=== PATIENT | female | born 1945 | race Caucasian/White ===

== ENCOUNTER 2017-04-06 09:46 | Inpatient (IN) | payer MEDICARE, OTHER, SELFPAY ==
[2017-04-06] VITALS (12 sets, daily range): BP systolic 124–143; BP diastolic 56–73; PULSE 67–93; RESP 16–24; TEMP 36.3–36.9; O2SAT 97–100; BMI 29.2; BMI 28.8
--- NOTE | 2017-04-06 09:54 | RAD_ITS ---
STUDY: X-RAY CHEST REASON FOR EXAM: Female, 71 years old. Cough and shortness of breath. TECHNIQUE: Single AP portable view of the chest. COMPARISON: Comparison is made with prior study dated July 17, 2016. FINDINGS: EKG electrodes are seen. Stable increased linear markings with areas of confluence in the right hemithorax and pleural thickening. This is suggestive of chronic interstitial scarring. Increased markings at the left lung base with blunting of the left costophrenic angle. Normal size heart. Normal mediastinum and dustin. Normal visualized pulmonary arteries. There is atherosclerotic calcification of the aortic arch with tortuosity. Normal visualized thoracic spine. Normal visualized ribs, clavicles, and shoulders. There is no demonstrated abnormality of the visualized soft tissue structures of the upper abdomen. RAD/Chest 1 View (Portable) IMPRESSION: Stable examination suggestive of chronic scarring. Electronically Signed: Charly Barkley MD at 11:42 EST Tel [phone], Service support ,
--- NOTE | 2017-04-06 09:54 | EKG12_ITS ---
Test Reason : Blood Pressure : / mmHG Vent. Rate : 075 BPM Atrial Rate : 078 BPM P-R Int : 000 ms QRS Dur : 136 ms QT Int : 438 ms P-R-T Axes : 000 -21 239 degrees QTc Int : 489 ms Atrial fibrillation Right bundle branch block T wave abnormality, consider inferolateral ischemia Abnormal ECG Confirmed by HIMA GOMES ([id number]), editorial cartoonist GEETA WILDER ([id number]) on 04/07/2017 11:31:27 AM Referred By: SHELBI Confirmed By:HIMA GOMES
--- NOTE | 2017-04-06 10:12 | ED.VISSUMM ---
- ER Visit Summary Date of Service: 04/06/17 Chief Complaint: Shortness of breath with a history of COPD History of Present Illness: The patient is a 71 F COPD history on 3 L nasal cannula O2. Also history of coronary disease one cardiac stent and insulin-dependent diabetic. Patient is on dialysis and was dialyzed earlier today. She is also legally blind. She states she has been short of breath with a cough for the last 11 days. Saw her primary care physician in [place] Dr. Carlson and she was recently on 10 days of antibiotic which she is unsure but thinks it may have been Levaquin. She is currently on no blood thinners and denies chest pain or hemoptysis. But states that she is not getting better. She denies any leg pain or swelling. She has had intermittent fever and chills. She denies vomiting or diarrhea. States she does have a productive cough of yellow phlegm. Physical Examination: Elderly female vital signs are stable afebrile on 2 L she is 98%. She does not seem septic or toxic. HEENT exam unremarkable. Neck nontender no lymphadenopathy. Lungs are very coarse breath sounds with prolonged expiratory phase and rhonchi and a few scattered wheezes. There is no rales. There are equal and symmetrical. Slightly diminished in both bases. Heart is regular rhythm with a 3/6 systolic ejection murmur. Chest wall nontender. Abdomen soft nontender. Normal bowel sounds. She is moving all 4 extremities. She is neurovascularly intact. She has a fistula in her right arm and it is oozing blood. She just had dialysis from that site this morning. Test Results: Chest x-ray shows chronic changes consistent with COPD but no acute process read both by myself the radiologist. EKG is A. fib a rate of 75 with a right bundle branch block which is all seen on a prior EKG. White count of 6. H&H 1136 which is her baseline anemia. BMP shows potassium of 3.2. A creatinine 2.19 she has chronic renal failure and a normal anion gap. Her troponin is normal. Emergency Department Course and Treatment: Patient will undergo cardiac and COPD workup. Possibly could have pneumonia also. She will receive IV steroids and aerosol treatments. Treatment Plan: Repeat exam patient is doing better after aerosols and Solu-Medrol but she does not feel good enough to go home I do think she would warrant further aerosol treatments and steroids in the hospital. I will speak to the hospitalist about admission. The patient I have already discussed this. Disposition: Admission Impression: Acute exacerbation COPD with bronchitis History of coronary artery disease with a cardiac stent. History of insulin-dependent diabetes. End-stage renal disease with history of dialysis. Legally blind This note was generated with [employer] dictation software. It may contain incorrect words, spelling, and punctuation that were not noted in review of the chart prior to signing ED Disposition - Plan for ED Patient: Chief Complaint: Shortness of Breath Referrals: Zeferino Carlson Jr., MD [Primary Care Provider] -
--- NOTE | 2017-04-06 10:16 | ED.DCSUM_ITS ---
- ER Visit Summary Date of Service: 04/06/17 Chief Complaint: Shortness of breath with a history of COPD History of Present Illness: The patient is a 71 F COPD history on 3 L nasal cannula O2. Also history of coronary disease one cardiac stent and insulin- dependent diabetic. Patient is on dialysis and was dialyzed earlier today. She is also legally blind. She states she has been short of breath with a cough for the last 11 days. Saw her primary care physician in [place] Dr. Carlson and she was recently on 10 days of antibiotic which she is unsure but thinks it may have been Levaquin. She is currently on no blood thinners and denies chest pain or hemoptysis. But states that she is not getting better. She denies any leg pain or swelling. She has had intermittent fever and chills. She denies vomiting or diarrhea. States she does have a productive cough of yellow phlegm. Physical Examination: Elderly female vital signs are stable afebrile on 2 L she is 98%. She does not seem septic or toxic. HEENT exam unremarkable. Neck nontender no lymphadenopathy. Lungs are very coarse breath sounds with prolonged expiratory phase and rhonchi and a few scattered wheezes. There is no rales. There are equal and symmetrical. Slightly diminished in both bases. Heart is regular rhythm with a 3/6 systolic ejection murmur. Chest wall nontender. Abdomen soft nontender. Normal bowel sounds. She is moving all 4 extremities. She is neurovascularly intact. She has a fistula in her right arm and it is oozing blood. She just had dialysis from that site this morning. Test Results: Chest x-ray shows chronic changes consistent with COPD but no acute process read both by myself the radiologist. EKG is A. fib a rate of 75 with a right bundle branch block which is all seen on a prior EKG. White count of 6. H&H 1136 which is her baseline anemia. BMP shows potassium of 3.2. A creatinine 2.19 she has chronic renal failure and a normal anion gap. Her troponin is normal. Emergency Department Course and Treatment: Patient will undergo cardiac and COPD workup. Possibly could have pneumonia also. She will receive IV steroids and aerosol treatments. Treatment Plan: Repeat exam patient is doing better after aerosols and Solu- Medrol but she does not feel good enough to go home I do think she would warrant further aerosol treatments and steroids in the hospital. I will speak to the hospitalist about admission. The patient I have already discussed this. Disposition: Admission Impression: Acute exacerbation COPD with bronchitis History of coronary artery disease with a cardiac stent. History of insulin-dependent diabetes. End-stage renal disease with history of dialysis. Legally blind This note was generated with [employer] dictation software. It may contain incorrect words, spelling, and punctuation that were not noted in review of the chart prior to signing ED Disposition - Plan for ED Patient: Chief Complaint: Shortness of Breath Referrals: Zeferino Carlson Jr., MD [Primary Care Provider] -
[2017-04-06] MEDS: Ipratropium/Albuterol Sulfate 3 ML AMPUL.NEB INHALATION ×4 (10:24→23:56)
[2017-04-06] MEDS: Albuterol 2.5 MG/3 ML VIAL.NEB. INHALATION (10:24)
[2017-04-06] MEDS: MethylPREDNISolone 125 MG/2 ML Vial IV (10:36)
[2017-04-06 10:41] LABS: Absolute Lymphocyte Count 1.21 X10^3/ul (0.83-4.51); Basophil# 0.02 X10^3/uL; Basophil% 0.3 % (0-1); Eosinophil# 0.07 X10^3/uL; Hematocrit 36.8 % (37-47); Hemoglobin 11.4 g/dl (12.0-15.0); Lymphocyte # 1.21 X10^3/ul (4.0); Lymphocyte % 17.7 % (19-41); Mean Corpuscular Hgb 32.9 pg (27.0-32.0); Mean Corpuscular Volume 106.1 fL (81-99); Mean Platelet Vol. 10.6 fl (6.2-12.0); Monocyte% 7.3 % (0-10); Neutrophil % 73.4 % (47-70); POSITIVE COUNT NO; POSITIVE DIFFERENTIAL NO; POSITIVE MORPHOLOGY NO; Platelet Count 146 K/mm3 (150-450); RBC Distribution Width CV 14.3 % (11.6-14.6); RBC Distribution Width SD 55.3 fl (35.1-43.9); Red Blood Count 3.47 M/mm3 (4.2-5.4); White Blood Count 6.8 K/mm3 (4.4-11.0)
[2017-04-06 12:13] LABS: Anion Gap 9 (5-15); BUN 14 mg/dL (7-18); BUN/Creat Ratio 6.4 RATIO (10-20); Chloride 96 mmol/L (98-107); Creatinine, Serum 2.19 mg/dL (0.55-1.02); EST Glomerular Filtration Rate 24 mL/min (>60); Est Glom Filt Rate - Afr Amer 29 mL/min (>60); Estimated Creatinine Clearance 24.82 ml/min; Glucose 168 mg/dL (70-110); Potassium 3.2 mmol/L (3.5-5.1); Sodium Level 139 mmol/L (136-145)
--- NOTE | 2017-04-06 12:44 | PCM.HP.STD ---
Problem List (1) COPD with acute exacerbation Status: Acute (2) Legal blindness Status: Chronic (3) Peripheral vascular disease Status: Chronic (4) Diastolic congestive heart failure Status: Chronic Qualifiers: Congestive heart failure chronicity: chronic Qualified Code(s): I50.32 - Chronic diastolic (congestive) heart failure (5) Chronic hypoxemic respiratory failure Status: Chronic (6) Type II diabetes mellitus Status: Chronic Qualifiers: Diabetic retinopathy severity: with unspecified retinopathy severity Diabetes mellitus macular edema: macular edema presence unspecified Diabetes mellitus terminal superintendent insulin use: with shelter use Laterality: bilateral (7) Diabetic retinopathy Status: Chronic Qualifiers: Diabetes mellitus type: type 2 Diabetic retinopathy severity: with unspecified retinopathy severity Diabetes mellitus macular edema: macular edema presence unspecified Laterality: bilateral Qualified Code(s): E11.319 - Type 2 diabetes mellitus with unspecified diabetic retinopathy without macular edema (8) ESRD (end stage renal disease) Status: Chronic Comment: on HD-TUESDAY,TUESDAY,TUESDAY (9) CAD (coronary artery disease) Status: Chronic Qualifiers: Coronary Disease-Associated Artery/Lesion type: unspecified vessel or lesion type Associated angina: with unspecified angina (10) Hypothyroidism Status: Chronic Qualifiers: Hypothyroidism type: unspecified Qualified Code(s): E03.9 - Hypothyroidism, unspecified (11) GERD (gastroesophageal reflux disease) Status: Chronic Qualifiers: Esophagitis presence: without esophagitis Qualified Code(s): K21.9 - Gastro-esophageal reflux disease without esophagitis (12) Sleep apnea Status: Chronic Qualifiers: Sleep apnea type: unspecified type Qualified Code(s): G47.30 - Sleep apnea, unspecified Comment: pt is NOT compliant with CPAP (13) Pulmonary HTN Status: Chronic (14) HLD (hyperlipidemia) Status: Chronic Qualifiers: Hyperlipidemia type: unspecified Qualified Code(s): E78.5 - Hyperlipidemia, unspecified (15) HTN (hypertension) Status: Chronic Qualifiers: Hypertension type: essential hypertension Qualified Code(s): I10 - Essential (primary) hypertension History of Present Illness Date of Admission: 04/06/17 Chief Complaint: SOB ongoing for more than 10 days The patient is a 71 year old F past medical history of chronic respiratory failure secondary to COPD on 3 L home oxygen, who comes in with complaints of shortness of breath ongoing for the past 10 days. Patient has seen her primary care doctor and had been on antibiotics. She still feels very short of breath and says her oxygen saturation dropped at the least amount of weight. She is typically wheelchair bound at home and says oxygen level drops when she is actively folding laundry or sweeping with a broom. Denies any fever or chills but admits to greenish yellowish sputum production. She denies any chest pain or dizziness. Patient had had dialysis today, and came to the ED after dialysis because she felt very unwell. Patient's admitting vitals show temperature of 98F, heart rate was 76, blood pressure was 136/72, respiratory rate was 16, SPO2 is 98% on 2 L of oxygen [] Past Medical History Past Medical History (Chronic Problems): Chronic Problems Chronic ulcer of left foot with fat layer exposed (Chronic) Chronic ulcer of left leg with fat layer exposed (Chronic) Type 2 diabetes mellitus with diabetic neuropathy (Chronic) Ischemic foot ulcer due to atherosclerosis of [place] artery of limb (Chronic) Lumbar compression fracture (Chronic) Atrial fibrillation and flutter (Chronic) NO ON ANTICOAGULATION DUE TO FALL RISK AND NON-COMPLIANCE Legal blindness (Chronic) Poor dental hygiene (Chronic) Peripheral vascular disease (Chronic) Diastolic congestive heart failure (Chronic) Chronic hypoxemic respiratory failure (Chronic) Type II diabetes mellitus (Chronic) Diabetic retinopathy (Chronic) ESRD (end stage renal disease) (Chronic) on HD-TUESDAY,TUESDAY,TUESDAY Restrictive lung disease (Chronic) CAD (coronary artery disease) (Chronic) AV fistula (Chronic) Hypothyroidism (Chronic) GERD (gastroesophageal reflux disease) (Chronic) Sleep apnea (Chronic) pt is NOT compliant with CPAP Pulmonary HTN (Chronic) COPD (chronic obstructive pulmonary disease) (Chronic) Diastolic dysfunction (Chronic) Aortic stenosis, mild (Chronic) Non-compliance (Chronic) S/P PTCA (percutaneous transluminal coronary angioplasty) (Chronic) HLD (hyperlipidemia) (Chronic) HTN (hypertension) (Chronic) Allergies azithromycin [From Zithromax] Allergy (Verified 04/06/17 09:50) Hives Home Medications: Ambulatory Orders Medication Instructions Recorded Levothyroxine [Synthroid] 50 mcg PO DAILY 07/31/13 Omeprazole [Prilosec] 20 mg PO DAILY 07/31/13 Simvastatin [Zocor] 40 mg PO QHS 07/31/13 Folic Acid/Vitamin B Comp W-C 1 capsule PO DAILY 02/20/14 [Nephrocaps, Renaphro] Bumetanide [Bumex] 2 mg PO DAILY 01/28/16 Calcium Acetate [Phoslo Gel Cap] 667 mg PO TIDCM 01/28/16 Loratadine [Claritin] 10 mg PO DAILY PRN 01/28/16 Oxycodone [Oxyir] 5 mg PO Q4H PRN PRN #30 tablet 06/09/16 Insulin Aspart [Novolog Flexpen] 0 units SC TIDCM 09/30/16 Guaifenesin [Mucinex] 600 mg PO BID 04/06/17 Ranitidine HCl 75 mg PO DAILY 04/06/17 Surgical History: adenoidectomy, cholecystectomy, tonsillectomy, - - Right upper fistula repair, right toe amputation, right hip fracture w/ fixation. Psychiatric History: No pertinent psych hx [employer] POLICE OFFICER History: No pertinent SPECIAL POLICE OFFICER history Smoking Status: Never smoker - *Family History Maternal History Items: COPD Paternal History Items: Diabetes, Heart Disease, Hypertension Review of Systems Constitutional: Reports: Weakness. Denies: Anorexia, Chills, Fever, Malaise, Weight Change Eyes: Denies: Blurred vision, Cataracts, Conjunctivae Inflammation HEENT: Denies: Difficulty Hearing, Difficulty Swallowing, Head Aches, Hearing Changes, Sinus Congestion, Sinus Drainage Cardiovascular: Denies: Chest Pain, Chest Pressure, Chest Tightness, Orthopnea, Palpitations, Paroxysmal Noc. Dyspnea, Syncope Respiratory: Reports: Cough, Hemoptysis - occasional, Shortness of Breath, Shortness of breath at rest, Shortness of breath upon exertion. Denies: Sputum production Gastrointestinal: Denies: Abdominal Pain, Constipation, Hematemesis, Nausea, Vomiting Genitourinary: Denies: Dysuria, Frequency Gynecological: Denies: Breast symptoms Musculoskeletal: Denies: Joint Pain, Joint stiffness, Joint swelling, Joint Tenderness Skin: Denies: Dryness, Jaundice, Rash, Wounds Neurological: Denies: Numbness, Tingling, Focal weakness Psychiatric: Denies: Anxiety, Depression, Homicidal Ideations, Suicidal Ideations Endocrine: Denies: Change in Body Habitus, Heat/ Cold Intolerance, Polyuria Hematologic/ Lymphatic: Denies: Easy Bruising, Easy Bleeding VTE Information - Inpt Only VTE Present on Admission: No VTE Pharm Prophylaxis ordered?: Yes Patient Problems: Active and Suspected Problems COPD with acute exacerbation (Acute) - Physical Exam General: Alert, Oriented x3, Cooperative, - - on 2-3 L oxygen HEENT: Atraumatic, PERRLA, EOMI, Normocephalic Oral: Moist Mucosa Neck: Supple Lungs: Normal air movement, Diminished - no wheezes heard Cardiovascular: Regular rate, Regular Rhythm, Normal S1, Normal S2, No murmurs Abdomen: Bowel Sounds Present, Soft, Non Tender, Non-Distended, No Hepato-splenomegaly Extremities: No edema, - - Dressing over the right upper extremity fistula Skin: No rashes Musculoskeletal: No Tenderness to Palpation of Joints or Extremities Lymphatic: No Cervical, Supraclavicular, or Inguinal Adenopathy Neurological: Cranial nerves II-XII grossly intact, Neuro grossly intact Psych/Mental Status: Normal Affect, Appropriate Vital Signs Temp Pulse Resp BP Pulse Ox 98.0 F 82 24 H 124/56 H 97 04/06/17 09:48 04/06/17 11:37 04/06/17 10:24 04/06/17 11:37 04/06/17 11:37 Oxygen Flow Rate 2 Oxygen Delivery Method Nasal Cannula Weight: 65.771 kg Body Mass Index (BMI) 29.2 Finger Stick Blood Glucose 136 Laboratory Tests Past 24 Hrs 04/06/17 04/06/17 04/06/17 10:32 10:32 11:36 WBC 6.8 RBC 3.47 L Hgb 11.4 L Hct 36.8 L MCV 106.1 H MCH 32.9 H MCHC 31.0 L RDW 14.3 RDW Differential 55.3 H Plt Count 146 L MPV 10.6 Immature Gran % (Auto) 0.300 Neut % (Auto) 73.4 H Lymph % (Auto) 17.7 L Mineral % (Auto) 7.3 Eos % (Auto) 1.0 Baso % (Auto) 0.3 Absolute Neuts (auto) 5.0 Absolute Lymphs (auto) 1.21 Total Counted Not Reportable Sodium Cancelled 139 Potassium Cancelled 3.2 L Chloride Cancelled 96 L Carbon Dioxide Cancelled 34.0 H Anion Gap Cancelled 9 BUN Cancelled 14 Creatinine Cancelled 2.19 H Estim Creat Clear Calc Cancelled 24.82 Est GFR (MDRD) Af Amer Cancelled 29 L Est GFR (MDRD) Non-Af Cancelled 24 L BUN/Creatinine Ratio Cancelled 6.4 L Glucose Cancelled 168 H Calcium Cancelled 8.0 L Troponin I Cancelled 0.03 Assessment/Plan Active and Suspected Problems COPD with acute exacerbation (Acute) 71 y/o female with chronic resp insufficiency secondary to COPD, ESRD on HD comes in with worsening shortness of breath. 1. Acute COPD exacerbation in a patient with chronic respiratory insufficiency secondary to COPD, on 3 L of oxygen, Admit toPlan: Admit to MS, telemetry, breathing treatment, IV solumedrol, to continue with po prednisone, continue oxygen per protocol, Patient has recently been on antibiotics so would not recommend continuing on antibiotics 2. ESRD on HD, will consult nephrology for maintenance dialysis 3. Hypokalemia, replaced, recheck in am 4. Hypothyroidism, replacement 5. CAD s/p stent, on aspirin, statin, 6. Hyperlipidemia, on statin 7. DVT PPx - Heparin SC Code Visit OBSV E&M: [id number] Initial observation care L3
--- NOTE | 2017-04-06 12:49 | HP.PCM_ITS ---
Problem List (1) COPD with acute exacerbation Status: Acute (2) Legal blindness Status: Chronic (3) Peripheral vascular disease Status: Chronic (4) Diastolic congestive heart failure Status: Chronic Qualifiers: Congestive heart failure chronicity: chronic Qualified Code(s): I50.32 - Chronic diastolic (congestive) heart failure (5) Chronic hypoxemic respiratory failure Status: Chronic (6) Type II diabetes mellitus Status: Chronic Qualifiers: Diabetic retinopathy severity: with unspecified retinopathy severity Diabetes mellitus macular edema: macular edema presence unspecified Diabetes mellitus long term care phlebotomist insulin use: with longterm use Laterality: bilateral (7) Diabetic retinopathy Status: Chronic Qualifiers: Diabetes mellitus type: type 2 Diabetic retinopathy severity: with unspecified retinopathy severity Diabetes mellitus macular edema: macular edema presence unspecified Laterality: bilateral Qualified Code(s): E11.319 - Type 2 diabetes mellitus with unspecified diabetic retinopathy without macular edema (8) ESRD (end stage renal disease) Status: Chronic Comment: on HD-TUESDAY,TUESDAY,TUESDAY (9) CAD (coronary artery disease) Status: Chronic Qualifiers: Coronary Disease-Associated Artery/Lesion type: unspecified vessel or lesion type Associated angina: with unspecified angina (10) Hypothyroidism Status: Chronic Qualifiers: Hypothyroidism type: unspecified Qualified Code(s): E03.9 - Hypothyroidism , unspecified (11) GERD (gastroesophageal reflux disease) Status: Chronic Qualifiers: Esophagitis presence: without esophagitis Qualified Code(s): K21.9 - Gastro -esophageal reflux disease without esophagitis (12) Sleep apnea Status: Chronic Qualifiers: Sleep apnea type: unspecified type Qualified Code(s): G47.30 - Sleep apnea , unspecified Comment: pt is NOT compliant with CPAP (13) Pulmonary HTN Status: Chronic (14) HLD (hyperlipidemia) Status: Chronic Qualifiers: Hyperlipidemia type: unspecified Qualified Code(s): E78.5 - Hyperlipidemia , unspecified (15) HTN (hypertension) Status: Chronic Qualifiers: Hypertension type: essential hypertension Qualified Code(s): I10 - Essential (primary) hypertension History of Present Illness Date of Admission: 04/06/17 Chief Complaint: SOB ongoing for more than 10 days The patient is a 71 year old F past medical history of chronic respiratory failure secondary to COPD on 3 L home oxygen, who comes in with complaints of shortness of breath ongoing for the past 10 days. Patient has seen her primary care doctor and had been on antibiotics. She still feels very short of breath and says her oxygen saturation dropped at the least amount of weight. She is typically wheelchair bound at home and says oxygen level drops when she is actively folding laundry or sweeping with a broom. Denies any fever or chills but admits to greenish yellowish sputum production. She denies any chest pain or dizziness. Patient had had dialysis today, and came to the ED after dialysis because she felt very unwell. Patient's admitting vitals show temperature of 98F, heart rate was 76, blood pressure was 136/72, respiratory rate was 16, SPO2 is 98% on 2 L of oxygen [] Past Medical History Past Medical History (Chronic Problems): Chronic Problems Chronic ulcer of left foot with fat layer exposed (Chronic) Chronic ulcer of left leg with fat layer exposed (Chronic) Type 2 diabetes mellitus with diabetic neuropathy (Chronic) Ischemic foot ulcer due to atherosclerosis of [place] artery of limb (Chronic) Lumbar compression fracture (Chronic) Atrial fibrillation and flutter (Chronic) NO ON ANTICOAGULATION DUE TO FALL RISK AND NON-COMPLIANCE Legal blindness (Chronic) Poor dental hygiene (Chronic) Peripheral vascular disease (Chronic) Diastolic congestive heart failure (Chronic) Chronic hypoxemic respiratory failure (Chronic) Type II diabetes mellitus (Chronic) Diabetic retinopathy (Chronic) ESRD (end stage renal disease) (Chronic) on HD-TUESDAY,TUESDAY,TUESDAY Restrictive lung disease (Chronic) CAD (coronary artery disease) (Chronic) AV fistula (Chronic) Hypothyroidism (Chronic) GERD (gastroesophageal reflux disease) (Chronic) Sleep apnea (Chronic) pt is NOT compliant with CPAP Pulmonary HTN (Chronic) COPD (chronic obstructive pulmonary disease) (Chronic) Diastolic dysfunction (Chronic) Aortic stenosis, mild (Chronic) Non-compliance (Chronic) S/P PTCA (percutaneous transluminal coronary angioplasty) (Chronic) HLD (hyperlipidemia) (Chronic) HTN (hypertension) (Chronic) Allergies azithromycin [From Zithromax] Allergy (Verified 04/06/17 09:50) Hives Home Medications: Ambulatory Orders Medication Instructions Recorded Levothyroxine [Synthroid] 50 mcg PO DAILY 07/31/13 Omeprazole [Prilosec] 20 mg PO DAILY 07/31/13 Simvastatin [Zocor] 40 mg PO QHS 07/31/13 Folic Acid/Vitamin B Comp W-C 1 capsule PO DAILY 02/20/14 [Nephrocaps, Renaphro] Bumetanide [Bumex] 2 mg PO DAILY 01/28/16 Calcium Acetate [Phoslo Gel Cap] 667 mg PO TIDCM 01/28/16 Loratadine [Claritin] 10 mg PO DAILY PRN 01/28/16 Oxycodone [Oxyir] 5 mg PO Q4H PRN PRN #30 tablet 06/09/16 Insulin Aspart [Novolog Flexpen] 0 units SC TIDCM 09/30/16 Guaifenesin [Mucinex] 600 mg PO BID 04/06/17 Ranitidine HCl 75 mg PO DAILY 04/06/17 Surgical History: adenoidectomy, cholecystectomy, tonsillectomy, - - Right upper fistula repair, right toe amputation, right hip fracture w/ fixation. Psychiatric History: No pertinent psych hx RESIDENTIAL DOOR INSTALLER History: No pertinent RESIDENTIAL DOOR INSTALLER history Smoking Status: Never smoker - *Family History Maternal History Items: COPD Paternal History Items: Diabetes, Heart Disease, Hypertension Review of Systems Constitutional: Reports: Weakness. Denies: Anorexia, Chills, Fever, Malaise, Weight Change Eyes: Denies: Blurred vision, Cataracts, Conjunctivae Inflammation HEENT: Denies: Difficulty Hearing, Difficulty Swallowing, Head Aches, Hearing Changes, Sinus Congestion, Sinus Drainage Cardiovascular: Denies: Chest Pain, Chest Pressure, Chest Tightness, Orthopnea, Palpitations, Paroxysmal Noc. Dyspnea, Syncope Respiratory: Reports: Cough, Hemoptysis - occasional, Shortness of Breath, Shortness of breath at rest, Shortness of breath upon exertion. Denies: Sputum production Gastrointestinal: Denies: Abdominal Pain, Constipation, Hematemesis, Nausea, Vomiting Genitourinary: Denies: Dysuria, Frequency Gynecological: Denies: Breast symptoms Musculoskeletal: Denies: Joint Pain, Joint stiffness, Joint swelling, Joint Tenderness Skin: Denies: Dryness, Jaundice, Rash, Wounds Neurological: Denies: Numbness, Tingling, Focal weakness Psychiatric: Denies: Anxiety, Depression, Homicidal Ideations, Suicidal Ideations Endocrine: Denies: Change in Body Habitus, Heat/ Cold Intolerance, Polyuria Hematologic/ Lymphatic: Denies: Easy Bruising, Easy Bleeding VTE Information - Inpt Only VTE Present on Admission: No VTE Pharm Prophylaxis ordered?: Yes Patient Problems: Active and Suspected Problems COPD with acute exacerbation (Acute) - Physical Exam General: Alert, Oriented x3, Cooperative, - - on 2-3 L oxygen HEENT: Atraumatic, PERRLA, EOMI, Normocephalic Oral: Moist Mucosa Neck: Supple Lungs: Normal air movement, Diminished - no wheezes heard Cardiovascular: Regular rate, Regular Rhythm, Normal S1, Normal S2, No murmurs Abdomen: Bowel Sounds Present, Soft, Non Tender, Non-Distended, No Hepato- splenomegaly Extremities: No edema, - - Dressing over the right upper extremity fistula Skin: No rashes Musculoskeletal: No Tenderness to Palpation of Joints or Extremities Lymphatic: No Cervical, Supraclavicular, or Inguinal Adenopathy Neurological: Cranial nerves II-XII grossly intact, Neuro grossly intact Psych/Mental Status: Normal Affect, Appropriate Vital Signs Temp Pulse Resp BP Pulse Ox 98.0 F 82 24 H 124/56 H 97 04/06/17 09:48 04/06/17 11:37 04/06/17 10:24 04/06/17 11:37 04/06/17 11:37 Oxygen Flow Rate 2 Oxygen Delivery Method Nasal Cannula Weight: 65.771 kg Body Mass Index (BMI) 29.2 Finger Stick Blood Glucose 136 Laboratory Tests Past 24 Hrs 04/06/17 04/06/17 04/06/17 10:32 10:32 11:36 WBC 6.8 RBC 3.47 L Hgb 11.4 L Hct 36.8 L MCV 106.1 H MCH 32.9 H MCHC 31.0 L RDW 14.3 RDW Differential 55.3 H Plt Count 146 L MPV 10.6 Immature Gran % (Auto) 0.300 Neut % (Auto) 73.4 H Lymph % (Auto) 17.7 L [place] % (Auto) 7.3 Eos % (Auto) 1.0 Baso % (Auto) 0.3 Absolute Neuts (auto) 5.0 Absolute Lymphs (auto) 1.21 Total Counted Not Reportable Sodium Cancelled 139 Potassium Cancelled 3.2 L Chloride Cancelled 96 L Carbon Dioxide Cancelled 34.0 H Anion Gap Cancelled 9 BUN Cancelled 14 Creatinine Cancelled 2.19 H Estim Creat Clear Calc Cancelled 24.82 Est GFR (MDRD) Af Amer Cancelled 29 L Est GFR (MDRD) Non-Af Cancelled 24 L BUN/Creatinine Ratio Cancelled 6.4 L Glucose Cancelled 168 H Calcium Cancelled 8.0 L Troponin I Cancelled 0.03 Assessment/Plan Active and Suspected Problems COPD with acute exacerbation (Acute) 71 y/o female with chronic resp insufficiency secondary to COPD, ESRD on HD comes in with worsening shortness of breath. 1. Acute COPD exacerbation in a patient with chronic respiratory insufficiency secondary to COPD, on 3 L of oxygen, Admit toPlan: Admit to MS, telemetry, breathing treatment, IV solumedrol, to continue with po prednisone, continue oxygen per protocol, Patient has recently been on antibiotics so would not recommend continuing on antibiotics 2. ESRD on HD, will consult nephrology for maintenance dialysis 3. Hypokalemia, replaced, recheck in am 4. Hypothyroidism, replacement 5. CAD s/p stent, on aspirin, statin, 6. Hyperlipidemia, on statin 7. DVT PPx - Heparin SC Code Visit OBSV E&M: [id number] Initial observation care L3
[2017-04-06] MEDS: Nepro Liquid 120 ML LIQUID PO (18:47)
[2017-04-06 19:01] LABS: Bedside Glucose 422 mg/dL (70-110)
[2017-04-06] MEDS: 0.9% NaCl Peripheral Flush Adult/Peds IV (20:23)
[2017-04-06] MEDS: Heparin Injection 5,000 UNITS/ML Syringe 5000 UNITS SC (22:30)
[2017-04-06] MEDS: guaiFENesin 1,200 MG Tablet 1200 MG PO (22:31)
[2017-04-06] MEDS: Atorvastatin Calcium 20 MG Tablet PO (22:31)
[2017-04-06] MEDS: Senna/Docusate Sodium 1 Tablet 2 TABLET PO (22:34)
[2017-04-06 22:46] LABS: Bedside Glucose 464 mg/dL (70-110)
[2017-04-06] MEDS: Ondansetron ODT 4 MG Tablet 8 MG PO (22:57)
[2017-04-07] VITALS (17 sets, daily range): BP systolic 123–154; BP diastolic 63–88; PULSE 72–89; RESP 18–22; TEMP 36.3–36.6; O2SAT 94–100
[2017-04-07 02:25] LABS: Bedside Glucose 298 mg/dL (70-110)
[2017-04-07] MEDS: Ipratropium/Albuterol Sulfate 3 ML AMPUL.NEB INHALATION ×6 (04:00→23:23)
[2017-04-07] MEDS: Levothyroxine 50 MCG Tablet PO (06:44)
[2017-04-07] MEDS: 0.9% NaCl Peripheral Flush Adult/Peds IV ×4 (06:44→22:01)
[2017-04-07] MEDS: Pantoprazole Sodium 20 MG Tablet PO (06:47)
[2017-04-07 06:52] LABS: Absolute Lymphocyte Count 0.52 X10^3/ul (0.83-4.51); Absolute Neutrophil Count 4.5 X10^3/uL (2.0-7.7); Hematocrit 37.2 % (37-47); Hemoglobin 11.5 g/dl (12.0-15.0); Lymphocyte # 0.52 X10^3/ul (4.0); Lymphocyte % 10.2 % (19-41); Mean Corp Hgb Conc 30.9 g/gl (32-36); Mean Corpuscular Volume 106.6 fL (81-99); Mean Platelet Vol. 10.8 fl (6.2-12.0); Monocyte# 0.12 X10^3/uL; Monocyte% 2.4 % (0-10); Neutrophil # 4.45 X10^3/uL (2.7-7.7); Neutrophil % 87.4 % (47-70); Platelet Count 148 K/mm3 (150-450); RBC Distribution Width CV 14.4 % (11.6-14.6); RBC Distribution Width SD 55.3 fl (35.1-43.9); Red Blood Count 3.49 M/mm3 (4.2-5.4); White Blood Count 5.1 K/mm3 (4.4-11.0)
[2017-04-07 07:01] LABS: Bedside Glucose 166 mg/dL (70-110)
[2017-04-07 07:02] LABS: Differential Indicated SCAN CRITERIA MET; POSITIVE COUNT NO; POSITIVE DIFFERENTIAL YES; POSITIVE MORPHOLOGY NO
[2017-04-07 07:20] LABS: Differential Comment SCANNED
[2017-04-07 08:20] LABS: Hemoglobin A1c 7.2 % (4.2-6.3)
[2017-04-07] MEDS: Folic Acid/Vitamin B Comp W-C 1 Capsule 1 CAP PO (10:42)
[2017-04-07] MEDS: Aspirin 81 MG TAB.CHEW PO (10:42)
[2017-04-07] MEDS: Heparin Injection 5,000 UNITS/ML Syringe 5000 UNITS SC ×2 (10:43→22:02)
[2017-04-07] MEDS: Calcium Acetate 667 MG Capsule PO ×3 (10:43→16:45)
[2017-04-07] MEDS: Bumetanide 2 MG Tablet PO (10:45)
[2017-04-07] MEDS: guaiFENesin 1,200 MG Tablet 1200 MG PO ×2 (10:46→22:01)
[2017-04-07] MEDS: Senna/Docusate Sodium 1 Tablet 2 TABLET PO ×2 (10:46→22:01)
[2017-04-07] MEDS: Nepro Liquid 120 ML LIQUID PO ×4 (10:50→22:00)
[2017-04-07 11:16] LABS: Bedside Glucose 210 mg/dL (70-110)
--- NOTE | 2017-04-07 12:09 | PCM.CONS.R ---
Problem List (1) ESRD (end stage renal disease) Status: Acute Consultation - Renal 04/07/17 PCP/ Referring MD: Requesting physician: Dr Dejesus Primary care physician: Zeferino Carlson Reason for Consultation:: ESRD - History of Present Illness History of Present Illness: The patient is a 71 year old F well known to us ESRD on HD MWF schedule, last HD was yesterday had URI for last 10 days, got abx with no significant improvement currently being treated for COPD exacerbation feels better today - Allergies Allergies: Allergies azithromycin [From Zithromax] Allergy (Verified 04/06/17 09:50) Hives - Current Medications Current Medications: Current Medications Albuterol Sulfate (Ventolin Aerosols) 2.5 mg INHALATION Q2H PRN PRN PRN Reason: SHORTNESS OF BREATH Albuterol/Ipratropium (Duoneb) 3 ml INHALATION Q4H.RT [facility] Last Admin: 04/07/17 10:53 Dose: 3 ml Aspirin (Aspirin, Baby) 81 mg PO DAILY@0800 [facility] [place] Last Admin: 04/07/17 10:42 Dose: 81 mg Atorvastatin Calcium (Lipitor) 20 mg PO QHS [facility] [place] Last Admin: 04/06/17 22:31 Dose: 20 mg Bumetanide (Bumex) 2 mg PO DAILY [facility] Last Admin: 04/07/17 10:45 Dose: 2 mg Calcium Acetate (Phoslo Gel Cap) 667 mg PO TIDCM [facility] Last Admin: 04/07/17 11:07 Dose: 667 mg Dextrose (D50w Syringe) 0 gm IV X1 PRN; Protocol PRN Reason: Hypoglycemia Glucagon () 1 mg IM .X1 PRN PRN Reason: Hypoglycemia Guaifenesin (Mucinex) 1,200 mg PO BID [facility] Last Admin: 04/07/17 10:46 Dose: 1,200 mg Heparin Sodium (Porcine) () 5,000 units SC BID [facility] Last Admin: 04/07/17 10:43 Dose: 5,000 units Insulin Aspart (Novolog Flexpen (Bkc)) 0 units SC ACHS [facility] PRN Reason: Protocol Last Admin: 04/07/17 10:46 Dose: 6 units Insulin Detemir (Levemir (Bkc)) 15 units SC BID [facility] Last Admin: 04/07/17 10:46 Dose: 15 units Levothyroxine Sodium (Synthroid) 50 mcg PO DAILY@0600 [facility] [place] Last Admin: 04/07/17 06:44 Dose: 50 mcg Loratadine (Claritin) 10 mg PO DAILY PRN PRN Reason: ALLERGIES Magnesium Hydroxide (Milk Of Magnesia) 30 ml PO DAILY PRN PRN PRN Reason: Constipation Methylprednisolone (Solu-Medrol) 40 mg IV Q8 [facility] Stop: 04/07/17 22:01 Last Admin: 04/07/17 06:44 Dose: 40 mg Multivit/Ca Carb/B Cmplx/FA/Prenat (Nephrocaps, Renaphro) 1 capsule PO DAILYCM [facility] [place] Last Admin: 04/07/17 10:42 Dose: 1 capsule Nutritional Formula (Nepro Carb Steady) 120 ml PO 4X/DAY [facility] [place] Last Admin: 04/07/17 10:50 Dose: 120 ml Ondansetron HCl (Zofran) 4 mg IV Q8H PRN PRN PRN Reason: Nausea Ondansetron HCl (Zofran Odt) 8 mg PO Q8H PRN PRN PRN Reason: nausea, emesis Last Admin: 04/06/17 22:57 Dose: 8 mg Oxycodone HCl (Oxyir) 5 mg PO Q4H PRN PRN PRN Reason: Moderate Pain (pain scale 4-5) Pantoprazole Sodium (Protonix) 20 mg PO DAILY [facility] [place] Last Admin: 04/07/17 06:47 Dose: 20 mg Prednisone (Prednisone) 40 mg PO DAILY@0800 [facility] Psyllium Hydrophilic Mucilloid (Metamucil) 1 packet PO DAILY PRN PRN PRN Reason: CONSTIPATION Senna/Docusate Sodium (Senokot-S, Nati-Colace) 2 tablet PO BID [facility] [place] Last Admin: 04/07/17 10:46 Dose: 2 tablet Sodium Chloride () 5 - 30 ml IV UD PRN PRN Reason: SALINE FLUSH Last Admin: 04/07/17 06:44 Dose: 10 ml - Past Medical History Past Medical History (Chronic Problems): Chronic Problems Chronic ulcer of left foot with fat layer exposed (Chronic) Chronic ulcer of left leg with fat layer exposed (Chronic) Type 2 diabetes mellitus with diabetic neuropathy (Chronic) Ischemic foot ulcer due to atherosclerosis of [place] artery of limb (Chronic) Lumbar compression fracture (Chronic) Atrial fibrillation and flutter (Chronic) NO ON ANTICOAGULATION DUE TO FALL RISK AND NON-COMPLIANCE Legal blindness (Chronic) Poor dental hygiene (Chronic) Peripheral vascular disease (Chronic) Diastolic congestive heart failure (Chronic) Chronic hypoxemic respiratory failure (Chronic) Type II diabetes mellitus (Chronic) Diabetic retinopathy (Chronic) ESRD (end stage renal disease) (Chronic) on HD-TUESDAY,TUESDAY,TUESDAY Restrictive lung disease (Chronic) CAD (coronary artery disease) (Chronic) AV fistula (Chronic) Hypothyroidism (Chronic) GERD (gastroesophageal reflux disease) (Chronic) Sleep apnea (Chronic) pt is NOT compliant with CPAP Pulmonary HTN (Chronic) COPD (chronic obstructive pulmonary disease) (Chronic) Diastolic dysfunction (Chronic) Aortic stenosis, mild (Chronic) Non-compliance (Chronic) S/P PTCA (percutaneous transluminal coronary angioplasty) (Chronic) HLD (hyperlipidemia) (Chronic) HTN (hypertension) (Chronic) - Past Surgical History Surgical History: adenoidectomy, cholecystectomy, tonsillectomy, - - Right upper fistula repair, right toe amputation, right hip fracture w/ fixation. - Social History Smoking Status: Never smoker - Family History Maternal History Items: COPD Paternal History Items: Diabetes, Heart Disease, Hypertension Review of Systems Constitutional: Denies: Chills, Fever, Weight Change HEENT: Denies: Head Aches, Sinus Congestion, Sinus Drainage Cardiovascular: Denies: Chest Pain, Palpitations Respiratory: Denies: Cough, Shortness of breath at rest, Sputum production Gastrointestinal: Denies: Abdominal Pain, Nausea, Vomiting Genitourinary: Denies: Dysuria Musculoskeletal: Denies: Joint Pain, Joint Tenderness Skin: Denies: Rash, Wounds Neurological: Denies: Numbness, Tingling, Focal weakness Psychiatric: Denies: Anxiety, Depression, Homicidal Ideations, Suicidal Ideations Hematologic/ Lymphatic: Denies: Easy Bruising, Easy Bleeding Patient Problems: Active and Suspected Problems COPD with acute exacerbation (Acute) ESRD (end stage renal disease) (Acute) - Physical Exam Vital Signs Temp Pulse Resp BP Pulse Ox 97.4 F L 76 20 H 154/83 H 99 04/07/17 10:30 04/07/17 10:53 04/07/17 10:53 04/07/17 10:30 04/07/17 10:30 Oxygen Flow Rate 3 Oxygen Delivery Method Nasal Cannula Weight: 65.1 kg Body Mass Index (BMI) 28.8 Intake and Output for Last 24 Hours 04/05/17 04/06/17 04/07/17 23:59 23:59 23:59 Intake Total 190 / 190 Balance 190 / 190 Laboratory Tests Past 24 Hrs 04/07/17 04/07/17 06:10 06:10 WBC 5.1 RBC 3.49 L Hgb 11.5 L Hct 37.2 MCV 106.6 H MCH 33.0 H MCHC 30.9 L RDW 14.4 RDW Differential 55.3 H Plt Count 148 L MPV 10.8 Immature Gran % (Auto) 0.000 Neut % (Auto) 87.4 H Lymph % (Auto) 10.2 L [place] % (Auto) 2.4 Eos % (Auto) 0.0 Baso % (Auto) 0.0 Absolute Neuts (auto) 4.5 Absolute Lymphs (auto) 0.52 L Total Counted Not Reportable Differential Comment SCANNED Hemoglobin A1c 7.2 H POC Glucose 04/07/17 04/07/17 04/07/17 10:41 06:41 02:10 POC Glucose 210 H 166 H 298 H 04/06/17 04/06/17 22:27 18:54 POC Glucose 464 H* 422 H Assessment/Plan Active and Suspected Problems COPD with acute exacerbation (Acute) ESRD (end stage renal disease) (Acute) ESRD. on HD MWF schedule. Next HD tomorrow Dyspnea. likely related to URI. CXR looks ok, no fluid, treatment as per primary
--- NOTE | 2017-04-07 12:12 | CON.PCM_ITS ---
Problem List (1) ESRD (end stage renal disease) Status: Acute Consultation - Renal 04/07/17 PCP/ Referring MD: Requesting physician: Dr Dejesus Primary care physician: Zeferino Carlson Reason for Consultation:: ESRD - History of Present Illness History of Present Illness: The patient is a 71 year old F well known to us ESRD on HD MWF schedule, last HD was yesterday had URI for last 10 days, got abx with no significant improvement currently being treated for COPD exacerbation feels better today - Allergies Allergies: Allergies azithromycin [From Zithromax] Allergy (Verified 04/06/17 09:50) Hives - Current Medications Current Medications: Current Medications Albuterol Sulfate (Ventolin Aerosols) 2.5 mg INHALATION Q2H PRN PRN PRN Reason: SHORTNESS OF BREATH Albuterol/Ipratropium (Duoneb) 3 ml INHALATION Q4H.RT [facility] Last Admin: 04/07/17 10:53 Dose: 3 ml Aspirin (Aspirin, Baby) 81 mg PO DAILY@0800 [facility] Last Admin: 04/07/17 10:42 Dose: 81 mg Atorvastatin Calcium (Lipitor) 20 mg PO QHS [facility] Last Admin: 04/06/17 22:31 Dose: 20 mg Bumetanide (Bumex) 2 mg PO DAILY [facility] Last Admin: 04/07/17 10:45 Dose: 2 mg Calcium Acetate (Phoslo Gel Cap) 667 mg PO TIDCM [facility] Last Admin: 04/07/17 11:07 Dose: 667 mg Dextrose (D50w Syringe) 0 gm IV X1 PRN; Protocol PRN Reason: Hypoglycemia Glucagon () 1 mg IM .X1 PRN PRN Reason: Hypoglycemia Guaifenesin (Mucinex) 1,200 mg PO BID [facility] Last Admin: 04/07/17 10:46 Dose: 1,200 mg Heparin Sodium (Porcine) () 5,000 units SC BID [facility] Last Admin: 04/07/17 10:43 Dose: 5,000 units Insulin Aspart (Novolog Flexpen (Bkc)) 0 units SC ACHS [facility] PRN Reason: Protocol Last Admin: 04/07/17 10:46 Dose: 6 units Insulin Detemir (Levemir (Bkc)) 15 units SC BID [facility] Last Admin: 04/07/17 10:46 Dose: 15 units Levothyroxine Sodium (Synthroid) 50 mcg PO DAILY@0600 [facility] Last Admin: 04/07/17 06:44 Dose: 50 mcg Loratadine (Claritin) 10 mg PO DAILY PRN PRN Reason: ALLERGIES Magnesium Hydroxide (Milk Of Magnesia) 30 ml PO DAILY PRN PRN PRN Reason: Constipation Methylprednisolone (Solu-Medrol) 40 mg IV Q8 [facility] Stop: 04/07/17 22:01 Last Admin: 04/07/17 06:44 Dose: 40 mg Multivit/Ca Carb/B Cmplx/FA/Prenat (Nephrocaps, Renaphro) 1 capsule PO DAILYCM [facility] Last Admin: 04/07/17 10:42 Dose: 1 capsule Nutritional Formula (Nepro Carb Steady) 120 ml PO 4X/DAY [facility] Last Admin: 04/07/17 10:50 Dose: 120 ml Ondansetron HCl (Zofran) 4 mg IV Q8H PRN PRN PRN Reason: Nausea Ondansetron HCl (Zofran Odt) 8 mg PO Q8H PRN PRN PRN Reason: nausea, emesis Last Admin: 04/06/17 22:57 Dose: 8 mg Oxycodone HCl (Oxyir) 5 mg PO Q4H PRN PRN PRN Reason: Moderate Pain (pain scale 4-5) Pantoprazole Sodium (Protonix) 20 mg PO DAILY [facility] Last Admin: 04/07/17 06:47 Dose: 20 mg Prednisone (Prednisone) 40 mg PO DAILY@0800 [facility] Psyllium Hydrophilic Mucilloid (Metamucil) 1 packet PO DAILY PRN PRN PRN Reason: CONSTIPATION Senna/Docusate Sodium (Senokot-S, Nati-Colace) 2 tablet PO BID [facility] Last Admin: 04/07/17 10:46 Dose: 2 tablet Sodium Chloride () 5 - 30 ml IV UD PRN PRN Reason: SALINE FLUSH Last Admin: 04/07/17 06:44 Dose: 10 ml - Past Medical History Past Medical History (Chronic Problems): Chronic Problems Chronic ulcer of left foot with fat layer exposed (Chronic) Chronic ulcer of left leg with fat layer exposed (Chronic) Type 2 diabetes mellitus with diabetic neuropathy (Chronic) Ischemic foot ulcer due to atherosclerosis of [place] artery of limb (Chronic) Lumbar compression fracture (Chronic) Atrial fibrillation and flutter (Chronic) NO ON ANTICOAGULATION DUE TO FALL RISK AND NON-COMPLIANCE Legal blindness (Chronic) Poor dental hygiene (Chronic) Peripheral vascular disease (Chronic) Diastolic congestive heart failure (Chronic) Chronic hypoxemic respiratory failure (Chronic) Type II diabetes mellitus (Chronic) Diabetic retinopathy (Chronic) ESRD (end stage renal disease) (Chronic) on HD-TUESDAY,TUESDAY,TUESDAY Restrictive lung disease (Chronic) CAD (coronary artery disease) (Chronic) AV fistula (Chronic) Hypothyroidism (Chronic) GERD (gastroesophageal reflux disease) (Chronic) Sleep apnea (Chronic) pt is NOT compliant with CPAP Pulmonary HTN (Chronic) COPD (chronic obstructive pulmonary disease) (Chronic) Diastolic dysfunction (Chronic) Aortic stenosis, mild (Chronic) Non-compliance (Chronic) S/P PTCA (percutaneous transluminal coronary angioplasty) (Chronic) HLD (hyperlipidemia) (Chronic) HTN (hypertension) (Chronic) - Past Surgical History Surgical History: adenoidectomy, cholecystectomy, tonsillectomy, - - Right upper fistula repair, right toe amputation, right hip fracture w/ fixation. - Social History Smoking Status: Never smoker - Family History Maternal History Items: COPD Paternal History Items: Diabetes, Heart Disease, Hypertension Review of Systems Constitutional: Denies: Chills, Fever, Weight Change HEENT: Denies: Head Aches, Sinus Congestion, Sinus Drainage Cardiovascular: Denies: Chest Pain, Palpitations Respiratory: Denies: Cough, Shortness of breath at rest, Sputum production Gastrointestinal: Denies: Abdominal Pain, Nausea, Vomiting Genitourinary: Denies: Dysuria Musculoskeletal: Denies: Joint Pain, Joint Tenderness Skin: Denies: Rash, Wounds Neurological: Denies: Numbness, Tingling, Focal weakness Psychiatric: Denies: Anxiety, Depression, Homicidal Ideations, Suicidal Ideations Hematologic/ Lymphatic: Denies: Easy Bruising, Easy Bleeding Patient Problems: Active and Suspected Problems COPD with acute exacerbation (Acute) ESRD (end stage renal disease) (Acute) - Physical Exam Vital Signs Temp Pulse Resp BP Pulse Ox 97.4 F L 76 20 H 154/83 H 99 04/07/17 10:30 04/07/17 10:53 04/07/17 10:53 04/07/17 10:30 04/07/17 10:30 Oxygen Flow Rate 3 Oxygen Delivery Method Nasal Cannula Weight: 65.1 kg Body Mass Index (BMI) 28.8 Intake and Output for Last 24 Hours 04/05/17 04/06/17 04/07/17 23:59 23:59 23:59 Intake Total 190 / 190 Balance 190 / 190 Laboratory Tests Past 24 Hrs 04/07/17 04/07/17 06:10 06:10 WBC 5.1 RBC 3.49 L Hgb 11.5 L Hct 37.2 MCV 106.6 H MCH 33.0 H MCHC 30.9 L RDW 14.4 RDW Differential 55.3 H Plt Count 148 L MPV 10.8 Immature Gran % (Auto) 0.000 Neut % (Auto) 87.4 H Lymph % (Auto) 10.2 L [place] % (Auto) 2.4 Eos % (Auto) 0.0 Baso % (Auto) 0.0 Absolute Neuts (auto) 4.5 Absolute Lymphs (auto) 0.52 L Total Counted Not Reportable Differential Comment SCANNED Hemoglobin A1c 7.2 H POC Glucose 04/07/17 04/07/17 04/07/17 10:41 06:41 02:10 POC Glucose 210 H 166 H 298 H 04/06/17 04/06/17 22:27 18:54 POC Glucose 464 H* 422 H Assessment/Plan Active and Suspected Problems COPD with acute exacerbation (Acute) ESRD (end stage renal disease) (Acute) ESRD. on HD MWF schedule. Next HD tomorrow Dyspnea. likely related to URI. CXR looks ok, no fluid, treatment as per primary
--- NOTE | 2017-04-07 14:53 | PCM.PN.HOSP ---
Patient Problems: Active and Suspected Problems COPD with acute exacerbation (Acute) ESRD (end stage renal disease) (Acute) Subjective: Patient was seen and examined. Complains of severe heartburn. Denies any worsening shortness of breath. On 2 L of oxygen. Patient is reluctant to be discharged home today. Francisco be dialyzed tomorrow and will be discharged. Vitals/I&O's: Vital Signs Temp Pulse Resp BP Pulse Ox 97.4 F L 76 20 H 154/83 H 99 04/07/17 10:30 04/07/17 10:53 04/07/17 10:53 04/07/17 10:30 04/07/17 10:30 Current Medications Albuterol Sulfate (Ventolin Aerosols) 2.5 mg INHALATION Q2H PRN PRN PRN Reason: SHORTNESS OF BREATH Albuterol/Ipratropium (Duoneb) 3 ml INHALATION Q4H.RT [facility] Stop: 04/12/17 12:31 Albuterol/Ipratropium (Duoneb) 3 ml INHALATION Q4H PRN PRN PRN Reason: SOB &/OR WHEEZING Aspirin (Aspirin, Baby) 81 mg PO DAILY@0800 [facility] Last Admin: 04/07/17 10:42 Dose: 81 mg Atorvastatin Calcium (Lipitor) 20 mg PO QHS [facility] Last Admin: 04/06/17 22:31 Dose: 20 mg Bumetanide (Bumex) 2 mg PO DAILY [facility] Last Admin: 04/07/17 10:45 Dose: 2 mg Calcium Acetate (Phoslo Gel Cap) 667 mg PO TIDCM [facility] Last Admin: 04/07/17 11:07 Dose: 667 mg Dextrose (D50w Syringe) 0 gm IV X1 PRN; Protocol PRN Reason: Hypoglycemia Glucagon () 1 mg IM .X1 PRN PRN Reason: Hypoglycemia Guaifenesin (Mucinex) 1,200 mg PO BID [facility] Last Admin: 04/07/17 10:46 Dose: 1,200 mg Heparin Sodium (Porcine) () 5,000 units SC BID [facility] Last Admin: 04/07/17 10:43 Dose: 5,000 units Insulin Aspart (Novolog Flexpen (Bkc)) 0 units SC ACHS [facility] PRN Reason: Protocol Last Admin: 04/07/17 10:46 Dose: 6 units Insulin Detemir (Levemir (Bk)) 15 units SC BID [facility] Last Admin: 04/07/17 10:46 Dose: 15 units Levothyroxine Sodium (Synthroid) 50 mcg PO DAILY@0600 [facility] Last Admin: 04/07/17 06:44 Dose: 50 mcg Loratadine (Claritin) 10 mg PO DAILY PRN PRN Reason: ALLERGIES Magnesium Hydroxide (Milk Of Magnesia) 30 ml PO DAILY PRN PRN PRN Reason: Constipation Methylprednisolone (Solu-Medrol) 40 mg IV Q8 [facility] Stop: 04/07/17 22:01 Last Admin: 04/07/17 14:25 Dose: 40 mg Multivit/Ca Carb/B Cmplx/FA/Prenat (Nephrocaps, Renaphro) 1 capsule PO DAILYCM [facility] Last Admin: 04/07/17 10:42 Dose: 1 capsule Nutritional Formula (Nepro Carb Steady) 120 ml PO 4X/DAY [facility] Last Admin: 04/07/17 14:25 Dose: 120 ml Ondansetron HCl (Zofran) 4 mg IV Q8H PRN PRN PRN Reason: Nausea Ondansetron HCl (Zofran Odt) 8 mg PO Q8H PRN PRN PRN Reason: nausea, emesis Last Admin: 04/06/17 22:57 Dose: 8 mg Oxycodone HCl (Oxyir) 5 mg PO Q4H PRN PRN PRN Reason: Moderate Pain (pain scale 4-5) Pantoprazole Sodium (Protonix) 20 mg PO DAILY [facility] Last Admin: 04/07/17 06:47 Dose: 20 mg Prednisone (Prednisone) 40 mg PO DAILY@0800 [facility] Psyllium Hydrophilic Mucilloid (Metamucil) 1 packet PO DAILY PRN PRN PRN Reason: CONSTIPATION Senna/Docusate Sodium (Senokot-S, Nati-Colace) 2 tablet PO BID [facility] Last Admin: 04/07/17 10:46 Dose: 2 tablet Sodium Chloride () 5 - 30 ml IV UD PRN PRN Reason: SALINE FLUSH Last Admin: 04/07/17 14:25 Dose: 10 ml Assessment/Plan Active and Suspected Problems COPD with acute exacerbation (Acute) ESRD (end stage renal disease) (Acute) 71 y/o female with chronic resp insufficiency secondary to COPD, ESRD on HD comes in with worsening shortness of breath. 1. Acute COPD exacerbation in a patient with chronic respiratory insufficiency secondary to COPD, on 3 L of oxygen, improving, continue on po steroids and breathing treatments 2. GERD, will start gentle Mylanta and famotidine IV BID 2. ESRD on HD, nephrology consulted 3. Hypokalemia, replaced, labs in am 4. Hypothyroidism, on replacement 5. CAD s/p stent, on aspirin, statin, 6. Hyperlipidemia, on statin 7. Type 2DM, Hb A1c is 7.2, on Levemir 15 IU BID with ISS, will continue with accucheks. 8. DVT PPx - Heparin SC Code Visit OBSV E&M: 74015 Subsequent observation care L3
--- NOTE | 2017-04-07 15:02 | PN_ITS ---
Patient Problems: Active and Suspected Problems COPD with acute exacerbation (Acute) ESRD (end stage renal disease) (Acute) Subjective: Patient was seen and examined. Complains of severe heartburn. Denies any worsening shortness of breath. On 2 L of oxygen. Patient is reluctant to be discharged home today. Francisco be dialyzed tomorrow and will be discharged. Vitals/I&O's: Vital Signs Temp Pulse Resp BP Pulse Ox 97.4 F L 76 20 H 154/83 H 99 04/07/17 10:30 04/07/17 10:53 04/07/17 10:53 04/07/17 10:30 04/07/17 10:30 Current Medications Albuterol Sulfate (Ventolin Aerosols) 2.5 mg INHALATION Q2H PRN PRN PRN Reason: SHORTNESS OF BREATH Albuterol/Ipratropium (Duoneb) 3 ml INHALATION Q4H.RT [facility] Stop: 04/12/17 12:31 Albuterol/Ipratropium (Duoneb) 3 ml INHALATION Q4H PRN PRN PRN Reason: SOB &/OR WHEEZING Aspirin (Aspirin, Baby) 81 mg PO DAILY@0800 [facility] Last Admin: 04/07/17 10:42 Dose: 81 mg Atorvastatin Calcium (Lipitor) 20 mg PO QHS [facility] Last Admin: 04/06/17 22:31 Dose: 20 mg Bumetanide (Bumex) 2 mg PO DAILY [facility] Last Admin: 04/07/17 10:45 Dose: 2 mg Calcium Acetate (Phoslo Gel Cap) 667 mg PO TIDCM [facility] Last Admin: 04/07/17 11:07 Dose: 667 mg Dextrose (D50w Syringe) 0 gm IV X1 PRN; Protocol PRN Reason: Hypoglycemia Glucagon () 1 mg IM .X1 PRN PRN Reason: Hypoglycemia Guaifenesin (Mucinex) 1,200 mg PO BID [facility] Last Admin: 04/07/17 10:46 Dose: 1,200 mg Heparin Sodium (Porcine) () 5,000 units SC BID [facility] Last Admin: 04/07/17 10:43 Dose: 5,000 units Insulin Aspart (Novolog Flexpen (Bkc)) 0 units SC ACHS [facility] PRN Reason: Protocol Last Admin: 04/07/17 10:46 Dose: 6 units Insulin Detemir (Levemir (Bk)) 15 units SC BID [facility] Last Admin: 04/07/17 10:46 Dose: 15 units Levothyroxine Sodium (Synthroid) 50 mcg PO DAILY@0600 [facility] Last Admin: 04/07/17 06:44 Dose: 50 mcg Loratadine (Claritin) 10 mg PO DAILY PRN PRN Reason: ALLERGIES Magnesium Hydroxide (Milk Of Magnesia) 30 ml PO DAILY PRN PRN PRN Reason: Constipation Methylprednisolone (Solu-Medrol) 40 mg IV Q8 [facility] Stop: 04/07/17 22:01 Last Admin: 04/07/17 14:25 Dose: 40 mg Multivit/Ca Carb/B Cmplx/FA/Prenat (Nephrocaps, Renaphro) 1 capsule PO DAILYCM [facility] Last Admin: 04/07/17 10:42 Dose: 1 capsule Nutritional Formula (Nepro Carb Steady) 120 ml PO 4X/DAY [facility] Last Admin: 04/07/17 14:25 Dose: 120 ml Ondansetron HCl (Zofran) 4 mg IV Q8H PRN PRN PRN Reason: Nausea Ondansetron HCl (Zofran Odt) 8 mg PO Q8H PRN PRN PRN Reason: nausea, emesis Last Admin: 04/06/17 22:57 Dose: 8 mg Oxycodone HCl (Oxyir) 5 mg PO Q4H PRN PRN PRN Reason: Moderate Pain (pain scale 4-5) Pantoprazole Sodium (Protonix) 20 mg PO DAILY [facility] Last Admin: 04/07/17 06:47 Dose: 20 mg Prednisone (Prednisone) 40 mg PO DAILY@0800 [facility] Psyllium Hydrophilic Mucilloid (Metamucil) 1 packet PO DAILY PRN PRN PRN Reason: CONSTIPATION Senna/Docusate Sodium (Senokot-S, Nati-Colace) 2 tablet PO BID [facility] Last Admin: 04/07/17 10:46 Dose: 2 tablet Sodium Chloride () 5 - 30 ml IV UD PRN PRN Reason: SALINE FLUSH Last Admin: 04/07/17 14:25 Dose: 10 ml Assessment/Plan Active and Suspected Problems COPD with acute exacerbation (Acute) ESRD (end stage renal disease) (Acute) 71 y/o female with chronic resp insufficiency secondary to COPD, ESRD on HD comes in with worsening shortness of breath. 1. Acute COPD exacerbation in a patient with chronic respiratory insufficiency secondary to COPD, on 3 L of oxygen, improving, continue on po steroids and breathing treatments 2. GERD, will start gentle Mylanta and famotidine IV BID 2. ESRD on HD, nephrology consulted 3. Hypokalemia, replaced, labs in am 4. Hypothyroidism, on replacement 5. CAD s/p stent, on aspirin, statin, 6. Hyperlipidemia, on statin 7. Type 2DM, Hb A1c is 7.2, on Levemir 15 IU BID with ISS, will continue with accucheks. 8. DVT PPx - Heparin SC Code Visit OBSV E&M: 17849 Subsequent observation care L3
--- NOTE | 2017-04-07 16:27 | CHAPLAIN ---
Type of Pastoral Visit _x__ Initial Visit ___ Follow-up Visit ___ On-call Visit ___ General Patient Visit ___ Spiritual Assessment ___ Family Conference ___ Bereavement ___ Rapid Response ___ Code Blue ___ Other (describe below) Pastoral Care Referral From _x__ Patient ___ Family ___ Nurse ___ Physician ___ Taxonomist ___ [employer] ___ Other (describe below) Sacrament/Intervention _x__ Active listening ___ Anointing ___ Catholic ___ Bereavement ___ Communion ___ Mary exploration ___ ___ Life review _x__ Prayer ___ Reconciliation ___ Sacrament of Sick ___ Supportive presence ___ Wedding ___ Other (describe below) Pastoral Comments
[2017-04-07 17:16] LABS: Bedside Glucose 223 mg/dL (70-110)
[2017-04-07 22:01] LABS: Bedside Glucose 206 mg/dL (70-110)
[2017-04-07] MEDS: Atorvastatin Calcium 20 MG Tablet PO (22:01)
[2017-04-08] VITALS (15 sets, daily range): BP systolic 120–153; BP diastolic 67–85; PULSE 75–90; RESP 17–21; TEMP 35.8–37.2; O2SAT 95–98
[2017-04-08] MEDS: oxyCODONE 5 MG Tablet PO (00:25)
[2017-04-08] MEDS: Ipratropium/Albuterol Sulfate 3 ML AMPUL.NEB INHALATION ×3 (02:53→10:54)
[2017-04-08 06:12] LABS: Absolute Lymphocyte Count 0.35 X10^3/ul (0.83-4.51); Absolute Neutrophil Count 7.4 X10^3/uL (2.0-7.7); Hematocrit 36.2 % (37-47); Hemoglobin 11.7 g/dl (12.0-15.0); Lymphocyte # 0.35 X10^3/ul (4.0); Lymphocyte % 4.4 % (19-41); Mean Corp Hgb Conc 32.3 g/gl (32-36); Mean Corpuscular Hgb 34.1 pg (27.0-32.0); Mean Corpuscular Volume 105.5 fL (81-99); Mean Platelet Vol. 10.8 fl (6.2-12.0); Monocyte# 0.16 X10^3/uL; Neutrophil # 7.44 X10^3/uL (2.7-7.7); Neutrophil % 93.3 % (47-70); Platelet Count 150 K/mm3 (150-450); RBC Distribution Width CV 14.1 % (11.6-14.6); RBC Distribution Width SD 52.9 fl (35.1-43.9); Red Blood Count 3.43 M/mm3 (4.2-5.4)
[2017-04-08 06:13] LABS: Differential Indicated SCAN CRITERIA MET; POSITIVE COUNT NO; POSITIVE DIFFERENTIAL YES; POSITIVE MORPHOLOGY NO
[2017-04-08 06:17] LABS: Anion Gap 12 (5-15); BUN 59 mg/dL (7-18); BUN/Creat Ratio 14.8 RATIO (10-20); Calcium,Total 8.8 mg/dL (8.5-10.1); Chloride 92 mmol/L (98-107); Creatinine, Serum 3.99 mg/dL (0.55-1.02); EST Glomerular Filtration Rate 12 mL/min (>60); Est Glom Filt Rate - Afr Amer 14 mL/min (>60); Estimated Creatinine Clearance 13.48 ml/min; Glucose 263 mg/dL (70-110); Potassium 4.5 mmol/L (3.5-5.1); Sodium Level 132 mmol/L (136-145)
[2017-04-08 06:34] LABS: Differential Comment SCANNED; Macrocytosis 2+
[2017-04-08] MEDS: Levothyroxine 50 MCG Tablet PO (06:36)
[2017-04-08 06:55] LABS: Bedside Glucose 277 mg/dL (70-110)
[2017-04-08] MEDS: Calcium Acetate 667 MG Capsule PO ×3 (08:43→17:35)
--- NOTE | 2017-04-08 10:21 | PCM.DC ---
- Discharge Diagnoses Current Active Problems: Current Active and Chronic Problems COPD with acute exacerbation (Acute) ESRD (end stage renal disease) (Acute) Reason(s) for Visit for Discharge Instructions: Shortness of breath, cough You will use the following diet at home:: Calorie/Carbohydrate Controlled (specify 1200, 1400, etc), Renal (restricted protein/sodium) Your food should be the consistency of: Regular Your liquids should be the consistency of: Regular/Thin Discharge Activity: Return to Normal Activity Allergies/Adverse Reactions: Allergies azithromycin [From Zithromax] Allergy (Verified 04/06/17 09:50) Hives Medications to take at Discharge Levothyroxine [Synthroid] 50 mcg PO DAILY 07/31/13 Omeprazole [Prilosec] 20 mg PO DAILY 07/31/13 Simvastatin [Zocor] 40 mg PO QHS 07/31/13 Folic Acid/Vitamin B Comp W-C [Nephrocaps, Renaphro] 1 capsule PO DAILY 02/20/14 Bumetanide [Bumex] 2 mg PO DAILY 01/28/16 Calcium Acetate [Phoslo Gel Cap] 667 mg PO TIDCM 01/28/16 Loratadine [Claritin] 10 mg PO DAILY PRN 01/28/16 Oxycodone [Oxyir] 5 mg PO Q4H PRN PRN #30 tablet 06/09/16 Insulin Aspart [Novolog Flexpen] 0 units SC TIDCM 09/30/16 Guaifenesin [Mucinex] 600 mg PO BID 04/06/17 Ranitidine HCl 75 mg PO DAILY 04/06/17 Aspirin [Aspirin, Baby] 81 mg PO DAILY@0800 #30 tab.chew 04/08/17 Guaifenesin [Mucinex] 1,200 mg PO BID #14 tab 04/08/17 Insulin Detemir [Levemir FlexPen] 15 units SC BID insuln.pen 04/08/17 Prednisone [Deltasone] 40 mg PO DAILY #5 tab 04/08/17 The following prescriptions were given: Aspirin [Aspirin, Baby] 81 mg PO DAILY@0800 #30 tab.chew Prednisone [Deltasone] 40 mg PO DAILY #5 tab Guaifenesin [Mucinex] 1,200 mg PO BID #14 tab Primary Care Physician: Zeferino Carlson Jr., MD [Primary Care Provider] - Please follow up with your Primary Care Physician in: within 2 weeks Please Follow Up With: Moises Yo MD When: as scheduled Proposed Discharge Date: 04/08/17
--- NOTE | 2017-04-08 10:23 | PCM.DC.SUM ---
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) Lumbar compression fracture (Chronic) Atrial fibrillation and flutter (Chronic) NO ON ANTICOAGULATION DUE TO FALL RISK AND NON-COMPLIANCE Legal blindness (Chronic) Poor dental hygiene (Chronic) Peripheral vascular disease (Chronic) Diastolic congestive heart failure (Chronic) Chronic hypoxemic respiratory failure (Chronic) Type II diabetes mellitus (Chronic) Diabetic retinopathy (Chronic) ESRD (end stage renal disease) (Chronic) on HD-TUESDAY,TUESDAY,TUESDAY Restrictive lung disease (Chronic) CAD (coronary artery disease) (Chronic) AV fistula (Chronic) Hypothyroidism (Chronic) GERD (gastroesophageal reflux disease) (Chronic) Sleep apnea (Chronic) pt is NOT compliant with CPAP Pulmonary HTN (Chronic) COPD (chronic obstructive pulmonary disease) (Chronic) Diastolic dysfunction (Chronic) Aortic stenosis, mild (Chronic) Non-compliance (Chronic) S/P PTCA (percutaneous transluminal coronary angioplasty) (Chronic) HLD (hyperlipidemia) (Chronic) HTN (hypertension) (Chronic) Hospital Course and Treatment Imaging Results: Clinical Impression(s) from Imaging Studies Chest X-Ray 04/06/17 09:54 IMPRESSION: Stable examination suggestive of chronic scarring. Electronically Signed: Charly Barkley MD at 11:42 EST Tel [phone], Service support , Nephrology Operations: None Procedures: None Summary of Care Provided: 71 y/o female with chronic respiratory insufficiency secondary to COPD, ESRD on HD comes in with worsening shortness of breath. 1. Acute COPD exacerbation in a patient with chronic respiratory insufficiency secondary to COPD, on 3 L of oxygen,improved on po steroids and breathing treatments 2. GERD, on Mylanta and famotidine. 2. ESRD on HD, M-W-, had dialysis prior to discharge 3. Hypokalemia, replaced, labs in am 4. Hypothyroidism, on replacement 5. CAD s/p stent, on aspirin, statin, 6. Hyperlipidemia, on statin 7. Type 2DM, Hb A1c is 7.2, on Levemir 15 IU BID with ISS Discharge Diet: Low fat/ Low Cholesterol, 2000 mg Sodium Diet Discharge Activity: Return to Normal Activity Home Medications: Medications to take at Discharge Levothyroxine [Synthroid] 50 mcg PO DAILY 07/31/13 Omeprazole [Prilosec] 20 mg PO DAILY 07/31/13 Simvastatin [Zocor] 40 mg PO QHS 07/31/13 Folic Acid/Vitamin B Comp W-C [Nephrocaps, Renaphro] 1 capsule PO DAILY 02/20/14 Bumetanide [Bumex] 2 mg PO DAILY 01/28/16 Calcium Acetate [Phoslo Gel Cap] 667 mg PO TIDCM 01/28/16 Loratadine [Claritin] 10 mg PO DAILY PRN 01/28/16 Oxycodone [Oxyir] 5 mg PO Q4H PRN PRN #30 tablet 06/09/16 Insulin Aspart [Novolog Flexpen] 0 units SC TIDCM 09/30/16 Guaifenesin [Mucinex] 600 mg PO BID 04/06/17 Ranitidine HCl 75 mg PO DAILY 04/06/17 Albuterol Sulfate 2.5 mg IH Q8H PRN PRN MDD 9 ML 04/08/17 Aspirin [Aspirin, Baby] 81 mg PO DAILY@0800 #30 tab.chew 04/08/17 Guaifenesin [Mucinex] 1,200 mg PO BID #14 tab 04/08/17 Insulin Detemir [Levemir FlexPen] 15 units SC BID insuln.pen 04/08/17 Ipratropium/Albuterol Sulfate [Duoneb] 3 ml INHALATION Q4H PRN #1 box 04/08/17 Prednisone [Deltasone] 40 mg PO DAILY #5 tab 04/08/17 Following Prescrptions Were Given to Patient: Aspirin [Aspirin, Baby] 81 mg PO DAILY@0800 #30 tab.chew Ipratropium/Albuterol Sulfate [Duoneb] 3 ml INHALATION Q4H PRN #1 box PRN Reason: Sob &/Or Wheezing Prednisone [Deltasone] 40 mg PO DAILY #5 tab Guaifenesin [Mucinex] 1,200 mg PO BID #14 tab Primary Care Physician: Zeferino Carlson Jr., MD [Primary Care Provider] - Please follow up with your Primary Care Physician in: within 2 weeks Please Follow Up With: Moises Yo MD When: as scheduled Disposition: Home Minutes spent on discharge:: 25 Patient Condition:: Stable Meaningful Use Info Meaningful Use Diagnoses (Choose all that apply): None applicable Code Visit Inpatient E&M: 90789 Subs Hosp L2
[2017-04-08] MEDS: Nepro Liquid 120 ML LIQUID PO ×2 (11:26→12:49)
[2017-04-08 11:46] LABS: Bedside Glucose 213 mg/dL (70-110)
--- NOTE | 2017-04-08 14:19 | CASEMGMT ---
RN SUSIE Face to Face with patient for initial transition planning/care coordination assessment. RN CM introduced self and role at [facility]. Patient lying in bed, alert and oriented. Patient willing to participate in assessment and is able to answer all questions appropriately. Care providers, pharmacy, and demographics verified. See link attached. Patient wishes to discharge home, denies need for home health at this time. Patient states she has no further needs or concerns at this time. CM to follow for discharge planning needs that may arise. Disposition Plan: Patient to discharge home with family support and follow-up needs in place.
--- NOTE | 2017-04-08 14:47 | PCM.PN.BLA ---
Progress Note dialysis today no complaints breathing is better possible dc today see orders/flowsheets
[2017-04-08 17:01] LABS: Bedside Glucose 190 mg/dL (70-110)
--- NOTE | 2017-04-08 18:44 | DIALYSIS ---
HD x 2 hours and 45 min complete. Tolerated tx well. UF of 2000ml. Used right arm fistula. See tx sheet for more details. Report was given to JOVAN Charles.
[2017-04-08 19:36] LABS: Bedside Glucose 182 mg/dL (70-110)
== END 2017-04-08 19:20 | disposition home or self-care (01) | DRG 190 ==
LOC: ED 10:33 → MS3 13:01
PROVIDERS: Internal Medicine; Admitting Provider Internal Medicine; Emergency Provider Emergency Medicine; Family Provider Internal Medicine; PCP Internal Medicine; Visit Provider Internal Medicine
DX: J44.1 Chronic obstructive pulmonary disease with (acute) exacerbation (principal); N18.6 End stage renal disease; I13.2 Hypertensive heart and chronic kidney disease with heart failure and with stage 5 chronic kidney disease, or end stage renal disease; I27.20 Pulmonary hypertension, unspecified; J96.11 Chronic respiratory failure with hypoxia; E11.22 Type 2 diabetes mellitus with diabetic chronic kidney disease; E11.319 Type 2 diabetes mellitus with unspecified diabetic retinopathy without macular edema; I50.32 Chronic diastolic (congestive) heart failure; E11.40 Type 2 diabetes mellitus with diabetic neuropathy, unspecified; Z99.2 Dependence on renal dialysis; H54.8 Legal blindness, as defined in USA; I25.10 Atherosclerotic heart disease of native coronary artery without angina pectoris; Z79.4 Long term (current) use of insulin; Z95.5 Presence of coronary angioplasty implant and graft; E87.6 Hypokalemia; E03.9 Hypothyroidism, unspecified; E78.5 Hyperlipidemia, unspecified; Z99.81 Dependence on supplemental oxygen; K21.9 Gastro-esophageal reflux disease without esophagitis; I35.0 Nonrheumatic aortic (valve) stenosis; G47.30 Sleep apnea, unspecified
CPT/HCPCS: 36415; 71045; 80048; 82962; 83036; 84484; 85025; 87070; 87077; 87186; 87205; 87633; 90937; 93005; 94640; 97162; 97166; 97802; 99251; 99285; J7030; A4216; G0257; G0463; J3490

== ENCOUNTER 2017-04-11 09:56 | Emergency (ER) | payer MEDICARE, OTHER, SELFPAY ==
[2017-04-11 09:57] VITALS: BP 153/69; PULSE 79; RESP 17; TEMP 36.6; O2SAT 100; BMI 38.7
--- NOTE | 2017-04-11 10:18 | EKG12_ITS ---
Test Reason : Blood Pressure : / mmHG Vent. Rate : 074 BPM Atrial Rate : 068 BPM P-R Int : 000 ms QRS Dur : 134 ms QT Int : 438 ms P-R-T Axes : 000 034 252 degrees QTc Int : 486 ms Atrial fibrillation Right bundle branch block T wave abnormality, consider inferolateral ischemia Abnormal ECG Confirmed by TAE PIZANO, ZURI ([id number]), editor managing director GEETA WILDER ([id number] on 04/14/2017 11:18:17 AM Referred By: VANESSA Confirmed By:ZURI STRONG MD
--- NOTE | 2017-04-11 10:20 | RAD_ITS ---
STUDY: X-RAY CHEST REASON FOR EXAM: Female, 71 years old. Productive cough. Hemoptysis. Shortness of breath. TECHNIQUE: AP and lateral views of the chest. COMPARISON: Comparison is made with prior examination dated April 06, 2017. FINDINGS: Stable increased linear markings in the right hemithorax with the thickening of the pleural along the lateral wall. Mild degree of vascular congestion. There is moderate cardiac enlargement. Normal mediastinum and dustin. Normal visualized pulmonary arteries. There is atherosclerotic calcification of the aortic arch with tortuosity. There is demineralization of the osseous structures. Increased kyphosis. There is degenerative osteoarthritis of the bilateral shoulders. There is no demonstrated abnormality of the visualized soft tissue structures of the upper abdomen. RAD/Chest PA and Lateral IMPRESSION: Cardiomegaly. Vascular congestion. Stable increased markings in the right hemithorax with the thickening of the lateral aspect of the right pleural cavity. Electronically Signed: Charly Barkley MD at 12:28 EST Tel [phone], Service support ,
[2017-04-11] MEDS: Ondansetron 4 MG/2 ML Vial IV ×2 (10:51→16:29)
[2017-04-11 10:54] LABS: Absolute Lymphocyte Count 0.78 X10^3/ul (0.83-4.51); Absolute Neutrophil Count 8.4 X10^3/uL (2.0-7.7); Basophil# 0.02 X10^3/uL; Basophil% 0.2 % (0-1); Eosinophil# 0.01 X10^3/uL; Eosinophils% 0.1 % (0-5); Hematocrit 37.1 % (37-47); Hemoglobin 12.1 g/dl (12.0-15.0); Lymphocyte # 0.78 X10^3/ul (4.0); Lymphocyte % 7.6 % (19-41); Mean Corp Hgb Conc 32.6 g/gl (32-36); Mean Corpuscular Hgb 33.8 pg (27.0-32.0); Mean Corpuscular Volume 103.6 fL (81-99); Mean Platelet Vol. 10.4 fl (6.2-12.0); Monocyte# 0.99 X10^3/uL; Monocyte% 9.7 % (0-10); Neutrophil # 8.36 X10^3/uL (2.7-7.7); Neutrophil % 81.5 % (47-70); POSITIVE COUNT NO; POSITIVE DIFFERENTIAL NO; POSITIVE MORPHOLOGY NO; Platelet Count 187 K/mm3 (150-450); RBC Distribution Width CV 13.8 % (11.6-14.6); RBC Distribution Width SD 50.6 fl (35.1-43.9); Red Blood Count 3.58 M/mm3 (4.2-5.4); White Blood Count 10.3 K/mm3 (4.4-11.0)
[2017-04-11 11:00] LABS: International Normalized Ratio 1.2; Partial Thromboplast Time 77.2 Seconds (24.1-36.2); Prothrombin Time (Protime)PT. 14.5 SECONDS (11.7-14.9)
[2017-04-11 11:05] LABS: Anion Gap 11 (5-15); BUN 23 mg/dL (7-18); BUN/Creat Ratio 10.3 RATIO (10-20); Calcium,Total 7.9 mg/dL (8.5-10.1); Chloride 93 mmol/L (98-107); Creatinine, Serum 2.24 mg/dL (0.55-1.02); EST Glomerular Filtration Rate 23 mL/min (>60); Est Glom Filt Rate - Afr Amer 28 mL/min (>60); Glucose 184 mg/dL (70-110); Potassium 3.7 mmol/L (3.5-5.1); Sodium Level 135 mmol/L (136-145)
--- NOTE | 2017-04-11 11:28 | ED.RN ---
NG PLACEMENT ATTEMPTED WITH PT, PLACEMENT UNSUCCESSFUL D/T DISCOMFORT AND SOB DURING PROCEDURE. DR. MENDEZ INFORMED OF ATTEMPT.
[2017-04-11 12:04] VITALS: PULSE 71; RESP 20; O2SAT 100
--- NOTE | 2017-04-11 13:21 | ED.VISSUMM ---
- ER Visit Summary Date of Service: 04/11/17 Chief Complaint: Numerous complaints History of Present Illness: The patient is a 71 F presents from dialysis because of vomiting blood. She informed Colin the nurse caring for that she coughed up blood. Patient denies fever, chills or night sweats. She denies any ocular, visual auditory symptoms. She denies earache, rhinorrhea or sore throat. She does complain of chest pain. She also complains of palpitations. Chest pain is sharp and located on the left side. There is no radiation associated symptoms. She does complain of cough which apparently is blood-tinged. She also complains of dyspnea on exertion and orthopnea. She does report nausea and vomiting. She admitted to me blood in her emesis. She denied to the nurse blood in her emesis. She denies myalgias arthralgias. She does complain of generalized weakness otherwise neuro is negative. She does report bruising easily. She did receive heparin during dialysis. Physical Examination: Elderly woman who appears older than documented age. Blood pressure is 153/69. HEENT exam is unremarkable pink conjunctival. Lungs revealed diminished breath sounds with no rales, rhonchi or wheezing noted. Heart is regular. Abdomen is soft nontender. She does have significant bruising lower extremities. She has a brace for footdrop on the left. Her right leg is wrapped because of lymphedema. She is alert oriented with a nonfocal neurologic exam. Test Results: EEG reveals atrial fibrillation with a right bundle branch block. Her EKG is unchanged from prior. Chest x-ray reveals mild cardiomegaly and venous congestion consistent with fluid overload. White count is normal with 82 segs. H&H 12.1 37.1. Electrode panel is remarkable for a glucose 184, BUN of 23 and creatinine 2.24. INR is normal, 1.2. PTT is elevated at 77.2, which is not unexpected since she was heparinized for dialysis. Emergency Department Course and Treatment: EKG, chest and blood work was obtained to evaluate patient's symptoms. He did rule out CHF/fluid overload versus pneumonia versus bronchitis. PTT was obtained since she was heparinized and reports GI bleed. She refused NG. 4% lidocaine was aerosolized to help facilitate placement of OG. Critical care time 32 minutes Treatment Plan: Transfer to facility with GI coverage Disposition: Admit ICU [facility] Impression: 1. Upper GI bleed, bright red blood 2. COPD exacerbation with possible hemoptysis 3. History coronary disease 4. End-stage renal disease on hemodialysis 5. History obstructive sleep apnea 6. History of pulmonary hypertension 7. History of type 2 diabetes 8. History of GERD 9. History of peripheral arterial disease This note was generated with [employer] dictation software. It may contain incorrect words, spelling, and punctuation that were not noted in review of the chart prior to signing ED Disposition - Plan for ED Patient: Chief Complaint: Nausea/Vomiting Referrals: Zeferino Carlson Jr., MD [Primary Care Provider] -
--- NOTE | 2017-04-11 13:25 | ED.DCSUM_ITS ---
- ER Visit Summary Date of Service: 04/11/17 Chief Complaint: Numerous complaints History of Present Illness: The patient is a 71 F presents from dialysis because of vomiting blood. She informed Colin the nurse caring for that she coughed up blood. Patient denies fever, chills or night sweats. She denies any ocular, visual auditory symptoms. She denies earache, rhinorrhea or sore throat. She does complain of chest pain. She also complains of palpitations. Chest pain is sharp and located on the left side. There is no radiation associated symptoms. She does complain of cough which apparently is blood- tinged. She also complains of dyspnea on exertion and orthopnea. She does report nausea and vomiting. She admitted to me blood in her emesis. She denied to the nurse blood in her emesis. She denies myalgias arthralgias. She does complain of generalized weakness otherwise neuro is negative. She does report bruising easily. She did receive heparin during dialysis. Physical Examination: Elderly woman who appears older than documented age. Blood pressure is 153/69. HEENT exam is unremarkable pink conjunctival. Lungs revealed diminished breath sounds with no rales, rhonchi or wheezing noted. Heart is regular. Abdomen is soft nontender. She does have significant bruising lower extremities. She has a brace for footdrop on the left. Her right leg is wrapped because of lymphedema. She is alert oriented with a nonfocal neurologic exam. Test Results: EEG reveals atrial fibrillation with a right bundle branch block. Her EKG is unchanged from prior. Chest x-ray reveals mild cardiomegaly and venous congestion consistent with fluid overload. White count is normal with 82 segs. H&H 12.1 37.1. Electrode panel is remarkable for a glucose 184, BUN of 23 and creatinine 2.24. INR is normal, 1.2. PTT is elevated at 77.2, which is not unexpected since she was heparinized for dialysis. Emergency Department Course and Treatment: EKG, chest and blood work was obtained to evaluate patient's symptoms. He did rule out CHF/fluid overload versus pneumonia versus bronchitis. PTT was obtained since she was heparinized and reports GI bleed. She refused NG. 4% lidocaine was aerosolized to help facilitate placement of OG. Critical care time 32 minutes Treatment Plan: Transfer to facility with GI coverage Disposition: Admit ICU [facility] Impression: 1. Upper GI bleed, bright red blood 2. COPD exacerbation with possible hemoptysis 3. History coronary disease 4. End-stage renal disease on hemodialysis 5. History obstructive sleep apnea 6. History of pulmonary hypertension 7. History of type 2 diabetes 8. History of GERD 9. History of peripheral arterial disease This note was generated with BeVocal dictation software. It may contain incorrect words, spelling, and punctuation that were not noted in review of the chart prior to signing ED Disposition - Plan for ED Patient: Chief Complaint: Nausea/Vomiting Referrals: Zeferino Carlson Jr., MD [Primary Care Provider] -
--- NOTE | 2017-04-11 14:02 | RAD_ITS ---
STUDY: X-RAY - ABDOMEN/PELVIS REASON FOR EXAM: Female, 71 years old. NG tube placement. Vomiting. TECHNIQUE: AP supine view. COMPARISON: None. FINDINGS: Right pleural thickening with bibasilar fibrosis. NG tube tip and sidehole are inside the gastric cardia. No bowel obstruction. There is no demonstrated free abdominal air. The visualized liver, spleen and kidneys are grossly normal in size and morphology. Diffuse thin atherosclerotic calcifications in the sol of the thoracic aorta, abdominal aorta and all its branches. Diffuse osteopenia. Partially threaded metallic screw in the right femoral head and neck. RAD/Abdomen Single View (Portable) IMPRESSION: 1. NG tube tip and sidehole are are inside the left gastric cardia. 2. No suspicious bowel obstruction or acute abnormality in the abdomen and pelvis. Electronically Signed: Sunday Cary MD at 14:36 EST , Service support ,
[2017-04-11] MEDS: Lidocaine 4% 5 ML Ampul 2 ML INHALATION (14:06)
[2017-04-11 14:31] VITALS: BP 159/54; PULSE 104; RESP 23; O2SAT 95
[2017-04-11] MEDS: Protamine Sulfate 50 MG/5 ML Vial 25 MG IV (14:33)
[2017-04-11 16:02] VITALS: BP 143/64; PULSE 75; RESP 21; O2SAT 100
== END 2017-04-11 16:33 | disposition short-term general hospital (02) ==
PROVIDERS: Emergency Provider Emergency Medicine; Family Provider Internal Medicine; PCP Internal Medicine
DX: K92.0 Hematemesis (principal); J44.9 Chronic obstructive pulmonary disease, unspecified; I25.10 Atherosclerotic heart disease of native coronary artery without angina pectoris; I73.9 Peripheral vascular disease, unspecified; I27.20 Pulmonary hypertension, unspecified; G47.33 Obstructive sleep apnea (adult) (pediatric); K21.9 Gastro-esophageal reflux disease without esophagitis; E66.9 Obesity, unspecified; E03.9 Hypothyroidism, unspecified; I13.2 Hypertensive heart and chronic kidney disease with heart failure and with stage 5 chronic kidney disease, or end stage renal disease; E11.22 Type 2 diabetes mellitus with diabetic chronic kidney disease; I50.9 Heart failure, unspecified; N18.6 End stage renal disease; Z79.4 Long term (current) use of insulin; Z99.2 Dependence on renal dialysis; Z79.82 Long term (current) use of aspirin; Z79.899 Other long term (current) drug therapy
CPT/HCPCS: 71046; 74018; 80048; 85025; 85610; 85730; 93005; 94640; 96365; 96375; 96376; 99284; J7050; A4216; J2405; J3490

== ENCOUNTER 2017-05-27 15:33 | Emergency (ER) | payer MEDICARE, OTHER, SELFPAY ==
[2017-05-27 15:34] VITALS: BP 173/59; PULSE 70; RESP 16; TEMP 36.4; O2SAT 100; BMI 30.2
--- NOTE | 2017-05-27 15:55 | ED.VISSUMM ---
- ER Visit Summary Date of Service: 05/27/17 Chief Complaint: Fistula bleeding History of Present Illness: The patient is a 72 F presenting with right arm fistula bleeding. Patient states she completed her normal course of dialysis this morning. Following dialysis they were unable to get the bleeding of her fistula to stop. They held pressure at dialysis for approximately 1 hour. She was then sent back to the [facility]. She states it began bleeding when she returned to the [facility] and pressure was held for another hour. She denies other complaints. Physical Examination: Vitals are stable. Patient is afebrile. Alert no acute distress. HEENT exam is unremarkable. Neck is supple. Lungs are clear and equal bilaterally. Heart is regular rate and rhythm. Abdomen is soft nontender nondistended. Extremities are right upper arm fistula, no active bleeding Skin is warm and dry. No focal neurologic deficit. Remainder of exam is unremarkable. Emergency Department Course and Treatment: Patient was observed in the emergency department. She had no further bleeding. She will be discharged to follow-up with her primary care physician. Advised return to ED for worsening complaints. Disposition: Discharged home Impression: Right arm fistula bleeding, resolved This note was generated with SubtleData dictation software. It may contain incorrect words, spelling, and punctuation that were not noted in review of the chart prior to signing ED Disposition - Plan for ED Patient: Chief Complaint: General Illness Referrals: Zeferino Carlson Jr., MD [Primary Care Provider] -
--- NOTE | 2017-05-27 16:45 | ED.DEP ---
ED Disposition - Plan for ED Patient: Chief Complaint: General Illness Instructions: ED Shunt Dialysis Fistula Bleeding Referrals: Zeferino Carlson Jr., MD [Primary Care Provider] -
[2017-05-27 17:01] VITALS: BP 145/59; PULSE 71; RESP 16; O2SAT 97
--- NOTE | 2017-05-27 17:06 | ED.RN ---
THIS NURSE CALLED REPORT TO TAMMI HORTA WILL RETURN VIA [facility].
== END 2017-05-27 17:32 | disposition short-term general hospital (02) ==
PROVIDERS: Emergency Provider Emergency Medicine; Family Provider Internal Medicine; PCP Internal Medicine
DX: T82.838A Hemorrhage due to vascular prosthetic devices, implants and grafts, initial encounter (principal); N18.6 End stage renal disease; Z99.2 Dependence on renal dialysis; Z79.82 Long term (current) use of aspirin; Z79.899 Other long term (current) drug therapy
CPT/HCPCS: 99284

== ENCOUNTER 2017-06-06 07:30 | Inpatient (IN) | payer MEDICARE, OTHER, SELFPAY ==
[2017-06-06] VITALS (44 sets, daily range): BP systolic 50–157; BP diastolic 26–92; PULSE 42–117; RESP 9–25; TEMP 36.2–37.9; O2SAT 10–100; BMI 31.9; BMI 30.4
--- NOTE | 2017-06-06 07:50 | CT_ITS ---
STUDY: CT BRAIN WITHOUT CONTRAST REASON FOR EXAM: Female, 72 years old. Unresponsive during dialysis RADIATION DOSAGE (If Supplied By Facility): CTDIvol = ( 44.99 ) mGy, DLP = ( 779.24 ) mGycm TECHNIQUE: Transaxial CT imaging of the brain was performed without administration of intravenous contrast material. Sagittal and coronal reconstructed images are provided and reviewed. Individualized dose optimization techniques were used for this CT. COMPARISON: 03/15/2016 FINDINGS: Vascular calcifications are seen. Normal calvarium. There is mild cerebral atrophy with widening of the extra-axial spaces and ventricular dilatation. There are areas of decreased attenuation within the white matter tracts of the supratentorial brain, consistent with microvascular disease changes. There is low attenuation within the left occipital lobe, unchanged from the prior study. Normal basal ganglia and thalami. Normal brainstem. Normal cerebellum. There is no intracranial hemorrhage. There are no findings of an acute ischemic infarction. There is opacification of the left maxillary sinus. CT/Brain/Head without Contrast IMPRESSION: Chronic involutional changes. No acute intracranial abnormality. Opacified left maxillary sinus. Electronically Signed: Yehuda Ferguson DO at 9:26 EDT Tel , Service support ,
--- NOTE | 2017-06-06 07:50 | RAD_ITS ---
STUDY: X-RAY CHEST REASON FOR EXAM: Female, 72 years old. Altered mental status, syncope TECHNIQUE: Single AP portable view of the chest. COMPARISON: 04/11/2017 FINDINGS: Cardiac monitoring leads overlie the chest. The interstitial markings are prominent. There is patchy airspace disease in the right midlung. There is no demonstrated pleural abnormality. There is moderate cardiac enlargement. Normal mediastinum and dustin. Normal visualized pulmonary arteries. There is atherosclerotic calcification of the aortic arch with tortuosity. There are diffuse degenerative changes of the visualized thoracic spine. Normal visualized ribs, clavicles, and shoulders. There is no demonstrated abnormality of the visualized soft tissue structures of the upper abdomen. RAD/Chest 1 View (Portable) IMPRESSION: Prominent interstitial markings. Patchy airspace disease in the right midlung. This may represent atelectasis or developing pneumonia. Moderate cardiomegaly. Electronically Signed: Yehuda Ferguson DO at 9:33 EDT Tel , Service support ,
--- NOTE | 2017-06-06 07:50 | EKG12_ITS ---
Test Reason : ALTERED STATUS Blood Pressure : / mmHG Vent. Rate : 063 BPM Atrial Rate : 234 BPM P-R Int : 000 ms QRS Dur : 128 ms QT Int : 468 ms P-R-T Axes : 000 -28 235 degrees QTc Int : 478 ms Atrial fibrillation Right bundle branch block Inferior infarct , age undetermined T wave abnormality, consider lateral ischemia Abnormal ECG Confirmed by DE PIZANO, LUL ([id number]), story editor GEETA WILDER ([id number]) on 06/07/2017 1:11:15 PM Referred By: EILEEN Confirmed By:LUL KC MD
[2017-06-06 08:19] LABS: Absolute Lymphocyte Count 1.23 X10^3/ul (0.83-4.51); Absolute Neutrophil Count 7.2 X10^3/uL (2.0-7.7); Basophil# 0.04 X10^3/uL; Basophil% 0.4 % (0-1); Eosinophil# 0.18 X10^3/uL; Hematocrit 26.7 % (37-47); Hemoglobin 8.4 g/dl (12.0-15.0); Lymphocyte # 1.23 X10^3/ul (4.0); Lymphocyte % 13.3 % (19-41); Mean Corp Hgb Conc 31.5 g/gl (32-36); Mean Corpuscular Hgb 35.4 pg (27.0-32.0); Mean Corpuscular Volume 112.7 fL (81-99); Mean Platelet Vol. 10.6 fl (6.2-12.0); Monocyte% 6.5 % (0-10); Neutrophil # 7.15 X10^3/uL (2.7-7.7); Neutrophil % 77.5 % (47-70); POSITIVE COUNT NO; POSITIVE DIFFERENTIAL NO; POSITIVE MORPHOLOGY NO; Platelet Count 203 K/mm3 (150-450); RBC Distribution Width CV 15.8 % (11.6-14.6); RBC Distribution Width SD 61.5 fl (35.1-43.9); Red Blood Count 2.37 M/mm3 (4.2-5.4); White Blood Count 9.2 K/mm3 (4.4-11.0)
--- NOTE | 2017-06-06 08:19 | ED.VISSUMM ---
- ER Visit Summary Date of Service: 06/06/17 Chief Complaint: Unresponsive episode History of Present Illness: The patient is a 72 F with an unresponsive episode. The patient was at dialysis today. She had about 1 hour of dialysis and then was unresponsive. She was not responding to sternal rub. EMS was contacted. They also noted that she was unresponsive, but she regained consciousness spontaneously. Her blood sugar was fine. There was no seizure activity. The patient says she had this before and no one found a cause. She denies any chest pain or shortness of breath. Denies abdominal pain or GI symptoms. Denies any headache. Denies any weakness or numbness. Denies any seizure history. Denies any bleeding. Patient has a history of coronary disease, CHF, COPD, acid reflux, sleep apnea, diabetes, hypertension, hyperlipidemia, end-stage renal disease, A. fib, gastroparesis, pulmonary hypertension, hypoxia. She takes 2.5 L of oxygen at home. Physical Examination: Vital signs unremarkable. Afebrile. 100% on 2.5 L. Alert and oriented. No acute distress. Heart of hearing at baseline. No focal neurologic abnormalities grossly. Heart regular with a systolic murmur. Lungs clear. Abdomen soft and nontender. Test Results: EKG showed atrial fibrillation at a rate of 63. There are nonspecific ST and T-wave changes. This is grossly similar to previous. There is no sign of acute ischemia or infarction. We will check basic labs, CT head, and chest x-ray. Emergency Department Course and Treatment: She was placed on a monitor and oxygen while awaiting results. CT head showed chronic changes. Chest x-ray showed a patchy airspace disease on the right and also chronic changes. White count normal. Hemoglobin 8.4, this is decreased from previous. Fecal occult testing is pending. Her stool was brown and there was no evidence of blood on history or exam. BMP reflected her chronic renal disease. Troponin normal. Patient remained stable. No further syncopal episodes. No symptoms. She was started on Zosyn and vancomycin for HCAP coverage. There is no sign of sepsis. Patient was discussed with the hospitalist and will be admitted to the PCU. While awaiting admission, the patient had a brief shaking episode and then went unresponsive. Her heart bradycardia down and she lost the pulse. She had agonal respirations. She was bagged and CPR was started. She received 1 round of epinephrine. She was intubated with direct visualization. She had a return of her pulse and blood pressure. She was placed on fentanyl for sedation. I notified the door tender, certification and selection specialist, and the hospitalist. The patient had a second episode where her heart rate dropped and she lost her pulse. CPR was started. She received another round of epinephrine. She had a return of her pulse and blood pressure. Hospitalist was at the bedside. I notified the certification and selection specialist a second time. No further orders. EKGs showed atrial fibrillation. Nonspecific ST changes. No STEMI criteria. Chest x-ray showed endotracheal tube in place. Patient was maintained on the ventilator. She had fluid resuscitation. Hospitalist at bedside. Patient being admitted to the ICU. Treatment Plan: As above Disposition: Admission Impression: 1. Full arrest 2. Syncope 3. Anemia 4. End-stage renal disease 5. Healthcare associated pneumonia This note was generated with Hassle.comation software. It may contain incorrect words, spelling, and punctuation that were not noted in review of the chart prior to signing ED Disposition - Plan for ED Patient: Disposition: Acute Care Hospital [facility] Chief Complaint: Mental Status Change
--- NOTE | 2017-06-06 08:23 | ED.DCSUM_ITS ---
- ER Visit Summary Date of Service: 06/06/17 Chief Complaint: Unresponsive episode History of Present Illness: The patient is a 72 F with an unresponsive episode. The patient was at dialysis today. She had about 1 hour of dialysis and then was unresponsive. She was not responding to sternal rub. EMS was contacted. They also noted that she was unresponsive, but she regained consciousness spontaneously. Her blood sugar was fine. There was no seizure activity. The patient says she had this before and no one found a cause. She denies any chest pain or shortness of breath. Denies abdominal pain or GI symptoms. Denies any headache. Denies any weakness or numbness. Denies any seizure history. Denies any bleeding. Patient has a history of coronary disease, CHF, COPD, acid reflux, sleep apnea, diabetes, hypertension, hyperlipidemia, end-stage renal disease, A. fib, gastroparesis, pulmonary hypertension, hypoxia. She takes 2.5 L of oxygen at home. Physical Examination: Vital signs unremarkable. Afebrile. 100% on 2.5 L. Alert and oriented. No acute distress. Heart of hearing at baseline. No focal neurologic abnormalities grossly. Heart regular with a systolic murmur. Lungs clear. Abdomen soft and nontender. Test Results: EKG showed atrial fibrillation at a rate of 63. There are nonspecific ST and T-wave changes. This is grossly similar to previous. There is no sign of acute ischemia or infarction. We will check basic labs, CT head, and chest x-ray. Emergency Department Course and Treatment: She was placed on a monitor and oxygen while awaiting results. CT head showed chronic changes. Chest x-ray showed a patchy airspace disease on the right and also chronic changes. White count normal. Hemoglobin 8.4, this is decreased from previous. Fecal occult testing is pending. Her stool was brown and there was no evidence of blood on history or exam. BMP reflected her chronic renal disease. Troponin normal. Patient remained stable. No further syncopal episodes. No symptoms. She was started on Zosyn and vancomycin for HCAP coverage. There is no sign of sepsis. Patient was discussed with the hospitalist and will be admitted to the PCU. While awaiting admission, the patient had a brief shaking episode and then went unresponsive. Her heart bradycardia down and she lost the pulse. She had agonal respirations. She was bagged and CPR was started. She received 1 round of epinephrine. She was intubated with direct visualization. She had a return of her pulse and blood pressure. She was placed on fentanyl for sedation. I notified the deer farmer, ball machine operator, and the hospitalist. The patient had a second episode where her heart rate dropped and she lost her pulse. CPR was started. She received another round of epinephrine. She had a return of her pulse and blood pressure. Hospitalist was at the bedside. I notified the ball machine operator a second time. No further orders. EKGs showed atrial fibrillation. Nonspecific ST changes. No STEMI criteria. Chest x-ray showed endotracheal tube in place. Patient was maintained on the ventilator. She had fluid resuscitation. Hospitalist at bedside. Patient being admitted to the ICU. Treatment Plan: As above Disposition: Admission Impression: 1. Full arrest 2. Syncope 3. Anemia 4. End-stage renal disease 5. Healthcare associated pneumonia This note was generated with Twitchation software. It may contain incorrect words, spelling, and punctuation that were not noted in review of the chart prior to signing ED Disposition - Plan for ED Patient: Disposition: Acute Care Hospital [facility] Chief Complaint: Mental Status Change
[2017-06-06 08:43] LABS: Anion Gap 8 (5-15); BUN 60 mg/dL (7-18); BUN/Creat Ratio 20.8 RATIO (10-20); Calcium,Total 6.9 mg/dL (8.5-10.1); Chloride 100 mmol/L (98-107); Creatinine, Serum 2.88 mg/dL (0.55-1.02); EST Glomerular Filtration Rate 17 mL/min (>60); Est Glom Filt Rate - Afr Amer 21 mL/min (>60); Estimated Creatinine Clearance 20.28 ml/min; Glucose 180 mg/dL (74-106); Potassium 3.7 mmol/L (3.5-5.1); Sodium Level 137 mmol/L (136-145)
[2017-06-06] MEDS: Piperacil/Tazobactam 3.375 GM/50 ML ML IV ×2 (09:59→19:38)
--- NOTE | 2017-06-06 10:01 | NURSING ---
PCU SYNCOPE, ANEMIA, SUSPECTED HCAP ASHELFAH
--- NOTE | 2017-06-06 10:05 | CM.ED ---
Met with patient and daughter, who is an employee in ED at [employer]. Patient's daughter expresses concern that her mom is fearful at [facility] due to the fact that she has been dropped twice. The patient and family are interested in seeing if [facility] has any availability for the patient. This patient was once a resident at [facility]. At this time, if there is no availability at [facility], the patient states she would be agreeable with discharge to [facility]. Of note, patient's spouse lives at home (Pat). Handoff given to Migdalia CASTILLO. Social work will continue to follow for discharge planning.
[2017-06-06] MEDS: fentaNYL 100 MCG/2 ML Ampul 50 MCG IV ×2 (10:24→10:40)
--- NOTE | 2017-06-06 10:30 | RAD_ITS ---
STUDY: X-RAY CHEST REASON FOR EXAM: Female, 72 years old. Unresponsive, tube placement TECHNIQUE: Single AP portable view of the chest. COMPARISON: 06/06/2017 at 8:42 AM FINDINGS: The endotracheal tube has been placed with the tip approximately 2.7 cm above the petra. An enteric tube is coiled within the stomach. Cardiac monitoring leads overlie the chest. The interstitial markings are prominent. There is continued airspace disease within the right midlung. Small bilateral pleural effusions are seen. There is moderate cardiac enlargement. Normal mediastinum and dustin. Normal visualized pulmonary arteries. There is atherosclerotic calcification of the aortic arch with tortuosity. There are diffuse degenerative changes of the visualized thoracic spine. The bones are demineralized. There is no demonstrated abnormality of the visualized soft tissue structures of the upper abdomen. RAD/Chest 1 View (Portable) IMPRESSION: Life support tubes and catheters, as detailed above. No significant change to the appearance of the lungs, with prominent interstitial markings and focal opacity in the right midlung. Small bilateral pleural effusions are seen. Electronically Signed: Yehuda Ferguson DO at 11:20 EDT Tel , Service support ,
--- NOTE | 2017-06-06 10:44 | NURSING ---
CODE BLUE 1015 CODE BLUE 1041
--- NOTE | 2017-06-06 10:48 | EKG12_ITS ---
Test Reason : REPEAT Blood Pressure : / mmHG Vent. Rate : 143 BPM Atrial Rate : 170 BPM P-R Int : 000 ms QRS Dur : 078 ms QT Int : 256 ms P-R-T Axes : 000 180 200 degrees QTc Int : 395 ms Suspect arm lead reversal, interpretation assumes no reversal Atrial fibrillation with premature ventricular or aberrantly conducted complexes Low voltage QRS Inferior infarct , age undetermined Anterolateral infarct , age undetermined Abnormal ECG Confirmed by DE PIZANO, LUL ([id number]), editor in chief newspaper GEETA WILDER ([id number]) on 06/07/2017 1:25:28 PM Referred By: EILEEN Confirmed By:LUL KC MD
--- NOTE | 2017-06-06 10:56 | CASEMGMT ---
Social Work Note SW responded to code umu. Pt's daughter, Lucila, present outside of room and accompanied by Migue Hunt, veterans service representative. Lucila called the pt's to come, and medical unit secretary had contacted Lucila's , Wil. Offer to make additional calls and Lucila declines. Lucila states that the pt does not have HCPOA or Living Will, but expresses interest in doing long-term care planning for her mother with her step father. Inform that SW can assist with this throughout the stay once pt is stable. Lucila reports that the pt is residing at [facility] and was at dialysis today when she had the episode. Inform Lucila that SW will contact [facility] with update. Staff informs that the pt will be transferred to ICU. Lucila begins to report chest pain. Staff take into RM 3 to evaluate. Pt's spouse arrives. SW provides brief update. RN meets SW and pt's spouse to update that Lucila has given permission for her to come to her room. RN escorts pt's spouse to Lucila's room. Lucila's arrives and is updated as well. Provided support to each member and made aware that SW is available if needs arise. Second code umu called on pt. Staff responded and family provided with update. Placed call to María at [facility] and updated on pt's status. SW on unit to continue to follow and assist with discharge planning and assist family with long-term care planning as time allows. Plan: TBD, anticipate ECF at discharge. Jamee Jackman, WARD SERVICE SUPERVISOR, SINGING WAITER OR WAITRESS
--- NOTE | 2017-06-06 11:01 | PCM.HP.STD ---
Problem List (1) Atrial fibrillation and flutter Status: Chronic Comment: NO ON ANTICOAGULATION DUE TO FALL RISK AND NON-COMPLIANCE (2) Peripheral vascular disease Status: Chronic (3) Diastolic congestive heart failure Status: Chronic Qualifiers: (4) Chronic hypoxemic respiratory failure Status: Chronic (5) Type II diabetes mellitus Status: Chronic (6) Diabetic retinopathy Status: Chronic Qualifiers: (7) ESRD (end stage renal disease) Status: Chronic Comment: on HD-TUESDAY,TUESDAY,TUESDAY (8) CAD (coronary artery disease) Status: Chronic (9) Hypothyroidism Status: Chronic Qualifiers: (10) Pulmonary HTN Status: Chronic (11) COPD (chronic obstructive pulmonary disease) Status: Chronic Qualifiers: (12) Aortic stenosis, mild Status: Chronic (13) HLD (hyperlipidemia) Status: Chronic Qualifiers: History of Present Illness Date of Admission: 06/06/17 Chief Complaint: Syncope, cardiac arrest. The patient is a 72 year old F with complicated past medical history presented to the emergency room from the dialysis center because of syncopal episode. At this time, patient is status post cardiac arrest, intubated and sedated. She is on IV fentanyl drip. She is not able to provide any history. Reportedly and according to the ER physician, patient went for hemodialysis today and after 1 hour of hemodialysis, she passed out. Reportedly, no prodromal symptoms such as chest pain, shortness of breath, dizziness or lightheadedness. According to the ER physician, her daughter mentioned that she has been having respiratory symptoms over the last few days with cough and congestion. In route to the hospital, she had another syncopal episode with the squad and reportedly, her blood sugar and blood pressure was stable. She regained her consciousness in the ambulance and she was alert and oriented ?3. Upon arrival to the emergency room, she was afebrile, heart rate was stable, blood pressure was stable and pulse ox was 88% on 3 L. Podiatry physician, we decided to admit the patient to PCU for syncope, anemia and suspected and questionable pneumonia. Shortly after, patient went into cardiac arrest, CPR initiated and she received 1 dose of IV epinephrine. Patient did have pulse and her blood pressure was okay, was started on IV fentanyl drip. After around 15 minutes, she had another episode of cardiac arrest and CPR initiated again, received 1 dose of IV epinephrine and again were able to get her pulse back. At this time, she does have pulse, blood pressure is around 150 systolic. She is on mechanical ventilation. She had a history of end-stage renal disease and she is on hemodialysis through AV fistula and reportedly, she is noncompliant patient. She had a history of chronic atrial fibrillation and she is not on any rate control medication and not on anticoagulation. She has history of type 2 diabetes mellitus and her most recent hemoglobin A1c was 7.2 on March,. Routine blood work is remarkable for anemia with hemoglobin of 8.4, BUN of 16 and creatinine of 2.88 which is chronic. Troponin was 0.06. Chest x-ray revealed haziness on the whole right lung with dense linear opacity in the right lower lobe and compared to previous chest x-ray, those changes has been there but they are getting worse. CT scan brain showed no acute infarction or hemorrhage. Her first EKG before the cardiac arrest revealed A. fib, rate controlled and with right bundle branch block. After she had a cardiac arrest, her EKG revealed sinus tachycardia, RBBB, inverted T-wave and ST segment depression in leads V3, V4, V5 and V6. She is being admitted for cardiac arrest, acute respiratory failure, syncope, anemia and probable pneumonia. Past Medical History Past Medical History (Chronic Problems): Chronic Problems Chronic ulcer of left leg with fat layer exposed (Chronic) Chronic ulcer of left foot with fat layer exposed (Chronic) Ischemic foot ulcer due to atherosclerosis of [place] artery of limb (Chronic) Lumbar compression fracture (Chronic) Atrial fibrillation and flutter (Chronic) NO ON ANTICOAGULATION DUE TO FALL RISK AND NON-COMPLIANCE Legal blindness (Chronic) Poor dental hygiene (Chronic) Peripheral vascular disease (Chronic) Diastolic congestive heart failure (Chronic) Chronic hypoxemic respiratory failure (Chronic) Type II diabetes mellitus (Chronic) Diabetic retinopathy (Chronic) ESRD (end stage renal disease) (Chronic) on HD-TUESDAY,TUESDAY,TUESDAY Restrictive lung disease (Chronic) CAD (coronary artery disease) (Chronic) AV fistula (Chronic) Hypothyroidism (Chronic) GERD (gastroesophageal reflux disease) (Chronic) Sleep apnea (Chronic) pt is NOT compliant with CPAP Pulmonary HTN (Chronic) COPD (chronic obstructive pulmonary disease) (Chronic) Aortic stenosis, mild (Chronic) Non-compliance (Chronic) S/P PTCA (percutaneous transluminal coronary angioplasty) (Chronic) HLD (hyperlipidemia) (Chronic) HTN (hypertension) (Chronic) Allergies azithromycin [From Zithromax] Allergy (Verified 06/06/17 07:38) Hives Home Medications: Ambulatory Orders Medication Instructions Recorded Levothyroxine [Synthroid] 50 mcg PO DAILY 07/31/13 Omeprazole [Prilosec] 20 mg PO DAILY 07/31/13 Simvastatin [Zocor] 40 mg PO QHS 07/31/13 Folic Acid/Vitamin B Comp W-C 1 capsule PO DAILY 02/20/14 [Nephrocaps, Renaphro] Bumetanide [Bumex] 2 mg PO DAILY 01/28/16 Calcium Acetate [Phoslo Gel Cap] 667 mg PO TIDCM 01/28/16 Loratadine [Claritin] 10 mg PO DAILY PRN 01/28/16 Oxycodone [Oxyir] 5 mg PO Q4H PRN PRN #30 tablet 06/09/16 Insulin Aspart [Novolog Flexpen] 0 units SC TIDCM 09/30/16 Guaifenesin [Mucinex] 600 mg PO BID 04/06/17 Ranitidine HCl 75 mg PO DAILY 04/06/17 Albuterol Sulfate 2.5 mg IH Q8H PRN PRN MDD 9 ML 04/08/17 Aspirin [Aspirin, Baby] 81 mg PO DAILY@0800 #30 tab.chew 04/08/17 Guaifenesin [Mucinex] 1,200 mg PO BID #14 tab 04/08/17 Insulin Detemir [Levemir FlexPen] 15 units SC BID insuln.pen 04/08/17 Ipratropium/Albuterol Sulfate 3 ml INHALATION Q4H PRN #1 box 04/08/17 [Duoneb] Prednisone [Deltasone] 40 mg PO DAILY #5 tab 04/08/17 Surgical History: adenoidectomy, cholecystectomy, tonsillectomy, - - Right upper fistula repair, right toe amputation, right hip fracture w/ fixation. Psychiatric History: No pertinent psych hx BUSINESS INFORMATION CONSULTANT History: No pertinent BUSINESS INFORMATION CONSULTANT history Lives: Spouse/ Significant Other Smoking Status: Never smoker Alcohol: None Drugs: None - *Family History Maternal History Items: COPD Paternal History Items: Diabetes, Heart Disease, Hypertension Review of Systems Constitutional: Reports: - - Unobtainable, patient is intubated and sedated. Eyes: Reports: - - Unobtainable, patient is intubated and sedated. HEENT: Reports: - - Unobtainable, patient is intubated and sedated. Cardiovascular: Reports: - - Unobtainable, patient is intubated and sedated. Respiratory: Reports: - - Unobtainable, patient is intubated and sedated. Gastrointestinal: Reports: - - Unobtainable, patient is intubated and sedated. Gynecological: Reports: - - Unobtainable, patient is intubated and sedated. Musculoskeletal: Reports: - - Unobtainable, patient is intubated and sedated. Neurological: Reports: - - Unobtainable, patient is intubated and sedated. VTE Information - Inpt Only VTE Present on Admission: No VTE Mechan Device Prophylaxis: SCD's VTE Pharm Prophylaxis ordered?: Yes - Physical Exam General: - - Patient is sedated and intubated. HEENT: Atraumatic, PERRLA, EOMI Oral: Moist Mucosa, No Gingival or Mucosal Lesions/ Ulcerations Neck: Supple, No JVD, Negative Carotid Bruits, Trachea Midline, Thyroid Normal Size and Texture Lungs: No wheeze, No rales, Diminished, Rhonchi, Short of Breath, - - Diminished breath sounds bilateral, more at the bases, bilateral rhonchi. Cardiovascular: Normal S1, Normal S2, PMI Normal, Irregular Rate, Murmur, Tachycardic Abdomen: Bowel Sounds Present, Soft, Non Tender, Non-Distended, No Hepato-splenomegaly, Obese Extremities: No clubbing, No cyanosis, No edema Skin: No rashes, No breakdown Lymphatic: No Cervical, Supraclavicular, or Inguinal Adenopathy Neurological: - - Unable to examine, patient is sedated. Psych/Mental Status: - - Unable to examine, patient is sedated. Vital Signs Temp Pulse Resp BP Pulse Ox 98.4 F 110 H 11 L 157/73 H 100 06/06/17 07:33 06/06/17 10:52 06/06/17 10:52 06/06/17 10:52 06/06/17 10:52 Microbiology 06/06/17 09:45 Stool Occult Blood (LOGAN) - Final Stool Occult Blood Positive Laboratory Tests 06/06/17 06/06/17 06/06/17 Range/Units 08:10 08:10 08:10 WBC 9.2 (4.4-11.0) K/mm3 RBC 2.37 L (4.2-5.4) M/mm3 Hgb 8.4 L (12.0-15.0) g/dl Hct 26.7 L (37-47) % MCV 112.7 H (81-99) fL MCH 35.4 H (27.0-32.0) pg MCHC 31.5 L (32-36) g/gl RDW 15.8 H (11.6-14.6) % RDW Differential 61.5 H (35.1-43.9) fl Plt Count 203 (150-450) K/mm3 MPV 10.6 (6.2-12.0) fl Immature Gran % (Auto) 0.300 (0.0-0.9) % Neut % (Auto) 77.5 H (47-70) % Lymph % (Auto) 13.3 L (19-41) % [place] % (Auto) 6.5 (0-10) % Eos % (Auto) 2.0 (0-5) % Baso % (Auto) 0.4 (0-1) % Absolute Neuts (auto) 7.2 (2.0-7.7) X10^3/uL Absolute Lymphs (auto) 1.23 (0.83-4.51) X10^3/ul Total Counted Not Reportable Sodium 137 (136-145) mmol/L Potassium 3.7 (3.5-5.1) mmol/L Chloride 100 (98-107) mmol/L Carbon Dioxide 29.0 (21.0-32.0) mmol/L Anion Gap 8 (5-15) BUN 60 H (7-18) mg/dL Creatinine 2.88 H (0.55-1.02) mg/dL Estim Creat Clear Calc 20.28 ml/min Est GFR (MDRD) Af Amer 21 L (>60) mL/min Est GFR (MDRD) Non-Af 17 L (>60) mL/min BUN/Creatinine Ratio 20.8 H (10-20) RATIO Glucose 180 H (74-106) mg/dL Calcium 6.9 L (8.5-10.1) mg/dL Magnesium 2.3 (1.6-2.6) mg/dL Troponin I 0.06 (<0.06) ng/mL Clinical Impression(s) from Imaging Studies Brain CT 06/06/17 07:50 IMPRESSION: Chronic involutional changes. No acute intracranial abnormality. Opacified left maxillary sinus. Electronically Signed: Yehuda Ferguson DO at 9:26 EDT Tel , Service support , Chest X-Ray 06/06/17 07:50 IMPRESSION: Prominent interstitial markings. Patchy airspace disease in the right midlung. This may represent atelectasis or developing pneumonia. Moderate cardiomegaly. Electronically Signed: Yehuda Ferguson DO at 9:33 EDT Tel , Service support , Assessment/Plan This is a 72 years old female patient brought to the emergency room from the dialysis center because of syncopal episode, found to have anemia and hypocalcemia as well as probable pneumonia, went into cardiac arrest ?2 status post CPR in the emergency room and she is being admitted for acute respiratory failure, cardiac arrest, syncope, anemia and probable pneumonia. #1 status post cardiac arrest/acute respiratory failure: Unclear etiology, could be due to cardiac arrhythmias. At this time, patient is intubated and started on mechanical ventilation. First EKG upon arrival to ER was showing A. fib, rate controlled with RBBB and without acute ischemic changes. Post cardiac arrest, EKG revealed sinus tachycardia, RBBB and T-wave inversion in the ST segment depression in lateral chest leads. First troponin is negative. Plan: Admit to ICU, critical care monitoring, n.p.o., IV fluids for hydration, continue vent settings, continue fentanyl for sedation, serial cardiac enzymes, repeat EKG tomorrow morning, 2D echocardiogram, critical care consult, nephrology consult for urgent dialysis, check serum magnesium and phosphorus, maintain Kim catheter. #2 syncope: Unclear etiology. Reportedly, patient had syncopal episode without prodromal symptoms and reportedly also, patient mentioned that she has been doing this in the past as well. Reviewed as above. CT scan brain without acute findings. Initial blood pressure was stable. At this time, pressure is 150 systolic after patient received 1 dose of epinephrine during the second cardiac arrest. Plan: Cardiac monitoring, serial cardiac enzymes, 2D echocardiogram, cardiology consult. #3 anemia: Patient does have a history of chronic anemia, hemoglobin has been fluctuating anywhere between 9-13 g/dL. Admission hemoglobin is 8.4 g/dL. It is microcytic anemia. At this time, no evidence of active bleeding. Plan: Serum iron, ferritin, TIBC, B12, RBC folate, transfuse if hemoglobin less than 8 g/dL. #4 probable healthcare associated pneumonia: At this time, chest x-ray reviewed and pneumonia is less likely. Definitely there is a change on the chest x-ray on the right side which is probably due to volume overload secondary to insufficient hemodialysis, patient had 1 hour of that yesterday. Patient received 1 dose of IV vancomycin and Zosyn in the ER. Plan: Pneumococcal antigen, Legionella antigen, blood culture, respiratory panel for viruses, urinalysis, urine culture, sputum culture, continue empiric IV Zosyn. #5 ESRD on hemodialysis: Patient received 1 hour of hemodialysis today, pulse ox was 88% on 3 L upon arrival to ER. Chest x-ray revealed probable volume overload. Plan for hemodialysis today, nephrology consult. #6 type 2 diabetes mellitus: Keep on n.p.o., Accu-Cheks, sliding scale, hold home doses of Levemir insulin and pre-meal NovoLog. #7 hypertension: At this time, she will be intubated and sedated, close monitoring of blood pressure. Blood pressure was high because she received IV epinephrine. #8 CAD status post PTCA: EKG reviewed as above. First troponin is negative. Plan as above, cardiac monitoring, serial cardiac enzymes, 2D echocardiogram, cardiology consult. #9 COPD/chronic respiratory failure: Patient is on home oxygen at 2.5 L reportedly. Chest x-ray reviewed as above. Plan for bronchodilators, continue mechanical ventilation. #10 chronic atrial fibrillation: After cardiac arrest, heart rate has been around 100, was in A. fib. At home, she is not on any medication for rate control and not on anticoagulation. #11 DVT prophylaxis: Subcu heparin. Other chronic medical problems: #1 hypothyroidism. #2 GERD. #3 mild aortic stenosis. #4 hyperlipidemia. #5 sleep apnea. #6 severe pulmonary hypertension. #7 diabetic neuropathy. #8 peripheral vascular disease. #9 gastroparesis. This note was generated with [employer] dictation software. It may contain incorrect words, spelling, and punctuation that were not noted in checking the note before signing. Code Visit Inpatient E&M: 24488 Init Hosp L3
[2017-06-06 11:02] LABS: Magnesium 2.3 mg/dL (1.6-2.6)
--- NOTE | 2017-06-06 11:05 | HP.PCM_ITS ---
Problem List (1) Atrial fibrillation and flutter Status: Chronic Comment: NO ON ANTICOAGULATION DUE TO FALL RISK AND NON- COMPLIANCE (2) Peripheral vascular disease Status: Chronic (3) Diastolic congestive heart failure Status: Chronic Qualifiers: (4) Chronic hypoxemic respiratory failure Status: Chronic (5) Type II diabetes mellitus Status: Chronic (6) Diabetic retinopathy Status: Chronic Qualifiers: (7) ESRD (end stage renal disease) Status: Chronic Comment: on HD-TUESDAY,TUESDAY,TUESDAY (8) CAD (coronary artery disease) Status: Chronic (9) Hypothyroidism Status: Chronic Qualifiers: (10) Pulmonary HTN Status: Chronic (11) COPD (chronic obstructive pulmonary disease) Status: Chronic Qualifiers: (12) Aortic stenosis, mild Status: Chronic (13) HLD (hyperlipidemia) Status: Chronic Qualifiers: History of Present Illness Date of Admission: 06/06/17 Chief Complaint: Syncope, cardiac arrest. The patient is a 72 year old F with complicated past medical history presented to the emergency room from the dialysis center because of syncopal episode. At this time, patient is status post cardiac arrest, intubated and sedated. She is on IV fentanyl drip. She is not able to provide any history. Reportedly and according to the ER physician, patient went for hemodialysis today and after 1 hour of hemodialysis, she passed out. Reportedly, no prodromal symptoms such as chest pain, shortness of breath, dizziness or lightheadedness. According to the ER physician, her daughter mentioned that she has been having respiratory symptoms over the last few days with cough and congestion. In route to the hospital, she had another syncopal episode with the squad and reportedly, her blood sugar and blood pressure was stable. She regained her consciousness in the ambulance and she was alert and oriented ?3. Upon arrival to the emergency room, she was afebrile, heart rate was stable, blood pressure was stable and pulse ox was 88% on 3 L. Podiatry physician, we decided to admit the patient to PCU for syncope, anemia and suspected and questionable pneumonia. Shortly after, patient went into cardiac arrest, CPR initiated and she received 1 dose of IV epinephrine. Patient did have pulse and her blood pressure was okay, was started on IV fentanyl drip. After around 15 minutes, she had another episode of cardiac arrest and CPR initiated again, received 1 dose of IV epinephrine and again were able to get her pulse back. At this time , she does have pulse, blood pressure is around 150 systolic. She is on mechanical ventilation. She had a history of end-stage renal disease and she is on hemodialysis through AV fistula and reportedly, she is noncompliant patient. She had a history of chronic atrial fibrillation and she is not on any rate control medication and not on anticoagulation. She has history of type 2 diabetes mellitus and her most recent hemoglobin A1c was 7.2 on March,. Routine blood work is remarkable for anemia with hemoglobin of 8.4, BUN of 16 and creatinine of 2.88 which is chronic. Troponin was 0.06. Chest x-ray revealed haziness on the whole right lung with dense linear opacity in the right lower lobe and compared to previous chest x-ray, those changes has been there but they are getting worse. CT scan brain showed no acute infarction or hemorrhage. Her first EKG before the cardiac arrest revealed A. fib, rate controlled and with right bundle branch block. After she had a cardiac arrest, her EKG revealed sinus tachycardia, RBBB, inverted T-wave and ST segment depression in leads V3, V4, V5 and V6. She is being admitted for cardiac arrest , acute respiratory failure, syncope, anemia and probable pneumonia. Past Medical History Past Medical History (Chronic Problems): Chronic Problems Chronic ulcer of left leg with fat layer exposed (Chronic) Chronic ulcer of left foot with fat layer exposed (Chronic) Ischemic foot ulcer due to atherosclerosis of inaja artery of limb (Chronic) Lumbar compression fracture (Chronic) Atrial fibrillation and flutter (Chronic) NO ON ANTICOAGULATION DUE TO FALL RISK AND NON-COMPLIANCE Legal blindness (Chronic) Poor dental hygiene (Chronic) Peripheral vascular disease (Chronic) Diastolic congestive heart failure (Chronic) Chronic hypoxemic respiratory failure (Chronic) Type II diabetes mellitus (Chronic) Diabetic retinopathy (Chronic) ESRD (end stage renal disease) (Chronic) on HD-TUESDAY,TUESDAY,TUESDAY Restrictive lung disease (Chronic) CAD (coronary artery disease) (Chronic) AV fistula (Chronic) Hypothyroidism (Chronic) GERD (gastroesophageal reflux disease) (Chronic) Sleep apnea (Chronic) pt is NOT compliant with CPAP Pulmonary HTN (Chronic) COPD (chronic obstructive pulmonary disease) (Chronic) Aortic stenosis, mild (Chronic) Non-compliance (Chronic) S/P PTCA (percutaneous transluminal coronary angioplasty) (Chronic) HLD (hyperlipidemia) (Chronic) HTN (hypertension) (Chronic) Allergies azithromycin [From Zithromax] Allergy (Verified 06/06/17 07:38) Hives Home Medications: Ambulatory Orders Medication Instructions Recorded Levothyroxine [Synthroid] 50 mcg PO DAILY 07/31/13 Omeprazole [Prilosec] 20 mg PO DAILY 07/31/13 Simvastatin [Zocor] 40 mg PO QHS 07/31/13 Folic Acid/Vitamin B Comp W-C 1 capsule PO DAILY 02/20/14 [Nephrocaps, Renaphro] Bumetanide [Bumex] 2 mg PO DAILY 01/28/16 Calcium Acetate [Phoslo Gel Cap] 667 mg PO TIDCM 01/28/16 Loratadine [Claritin] 10 mg PO DAILY PRN 01/28/16 Oxycodone [Oxyir] 5 mg PO Q4H PRN PRN #30 tablet 06/09/16 Insulin Aspart [Novolog Flexpen] 0 units SC TIDCM 09/30/16 Guaifenesin [Mucinex] 600 mg PO BID 04/06/17 Ranitidine HCl 75 mg PO DAILY 04/06/17 Albuterol Sulfate 2.5 mg IH Q8H PRN PRN MDD 9 ML 04/08/17 Aspirin [Aspirin, Baby] 81 mg PO DAILY@0800 #30 tab.chew 04/08/17 Guaifenesin [Mucinex] 1,200 mg PO BID #14 tab 04/08/17 Insulin Detemir [Levemir FlexPen] 15 units SC BID insuln.pen 04/08/17 Ipratropium/Albuterol Sulfate 3 ml INHALATION Q4H PRN #1 box 04/08/17 [Duoneb] Prednisone [Deltasone] 40 mg PO DAILY #5 tab 04/08/17 Surgical History: adenoidectomy, cholecystectomy, tonsillectomy, - - Right upper fistula repair, right toe amputation, right hip fracture w/ fixation. Psychiatric History: No pertinent psych hx FIRMWARE ENGINEER History: No pertinent FIRMWARE ENGINEER history Lives: Spouse/ Significant Other Smoking Status: Never smoker Alcohol: None Drugs: None - *Family History Maternal History Items: COPD Paternal History Items: Diabetes, Heart Disease, Hypertension Review of Systems Constitutional: Reports: - - Unobtainable, patient is intubated and sedated. Eyes: Reports: - - Unobtainable, patient is intubated and sedated. HEENT: Reports: - - Unobtainable, patient is intubated and sedated. Cardiovascular: Reports: - - Unobtainable, patient is intubated and sedated. Respiratory: Reports: - - Unobtainable, patient is intubated and sedated. Gastrointestinal: Reports: - - Unobtainable, patient is intubated and sedated. Gynecological: Reports: - - Unobtainable, patient is intubated and sedated. Musculoskeletal: Reports: - - Unobtainable, patient is intubated and sedated. Neurological: Reports: - - Unobtainable, patient is intubated and sedated. VTE Information - Inpt Only VTE Present on Admission: No VTE Mechan Device Prophylaxis: SCD's VTE Pharm Prophylaxis ordered?: Yes - Physical Exam General: - - Patient is sedated and intubated. HEENT: Atraumatic, PERRLA, EOMI Oral: Moist Mucosa, No Gingival or Mucosal Lesions/ Ulcerations Neck: Supple, No JVD, Negative Carotid Bruits, Trachea Midline, Thyroid Normal Size and Texture Lungs: No wheeze, No rales, Diminished, Rhonchi, Short of Breath, - - Diminished breath sounds bilateral, more at the bases, bilateral rhonchi. Cardiovascular: Normal S1, Normal S2, PMI Normal, Irregular Rate, Murmur, Tachycardic Abdomen: Bowel Sounds Present, Soft, Non Tender, Non-Distended, No Hepato- splenomegaly, Obese Extremities: No clubbing, No cyanosis, No edema Skin: No rashes, No breakdown Lymphatic: No Cervical, Supraclavicular, or Inguinal Adenopathy Neurological: - - Unable to examine, patient is sedated. Psych/Mental Status: - - Unable to examine, patient is sedated. Vital Signs Temp Pulse Resp BP Pulse Ox 98.4 F 110 H 11 L 157/73 H 100 06/06/17 07:33 06/06/17 10:52 06/06/17 10:52 06/06/17 10:52 06/06/17 10:52 Microbiology 06/06/17 09:45 Stool Occult Blood (LOGAN) - Final Stool Occult Blood Positive Laboratory Tests 3 06/06/17 06/06/17 06/06/17 Range/Units 08:10 08:10 08:10 WBC 9.2 (4.4-11.0) K/mm3 RBC 2.37 L (4.2-5.4) M/mm3 Hgb 8.4 L (12.0-15.0) g/dl Hct 26.7 L (37-47) % MCV 112.7 H (81-99) fL MCH 35.4 H (27.0-32.0) pg MCHC 31.5 L (32-36) g/gl RDW 15.8 H (11.6-14.6) % RDW Differential 61.5 H (35.1-43.9) fl Plt Count 203 (150-450) K/mm3 MPV 10.6 (6.2-12.0) fl Immature Gran % (Auto) 0.300 (0.0-0.9) % Neut % (Auto) 77.5 H (47-70) % Lymph % (Auto) 13.3 L (19-41) % [place] % (Auto) 6.5 (0-10) % Eos % (Auto) 2.0 (0-5) % Baso % (Auto) 0.4 (0-1) % Absolute Neuts (auto) 7.2 (2.0-7.7) X10^3/uL Absolute Lymphs (auto) 1.23 (0.83-4.51) X10^3/ul Total Counted Not Reportable Sodium 137 (136-145) mmol/L Potassium 3.7 (3.5-5.1) mmol/L Chloride 100 (98-107) mmol/L Carbon Dioxide 29.0 (21.0-32.0) mmol/L Anion Gap 8 (5-15) BUN 60 H (7-18) mg/dL Creatinine 2.88 H (0.55-1.02) mg/dL Estim Creat Clear Calc 20.28 ml/min Est GFR (MDRD) Af Amer 21 L (>60) mL/min Est GFR (MDRD) Non-Af 17 L (>60) mL/min BUN/Creatinine Ratio 20.8 H (10-20) RATIO Glucose 180 H (74-106) mg/dL Calcium 6.9 L (8.5-10.1) mg/dL Magnesium 2.3 (1.6-2.6) mg/dL Troponin I 0.06 (<0.06) ng/mL Clinical Impression(s) from Imaging Studies Brain CT 06/06/17 07:50 IMPRESSION: Chronic involutional changes. No acute intracranial abnormality. Opacified left maxillary sinus. Electronically Signed: Yehuda Ferguson DO at 9:26 EDT Tel , Service support , Chest X-Ray 06/06/17 07:50 IMPRESSION: Prominent interstitial markings. Patchy airspace disease in the right midlung. This may represent atelectasis or developing pneumonia. Moderate cardiomegaly. Electronically Signed: Yehuda Ferguson DO at 9:33 EDT Tel , Service support , Assessment/Plan This is a 72 years old female patient brought to the emergency room from the dialysis center because of syncopal episode, found to have anemia and hypocalcemia as well as probable pneumonia, went into cardiac arrest ?2 status post CPR in the emergency room and she is being admitted for acute respiratory failure, cardiac arrest, syncope, anemia and probable pneumonia. #1 status post cardiac arrest/acute respiratory failure: Unclear etiology, could be due to cardiac arrhythmias. At this time, patient is intubated and started on mechanical ventilation. First EKG upon arrival to ER was showing A. fib, rate controlled with RBBB and without acute ischemic changes. Post cardiac arrest, EKG revealed sinus tachycardia, RBBB and T-wave inversion in the ST segment depression in lateral chest leads. First troponin is negative. Plan: Admit to ICU, critical care monitoring, n.p.o., IV fluids for hydration, continue vent settings, continue fentanyl for sedation, serial cardiac enzymes, repeat EKG tomorrow morning, 2D echocardiogram, critical care consult, nephrology consult for urgent dialysis, check serum magnesium and phosphorus, maintain Kim catheter. #2 syncope: Unclear etiology. Reportedly, patient had syncopal episode without prodromal symptoms and reportedly also, patient mentioned that she has been doing this in the past as well. Reviewed as above. CT scan brain without acute findings. Initial blood pressure was stable. At this time, pressure is 150 systolic after patient received 1 dose of epinephrine during the second cardiac arrest. Plan: Cardiac monitoring, serial cardiac enzymes, 2D echocardiogram, cardiology consult. #3 anemia: Patient does have a history of chronic anemia, hemoglobin has been fluctuating anywhere between 9-13 g/dL. Admission hemoglobin is 8.4 g/dL. It is microcytic anemia. At this time, no evidence of active bleeding. Plan: Serum iron, ferritin, TIBC, B12, RBC folate, transfuse if hemoglobin less than 8 g/dL. #4 probable healthcare associated pneumonia: At this time, chest x-ray reviewed and pneumonia is less likely. Definitely there is a change on the chest x-ray on the right side which is probably due to volume overload secondary to insufficient hemodialysis, patient had 1 hour of that yesterday. Patient received 1 dose of IV vancomycin and Zosyn in the ER. Plan: Pneumococcal antigen, Legionella antigen, blood culture, respiratory panel for viruses, urinalysis, urine culture, sputum culture, continue empiric IV Zosyn. #5 ESRD on hemodialysis: Patient received 1 hour of hemodialysis today, pulse ox was 88% on 3 L upon arrival to ER. Chest x-ray revealed probable volume overload. Plan for hemodialysis today, nephrology consult. #6 type 2 diabetes mellitus: Keep on n.p.o., Accu-Cheks, sliding scale, hold home doses of Levemir insulin and pre-meal NovoLog. #7 hypertension: At this time, she will be intubated and sedated, close monitoring of blood pressure. Blood pressure was high because she received IV epinephrine. #8 CAD status post PTCA: EKG reviewed as above. First troponin is negative. Plan as above, cardiac monitoring, serial cardiac enzymes, 2D echocardiogram, cardiology consult. #9 COPD/chronic respiratory failure: Patient is on home oxygen at 2.5 L reportedly. Chest x-ray reviewed as above. Plan for bronchodilators, continue mechanical ventilation. #10 chronic atrial fibrillation: After cardiac arrest, heart rate has been around 100, was in A. fib. At home, she is not on any medication for rate control and not on anticoagulation. #11 DVT prophylaxis: Subcu heparin. Other chronic medical problems: #1 hypothyroidism. #2 GERD. #3 mild aortic stenosis. #4 hyperlipidemia. #5 sleep apnea. #6 severe pulmonary hypertension. #7 diabetic neuropathy. #8 peripheral vascular disease. #9 gastroparesis. This note was generated with [employer] dictation software. It may contain incorrect words, spelling, and punctuation that were not noted in checking the note before signing. Code Visit Inpatient E&M: 33868 Init Hosp L3
--- NOTE | 2017-06-06 11:27 | ECHOD_ITS ---
Version 2 Reason For Study: Syncope, cardiac arrest Procedure This was a 2D Doppler, Color Flow transthoracic echocardiogram. Exam performed portable in ICU/CCU. Left Ventricle Normal LV size. Moderate concentric left ventricular hypertrophy. D shaped septum in systole and diastole. Left ventricular systolic function is normal. The estimated ejection fraction is 55 %. No regional wall motion abnormalities noted. Right Ventricle Moderately dilated right ventricle. Mild to moderate global right ventricular systolic dysfunction. Atria The left atrium is mildly enlarged. Normal right atrium. Mitral Valve There is moderate to severe mitral annular calcification. Tricuspid Valve Normal tricuspid valve. Mild to moderate (1-2+) tricuspid valve insufficiency. Pulmonary artery systolic pressure is 50 mmHg. Moderate pulmonary hypertension. Aortic Valve Trisinus/trileaflet aortic valve. Moderate focal aortic valve calcification. Peak aortic valve gradient 36 mmHg. Mean aortic valve gradient 17 mmHg. Moderate aortic stenosis. Pulmonic Valve Normal pulmonic valve. Great Vessels Calcified aortic root. The pulmonary artery is normal size. Normal inferior vena cava. Pericardium/Pleural No pericardial effusion. MMode/2D Measurements & Calculations LVIDd: 3.2 cm IVSd: 1.3 cm LVOT diam: 2.0 cm LVIDs: 2.3 cm LVPWd: 1.4 cm LVOT area: 3.1 cm2 RVDd: 3.7 cm FS: 27.0 % Ao root diam: 2.4 cm LAV(MOD-bp): 76.4 ml LA A4 area: 21.8 cm2 LA dimension: 4.6 cm LAV(MOD-bp) Indexed: 45.9 ml/m2 LAV(MOD-sp2): 77.0 ml LAV(MOD-sp4): 66.4 ml RA A4 area: 17.4 cm2 Doppler Measurements & Calculations MV E max suki: 80.3 cm/sec Ao V2 max: 297.4 cm/sec LV V1 max: 82.6 cm/sec Ao max P.6 mmHg LV V1 max P.7 mmHg Ao V2 mean: 187.3 cm/sec LV V1 mean P.0 mmHg Ao mean P.9 mmHg LV V1 mean: 44.4 cm/sec Ao V2 VTI: 44.3 cm LV V1 VTI: 10.4 cm TAMMIE(I,D): 0.73 cm2 TAMMIE(V,D): 0.86 cm2 SV(LVOT): 32.2 ml PA V2 max: 56.2 cm/sec TR max suki: 331.6 cm/sec TR max P.1 mmHg Interpretation Summary Normal LV size. Moderate concentric left ventricular hypertrophy. D shaped septum in systole and diastole. The estimated ejection fraction is 55 %. Moderate aortic stenosis. Moderate focal aortic valve calcification. Moderate pulmonary hypertension. Ordering Physician: Lennox Palomares Referring Physician: Zeferino Carlson Jr. Performed By: Yumiko Carrion RDCS
--- NOTE | 2017-06-06 11:32 | EKG12_ITS ---
Test Reason : EKG CHANGES Blood Pressure : / mmHG Vent. Rate : 084 BPM Atrial Rate : 093 BPM P-R Int : 000 ms QRS Dur : 136 ms QT Int : 424 ms P-R-T Axes : 000 -27 176 degrees QTc Int : 501 ms Atrial fibrillation Right bundle branch block Inferior infarct , age undetermined T wave abnormality, consider lateral ischemia Abnormal ECG When compared with ECG of 06-JUN-2017 10:48, MANUAL COMPARISON REQUIRED, DATA IS UNCONFIRMED Confirmed by DE PIZANO, LUL ([id number]), graphic manager GEETA WILDER ([id number]) on 06/09/2017 3:54:29 PM Referred By: BECKIE Confirmed By:LUL KC MD
[2017-06-06] MEDS: 0.9% Normal Saline 1,000 ML 100 ML IV (11:45)
[2017-06-06 11:56] LABS: Allen Test POS; Base Excess 2 mmol/L (-2 to +2); Bicarbonate 27.6 mmol/L (22-26); Blood Gas Specimen Type ART; FI02 90; Mode A-C; O2 Delivery Device Vent; PEEP 5; PO2 403 mmHG (75-100); RR 14; SITE L Radial; SO2 100 % (95-99); Time Given 1145; Total Carbon Dioxide 29 mmol/L; Vt 450; pCO2 49.8 mmHg (35-45); pH 7.35 (7.35-7.45)
--- NOTE | 2017-06-06 11:59 | EKG12_ITS ---
Test Reason : SYNCOPE Blood Pressure : / mmHG Vent. Rate : 124 BPM Atrial Rate : 124 BPM P-R Int : 144 ms QRS Dur : 122 ms QT Int : 322 ms P-R-T Axes : 000 -87 073 degrees QTc Int : 462 ms Sinus tachycardia with occasional Premature ventricular complexes Left axis deviation Right bundle branch block Inferior infarct , age undetermined Abnormal ECG Confirmed by DE PIZANO, LUL ([id number]), greeting card editor GEETA WILDER ([id number]) on 06/07/2017 1:11:31 PM Referred By: EILEEN Confirmed By:LUL KC MD
[2017-06-06 12:13] LABS: Mucous, Urine 0 SEEN /hpf (<or=2+); Squamous Epithelial Cells - UA 0 SEEN /hpf (5-10)
[2017-06-06] MEDS: Atropine Sulfate 1 MG/10 ML Syringe 0.5 MG IV ×2 (12:16→12:27)
[2017-06-06 12:21] LABS: Color, Urine Amber (Yellow); Glucose, Dipstick 250 mg/dl (Normal); Ketone-Dipstick Negative (Negative); Leukocyte Esterase-Dipstick 500 /ul (Negative); Nitrite-Dipstick Positive (Negative); Occult Blood-Urine 250 /ul (Negative); Protein-Dipstick 100 mg/dl (Negative); Urine Clarity Cloudy (Clear); Urine Urobilinogen Normal (Normal)
--- NOTE | 2017-06-06 12:21 | NURSING ---
Echo in progress
[2017-06-06 12:30] LABS: Urine Bilirubin Dipstick 1 mg/dL (Negative)
[2017-06-06] MEDS: DOPamine IV 800 MG/250 ML IV.SOLN. 6.722 MG IV (12:35)
[2017-06-06 12:36] LABS: Bacteria 2+ /hpf (None Seen); Red Blood Cells-Urine 0-5 SEEN /hpf (0-5); White Blood Cells 10-25 SEEN /hpf (0-5)
[2017-06-06 12:46] LABS: Bedside Glucose 218 mg/dL (70-110)
[2017-06-06 13:22] LABS: M R Staph aureus DNA By PCR Negative (Negative); Probe Check PASS; Specimen Processing Control PASS
[2017-06-06] MEDS: 0.9% NaCl Peripheral Flush Adult/Peds IV ×2 (13:26→19:39)
--- NOTE | 2017-06-06 13:26 | NURSING ---
wound photo: right groin
--- NOTE | 2017-06-06 13:27 | NURSING ---
wound photo: right buttock
--- NOTE | 2017-06-06 14:13 | PCM.OP.BLANK ---
Operative Report Date of Procedure: 06/06/17 - Triple-lumen catheter insertion Central line placement procedure note Indication: IV access/hemodynamic instability/vasoactive medications Procedure: A time-out was completed to verify correct patient, indication, medication allergies, procedure, coagulation studies, informed consent signed, and equipment needed. The patient was placed in the supine position for a central line placement to the rt IJ femoral vein. The patients rt neck was prepped using chlorhexidine and a full body sterile drape was applied. 1% lidocaine was used to anesthetize the surrounding skin. A 7fr 16 cm blue guard triple lumen catheter introduced into the internal jugular vein using the modified Seldinger technique with the assistance of ultrasound. Able to advance the guidewire approximately 7 cm without resistance, upon meeting resistance the guidewire was removed intact, without complication. Pressure applied at the site until hemostasis was achieved. A second access attempt was made, again only able to advance the guidewire approximately 7 cm prior to meeting resistance. The guidewire was removed without complication. She applied to the site again until hemostasis was achieved. Procedure was aborted. No signs of complication, no hematoma. Vital signs remained stable. The patient tolerated the procedure very well. Attending physician notified that the placement was unsuccessful.
[2017-06-06] MEDS: Heparin Injection 5,000 UNITS/ML Syringe 5000 UNITS SC (14:41)
[2017-06-06 14:50] LABS: AST(SGOT) 43 U/L (15-37); Alanine Aminotransfer ALT/SGPT 19 U/L (13-56); Albumin, Serum 2.2 g/dL (3.2-5.0); Alkaline Phosphatase 118 U/L (45-117); Bilirubin, Direct 0.11 mg/dL (0.00-0.30); Globulin 4.4 g/dL (2.2-4.2); Phosphorus 3.8 mg/dL (2.5-4.9); Protein, Total 6.6 g/dL (6.4-8.2)
[2017-06-06 14:53] LABS: Ferritin 973 ng/mL (8-252); Iron 52 ug/dL (50-170); Iron Binding Capacity,Total 244 ug/dL (250-450); PERCENT IRON SATURATION 21.3 % (15.0-55.0)
--- NOTE | 2017-06-06 14:56 | CHAPLAIN ---
Type of Pastoral Visit ___ Initial Visit ___ Follow-up Visit ___ On-call Visit ___ General Patient Visit ___ Spiritual Assessment ___ Family Conference ___ Bereavement ___ Rapid Response _x__ Code Blue ___ Other (describe below) Pastoral Care Referral From ___ Patient _x__ Family _x__ Nurse ___ Physician ___ Watchmaking Teacher ___ Machinist Mechanic ___ Other (describe below) Sacrament/Intervention ___ Active listening ___ Anointing ___ Jainism ___ Bereavement ___ Communion ___ Mary exploration ___ ___ Life review ___ Prayer ___ Reconciliation ___ Sacrament of Sick ___ Supportive presence ___ Wedding _x__ Other (describe below) Pastoral Comments patient is intubated and settled into ICU room at this time; family is not available on this attempt to visit; daughter and son-in-law were in ED when I spoke to them earlier; catalyst operator wrote a note and left with a card in patient room
--- NOTE | 2017-06-06 15:57 | CHAPLAIN ---
Type of Pastoral Visit ___ Initial Visit _x__ Follow-up Visit ___ On-call Visit ___ General Patient Visit ___ Spiritual Assessment ___ Family Conference ___ Bereavement ___ Rapid Response ___ Code Blue ___ Other (describe below) Pastoral Care Referral From ___ Patient _x__ Family ___ Nurse ___ Physician ___ General Road Production Manager ___ Facilities Manager ___ Other (describe below) Sacrament/Intervention ___ Active listening ___ Anointing ___ Gnosticist ___ Bereavement ___ Communion ___ Mary exploration ___ ___ Life review ___ Prayer ___ Reconciliation ___ Sacrament of Sick ___ Supportive presence ___ Wedding _x__ Other (describe below) Pastoral Comments returned to find family members; only one family member still here and she is an employee of hospital; talked at length about her mother, the patient, and what needs she might have; there are spiritual concerns; daughter is having stress due to pt decline over last weeks and other personal matters;
--- NOTE | 2017-06-06 16:04 | PCM.CON.CC ---
Problem List (1) Gastroparesis due to DM Status: Suspected (2) Ischemic foot ulcer due to atherosclerosis of [place] artery of limb Status: Chronic (3) Lumbar compression fracture Status: Chronic (4) Atrial fibrillation and flutter Status: Chronic Comment: NO ON ANTICOAGULATION DUE TO FALL RISK AND NON-COMPLIANCE (5) Legal blindness Status: Chronic (6) Poor dental hygiene Status: Chronic (7) Peripheral vascular disease Status: Chronic (8) Diastolic congestive heart failure Status: Chronic Qualifiers: (9) Chronic hypoxemic respiratory failure Status: Chronic (10) Type II diabetes mellitus Status: Chronic (11) Diabetic retinopathy Status: Chronic Qualifiers: (12) ESRD (end stage renal disease) Status: Chronic Comment: on HD-TUESDAY,TUESDAY,TUESDAY (13) Restrictive lung disease Status: Chronic (14) AV fistula Status: Chronic (15) Hypothyroidism Status: Chronic Qualifiers: (16) Sleep apnea Status: Chronic Qualifiers: Sleep apnea type: unspecified type Qualified Code(s): G47.30 - Sleep apnea, unspecified Comment: pt is NOT compliant with CPAP (17) Pulmonary HTN Status: Chronic (18) HLD (hyperlipidemia) Status: Chronic Qualifiers: (19) HTN (hypertension) Status: Chronic Qualifiers: Hypertension type: essential hypertension Qualified Code(s): I10 - Essential (primary) hypertension Reason for Consult Date of Consultation: 06/06/17 Reason for Consultation: Status post cardiac arrest History of Present Illness: The patient is a 72 year old F, with complex past medical history listed below, [facility] on 06/06/2017 from the dialysis center because of a syncopal episode. Patient had been receiving dialysis for approximately 1 hour when she became unresponsive. Patient did not respond to a sternal rub, so EMS was contacted. Patient regained consciousness spontaneously. Blood sugar check at that time was within normal limits. Patient's daughter reported some clenching of the teeth with shaking. Patient reportedly had had previous symptoms that were similar to this, but no cause could be elicited. Patient denied any chest pain, shortness of breath, GI symptoms or headache. Patient is chronically on 2-1/2 L of supplemental oxygen. Chest x-ray in the emergency department did show patchy airspace disease and a significant drop in hemoglobin by approximately 4 g from previous check. Patient was initially slated to go to the PCU for further evaluation. While in the emergency room, patient reportedly became unresponsive again with reported desaturation. Patient underwent CPR and was intubated for a presumed respiratory arrest. Patient had approximately 2 minutes of CPR and did receive 1 dose of epinephrine. A pulse was regained and patient was mechanically ventilated. Shortly thereafter, patient had another episode. Multiple EKGs were obtained showing a right bundle branch block. Patient was then transferred to the intensive care unit. Upon arrival to the intensive care unit, patient was interacting with staff. Patient appear to be very irritated that she was intubated. Approximately 20 minutes after arrival, patient had bradycardia. Patient was treated with half an amp of atropine with good response. Shortly thereafter, patient had another episode of bradycardia with sustained heart rates in the 30s and hypotension. Patient was given another half of amp of atropine and initiated on a dopamine drip. Patient's family was called. Patient's daughter was deferring to his , but he was referring to her. After review of clinical scenario, they did agree for central line and arterial line placement. Family discussion with patient's daughter showing failed central line attempt. Patient's daughter, son-in-law and grandson were all present. They reported multiple conversations in the past for the family had noted that the patient stated that she would not want aggressive measures. Patient's was called on the phone and stated that if I am in charge we will continue to do anything necessary. Past Medical History Past Medical History (Chronic Problems): Chronic Problems Chronic ulcer of left leg with fat layer exposed (Chronic) Chronic ulcer of left foot with fat layer exposed (Chronic) Ischemic foot ulcer due to atherosclerosis of [place] artery of limb (Chronic) Lumbar compression fracture (Chronic) Atrial fibrillation and flutter (Chronic) NO ON ANTICOAGULATION DUE TO FALL RISK AND NON-COMPLIANCE Legal blindness (Chronic) Poor dental hygiene (Chronic) Peripheral vascular disease (Chronic) Diastolic congestive heart failure (Chronic) Chronic hypoxemic respiratory failure (Chronic) Type II diabetes mellitus (Chronic) Diabetic retinopathy (Chronic) ESRD (end stage renal disease) (Chronic) on HD-TUESDAY,TUESDAY,TUESDAY Restrictive lung disease (Chronic) CAD (coronary artery disease) (Chronic) AV fistula (Chronic) Hypothyroidism (Chronic) GERD (gastroesophageal reflux disease) (Chronic) Sleep apnea (Chronic) pt is NOT compliant with CPAP Pulmonary HTN (Chronic) COPD (chronic obstructive pulmonary disease) (Chronic) Aortic stenosis, mild (Chronic) Non-compliance (Chronic) S/P PTCA (percutaneous transluminal coronary angioplasty) (Chronic) HLD (hyperlipidemia) (Chronic) HTN (hypertension) (Chronic) Allergies azithromycin [From Zithromax] Allergy (Verified 06/06/17 07:38) Hives Home Medications: Ambulatory Orders Medication Instructions Recorded Levothyroxine [Synthroid] 50 mcg PO DAILY 07/31/13 Omeprazole [Prilosec] 20 mg PO DAILY 07/31/13 Simvastatin [Zocor] 40 mg PO QHS 07/31/13 Folic Acid/Vitamin B Comp W-C 1 capsule PO DAILY 02/20/14 [Nephrocaps, Renaphro] Bumetanide [Bumex] 2 mg PO DAILY 01/28/16 Calcium Acetate [Phoslo Gel Cap] 667 mg PO TIDCM 01/28/16 Loratadine [Claritin] 10 mg PO DAILY PRN 01/28/16 Oxycodone [Oxyir] 5 mg PO Q4H PRN PRN #30 tablet 06/09/16 Insulin Aspart [Novolog Flexpen] 0 units SC TIDCM 09/30/16 Guaifenesin [Mucinex] 600 mg PO BID 04/06/17 Ranitidine HCl 75 mg PO DAILY 04/06/17 Albuterol Sulfate 2.5 mg IH Q8H PRN PRN MDD 9 ML 04/08/17 Aspirin [Aspirin, Baby] 81 mg PO DAILY@0800 #30 tab.chew 04/08/17 Guaifenesin [Mucinex] 1,200 mg PO BID #14 tab 04/08/17 Insulin Detemir [Levemir FlexPen] 15 units SC BID insuln.pen 04/08/17 Ipratropium/Albuterol Sulfate 3 ml INHALATION Q4H PRN #1 box 04/08/17 [Duoneb] Prednisone [Deltasone] 40 mg PO DAILY #5 tab 04/08/17 Surgical History: adenoidectomy, cholecystectomy, tonsillectomy, - - Right upper fistula repair, right toe amputation, right hip fracture w/ fixation. 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 Patient does have patchy airspace disease in the right midlung, significant cardiomegaly and prominent interstitial markings noted. An emergent bedside echocardiogram was obtained. Discussions with cardiology about rhythm strips and echocardiogram. Patient did have a D shaped septum with an EF of 55% and moderately dilated RV. Patient's pulmonary artery pressure was noted to be 50 mmHg, which was an improvement from previous study. - Physical Exam General: - - Intubated. RASS -1. Obese. Good ventilator synchrony noted. HEENT: Atraumatic, PERRLA, EOMI, Normocephalic, - - Decreased vision noted. Oral: Moist Mucosa, No Gingival or Mucosal Lesions/ Ulcerations, - - Poor dentition Neck: Supple, No Nodes, Trachea Midline, JVD, Right, - - Multiple superficial vein collaterals noted of the neck, chest and leg Lungs: No rhonchi, No wheeze, No rales, Diminished, - - Symmetric expansion. No dullness to percussion. Cardiovascular: Normal S1, Normal S2, Irregular Rate, Murmur - Grade 2 out of 6 systolic ejection murmur at the right sternal border Abdomen: Bowel Sounds Present, Soft, Non Tender, Non-Distended, Obese Extremities: No cyanosis, Diminished Peripheral Pulses, Edema, - - Lower extremities with dopplerable pulse. Thrill noted in right upper extremity fistula Skin: - - Multiple areas of scar tissue noted in central access points (bilateral groin and IJ). Superficial varicosities are appreciated Musculoskeletal: No Tenderness to Palpation of Joints or Extremities Lymphatic: No Cervical, Supraclavicular, or Inguinal Adenopathy Neurological: Cranial nerves II-XII grossly intact, - - Decreased sensation of the extremities noted. Psych/Mental Status: Anxious, Restless Vital Signs Temp Pulse Resp BP Pulse Ox 36.3 C L 90 14 123/64 H 100 06/06/17 13:15 06/06/17 15:00 06/06/17 15:00 06/06/17 15:00 06/06/17 15:00 Oxygen Delivery Method Mechanical Ventilator Weight: 71.7 kg Body Mass Index (BMI) 30.4 Microbiology Past 72 Hours 06/06/17 11:55 Respiratory Panel (PCR) - Final Mucosa - Nasopharyngeal 06/06/17 12:00 Streptococcus pneumoniae Antigen (M - Final Urine Catheter - Kim 06/06/17 12:00 Legionella Antigen - Final Urine Catheter - Kim Laboratory Tests Past 24 Hrs 06/06/17 06/06/17 06/06/17 11:30 11:46 12:00 Specimen Type ART Sample Site L Radial pH 7.35 Bicarbonate Actual 27.6 H POC Total CO2 29 Base Excess 2 O2 Saturation 100 H O2 % 90 ABG pCO2 49.8 H ABG pO2 403 H* Tom Test POS Respiration Rate 14 O2 Delivery Device Vent Minute Volume 8.00 Vent Mode A-C Tidal Volume 450 POC PEEP 5 Blood Gas Notified Whom ICU Blood Gas Notified Time 1145 Urine Color [place] Urine Clarity Cloudy Urine pH 7.0 Ur Specific [place] 1.010 Urine Protein 100 H Urine Glucose (UA) 250 H Urine Ketones Negative Urine Occult Blood 250 H Urine Nitrite Positive H Urine Bilirubin 1 H Urine Urobilinogen Normal Ur Leukocyte Esterase 500 H Urine RBC 0-5 SEEN Urine WBC 10-25 SEEN Ur Squamous Epith Cells 0 SEEN Urine Bacteria 2+ Urine Mucus 0 SEEN MRSA (PCR) Negative POC Glucose 06/06/17 12:41 POC Glucose 218 H Clinical Impression(s) from Imaging Studies Brain CT 06/06/17 07:50 IMPRESSION: Chronic involutional changes. No acute intracranial abnormality. Opacified left maxillary sinus. Electronically Signed: Yehuda Ferguson DO at 9:26 EDT Tel , Service support , Chest X-Ray 06/06/17 07:50 IMPRESSION: Prominent interstitial markings. Patchy airspace disease in the right midlung. This may represent atelectasis or developing pneumonia. Moderate cardiomegaly. Electronically Signed: Yehuda Ferguson DO at 9:33 EDT Tel , Service support , Chest X-Ray 06/06/17 10:30 IMPRESSION: Life support tubes and catheters, as detailed above. No significant change to the appearance of the lungs, with prominent interstitial markings and focal opacity in the right midlung. Small bilateral pleural effusions are seen. Electronically Signed: Yehuda Ferguson at 11:20 EDT Tel , Service support , Assessment/Plan RECOMMENDATIONS: 1. Continue dopamine 2. Continuous awakening and breathing trials per protocol 3. Hemodialysis today 4. Discuss CODE STATUS when present IMPRESSIONS: 1. Acute respiratory failure secondary to cardiac arrest Patient was thought to have respiratory arrest secondary to hypoxemia. However, ABG showed a PO2 of 400 on 90% FiO2. Clinical suspicion for decreased perfusion leading to reported desaturation. Patient will complete hemodialysis today with volume removal as tolerated. Patient does have multiple valvular abnormalities complicating overall condition. While in the intensive care unit, patient was noted to have bradycardia without desaturation leading to poor perfusion. Patient is responding well to dopamine therapy. Spontaneous awakening and breathing trials per protocol. She currently on empiric antibiotics, but this can be discontinued once cultures are negative at 48 hours. 2. Acute blood loss anemia Patient with heme positive stools and a 4 g drop in hemoglobin since last visit. Patient does have a history of an esophageal tear. Patient has no signs or symptoms of acute upper GI bleed at this time. Likely transfuse to keep hemoglobin greater than 8. Hold off on upper endoscopy for now until more information is available. 3. End-stage renal disease secondary to uncontrolled diabetes mellitus/hypertension Patient will receive hemodialysis today. Currently on pressor therapy, so it is unclear if further fluid will be able to be removed. Patient's ABG does not indicate significant VQ mismatching. Sugars every 6 hours. Patient may require Levemir therapy. Patient has not been initiated on tube feeds at this time. 4. Coronary artery disease status post PTCA/hypertension/chronic A. fib/possible sick sinus syndrome Patient with multiple vascular abnormalities. Unable to pass central catheter through the IJ earlier today. Unclear if patient would be a candidate for a permanent pacemaker. Patient currently on dopamine with good response. 5. Possible septic shock Patient's urine studies are consistent with a possible urinary tract infection. Patient is making urine at this time. Patient is already on empiric antibiotics. We will continue to monitor. Patient has been placed on dopamine secondary to bradycardic complications. 6. COPD/chronic respiratory failure Should be continued on bronchodilators. Unclear if patient is truly having an exacerbation of COPD is no productive cough was reported prior to presentation. Would not recommend steroid therapy as this will lead to significant difficulty controlling blood sugars. 7. CODE STATUS Patient is currently a full code by default. Patient's is the next of kin, but despite his daughter being evaluated for new onset chest pain and his 's cardiac arrest, patient has gone home for the day. Patient's daughter, son-in-law and grandson all report conversations where she had stated that she would not want such aggressive measures. Would likely benefit from a family meeting for discussion of goals of therapy. Patient has had a steady and consistent decline in level of functioning over the last 6-12 months. TIME: 145 minutes of critical care time spent addressing patient's cardiac arrest, probable sick sinus syndrome, acute blood loss anemia, respiratory failure, question of CODE STATUS, review of all data and collaboration with care team (11:30 AM to 4:30 PM) Code Visit [id number]: Other Procedure See Report - [id number], [id number] for 145 minutes of critical care time
--- NOTE | 2017-06-06 16:14 | CON.PCM_ITS ---
Problem List (1) Gastroparesis due to DM Status: Suspected (2) Ischemic foot ulcer due to atherosclerosis of [place] artery of limb Status: Chronic (3) Lumbar compression fracture Status: Chronic (4) Atrial fibrillation and flutter Status: Chronic Comment: NO ON ANTICOAGULATION DUE TO FALL RISK AND NON- COMPLIANCE (5) Legal blindness Status: Chronic (6) Poor dental hygiene Status: Chronic (7) Peripheral vascular disease Status: Chronic (8) Diastolic congestive heart failure Status: Chronic Qualifiers: (9) Chronic hypoxemic respiratory failure Status: Chronic (10) Type II diabetes mellitus Status: Chronic (11) Diabetic retinopathy Status: Chronic Qualifiers: (12) ESRD (end stage renal disease) Status: Chronic Comment: on HD-TUESDAY,TUESDAY,TUESDAY (13) Restrictive lung disease Status: Chronic (14) AV fistula Status: Chronic (15) Hypothyroidism Status: Chronic Qualifiers: (16) Sleep apnea Status: Chronic Qualifiers: Sleep apnea type: unspecified type Qualified Code(s): G47.30 - Sleep apnea , unspecified Comment: pt is NOT compliant with CPAP (17) Pulmonary HTN Status: Chronic (18) HLD (hyperlipidemia) Status: Chronic Qualifiers: (19) HTN (hypertension) Status: Chronic Qualifiers: Hypertension type: essential hypertension Qualified Code(s): I10 - Essential (primary) hypertension Reason for Consult Date of Consultation: 06/06/17 Reason for Consultation: Status post cardiac arrest History of Present Illness: The patient is a 72 year old F, with complex past medical history listed below, [facility] on 06/06/2017 from the dialysis center because of a syncopal episode. Patient had been receiving dialysis for approximately 1 hour when she became unresponsive. Patient did not respond to a sternal rub, so EMS was contacted. Patient regained consciousness spontaneously. Blood sugar check at that time was within normal limits. Patient's daughter reported some clenching of the teeth with shaking. Patient reportedly had had previous symptoms that were similar to this, but no cause could be elicited. Patient denied any chest pain, shortness of breath, GI symptoms or headache. Patient is chronically on 2-1/2 L of supplemental oxygen. Chest x-ray in the emergency department did show patchy airspace disease and a significant drop in hemoglobin by approximately 4 g from previous check. Patient was initially slated to go to the PCU for further evaluation. While in the emergency room, patient reportedly became unresponsive again with reported desaturation. Patient underwent CPR and was intubated for a presumed respiratory arrest. Patient had approximately 2 minutes of CPR and did receive 1 dose of epinephrine. A pulse was regained and patient was mechanically ventilated. Shortly thereafter, patient had another episode. Multiple EKGs were obtained showing a right bundle branch block. Patient was then transferred to the intensive care unit. Upon arrival to the intensive care unit, patient was interacting with staff. Patient appear to be very irritated that she was intubated. Approximately 20 minutes after arrival, patient had bradycardia. Patient was treated with half an amp of atropine with good response. Shortly thereafter, patient had another episode of bradycardia with sustained heart rates in the 30s and hypotension. Patient was given another half of amp of atropine and initiated on a dopamine drip. Patient's family was called. Patient's daughter was deferring to his , but he was referring to her. After review of clinical scenario, they did agree for central line and arterial line placement. Family discussion with patient's daughter showing failed central line attempt. Patient's daughter, son-in-law and grandson were all present. They reported multiple conversations in the past for the family had noted that the patient stated that she would not want aggressive measures. Patient's was called on the phone and stated that if I am in charge we will continue to do anything necessary. Past Medical History Past Medical History (Chronic Problems): Chronic Problems Chronic ulcer of left leg with fat layer exposed (Chronic) Chronic ulcer of left foot with fat layer exposed (Chronic) Ischemic foot ulcer due to atherosclerosis of [place] artery of limb (Chronic) Lumbar compression fracture (Chronic) Atrial fibrillation and flutter (Chronic) NO ON ANTICOAGULATION DUE TO FALL RISK AND NON-COMPLIANCE Legal blindness (Chronic) Poor dental hygiene (Chronic) Peripheral vascular disease (Chronic) Diastolic congestive heart failure (Chronic) Chronic hypoxemic respiratory failure (Chronic) Type II diabetes mellitus (Chronic) Diabetic retinopathy (Chronic) ESRD (end stage renal disease) (Chronic) on HD-TUESDAY,TUESDAY,TUESDAY Restrictive lung disease (Chronic) CAD (coronary artery disease) (Chronic) AV fistula (Chronic) Hypothyroidism (Chronic) GERD (gastroesophageal reflux disease) (Chronic) Sleep apnea (Chronic) pt is NOT compliant with CPAP Pulmonary HTN (Chronic) COPD (chronic obstructive pulmonary disease) (Chronic) Aortic stenosis, mild (Chronic) Non-compliance (Chronic) S/P PTCA (percutaneous transluminal coronary angioplasty) (Chronic) HLD (hyperlipidemia) (Chronic) HTN (hypertension) (Chronic) Allergies azithromycin [From Zithromax] Allergy (Verified 06/06/17 07:38) Hives Home Medications: Ambulatory Orders Medication Instructions Recorded Levothyroxine [Synthroid] 50 mcg PO DAILY 07/31/13 Omeprazole [Prilosec] 20 mg PO DAILY 07/31/13 Simvastatin [Zocor] 40 mg PO QHS 07/31/13 Folic Acid/Vitamin B Comp W-C 1 capsule PO DAILY 02/20/14 [Nephrocaps, Renaphro] Bumetanide [Bumex] 2 mg PO DAILY 01/28/16 Calcium Acetate [Phoslo Gel Cap] 667 mg PO TIDCM 01/28/16 Loratadine [Claritin] 10 mg PO DAILY PRN 01/28/16 Oxycodone [Oxyir] 5 mg PO Q4H PRN PRN #30 tablet 06/09/16 Insulin Aspart [Novolog Flexpen] 0 units SC TIDCM 09/30/16 Guaifenesin [Mucinex] 600 mg PO BID 04/06/17 Ranitidine HCl 75 mg PO DAILY 04/06/17 Albuterol Sulfate 2.5 mg IH Q8H PRN PRN MDD 9 ML 04/08/17 Aspirin [Aspirin, Baby] 81 mg PO DAILY@0800 #30 tab.chew 04/08/17 Guaifenesin [Mucinex] 1,200 mg PO BID #14 tab 04/08/17 Insulin Detemir [Levemir FlexPen] 15 units SC BID insuln.pen 04/08/17 Ipratropium/Albuterol Sulfate 3 ml INHALATION Q4H PRN #1 box 04/08/17 [Duoneb] Prednisone [Deltasone] 40 mg PO DAILY #5 tab 04/08/17 Surgical History: adenoidectomy, cholecystectomy, tonsillectomy, - - Right upper fistula repair, right toe amputation, right hip fracture w/ fixation. Psychiatric History: No pertinent psych hx NURSES EDUCATOR History: No pertinent NURSES EDUCATOR history Lives: Spouse/ Significant Other Smoking Status: Never smoker Alcohol: None Drugs: None - *Family History Maternal History Items: COPD Paternal History Items: Diabetes, Heart Disease, Hypertension Review of Systems Unable to obtain accurate/complete ROS d/t: Intubated Objective: It was personally reviewed. Patient does have patchy airspace disease in the right midlung, significant cardiomegaly and prominent interstitial markings noted. An emergent bedside echocardiogram was obtained. Discussions with cardiology about rhythm strips and echocardiogram. Patient did have a D shaped septum with an EF of 55% and moderately dilated RV. Patient's pulmonary artery pressure was noted to be 50 mmHg, which was an improvement from previous study. - Physical Exam General: - - Intubated. RASS -1. Obese. Good ventilator synchrony noted. HEENT: Atraumatic, PERRLA, EOMI, Normocephalic, - - Decreased vision noted. Oral: Moist Mucosa, No Gingival or Mucosal Lesions/ Ulcerations, - - Poor dentition Neck: Supple, No Nodes, Trachea Midline, JVD, Right, - - Multiple superficial vein collaterals noted of the neck, chest and leg Lungs: No rhonchi, No wheeze, No rales, Diminished, - - Symmetric expansion. No dullness to percussion. Cardiovascular: Normal S1, Normal S2, Irregular Rate, Murmur - Grade 2 out of 6 systolic ejection murmur at the right sternal border Abdomen: Bowel Sounds Present, Soft, Non Tender, Non-Distended, Obese Extremities: No cyanosis, Diminished Peripheral Pulses, Edema, - - Lower extremities with dopplerable pulse. Thrill noted in right upper extremity fistula Skin: - - Multiple areas of scar tissue noted in central access points ( bilateral groin and IJ). Superficial varicosities are appreciated Musculoskeletal: No Tenderness to Palpation of Joints or Extremities Lymphatic: No Cervical, Supraclavicular, or Inguinal Adenopathy Neurological: Cranial nerves II-XII grossly intact, - - Decreased sensation of the extremities noted. Psych/Mental Status: Anxious, Restless Vital Signs Temp Pulse Resp BP Pulse Ox 36.3 C L 90 14 123/64 H 100 06/06/17 13:15 06/06/17 15:00 06/06/17 15:00 06/06/17 15:00 06/06/17 15:00 Oxygen Delivery Method Mechanical Ventilator Weight: 71.7 kg Body Mass Index (BMI) 30.4 Microbiology Past 72 Hours 06/06/17 11:55 Respiratory Panel (PCR) - Final Mucosa - Nasopharyngeal 06/06/17 12:00 Streptococcus pneumoniae Antigen (M - Final Urine Catheter - Kim 06/06/17 12:00 Legionella Antigen - Final Urine Catheter - Kim Laboratory Tests Past 24 Hrs 06/06/17 06/06/17 06/06/17 11:30 11:46 12:00 Specimen Type ART Sample Site L Radial pH 7.35 Bicarbonate Actual 27.6 H POC Total CO2 29 Base Excess 2 O2 Saturation 100 H O2 % 90 ABG pCO2 49.8 H ABG pO2 403 H* Tom Test POS Respiration Rate 14 O2 Delivery Device Vent Minute Volume 8.00 Vent Mode A-C Tidal Volume 450 POC PEEP 5 Blood Gas Notified Whom ICU Blood Gas Notified Time 1145 Urine Color Natalia Urine Clarity Cloudy Urine pH 7.0 Ur Specific [place] 1.010 Urine Protein 100 H Urine Glucose (UA) 250 H Urine Ketones Negative Urine Occult Blood 250 H Urine Nitrite Positive H Urine Bilirubin 1 H Urine Urobilinogen Normal Ur Leukocyte Esterase 500 H Urine RBC 0-5 SEEN Urine WBC 10-25 SEEN Ur Squamous Epith Cells 0 SEEN Urine Bacteria 2+ Urine Mucus 0 SEEN MRSA (PCR) Negative POC Glucose 06/06/17 12:41 POC Glucose 218 H Clinical Impression(s) from Imaging Studies Brain CT 06/06/17 07:50 IMPRESSION: Chronic involutional changes. No acute intracranial abnormality. Opacified left maxillary sinus. Electronically Signed: Yehuda Ferguson DO at 9:26 EDT Tel , Service support , Chest X-Ray 06/06/17 07:50 IMPRESSION: Prominent interstitial markings. Patchy airspace disease in the right midlung. This may represent atelectasis or developing pneumonia. Moderate cardiomegaly. Electronically Signed: Yehuda Ferguson DO at 9:33 EDT Tel , Service support , Chest X-Ray 06/06/17 10:30 IMPRESSION: Life support tubes and catheters, as detailed above. No significant change to the appearance of the lungs, with prominent interstitial markings and focal opacity in the right midlung. Small bilateral pleural effusions are seen. Electronically Signed: Yehuda Ferguson at 11:20 EDT Tel , Service support , Assessment/Plan RECOMMENDATIONS: 1. Continue dopamine 2. Continuous awakening and breathing trials per protocol 3. Hemodialysis today 4. Discuss CODE STATUS when present IMPRESSIONS: 1. Acute respiratory failure secondary to cardiac arrest Patient was thought to have respiratory arrest secondary to hypoxemia. However, ABG showed a PO2 of 400 on 90% FiO2. Clinical suspicion for decreased perfusion leading to reported desaturation. Patient will complete hemodialysis today with volume removal as tolerated. Patient does have multiple valvular abnormalities complicating overall condition. While in the intensive care unit , patient was noted to have bradycardia without desaturation leading to poor perfusion. Patient is responding well to dopamine therapy. Spontaneous awakening and breathing trials per protocol. She currently on empiric antibiotics, but this can be discontinued once cultures are negative at 48 hours. 2. Acute blood loss anemia Patient with heme positive stools and a 4 g drop in hemoglobin since last visit. Patient does have a history of an esophageal tear. Patient has no signs or symptoms of acute upper GI bleed at this time. Likely transfuse to keep hemoglobin greater than 8. Hold off on upper endoscopy for now until more information is available. 3. End-stage renal disease secondary to uncontrolled diabetes mellitus/ hypertension Patient will receive hemodialysis today. Currently on pressor therapy, so it is unclear if further fluid will be able to be removed. Patient's ABG does not indicate significant VQ mismatching. Sugars every 6 hours. Patient may require Levemir therapy. Patient has not been initiated on tube feeds at this time. 4. Coronary artery disease status post PTCA/hypertension/chronic A. fib/ possible sick sinus syndrome Patient with multiple vascular abnormalities. Unable to pass central catheter through the IJ earlier today. Unclear if patient would be a candidate for a permanent pacemaker. Patient currently on dopamine with good response. 5. Possible septic shock Patient's urine studies are consistent with a possible urinary tract infection. Patient is making urine at this time. Patient is already on empiric antibiotics. We will continue to monitor. Patient has been placed on dopamine secondary to bradycardic complications. 6. COPD/chronic respiratory failure Should be continued on bronchodilators. Unclear if patient is truly having an exacerbation of COPD is no productive cough was reported prior to presentation. Would not recommend steroid therapy as this will lead to significant difficulty controlling blood sugars. 7. CODE STATUS Patient is currently a full code by default. Patient's is the next of kin, but despite his daughter being evaluated for new onset chest pain and his 's cardiac arrest, patient has gone home for the day. Patient's daughter, son-in-law and grandson all report conversations where she had stated that she would not want such aggressive measures. Would likely benefit from a family meeting for discussion of goals of therapy. Patient has had a steady and consistent decline in level of functioning over the last 6-12 months. TIME: 145 minutes of critical care time spent addressing patient's cardiac arrest, probable sick sinus syndrome, acute blood loss anemia, respiratory failure, question of CODE STATUS, review of all data and collaboration with care team (11 :30 AM to 4:30 PM) Code Visit [id number]: Other Procedure See Report - [id number], [id number] for 145 minutes of critical care time
--- NOTE | 2017-06-06 16:17 | PCM.OP.BLANK ---
Operative Report Date of Procedure: 06/06/17 - Triple-lumen catheter insertion Central line placement procedure note Indication: IV access/hemodynamic instability/vasoactive medications Procedure: A time-out was completed to verify correct patient, indication, medication allergies, procedure, coagulation studies, informed consent signed, and equipment needed. The patient was placed in the supine position for a central line placement to the rt/left IJ rt/left femoral vein. The patients left groin was prepped using chlorhexidine and a full body sterile drape was applied. 1% lidocaine was used to anesthetize the surrounding skin. A 7fr 20 cm blue guard triple lumen catheter introduced into the common femoral vein using the modified Seldinger technique with the assistance of ultrasound. The catheter was threaded smoothly over the guidewire, the guidewire was removed easily, nonpulsatile blood returned. All ports were aspirated of air and flushed with sterile saline. The catheter was sutured in place and covered with an occlusive dressing impregnated with chlorhexidine. Post-procedure: The patient tolerated the procedure well. Vital signs remained stable. EBL 10cc. No complications. Code Visit Procedures: [id number] Insert Non-tunnel CV Cath
--- NOTE | 2017-06-06 17:05 | NURSING ---
HD in progress
--- NOTE | 2017-06-06 17:10 | PCM.CONS.R ---
Problem List (1) ESRD (end stage renal disease) on dialysis Status: Acute Consultation - Renal 06/06/17 PCP/ Referring MD: Requesting physician: Dr Palomares Primary care physician: Zeferino Carlson Reason for Consultation:: ESRD - History of Present Illness History of Present Illness: The patient is a 72 year old F well known to us. ESRD on HD MWF schedule went to dialysis unit today and was found to be hypotensive. sent to ER coded twice in ER and PCU in ICU now, intubated on dopamine CXR shows significant interstitial edema - Allergies Allergies: Allergies azithromycin [From Zithromax] Allergy (Verified 06/06/17 07:38) Hives - Current Medications Current Medications: Current Medications Dextrose (D50w Syringe) 0 gm IV X1 PRN; Protocol PRN Reason: Hypoglycemia Glucagon () 1 mg IM .X1 PRN PRN Reason: Hypoglycemia Heparin Sodium (Porcine) () 5,000 units SC BID BETTINA Last Admin: 06/06/17 14:41 Dose: 5,000 units Fentanyl () 100 mls @ 5 mls/hr IV .Q20H BETTINA Sodium Chloride () 1,000 mls @ 100 mls/hr IV .Q10H BETTINA Stop: 06/06/17 18:56 Last Admin: 06/06/17 11:45 Dose: 100 mls/hr Piperacillin Sod/Tazobactam Sod (Zosyn) 3.375 gm in 50 mls @ 12.5 mls/hr IV Q8H BETTINA Dopamine HCl/Dextrose () 800 mg in 250 mls @ 6.722 mls/hr IV .[id number] BETTINA PRN Reason: 5 MCG/KG/MIN Last Admin: 06/06/17 12:35 Dose: 6.722 mls/hr Sodium Chloride () 250 mls @ 15 mls/hr IV .[id number] PRN PRN Reason: SALINE FLUSH Insulin Aspart (Novolog Flexpen (Bkc)) 0 units SC Q6 BETTINA PRN Reason: Protocol Ondansetron HCl (Zofran) 4 mg IV Q8H PRN PRN PRN Reason: Nausea Sodium Chloride () 5 - 30 ml IV UD PRN PRN Reason: SALINE FLUSH Last Admin: 06/06/17 13:26 Dose: 20 ml - Past Medical History Past Medical History (Chronic Problems): Chronic Problems Chronic ulcer of left leg with fat layer exposed (Chronic) Chronic ulcer of left foot with fat layer exposed (Chronic) Ischemic foot ulcer due to atherosclerosis of [place] artery of limb (Chronic) Lumbar compression fracture (Chronic) Atrial fibrillation and flutter (Chronic) NO ON ANTICOAGULATION DUE TO FALL RISK AND NON-COMPLIANCE Legal blindness (Chronic) Poor dental hygiene (Chronic) Peripheral vascular disease (Chronic) Diastolic congestive heart failure (Chronic) Chronic hypoxemic respiratory failure (Chronic) Type II diabetes mellitus (Chronic) Diabetic retinopathy (Chronic) ESRD (end stage renal disease) (Chronic) on HD-TUESDAY,TUESDAY,TUESDAY Restrictive lung disease (Chronic) CAD (coronary artery disease) (Chronic) AV fistula (Chronic) Hypothyroidism (Chronic) GERD (gastroesophageal reflux disease) (Chronic) Sleep apnea (Chronic) pt is NOT compliant with CPAP Pulmonary HTN (Chronic) COPD (chronic obstructive pulmonary disease) (Chronic) Aortic stenosis, mild (Chronic) Non-compliance (Chronic) S/P PTCA (percutaneous transluminal coronary angioplasty) (Chronic) HLD (hyperlipidemia) (Chronic) HTN (hypertension) (Chronic) - Past Surgical History Surgical History: adenoidectomy, cholecystectomy, tonsillectomy, - - Right upper fistula repair, right toe amputation, right hip fracture w/ fixation. - Social History Smoking Status: Never smoker Alcohol: None Drugs: None - Family History Maternal History Items: COPD Paternal History Items: Diabetes, Heart Disease, Hypertension Patient Problems: Active and Suspected Problems ESRD (end stage renal disease) on dialysis (Acute) - Physical Exam General: Cooperative HEENT: Atraumatic, PERRLA, EOMI, Normocephalic Neck: Supple, No JVD, Negative Carotid Bruits Lungs: Clear to auscultation, Normal air movement, Rales Cardiovascular: Regular rate, No murmurs Abdomen: Bowel Sounds Present, Soft, Non Tender Extremities: No edema, Capillary Refill Less than 3 Seconds Skin: No rashes, No breakdown Musculoskeletal: No Tenderness to Palpation of Joints or Extremities Vital Signs Temp Pulse Resp BP Pulse Ox 97.3 F L 90 14 53/42 L 100 06/06/17 13:15 06/06/17 15:00 06/06/17 15:00 06/06/17 17:04 06/06/17 15:00 Oxygen Delivery Method Mechanical Ventilator Weight: 71.7 kg Body Mass Index (BMI) 30.4 Microbiology Past 72 Hours 06/06/17 11:55 Respiratory Panel (PCR) - Final Mucosa - Nasopharyngeal 06/06/17 12:00 Streptococcus pneumoniae Antigen (M - Final Urine Catheter - Kim 06/06/17 12:00 Legionella Antigen - Final Urine Catheter - Kim Laboratory Tests Past 24 Hrs 06/06/17 06/06/17 06/06/17 11:30 11:46 12:00 Specimen Type ART Sample Site L Radial pH 7.35 Bicarbonate Actual 27.6 H POC Total CO2 29 Base Excess 2 O2 Saturation 100 H O2 % 90 ABG pCO2 49.8 H ABG pO2 403 H* Tom Test POS Respiration Rate 14 O2 Delivery Device Vent Minute Volume 8.00 Vent Mode A-C Tidal Volume 450 POC PEEP 5 Blood Gas Notified Whom ICU MD Blood Gas Notified Time 1145 Troponin I Vitamin B12 RBC Folate Hemolysate RBC Folate Hematocrit Urine Color Natalia Urine Clarity Cloudy Urine pH 7.0 Ur Specific [place] 1.010 Urine Protein 100 H Urine Glucose (UA) 250 H Urine Ketones Negative Urine Occult Blood 250 H Urine Nitrite Positive H Urine Bilirubin 1 H Urine Urobilinogen Normal Ur Leukocyte Esterase 500 H Urine RBC 0-5 SEEN Urine WBC 10-25 SEEN Ur Squamous Epith Cells 0 SEEN Urine Bacteria 2+ Urine Mucus 0 SEEN MRSA (PCR) Negative 06/06/17 06/06/17 06/06/17 16:00 16:00 16:00 Specimen Type Sample Site pH Bicarbonate Actual POC Total CO2 Base Excess O2 Saturation O2 % ABG pCO2 ABG pO2 Tom Test Respiration Rate O2 Delivery Device Minute Volume Vent Mode Tidal Volume POC PEEP Blood Gas Notified Whom Blood Gas Notified Time Troponin I 0.23 H Vitamin B12 Pending RBC Folate Hemolysate Pending RBC Folate Pending Hematocrit Pending Urine Color Urine Clarity Urine pH Ur Specific [place] Urine Protein Urine Glucose (UA) Urine Ketones Urine Occult Blood Urine Nitrite Urine Bilirubin Urine Urobilinogen Ur Leukocyte Esterase Urine RBC Urine WBC Ur Squamous Epith Cells Urine Bacteria Urine Mucus MRSA (PCR) POC Glucose 06/06/17 12:41 POC Glucose 218 H Assessment/Plan Active and Suspected Problems ESRD (end stage renal disease) on dialysis (Acute) ESRD. dialysis today. see orders/ flowsheets Pulmonary edema. significant edema on exam. BP is borderline despite being on dopamine. probably wont be able to remove fluid today. will assess daily s/p cardiac arrest. s/p ROSC
--- NOTE | 2017-06-06 17:33 | NURSING ---
Teaching of chronic medical conditions deferred until pt condition less critical
[2017-06-06 18:11] LABS: Vitamin B12 556 pg/mL (211-911)
[2017-06-06] MEDS: Chlorhexidine 15 ML PO ×2 (18:32→21:18)
[2017-06-06 18:35] LABS: Bedside Glucose 160 mg/dL (70-110)
--- NOTE | 2017-06-06 19:11 | CON.PCM_ITS ---
Reason for Consult Date of Consultation: 06/06/17 Reason for Consultation: Asystole and cardiac arrest History of Present Illness: The patient is a 72 year old FF with complicated past medical history presented to the emergency room from the dialysis center because of syncopal episode. . Reportedly and according to the ER physician, patient went for hemodialysis today and after 1 hour of hemodialysis, she passed out. Reportedly, no prodromal symptoms such as chest pain, shortness of breath, dizziness or lightheadedness. According to the ER physician, her daughter mentioned that she has been having respiratory symptoms over the last few days with cough and congestion. In route to the hospital, she had another syncopal episode with the squad and reportedly, her blood sugar and blood pressure was stable. She regained her consciousness in the ambulance and she was alert and oriented ?3. Upon arrival to the emergency room, she was afebrile, heart rate was stable, blood pressure was stable and pulse ox was 88% on 3 L. Podiatry physician, we decided to admit the patient to PCU for syncope, anemia and suspected and questionable pneumonia. Shortly after, patient went into cardiac arrest, CPR initiated and she received 1 dose of IV epinephrine. Patient did have pulse and her blood pressure was okay, was started on IV fentanyl drip. After around 15 minutes, she had another episode of cardiac arrest and CPR initiated again, received 1 dose of IV epinephrine and again were able to get her pulse back. At this time, she does have pulse, blood pressure is around 150 systolic. She is on mechanical ventilation. She had a history of end-stage renal disease and she is on hemodialysis through AV fistula and reportedly, she is noncompliant patient. She had a history of chronic atrial fibrillation and she is not on any rate control medication and not on anticoagulation. She has history of type 2 diabetes mellitus and her most recent hemoglobin A1c was 7.2 on March,. Routine blood work is remarkable for anemia with hemoglobin of 8.4, BUN of 16 and creatinine of 2.88 which is chronic. She currently is intubated and not able to provide any history. Review of the strips in the emergency room demonstrated atrial fibrillation with a right bundle branch block. 1 of the events may have been artifactual but it appears that she has significant bradycardia arrhythmias. Past Medical History Allergies/Adverse Reactions: Allergies azithromycin [From Zithromax] Allergy (Verified 06/06/17 07:38) Hives Home Medications: Ambulatory Orders Medication Instructions Recorded Levothyroxine [Synthroid] 50 mcg PO DAILY 07/31/13 Omeprazole [Prilosec] 20 mg PO DAILY 07/31/13 Simvastatin [Zocor] 40 mg PO QHS 07/31/13 Folic Acid/Vitamin B Comp W-C 1 capsule PO DAILY 02/20/14 [Nephrocaps, Renaphro] Bumetanide [Bumex] 2 mg PO DAILY 01/28/16 Calcium Acetate [Phoslo Gel Cap] 667 mg PO TIDCM 01/28/16 Loratadine [Claritin] 10 mg PO DAILY PRN 01/28/16 Oxycodone [Oxyir] 5 mg PO Q4H PRN PRN #30 tablet 06/09/16 Insulin Aspart [Novolog Flexpen] 0 units SC TIDCM 09/30/16 Guaifenesin [Mucinex] 600 mg PO BID 04/06/17 Ranitidine HCl 75 mg PO DAILY 04/06/17 Albuterol Sulfate 2.5 mg IH Q8H PRN PRN MDD 9 ML 04/08/17 Aspirin [Aspirin, Baby] 81 mg PO DAILY@0800 #30 tab.chew 04/08/17 Guaifenesin [Mucinex] 1,200 mg PO BID #14 tab 04/08/17 Insulin Detemir [Levemir FlexPen] 15 units SC BID insuln.pen 04/08/17 Ipratropium/Albuterol Sulfate 3 ml INHALATION Q4H PRN #1 box 04/08/17 [Duoneb] Prednisone [Deltasone] 40 mg PO DAILY #5 tab 04/08/17 Past Medical History (Chronic Problems): Chronic Problems Chronic ulcer of left leg with fat layer exposed (Chronic) Chronic ulcer of left foot with fat layer exposed (Chronic) Ischemic foot ulcer due to atherosclerosis of eek artery of limb (Chronic) Lumbar compression fracture (Chronic) Atrial fibrillation and flutter (Chronic) NO ON ANTICOAGULATION DUE TO FALL RISK AND NON-COMPLIANCE Legal blindness (Chronic) Poor dental hygiene (Chronic) Peripheral vascular disease (Chronic) Diastolic congestive heart failure (Chronic) Chronic hypoxemic respiratory failure (Chronic) Type II diabetes mellitus (Chronic) Diabetic retinopathy (Chronic) ESRD (end stage renal disease) (Chronic) on HD-TUESDAY,TUESDAY,TUESDAY Restrictive lung disease (Chronic) CAD (coronary artery disease) (Chronic) AV fistula (Chronic) Hypothyroidism (Chronic) GERD (gastroesophageal reflux disease) (Chronic) Sleep apnea (Chronic) pt is NOT compliant with CPAP Pulmonary HTN (Chronic) COPD (chronic obstructive pulmonary disease) (Chronic) Aortic stenosis, mild (Chronic) Non-compliance (Chronic) S/P PTCA (percutaneous transluminal coronary angioplasty) (Chronic) HLD (hyperlipidemia) (Chronic) HTN (hypertension) (Chronic) Surgical History: adenoidectomy, cholecystectomy, tonsillectomy, - - Right upper fistula repair, right toe amputation, right hip fracture w/ fixation. - *Family History Maternal History Items: COPD Paternal History Items: Diabetes, Heart Disease, Hypertension Lives: Spouse/ Significant Other Smoking Status: Never smoker Alcohol: None Drugs: None Review of Systems - Review of Systems General: Reports: Fatigue, Malaise. Denies: Fever, Night Sweats Cardiovascular: Reports: Near Syncope, Syncope. Denies: Chest Discomfort, Shortness of Breath, Orthopnea, PND, Peripheral Edema, Palpitations, Lightheadedness, Dizziness Respiratory: Denies: Cough, Sputum Production, Hemoptysis Gastrointestinal: Denies: Hematemesis, Hematochezia, Melena Genitourinary: Denies: Dysuria, Hematuria Skin: Denies: Rash Subjectve: Elderly lady in no apparent distress currently intubated and nonverbal. Objective: Vital Signs Temp Pulse Resp BP Pulse Ox 98.6 F 97 16 92/68 10 06/06/17 18:00 06/06/17 18:45 06/06/17 18:00 06/06/17 18:45 06/06/17 18:30 Oxygen Delivery Method Mechanical Ventilator Weight: 158 lb 1.143 oz Body Mass Index (BMI) 30.4 Intake and Output for Last 24 Hours 06/04/17 06/05/17 06/06/17 23:59 23:59 23:59 Intake Total 684 / 684 Output Total 250 / 250 Balance 434 / 434 General: Ill Appearing HEENT: Atraumatic Neck: Supple, Good ROM, No Lymph Node Enlargement Lungs: Clear to auscultation Cardiovascular: Irregular Rhythm Vascular: No Carotid Bruits, Normal Femoral Pulses, Normal Radial Pulses, Normal Dorsalis Pedal Pulse, Normal Posterior Tibial Pulses Abdomen: Bowel Sounds Present, Soft, Non Tender, No HSM, No Organomegaly Extremities: No Cyanosis, No Clubbing, No edema Neurological: No Focal Motor or Sensory Deficit 06/06/17 11:46: pH 7.35, Bicarbonate Actual 27.6 H, POC Total CO2 29, Base Excess 2, O2 Saturation 100 H, ABG pCO2 49.8 H, ABG pO2 403 H*, Tom Test POS 06/06/17 12:00: Urine Color Natalia, Urine Clarity Cloudy, Urine pH 7.0, Ur Specific [place] 1.010, Urine Protein 100 H, Urine Glucose (UA) 250 H, Urine Ketones Negative, Urine Occult Blood 250 H, Urine Nitrite Positive H, Urine Bilirubin 1 H, Urine Urobilinogen Normal, Ur Leukocyte Esterase 500 H, Urine RBC 0-5 SEEN, Urine WBC 10-25 SEEN 06/06/17 16:00: Troponin I 0.23 H Rhythm: EKG: Atrial fibrillation with a right bundle branch block controlled ventricular response rate ECHO: Preserved left ventricular systolic function with dilated right ventricle and volume and pressure overload with pulmonary artery systolic pressure of 50 mmHg. Assessment/Plan 1. Atrial fibrillation with periods of asystole The patient has known atrial fibrillation with a controlled ventricular response rate. It is not entirely clear why she is having these periods of asystole at this time. She is not on any rate limiting medications and her potassium and other electrolytes appear to be unremarkable. Her echocardiogram also demonstrates preserved left ventricular ejection fraction. At this time she has been started on low-dose dopamine and out suggest that we observe her for a while on this. I am hesitant to recommend a permanent pacemaker due to her vasculopathy as well as her dialysis status. She was recently admitted to [facility] as well as [facility] and I will like to obtain the results from that visit before making any further recommendations. 2. Valvular heart disease. She does have a history of aortic stenosis which is mild to moderate. At this time it does not appear that she is a candidate to have aortic valve intervention. 3. Coronary artery disease. She does have a history of coronary artery disease status post previous angioplasty and stenting. I do not have an indication that this is coronary in origin. She may also have had a recent cardiac catheterization at the tertiary care hospital and I would not obtain those results and records to have an idea of her coronary status. No cardiac catheterization or intervention is planned at this time. 4. Right ventricular dysfunction. She does have significant right ventricular dysfunction the etiology of which is not entirely clear to me at this time. It may be related to her dialysis state. Thank you for allowing me to participate in the care of your patient. Please don't hesitate to call if any issues arise
--- NOTE | 2017-06-06 19:29 | DIALYSIS ---
Hemodialysis x 2 hours complete. Pt ran on 3251 dialysate bath with 400 mls of fluid removed. with Dopamine @ 10mcg SBP 90-130's. Stable run, Report to Cynthia
[2017-06-06] MEDS: 0.9% NaCl IVPB Med Flush (250 mL) 15 ML IV (19:38)
[2017-06-07] VITALS (48 sets, daily range): BP systolic 66–139; BP diastolic 35–91; PULSE 73–93; RESP 12–26; TEMP 37.9–38.7; O2SAT 92–100
[2017-06-07 00:30] LABS: Bedside Glucose 136 mg/dL (70-110)
[2017-06-07] MEDS: 0.9% NaCl Peripheral Flush Adult/Peds IV (01:50)
[2017-06-07] MEDS: Piperacil/Tazobactam 3.375 GM/50 ML ML IV ×3 (01:50→18:07)
[2017-06-07] MEDS: CHLORHEXIDINE GLUC 2% CLOTH 1 EACH TOWELETTE TOPICAL (02:55)
[2017-06-07 04:09] LABS: Absolute Lymphocyte Count 1.37 X10^3/ul (0.83-4.51); Absolute Neutrophil Count 7.4 X10^3/uL (2.0-7.7); Basophil# 0.04 X10^3/uL; Basophil% 0.4 % (0-1); Eosinophil# 0.29 X10^3/uL; Eosinophils% 2.9 % (0-5); Hematocrit 27.8 % (37-47); Hemoglobin 8.7 g/dl (12.0-15.0); Lymphocyte # 1.37 X10^3/ul (4.0); Lymphocyte % 13.6 % (19-41); Mean Corp Hgb Conc 31.3 g/gl (32-36); Mean Corpuscular Hgb 34.4 pg (27.0-32.0); Mean Corpuscular Volume 109.9 fL (81-99); Mean Platelet Vol. 9.8 fl (6.2-12.0); Monocyte# 0.89 X10^3/uL; Monocyte% 8.8 % (0-10); Neutrophil # 7.44 X10^3/uL (2.7-7.7); POSITIVE COUNT NO; POSITIVE DIFFERENTIAL NO; POSITIVE MORPHOLOGY NO; Platelet Count 228 K/mm3 (150-450); RBC Distribution Width SD 61.1 fl (35.1-43.9); Red Blood Count 2.53 M/mm3 (4.2-5.4); White Blood Count 10.1 K/mm3 (4.4-11.0)
[2017-06-07 04:21] LABS: Anion Gap 11 (5-15); BUN 42 mg/dL (7-18); Calcium,Total 6.8 mg/dL (8.5-10.1); Chloride 99 mmol/L (98-107); Creatinine, Serum 2.47 mg/dL (0.55-1.02); EST Glomerular Filtration Rate 21 mL/min (>60); Est Glom Filt Rate - Afr Amer 25 mL/min (>60); Estimated Creatinine Clearance 23.65 ml/min; Glucose 141 mg/dL (74-106); Potassium 3.5 mmol/L (3.5-5.1); Sodium Level 138 mmol/L (136-145)
--- NOTE | 2017-06-07 05:55 | EKG12_ITS ---
Test Reason : AM EKG Blood Pressure : / mmHG Vent. Rate : 082 BPM Atrial Rate : 078 BPM P-R Int : 000 ms QRS Dur : 126 ms QT Int : 430 ms P-R-T Axes : 000 032 205 degrees QTc Int : 502 ms Atrial fibrillation Right bundle branch block T wave abnormality, consider inferolateral ischemia Abnormal ECG When compared with ECG of 06-JUN-2017 11:32, MANUAL COMPARISON REQUIRED, DATA IS UNCONFIRMED Confirmed by DE PIZANO, LUL ([id number]), script editor GEETA WILDER ([id number]) on 06/09/2017 3:54:19 PM Referred By: MELISSA Confirmed By:LUL KC MD
[2017-06-07 05:56] LABS: Bedside Glucose 132 mg/dL (70-110)
--- NOTE | 2017-06-07 06:52 | PCM.PN.INT ---
Subjective: The patient was seen and examined at the bedside this morning. Events from the last 24 hours have been reviewed. The patient is currently febrile with a temperature of 101.3?F. Her ventilator requirements remain minimal. She did tolerate hemodialysis yesterday. She passed her spontaneous breathing trial this morning. Accordingly, the patient was able to be liberated from mechanical ventilation. However, a short time later I was notified by the nursing staff that the patient was nonresponsive. Upon examination, she was found to be responsive to noxious stimulation, at which time, an arterial blood gas was obtained. The patient's ABG was within normal limits. She did seem more awake after being stuck for the arterial blood gas. Nevertheless, I was again identified by the nursing staff a short time later that the patient was again nonresponsive. Upon my second examination, the patient was nonresponsive to verbal and tactile stimulation. She also appeared to have bilious appearing secretions. Therefore, the decision was made to proceed with emergent reintubation. Upon discussion with the patient's family this morning, her daughter did voice concern over possible seizure activity in the emergency department. Following reintubation, the patient was sent for an urgent CT head. Objective: The patient's most recent lab work, culture data and imaging studies have all been personally reviewed. Respiratory viral panel was negative. Strep and urine Legionella antigens were both negative. Blood and urine cultures are pending. Sputum culture ?2 was sent this morning. General: - - Remains intubated and mechanically ventilated. Currently tolerating assist control mode mechanical ventilation HEENT: Atraumatic, PERRLA, Normocephalic Oral: No Gingival or Mucosal Lesions/ Ulcerations, - - Endotracheal and OG tubes in place Neck: Supple, No Nodes, Trachea Midline Lungs: No wheeze, No rales, Diminished, Rhonchi Cardiovascular: Normal S1, Normal S2, Irregular Rate, Murmur Abdomen: Bowel Sounds Present, Soft, Non Tender, Obese Extremities: No clubbing, No cyanosis, Diminished Peripheral Pulses, Edema, - - Right upper extremity dialysis access. Femoral triple lumen catheter in place Skin: - - No significant change from previous Musculoskeletal: No Tenderness to Palpation of Joints or Extremities Lymphatic: No Cervical, Supraclavicular, or Inguinal Adenopathy Neurological: - - Currently sedated without focal identifiable deficits. Vital Signs Temp Pulse Resp BP Pulse Ox 101.3 F H 90 20 H 92/74 100 06/07/17 06:00 06/07/17 06:00 06/07/17 06:00 06/07/17 06:00 06/07/17 06:00 Oxygen Delivery Method Mechanical Ventilator Weight: 145 lb 8.081 oz Body Mass Index (BMI) 30.4 Intake and Output for Last 24 Hours 06/05/17 06/06/17 06/07/17 23:59 23:59 23:59 Intake Total 1433 / 1433 675 / 675 Output Total 1060 / 1060 200 / 200 Balance 373 / 373 475 / 475 Labs (Last 48 Hours) 06/06/17 06/06/17 06/06/17 11:30 11:46 12:00 WBC RBC Hgb Hct MCV MCH MCHC RDW RDW Differential Plt Count MPV Immature Gran % (Auto) Neut % (Auto) Lymph % (Auto) [place] % (Auto) Eos % (Auto) Baso % (Auto) Absolute Neuts (auto) Absolute Lymphs (auto) Total Counted Specimen Type ART Sample Site L Radial pH 7.35 Bicarbonate Actual 27.6 H POC Total CO2 29 Base Excess 2 O2 Saturation 100 H O2 % 90 ABG pCO2 49.8 H ABG pO2 403 H* Tom Test POS Respiration Rate 14 O2 Delivery Device Vent Minute Volume 8.00 Vent Mode A-C Tidal Volume 450 POC PEEP 5 Blood Gas Notified Whom ICU Blood Gas Notified Time 1145 Sodium Potassium Chloride Carbon Dioxide Anion Gap BUN Creatinine Estim Creat Clear Calc Est GFR (MDRD) Af Amer Est GFR (MDRD) Non-Af BUN/Creatinine Ratio Glucose Calcium Troponin I Vitamin B12 RBC Folate Hemolysate RBC Folate Hematocrit Urine Color Natalia Urine Clarity Cloudy Urine pH 7.0 Ur Specific [place] 1.010 Urine Protein 100 H Urine Glucose (UA) 250 H Urine Ketones Negative Urine Occult Blood 250 H Urine Nitrite Positive H Urine Bilirubin 1 H Urine Urobilinogen Normal Ur Leukocyte Esterase 500 H Urine RBC 0-5 SEEN Urine WBC 10-25 SEEN Ur Squamous Epith Cells 0 SEEN Urine Bacteria 2+ Urine Mucus 0 SEEN MRSA (PCR) Negative POC Glucose 06/06/17 06/06/17 06/06/17 12:41 16:00 16:00 WBC RBC Hgb Hct MCV MCH MCHC RDW RDW Differential Plt Count MPV Immature Gran % (Auto) Neut % (Auto) Lymph % (Auto) [place] % (Auto) Eos % (Auto) Baso % (Auto) Absolute Neuts (auto) Absolute Lymphs (auto) Total Counted Specimen Type Sample Site pH Bicarbonate Actual POC Total CO2 Base Excess O2 Saturation O2 % ABG pCO2 ABG pO2 Tom Test Respiration Rate O2 Delivery Device Minute Volume Vent Mode Tidal Volume POC PEEP Blood Gas Notified Whom Blood Gas Notified Time Sodium Potassium Chloride Carbon Dioxide Anion Gap BUN Creatinine Estim Creat Clear Calc Est GFR (MDRD) Af Amer Est GFR (MDRD) Non-Af BUN/Creatinine Ratio Glucose Calcium Troponin I 0.23 H Vitamin B12 556 RBC Folate Hemolysate RBC Folate Hematocrit Urine Color Urine Clarity Urine pH Ur Specific [place] Urine Protein Urine Glucose (UA) Urine Ketones Urine Occult Blood Urine Nitrite Urine Bilirubin Urine Urobilinogen Ur Leukocyte Esterase Urine RBC Urine WBC Ur Squamous Epith Cells Urine Bacteria Urine Mucus MRSA (PCR) POC Glucose 218 H 06/06/17 06/06/17 06/06/17 16:00 18:08 20:00 WBC RBC Hgb Hct MCV MCH MCHC RDW RDW Differential Plt Count MPV Immature Gran % (Auto) Neut % (Auto) Lymph % (Auto) [place] % (Auto) Eos % (Auto) Baso % (Auto) Absolute Neuts (auto) Absolute Lymphs (auto) Total Counted Specimen Type Sample Site pH Bicarbonate Actual POC Total CO2 Base Excess O2 Saturation O2 % ABG pCO2 ABG pO2 Tom Test Respiration Rate O2 Delivery Device Minute Volume Vent Mode Tidal Volume POC PEEP Blood Gas Notified Whom Blood Gas Notified Time Sodium Potassium Chloride Carbon Dioxide Anion Gap BUN Creatinine Estim Creat Clear Calc Est GFR (MDRD) Af Amer Est GFR (MDRD) Non-Af BUN/Creatinine Ratio Glucose Calcium Troponin I 0.37 H Vitamin B12 RBC Folate Hemolysate Pending RBC Folate Pending Hematocrit Pending Urine Color Urine Clarity Urine pH Ur Specific [place] Urine Protein Urine Glucose (UA) Urine Ketones Urine Occult Blood Urine Nitrite Urine Bilirubin Urine Urobilinogen Ur Leukocyte Esterase Urine RBC Urine WBC Ur Squamous Epith Cells Urine Bacteria Urine Mucus MRSA (PCR) POC Glucose 160 H 06/07/17 06/07/17 06/07/17 00:23 01:55 04:00 WBC RBC Hgb Hct MCV MCH MCHC RDW RDW Differential Plt Count MPV Immature Gran % (Auto) Neut % (Auto) Lymph % (Auto) [place] % (Auto) Eos % (Auto) Baso % (Auto) Absolute Neuts (auto) Absolute Lymphs (auto) Total Counted Specimen Type Sample Site pH Bicarbonate Actual POC Total CO2 Base Excess O2 Saturation O2 % ABG pCO2 ABG pO2 Tom Test Respiration Rate O2 Delivery Device Minute Volume Vent Mode Tidal Volume POC PEEP Blood Gas Notified Whom Blood Gas Notified Time Sodium 138 Potassium 3.5 Chloride 99 Carbon Dioxide 28.0 Anion Gap 11 BUN 42 H Creatinine 2.47 H Estim Creat Clear Calc 23.65 Est GFR (MDRD) Af Amer 25 L Est GFR (MDRD) Non-Af 21 L BUN/Creatinine Ratio 17.0 Glucose 141 H Calcium 6.8 L Troponin I 0.36 H Vitamin B12 RBC Folate Hemolysate RBC Folate Hematocrit Urine Color Urine Clarity Urine pH Ur Specific [place] Urine Protein Urine Glucose (UA) Urine Ketones Urine Occult Blood Urine Nitrite Urine Bilirubin Urine Urobilinogen Ur Leukocyte Esterase Urine RBC Urine WBC Ur Squamous Epith Cells Urine Bacteria Urine Mucus MRSA (PCR) POC Glucose 136 H 06/07/17 06/07/17 04:00 05:35 WBC 10.1 RBC 2.53 L Hgb 8.7 L Hct 27.8 L MCV 109.9 H MCH 34.4 H MCHC 31.3 L RDW 16.0 H RDW Differential 61.1 H Plt Count 228 MPV 9.8 Immature Gran % (Auto) 0.300 Neut % (Auto) 74.0 H Lymph % (Auto) 13.6 L [place] % (Auto) 8.8 Eos % (Auto) 2.9 Baso % (Auto) 0.4 Absolute Neuts (auto) 7.4 Absolute Lymphs (auto) 1.37 Total Counted Not Reportable Specimen Type Sample Site pH Bicarbonate Actual POC Total CO2 Base Excess O2 Saturation O2 % ABG pCO2 ABG pO2 Tom Test Respiration Rate O2 Delivery Device Minute Volume Vent Mode Tidal Volume POC PEEP Blood Gas Notified Whom Blood Gas Notified Time Sodium Potassium Chloride Carbon Dioxide Anion Gap BUN Creatinine Estim Creat Clear Calc Est GFR (MDRD) Af Amer Est GFR (MDRD) Non-Af BUN/Creatinine Ratio Glucose Calcium Troponin I Vitamin B12 RBC Folate Hemolysate RBC Folate Hematocrit Urine Color Urine Clarity Urine pH Ur Specific [place] Urine Protein Urine Glucose (UA) Urine Ketones Urine Occult Blood Urine Nitrite Urine Bilirubin Urine Urobilinogen Ur Leukocyte Esterase Urine RBC Urine WBC Ur Squamous Epith Cells Urine Bacteria Urine Mucus MRSA (PCR) POC Glucose 132 H Microbiology 06/06/17 11:55 Mucosa - Nasopharyngeal Respiratory Panel (PCR) - Final 06/06/17 12:00 Urine Catheter - Kim Streptococcus pneumoniae Antigen (M - Final 06/06/17 12:00 Urine Catheter - Kim Legionella Antigen - Final Clinical Impression(s) from Imaging Studies Brain CT 06/06/17 07:50 IMPRESSION: Chronic involutional changes. No acute intracranial abnormality. Opacified left maxillary sinus. Electronically Signed: Yehuda Ferguson DO at 9:26 EDT Tel , Service support , Chest X-Ray 06/06/17 07:50 IMPRESSION: Prominent interstitial markings. Patchy airspace disease in the right midlung. This may represent atelectasis or developing pneumonia. Moderate cardiomegaly. Electronically Signed: Yehuda Ferguson DO at 9:33 EDT Tel , Service support , Chest X-Ray 06/06/17 10:30 IMPRESSION: Life support tubes and catheters, as detailed above. No significant change to the appearance of the lungs, with prominent interstitial markings and focal opacity in the right midlung. Small bilateral pleural effusions are seen. Electronically Signed: Yehuda Ferguson DO at 11:20 EDT Tel , Service support , Medical Necessity - Tobacco Use Smoking Status: Never smoker Assessment/Plan Active and Suspected Problems ESRD (end stage renal disease) on dialysis (Acute) RECOMMENDATIONS: 1. Obtain repeat plain film chest imaging 2. Obtain urgent CT head 3. Check arterial blood gas in 1 hour 4. Send sputum for culture 5. Obtain neurology consultation 6. Minimize sedating medications 7. Remove femoral triple-lumen catheter in place left upper extremity PICC line. This has been ok'd by nephrology 8. Continue antibiotics 9. Restart tube feeds 10. Continue appropriate ICU prophylaxis with subcu heparin and Pepcid IMPRESSIONS: 1. Acute respiratory failure secondary to cardiac arrest Patient was thought to have respiratory arrest secondary to hypoxemia. Clinical suspicion for decreased perfusion leading to reported desaturation. Patient does have multiple valvular abnormalities complicating overall condition. While in the intensive care unit, patient was noted to have bradycardia without desaturation leading to poor perfusion. Continue dopamine to maintain hemodynamic stability. Following a trial of extubation, the patient again became obtunded with concern for potential aspiration. She was subsequently reintubated. 2. Acute blood loss anemia Patient with heme positive stools and a 4 g drop in hemoglobin since last visit. Patient does have a history of an esophageal tear. Patient has no signs or symptoms of acute upper GI bleed at this time. Likely transfuse to keep hemoglobin greater than 8. 3. End-stage renal disease secondary to uncontrolled diabetes mellitus/hypertension Continue hemodialysis per nephrology recommendations. 4. Coronary artery disease status post PTCA/hypertension/chronic A. fib/possible sick sinus syndrome Patient with multiple vascular abnormalities. We will plan to wean dopamine as tolerated. Cardiology is following. 5. Encephalopathy The patient continues to experience episodes of obtundation, the etiology of which is unclear. The patient did require reintubation this morning. A stat CT head will be obtained. Neurology will also be consulted for input. 6. COPD/chronic respiratory failure Continue bronchodilators. Wean oxygen as tolerated. 7. CODE STATUS Patient is currently a full code by default. Patient's is the next of kin. Patient's daughter, son-in-law and grandson all report conversations where she had stated that she would not want such aggressive measures. Would likely benefit from a family meeting for discussion of goals of therapy. Patient has had a steady and consistent decline in level of functioning over the last 6-12 months. TIME: 50 minutes of critical care time, independent of procedures, was spent addressing the patient's cardiac arrest, probable sick sinus syndrome, acute blood loss anemia, respiratory failure, encephalopathy, review of all data and collaboration with the care team. ([id number]) Code Visit 9xxxx: [id number] Critical care first hour
--- NOTE | 2017-06-07 07:36 | RAD_ITS ---
STUDY: X-RAY CHEST REASON FOR EXAM: Female, 72 years old. Cough TECHNIQUE: Single AP portable view of the chest. COMPARISON: 06/06/2017 FINDINGS: Cardiac monitoring leads overlie the chest. The endotracheal tube and enteric tube have been removed. The lungs are underinflated. There is mild interstitial prominence. There is improving airspace disease in the right midlung. Pleural thickening versus effusion is seen at the lung bases. There is mild cardiac enlargement. Normal mediastinum and dustin. Normal visualized pulmonary arteries. There is atherosclerotic calcification of the aortic arch with tortuosity. There are diffuse degenerative changes of the visualized thoracic spine. The bones are demineralized. There is no demonstrated abnormality of the visualized soft tissue structures of the upper abdomen. RAD/Chest 1 View (Portable) IMPRESSION: Interval extubation. Improving aeration within the right midlung. Mild interstitial prominence. Electronically Signed: Yehuda Ferguson DO at 11:46 EDT Tel , Service support ,
[2017-06-07 07:41] LABS: Bedside Glucose 153 mg/dL (70-110)
--- NOTE | 2017-06-07 07:45 | NURSING ---
When completing bedside handoff with previous shift RN, patient was found to be extremely difficult to arouse and would not maintain consciousness once noxious stimuli was removed. Dr Daniel present in unit, notified of event and came to bedside to assess. Patients vital signs remained stable, pulses unchanged, breathing spontaneously. After about 5 minutes of this, patient woke up and began trying to converse while RT was obtaining ABG. Pt remained alert and was reoriented, speech very garbled and difficult to understand after becoming conscious. patient was then able to answer questions appropriately about 5-10 minutes later and speech was improving as well. At 0820, patient again became very difficult to arouse, Dr Daniel notified again and patient was intubated for airway protection. Chest x-ray obtained and placement of ETT verified by Dr Daniel at bedside.
--- NOTE | 2017-06-07 08:32 | RAD_ITS ---
STUDY: X-RAY CHEST REASON FOR EXAM: Female, 72 years old. Respiratory distress TECHNIQUE: Single AP portable view of the chest. COMPARISON: 06/07/2017 at 7:03 AM FINDINGS: An endotracheal tube has been placed, with the tip approximately 2 cm above the petra. Cardiac monitoring leads overlie the chest. The lungs are underinflated. Interstitial markings are somewhat prominent. Small bilateral pleural effusions are seen. There is mild cardiac enlargement. Normal mediastinum and dustin. Normal visualized pulmonary arteries. There is atherosclerotic calcification of the aortic arch with tortuosity. There are diffuse degenerative changes of the visualized thoracic spine. The bones are demineralized. There is no demonstrated abnormality of the visualized soft tissue structures of the upper abdomen. RAD/Chest 1 View (Portable) IMPRESSION: The endotracheal tube tip projects approximately 2 cm above the petra. Mild interstitial edema. Small bilateral pleural effusions. Electronically Signed: Yehuda Ferguson DO at 9:36 EDT Tel , Service support ,
--- NOTE | 2017-06-07 08:33 | CT_ITS ---
STUDY: CT BRAIN WITHOUT CONTRAST REASON FOR EXAM: Female, 72 years old. Status post cardiac arrest, altered mental status RADIATION DOSAGE (If Supplied By Facility): CTDIvol = ( 44.99 ) mGy, DLP = ( 812.98 ) mGycm TECHNIQUE: Transaxial CT imaging of the brain was performed without administration of intravenous contrast material. Sagittal and coronal reconstructed images are provided and reviewed. The patient's head is rotated in the gantry. Individualized dose optimization techniques were used for this CT. COMPARISON: 06/06/2017 FINDINGS: There is an endotracheal tube present. Vascular calcifications are seen. Normal calvarium. There is mild cerebral atrophy with widening of the extra-axial spaces and ventricular dilatation. There are areas of decreased attenuation within the white matter tracts of the supratentorial brain, consistent with microvascular disease changes. Remote insult to the left occipital lobe is unchanged. Normal basal ganglia and thalami. Normal brainstem. Normal cerebellum. There is no intracranial hemorrhage. There are no findings of an acute ischemic infarction. There is opacification of the left maxillary sinus. There is opacification of the mastoid air cells. CT/Brain/Head without Contrast IMPRESSION: Chronic involutional changes. No acute intracranial abnormality. No significant change from study of 06/06/2017. Electronically Signed: Yehuda Ferguson DO at 10:15 EDT Tel , Service support ,
--- NOTE | 2017-06-07 09:30 | CASEMGMT ---
After rounds SW spoke with patient's daughter and patient's . They would like SW to see if there are any beds at [facility]. SW faxed referral to [facility] and also called [facility] with referral. Migdalia JENSEN
--- NOTE | 2017-06-07 09:31 | PN.RENAL_ITS ---
Patient Problems: Active and Suspected Problems ESRD (end stage renal disease) on dialysis (Acute) Subjective: extubated this am and had to be reintubated periodic AMS CT head ordered BP is stable, dopamine drip on board - Physical Exam HEENT: Atraumatic, PERRLA, EOMI, Normocephalic Neck: Supple, No JVD, Negative Carotid Bruits Lungs: Clear to auscultation, Normal air movement Cardiovascular: Regular rate, No murmurs Abdomen: Bowel Sounds Present, Soft, Non Tender Extremities: No edema, Capillary Refill Less than 3 Seconds Skin: No rashes, No breakdown Musculoskeletal: No Tenderness to Palpation of Joints or Extremities Vital Signs Temp Pulse Resp BP Pulse Ox 101.0 F H 92 21 H 89/56 L 100 06/07/17 07:00 06/07/17 07:00 06/07/17 07:00 06/07/17 07:00 06/07/17 07:00 Oxygen Flow Rate (L/min) 2 Oxygen Delivery Method Nasal Cannula Weight: 66 kg Body Mass Index (BMI) 30.4 Intake and Output for Last 24 Hours 06/05/17 06/06/17 06/07/17 23:59 23:59 23:59 Intake Total 1433 / 1433 675 / 675 Output Total 1060 / 1060 200 / 200 Balance 373 / 373 475 / 475 Microbiology Past 72 Hours 06/06/17 11:55 Respiratory Panel (PCR) - Final Mucosa - Nasopharyngeal 06/06/17 12:00 Streptococcus pneumoniae Antigen (M - Final Urine Catheter - Kim 06/06/17 12:00 Legionella Antigen - Final Urine Catheter - Kim Laboratory Tests Past 24 Hrs 06/06/17 06/06/17 06/06/17 11:30 11:46 12:00 WBC RBC Hgb Hct MCV MCH MCHC RDW RDW Differential Plt Count MPV Immature Gran % (Auto) Neut % (Auto) Lymph % (Auto) [place] % (Auto) Eos % (Auto) Baso % (Auto) Absolute Neuts (auto) Absolute Lymphs (auto) Total Counted Specimen Type ART Sample Site L Radial pH 7.35 Bicarbonate Actual 27.6 H POC Total CO2 29 Base Excess 2 O2 Saturation 100 H O2 % 90 ABG pCO2 49.8 H ABG pO2 403 H* Tom Test POS Respiration Rate 14 O2 Delivery Device Vent Minute Volume 8.00 Vent Mode A-C Tidal Volume 450 POC PEEP 5 Blood Gas Notified Whom ICU MD Blood Gas Notified Time 1145 Sodium Potassium Chloride Carbon Dioxide Anion Gap BUN Creatinine Estim Creat Clear Calc Est GFR (MDRD) Af Amer Est GFR (MDRD) Non-Af BUN/Creatinine Ratio Glucose Calcium Troponin I Vitamin B12 RBC Folate Hemolysate RBC Folate Hematocrit Urine Color [place] Urine Clarity Cloudy Urine pH 7.0 Ur Specific [place] 1.010 Urine Protein 100 H Urine Glucose (UA) 250 H Urine Ketones Negative Urine Occult Blood 250 H Urine Nitrite Positive H Urine Bilirubin 1 H Urine Urobilinogen Normal Ur Leukocyte Esterase 500 H Urine RBC 0-5 SEEN Urine WBC 10-25 SEEN Ur Squamous Epith Cells 0 SEEN Urine Bacteria 2+ Urine Mucus 0 SEEN MRSA (PCR) Negative 06/06/17 06/06/17 06/06/17 16:00 16:00 16:00 WBC RBC Hgb Hct MCV MCH MCHC RDW RDW Differential Plt Count MPV Immature Gran % (Auto) Neut % (Auto) Lymph % (Auto) [place] % (Auto) Eos % (Auto) Baso % (Auto) Absolute Neuts (auto) Absolute Lymphs (auto) Total Counted Specimen Type Sample Site pH Bicarbonate Actual POC Total CO2 Base Excess O2 Saturation O2 % ABG pCO2 ABG pO2 Tom Test Respiration Rate O2 Delivery Device Minute Volume Vent Mode Tidal Volume POC PEEP Blood Gas Notified Whom Blood Gas Notified Time Sodium Potassium Chloride Carbon Dioxide Anion Gap BUN Creatinine Estim Creat Clear Calc Est GFR (MDRD) Af Amer Est GFR (MDRD) Non-Af BUN/Creatinine Ratio Glucose Calcium Troponin I 0.23 H Vitamin B12 556 RBC Folate Hemolysate Pending RBC Folate Pending Hematocrit Pending Urine Color Urine Clarity Urine pH Ur Specific [place] Urine Protein Urine Glucose (UA) Urine Ketones Urine Occult Blood Urine Nitrite Urine Bilirubin Urine Urobilinogen Ur Leukocyte Esterase Urine RBC Urine WBC Ur Squamous Epith Cells Urine Bacteria Urine Mucus MRSA (PCR) 06/06/17 06/07/17 06/07/17 20:00 01:55 04:00 WBC RBC Hgb Hct MCV MCH MCHC RDW RDW Differential Plt Count MPV Immature Gran % (Auto) Neut % (Auto) Lymph % (Auto) [place] % (Auto) Eos % (Auto) Baso % (Auto) Absolute Neuts (auto) Absolute Lymphs (auto) Total Counted Specimen Type Sample Site pH Bicarbonate Actual POC Total CO2 Base Excess O2 Saturation O2 % ABG pCO2 ABG pO2 Tom Test Respiration Rate O2 Delivery Device Minute Volume Vent Mode Tidal Volume POC PEEP Blood Gas Notified Whom Blood Gas Notified Time Sodium 138 Potassium 3.5 Chloride 99 Carbon Dioxide 28.0 Anion Gap 11 BUN 42 H Creatinine 2.47 H Estim Creat Clear Calc 23.65 Est GFR (MDRD) Af Amer 25 L Est GFR (MDRD) Non-Af 21 L BUN/Creatinine Ratio 17.0 Glucose 141 H Calcium 6.8 L Troponin I 0.37 H 0.36 H Vitamin B12 RBC Folate Hemolysate RBC Folate Hematocrit Urine Color Urine Clarity Urine pH Ur Specific [place] Urine Protein Urine Glucose (UA) Urine Ketones Urine Occult Blood Urine Nitrite Urine Bilirubin Urine Urobilinogen Ur Leukocyte Esterase Urine RBC Urine WBC Ur Squamous Epith Cells Urine Bacteria Urine Mucus MRSA (PCR) 06/07/17 04:00 WBC 10.1 RBC 2.53 L Hgb 8.7 L Hct 27.8 L MCV 109.9 H MCH 34.4 H MCHC 31.3 L RDW 16.0 H RDW Differential 61.1 H Plt Count 228 MPV 9.8 Immature Gran % (Auto) 0.300 Neut % (Auto) 74.0 H Lymph % (Auto) 13.6 L [place] % (Auto) 8.8 Eos % (Auto) 2.9 Baso % (Auto) 0.4 Absolute Neuts (auto) 7.4 Absolute Lymphs (auto) 1.37 Total Counted Not Reportable Specimen Type Sample Site pH Bicarbonate Actual POC Total CO2 Base Excess O2 Saturation O2 % ABG pCO2 ABG pO2 Tom Test Respiration Rate O2 Delivery Device Minute Volume Vent Mode Tidal Volume POC PEEP Blood Gas Notified Whom Blood Gas Notified Time Sodium Potassium Chloride Carbon Dioxide Anion Gap BUN Creatinine Estim Creat Clear Calc Est GFR (MDRD) Af Amer Est GFR (MDRD) Non-Af BUN/Creatinine Ratio Glucose Calcium Troponin I Vitamin B12 RBC Folate Hemolysate RBC Folate Hematocrit Urine Color Urine Clarity Urine pH Ur Specific [place] Urine Protein Urine Glucose (UA) Urine Ketones Urine Occult Blood Urine Nitrite Urine Bilirubin Urine Urobilinogen Ur Leukocyte Esterase Urine RBC Urine WBC Ur Squamous Epith Cells Urine Bacteria Urine Mucus MRSA (PCR) POC Glucose 06/07/17 06/07/17 06/07/17 07:37 05:35 00:23 POC Glucose 153 H 132 H 136 H 06/06/17 06/06/17 18:08 12:41 POC Glucose 160 H 218 H Medical Necessity - Tobacco Use Smoking Status: Never smoker Assessment/Plan Active and Suspected Problems ESRD (end stage renal disease) on dialysis (Acute) ESRD. last HD was yesterday, overall uneventful but could not remove much fluid today morning she passed SBP, was extubated had to be reintubated as she developed AMS now wide awake and responds to questions CXR is wet but hold off dialysis for today due to other events ok to picc line from renal standpoint (not ideal but very limited options given lack of central access of pressors) d/w Dr Daniel
[2017-06-07] MEDS: Chlorhexidine 15 ML PO ×2 (11:33→21:26)
[2017-06-07 11:45] LABS: Bedside Glucose 174 mg/dL (70-110)
[2017-06-07] MEDS: Famotidine 20 MG Tablet GT (12:26)
--- NOTE | 2017-06-07 13:08 | NURSING ---
(s) had clear for Picc but has fistula in CHARLIE. Assessed for Picc has old fistula to NATHEN, Dr. Daniel and staff made aware.
--- NOTE | 2017-06-07 14:05 | PCM.PROGNOTE ---
Patient Problems: Active and Suspected Problems ESRD (end stage renal disease) on dialysis (Acute) Subjective: patient is awake, interactive, but intubated. - Physical Exam General: Alert HEENT: Atraumatic, PERRLA, Normocephalic Oral: Moist Mucosa Neck: Supple, No JVD, Negative Carotid Bruits, Negative Hepatojugular Reflux, No Nodes, No Nuchal Rigidity Lungs: Rales - mid lung cuellar bilaterally., Rhonchi Cardiovascular: Regular rate, Regular Rhythm, Normal S1, Normal S2, No murmurs, No Ectopic Activity Abdomen: Bowel Sounds Present, Soft, Non Tender, Non-Distended, No Hepato-splenomegaly Extremities: No clubbing, No cyanosis, No edema Skin: No rashes, No breakdown Musculoskeletal: No Tenderness to Palpation of Joints or Extremities, No Muscle Wasting Lymphatic: No Cervical, Supraclavicular, or Inguinal Adenopathy Neurological: Cranial nerves II-XII grossly intact, Neuro grossly intact Psych/Mental Status: Normal Affect Vital Signs Temp Pulse Resp BP Pulse Ox 100.8 F H 87 19 H 108/91 H 100 06/07/17 13:00 06/07/17 13:00 06/07/17 13:00 06/07/17 13:00 06/07/17 13:00 Oxygen Flow Rate (L/min) 30 Oxygen Delivery Method Mechanical Ventilator Weight: 145 lb 8.081 oz Body Mass Index (BMI) 30.4 Intake and Output for Last 24 Hours 06/05/17 06/06/17 06/07/17 23:59 23:59 23:59 Intake Total 1433 / 1433 805 / 805 Output Total 1060 / 1060 380 / 380 Balance 373 / 373 425 / 425 Microbiology Past 72 Hours 06/06/17 11:55 Respiratory Panel (PCR) - Final Mucosa - Nasopharyngeal 06/06/17 12:00 Streptococcus pneumoniae Antigen (M - Final Urine Catheter - Kim 06/06/17 12:00 Legionella Antigen - Final Urine Catheter - Kim Laboratory Tests Past 24 Hrs 06/06/17 06/06/17 06/06/17 16:00 16:00 16:00 WBC RBC Hgb Hct MCV MCH MCHC RDW RDW Differential Plt Count MPV Immature Gran % (Auto) Neut % (Auto) Lymph % (Auto) [place] % (Auto) Eos % (Auto) Baso % (Auto) Absolute Neuts (auto) Absolute Lymphs (auto) Total Counted Sodium Potassium Chloride Carbon Dioxide Anion Gap BUN Creatinine Estim Creat Clear Calc Est GFR (MDRD) Af Amer Est GFR (MDRD) Non-Af BUN/Creatinine Ratio Glucose Calcium Troponin I 0.23 H Vitamin B12 556 RBC Folate Hemolysate Pending RBC Folate Pending Hematocrit Pending 06/06/17 06/07/17 06/07/17 20:00 01:55 04:00 WBC RBC Hgb Hct MCV MCH MCHC RDW RDW Differential Plt Count MPV Immature Gran % (Auto) Neut % (Auto) Lymph % (Auto) [place] % (Auto) Eos % (Auto) Baso % (Auto) Absolute Neuts (auto) Absolute Lymphs (auto) Total Counted Sodium 138 Potassium 3.5 Chloride 99 Carbon Dioxide 28.0 Anion Gap 11 BUN 42 H Creatinine 2.47 H Estim Creat Clear Calc 23.65 Est GFR (MDRD) Af Amer 25 L Est GFR (MDRD) Non-Af 21 L BUN/Creatinine Ratio 17.0 Glucose 141 H Calcium 6.8 L Troponin I 0.37 H 0.36 H Vitamin B12 RBC Folate Hemolysate RBC Folate Hematocrit 06/07/17 04:00 WBC 10.1 RBC 2.53 L Hgb 8.7 L Hct 27.8 L MCV 109.9 H MCH 34.4 H MCHC 31.3 L RDW 16.0 H RDW Differential 61.1 H Plt Count 228 MPV 9.8 Immature Gran % (Auto) 0.300 Neut % (Auto) 74.0 H Lymph % (Auto) 13.6 L [place] % (Auto) 8.8 Eos % (Auto) 2.9 Baso % (Auto) 0.4 Absolute Neuts (auto) 7.4 Absolute Lymphs (auto) 1.37 Total Counted Not Reportable Sodium Potassium Chloride Carbon Dioxide Anion Gap BUN Creatinine Estim Creat Clear Calc Est GFR (MDRD) Af Amer Est GFR (MDRD) Non-Af BUN/Creatinine Ratio Glucose Calcium Troponin I Vitamin B12 RBC Folate Hemolysate RBC Folate Hematocrit POC Glucose 06/07/17 06/07/17 06/07/17 11:39 07:37 05:35 POC Glucose 174 H 153 H 132 H 06/07/17 06/06/17 00:23 18:08 POC Glucose 136 H 160 H Diagnostic Data Chest X-Ray 06/07/17 08:32 IMPRESSION: The endotracheal tube tip projects approximately 2 cm above the petra. Mild interstitial edema. Small bilateral pleural effusions. Electronically Signed: Yehuda FergusonDO at 9:36 EDT Tel , Service support , Brain CT 06/07/17 08:33 IMPRESSION: Chronic involutional changes. No acute intracranial abnormality. No significant change from study of 06/06/2017. Electronically Signed: Yehuda DO Marty at 10:15 EDT Tel , Service support , Medical Necessity - Tobacco Use Smoking Status: Never smoker Assessment/Plan Active and Suspected Problems ESRD (end stage renal disease) on dialysis (Acute) This is a 72 years old female patient brought to the emergency room from the dialysis center because of syncopal episode, found to have anemia and hypocalcemia as well as probable pneumonia, went into cardiac arrest ?2 status post CPR in the emergency room and she is being admitted for acute respiratory failure, cardiac arrest, syncope, anemia and probable pneumonia. Patient is a 72 years old female who was brought to ED with an episode of syncope during hemodialysis. She regained consciousness spontaneously, transferred to ED. At there she became unresponsive again with desaturation, presumed respiratory arrest. CPR was given and she was intubated, subsequently admitted to ICU. Soon after, she developed symptomatic bradycardia with hypotension, atropine was given, followed by dopamine drip. Following day, she appeared doing well, extubated later in the morning. However, soon after, she became unresponsive again. ABG was obtained, which was within normal limits. She did not have apparent arrhythmia at that time. Bilious emesis was noted at that time, she was re-intubated for airway protection. #1 status post cardiac/respiratory arrest. Etiology is not clear. Critical care / pulmonary is managing patient. Cardiology was consulted also. Agree with neurology consultation. At the initial event, there was a report of rigidity and some clonic activities proceeding loss of consciousness. #2 syncope. See above. #3 anemia: Patient does have a history of chronic anemia, hemoglobin has been fluctuating anywhere between 9-13 g/dL. Admission hemoglobin is 8.4 g/dL. It is microcytic anemia. At this time, no evidence of active bleeding. Plan: Serum iron, ferritin, TIBC, B12, RBC folate, transfuse if hemoglobin less than 8 g/dL. #4 Probable aspiration pneumonia. Right mid lung. Zosyn started empirically. #5 ESRD on hemodialysis: Patient received 1 hour of hemodialysis today, pulse ox was 88% on 3 L upon arrival to ER. Chest x-ray revealed probable volume overload. Plan for hemodialysis today, nephrology consult. #6 type 2 diabetes mellitus: Keep on n.p.o., Accu-Cheks, sliding scale, hold home doses of Levemir insulin and pre-meal NovoLog. #7 hypertension: At this time, she will be intubated and sedated, close monitoring of blood pressure. Blood pressure was high because she received IV epinephrine. #8 CAD status post PTCA: EKG reviewed as above. First troponin is negative. Plan as above, cardiac monitoring, serial cardiac enzymes, 2D echocardiogram, cardiology consult. #9 COPD/chronic respiratory failure: Patient is on home oxygen at 2.5 L reportedly. Chest x-ray reviewed as above. Plan for bronchodilator, continue mechanical ventilation. #10 chronic atrial fibrillation: After cardiac arrest, heart rate has been around 100, was in A. fib. At home, she is not on any medication for rate control and not on anticoagulation. #11 Symptomatic bradycardia. Rate in 30's with development of hypotension. Dopamine drip started, doing well. Other chronic medical problems: #1 hypothyroidism. #2 GERD. #3 mild aortic stenosis. #4 hyperlipidemia. #5 sleep apnea. #6 severe pulmonary hypertension. #7 diabetic neuropathy. #8 peripheral vascular disease. #9 gastroparesis. VTE prophylaxis: Heparin SQ. GI prophylaxis: H2 nolvia po. Patient is full code. Disposition: to be determined. Code Visit Inpatient E&M: 17213 [facility] L3
--- NOTE | 2017-06-07 14:09 | PN_ITS ---
Patient Problems: Active and Suspected Problems ESRD (end stage renal disease) on dialysis (Acute) Subjective: patient is awake, interactive, but intubated. - Physical Exam General: Alert HEENT: Atraumatic, PERRLA, Normocephalic Oral: Moist Mucosa Neck: Supple, No JVD, Negative Carotid Bruits, Negative Hepatojugular Reflux, No Nodes, No Nuchal Rigidity Lungs: Rales - mid lung cuellar bilaterally., Rhonchi Cardiovascular: Regular rate, Regular Rhythm, Normal S1, Normal S2, No murmurs, No Ectopic Activity Abdomen: Bowel Sounds Present, Soft, Non Tender, Non-Distended, No Hepato- splenomegaly Extremities: No clubbing, No cyanosis, No edema Skin: No rashes, No breakdown Musculoskeletal: No Tenderness to Palpation of Joints or Extremities, No Muscle Wasting Lymphatic: No Cervical, Supraclavicular, or Inguinal Adenopathy Neurological: Cranial nerves II-XII grossly intact, Neuro grossly intact Psych/Mental Status: Normal Affect Vital Signs Temp Pulse Resp BP Pulse Ox 100.8 F H 87 19 H 108/91 H 100 06/07/17 13:00 06/07/17 13:00 06/07/17 13:00 06/07/17 13:00 06/07/17 13:00 Oxygen Flow Rate (L/min) 30 Oxygen Delivery Method Mechanical Ventilator Weight: 145 lb 8.081 oz Body Mass Index (BMI) 30.4 Intake and Output for Last 24 Hours 06/05/17 06/06/17 06/07/17 23:59 23:59 23:59 Intake Total 1433 / 1433 805 / 805 Output Total 1060 / 1060 380 / 380 Balance 373 / 373 425 / 425 Microbiology Past 72 Hours 06/06/17 11:55 Respiratory Panel (PCR) - Final Mucosa - Nasopharyngeal 06/06/17 12:00 Streptococcus pneumoniae Antigen (M - Final Urine Catheter - Kim 06/06/17 12:00 Legionella Antigen - Final Urine Catheter - Kim Laboratory Tests Past 24 Hrs 06/06/17 06/06/17 06/06/17 16:00 16:00 16:00 WBC RBC Hgb Hct MCV MCH MCHC RDW RDW Differential Plt Count MPV Immature Gran % (Auto) Neut % (Auto) Lymph % (Auto) [place] % (Auto) Eos % (Auto) Baso % (Auto) Absolute Neuts (auto) Absolute Lymphs (auto) Total Counted Sodium Potassium Chloride Carbon Dioxide Anion Gap BUN Creatinine Estim Creat Clear Calc Est GFR (MDRD) Af Amer Est GFR (MDRD) Non-Af BUN/Creatinine Ratio Glucose Calcium Troponin I 0.23 H Vitamin B12 556 RBC Folate Hemolysate Pending RBC Folate Pending Hematocrit Pending 06/06/17 06/07/17 06/07/17 20:00 01:55 04:00 WBC RBC Hgb Hct MCV MCH MCHC RDW RDW Differential Plt Count MPV Immature Gran % (Auto) Neut % (Auto) Lymph % (Auto) [place] % (Auto) Eos % (Auto) Baso % (Auto) Absolute Neuts (auto) Absolute Lymphs (auto) Total Counted Sodium 138 Potassium 3.5 Chloride 99 Carbon Dioxide 28.0 Anion Gap 11 BUN 42 H Creatinine 2.47 H Estim Creat Clear Calc 23.65 Est GFR (MDRD) Af Amer 25 L Est GFR (MDRD) Non-Af 21 L BUN/Creatinine Ratio 17.0 Glucose 141 H Calcium 6.8 L Troponin I 0.37 H 0.36 H Vitamin B12 RBC Folate Hemolysate RBC Folate Hematocrit 06/07/17 04:00 WBC 10.1 RBC 2.53 L Hgb 8.7 L Hct 27.8 L MCV 109.9 H MCH 34.4 H MCHC 31.3 L RDW 16.0 H RDW Differential 61.1 H Plt Count 228 MPV 9.8 Immature Gran % (Auto) 0.300 Neut % (Auto) 74.0 H Lymph % (Auto) 13.6 L [place] % (Auto) 8.8 Eos % (Auto) 2.9 Baso % (Auto) 0.4 Absolute Neuts (auto) 7.4 Absolute Lymphs (auto) 1.37 Total Counted Not Reportable Sodium Potassium Chloride Carbon Dioxide Anion Gap BUN Creatinine Estim Creat Clear Calc Est GFR (MDRD) Af Amer Est GFR (MDRD) Non-Af BUN/Creatinine Ratio Glucose Calcium Troponin I Vitamin B12 RBC Folate Hemolysate RBC Folate Hematocrit POC Glucose 06/07/17 06/07/17 06/07/17 11:39 07:37 05:35 POC Glucose 174 H 153 H 132 H 06/07/17 06/06/17 00:23 18:08 POC Glucose 136 H 160 H Diagnostic Data Chest X-Ray 06/07/17 08:32 IMPRESSION: The endotracheal tube tip projects approximately 2 cm above the petra. Mild interstitial edema. Small bilateral pleural effusions. Electronically Signed: Yehuda FergusonDO at 9:36 EDT Tel , Service support , Brain CT 06/07/17 08:33 IMPRESSION: Chronic involutional changes. No acute intracranial abnormality. No significant change from study of 06/06/2017. Electronically Signed: Yehuda DO Marty at 10:15 EDT Tel , Service support , Medical Necessity - Tobacco Use Smoking Status: Never smoker Assessment/Plan Active and Suspected Problems ESRD (end stage renal disease) on dialysis (Acute) This is a 72 years old female patient brought to the emergency room from the dialysis center because of syncopal episode, found to have anemia and hypocalcemia as well as probable pneumonia, went into cardiac arrest ?2 status post CPR in the emergency room and she is being admitted for acute respiratory failure, cardiac arrest, syncope, anemia and probable pneumonia. Patient is a 72 years old female who was brought to ED with an episode of syncope during hemodialysis. She regained consciousness spontaneously, transferred to ED. At there she became unresponsive again with desaturation, presumed respiratory arrest. CPR was given and she was intubated , subsequently admitted to ICU. Soon after, she developed symptomatic bradycardia with hypotension, atropine was given, followed by dopamine drip. Following day, she appeared doing well, extubated later in the morning. However , soon after, she became unresponsive again. ABG was obtained, which was within normal limits. She did not have apparent arrhythmia at that time. Bilious emesis was noted at that time, she was re-intubated for airway protection. #1 status post cardiac/respiratory arrest. Etiology is not clear. Critical care / pulmonary is managing patient. Cardiology was consulted also. Agree with neurology consultation. At the initial event, there was a report of rigidity and some clonic activities proceeding loss of consciousness. #2 syncope. See above. #3 anemia: Patient does have a history of chronic anemia, hemoglobin has been fluctuating anywhere between 9-13 g/dL. Admission hemoglobin is 8.4 g/dL. It is microcytic anemia. At this time, no evidence of active bleeding. Plan: Serum iron, ferritin, TIBC, B12, RBC folate, transfuse if hemoglobin less than 8 g/dL. #4 Probable aspiration pneumonia. Right mid lung. Zosyn started empirically. #5 ESRD on hemodialysis: Patient received 1 hour of hemodialysis today, pulse ox was 88% on 3 L upon arrival to ER. Chest x-ray revealed probable volume overload. Plan for hemodialysis today, nephrology consult. #6 type 2 diabetes mellitus: Keep on n.p.o., Accu-Cheks, sliding scale, hold home doses of Levemir insulin and pre-meal NovoLog. #7 hypertension: At this time, she will be intubated and sedated, close monitoring of blood pressure. Blood pressure was high because she received IV epinephrine. #8 CAD status post PTCA: EKG reviewed as above. First troponin is negative. Plan as above, cardiac monitoring, serial cardiac enzymes, 2D echocardiogram, cardiology consult. #9 COPD/chronic respiratory failure: Patient is on home oxygen at 2.5 L reportedly. Chest x-ray reviewed as above. Plan for bronchodilator, continue mechanical ventilation. #10 chronic atrial fibrillation: After cardiac arrest, heart rate has been around 100, was in A. fib. At home, she is not on any medication for rate control and not on anticoagulation. #11 Symptomatic bradycardia. Rate in 30's with development of hypotension. Dopamine drip started, doing well. Other chronic medical problems: #1 hypothyroidism. #2 GERD. #3 mild aortic stenosis. #4 hyperlipidemia. #5 sleep apnea. #6 severe pulmonary hypertension. #7 diabetic neuropathy. #8 peripheral vascular disease. #9 gastroparesis. VTE prophylaxis: Heparin SQ. GI prophylaxis: H2 nolvia po. Patient is full code. Disposition: to be determined. Code Visit Inpatient E&M: 39029 [facility] Hosp L3
[2017-06-07 14:21] LABS: Allen Test POS; Base Excess 5 mmol/L (-2 to +2); Bicarbonate 27.2 mmol/L (22-26); Blood Gas Specimen Type ART; FI02 30; Mode A-C; O2 Delivery Device Vent; PEEP 5; PO2 87 mmHG (75-100); RR 14; SITE L Radial; SO2 98 % (95-99); Time Given 1410; Total Carbon Dioxide 28 mmol/L; Vt 450; pCO2 30.3 mmHg (35-45); pH 7.56 (7.35-7.45)
[2017-06-07 14:21] LABS: Allen Test POS; Base Excess 4 mmol/L (-2 to +2); Bicarbonate 28.9 mmol/L (22-26); Blood Gas Specimen Type ART; O2 Delivery Device Nasal Can; PO2 78 mmHG (75-100); SITE L Radial; SO2 96 % (95-99); Time Given 725; Total Carbon Dioxide 30 mmol/L; pCO2 44.9 mmHg (35-45); pH 7.42 (7.35-7.45)
--- NOTE | 2017-06-07 14:24 | MRI_ITS ---
STUDY: MRI BRAIN WITHOUT CONTRAST REASON FOR EXAM: Female, 72 years old. Seizures TECHNIQUE: Standardized multiplanar fat and water weighted pulse sequences were obtained. COMPARISON: CT of the brain on June 07, 2017 FINDINGS: Normal size of the ventricles and extra-axial spaces for the patient's age. Moderate periventricular white matter ischemic changes without mass effect or restricted diffusion. There is extension into the subcortical white matter in the bilateral parieto-occipital regions raising question of PRES however clinical correlation is recommended Chronic ischemic changes within the martha bilaterally Tiny old lacunar infarct in right basal ganglia.. Normal thalami. There is no extra-axial fluid accumulation. Normal flow voids within the major intracranial circulation suggesting patency by spin echo criteria. Partial empty sella deformity. Normal, infundibular stalk, optic chiasm and hypothalamus. Normal tectal plate and pineal gland. Normal midbrain, and medulla. Normal cerebellum. Normal basal cisterns. Normal bilateral temporal bones. Normal bilateral internal auditory canals. There is fluid signal within the mastoid air cells bilaterally which may be due to inflammatory disease. Postsurgical changes of the orbits.. Diffuse mucosal thickening left maxillary sinus and moderate mucosal thickening within the ethmoid air cells.. Normal calvarium and skull base. Normal visualized soft tissue structures. Normal visualized upper cervical spine. MRI/Brain without Contrast IMPRESSION: Nonspecific periventricular white matter ischemic changes of uncertain etiology but. Cannot exclude possibility of PRES. Chronic ischemic changes within the martha.. No evidence for acute infarct Electronically Signed: Refugio Vera MD at 17:17 EDT , Service support ,
--- NOTE | 2017-06-07 14:52 | CON.PCM_ITS ---
Problem List (1) Unresponsive episode Status: Acute Reason for Consult Date of Consultation: 06/07/17 Reason for Consultation: Unresponsive episodes History of Present Illness: The patient is a 72 year old CF with PMH HTN, HLD, DM, DM retinopathy, H/O stroke, ESRD on HD, Afib not on AC, COPD, CAD, chronic ulcer admitted with episodes of unresponsiveness and cardiac arrest. History is obtained from medical records and charts since patient continues to be intubated. Per documentation patient was admitted from HD with an episode of unresponsiveness yesterday (06/06/17), then in the ED initially she was alert and oriented, later again had brief shaking episode, became unresponsive and had cardiac arrest, in total had 2 events of Cardiac arrest needing CPR and was intubated, following that she was extubated this morning but then again had 2 episodes of unresponsiveness where she needed sternal rub, no witnessed seizures per nurse. 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 At present patient is intubated but is able to follow VC. Denies any new onset focal weakness, GONZALEZ, visual disturbances or sensory loss. Per the last hospitalization notes at [facility] [place], it says she has h/o seizures and was on Vimpat but she developed bradyarrhythmias at that time and was changed to Keppra , but per patient she never had any seizures. [] Past Medical History Past Medical History (Chronic Problems): Chronic Problems Chronic ulcer of left leg with fat layer exposed (Chronic) Chronic ulcer of left foot with fat layer exposed (Chronic) Ischemic foot ulcer due to atherosclerosis of jena artery of limb (Chronic) Lumbar compression fracture (Chronic) Atrial fibrillation and flutter (Chronic) NO ON ANTICOAGULATION DUE TO FALL RISK AND NON-COMPLIANCE Legal blindness (Chronic) Poor dental hygiene (Chronic) Peripheral vascular disease (Chronic) Diastolic congestive heart failure (Chronic) Chronic hypoxemic respiratory failure (Chronic) Type II diabetes mellitus (Chronic) Diabetic retinopathy (Chronic) ESRD (end stage renal disease) (Chronic) on HD-TUESDAY,TUESDAY,TUESDAY Restrictive lung disease (Chronic) CAD (coronary artery disease) (Chronic) AV fistula (Chronic) Hypothyroidism (Chronic) GERD (gastroesophageal reflux disease) (Chronic) Sleep apnea (Chronic) pt is NOT compliant with CPAP Pulmonary HTN (Chronic) COPD (chronic obstructive pulmonary disease) (Chronic) Aortic stenosis, mild (Chronic) Non-compliance (Chronic) S/P PTCA (percutaneous transluminal coronary angioplasty) (Chronic) HLD (hyperlipidemia) (Chronic) HTN (hypertension) (Chronic) Allergies azithromycin [From Zithromax] Allergy (Verified 06/06/17 07:38) Hives Home Medications: Ambulatory Orders Medication Instructions Recorded Levothyroxine [Synthroid] 50 mcg PO DAILY 07/31/13 Omeprazole [Prilosec] 20 mg PO DAILY 07/31/13 Simvastatin [Zocor] 40 mg PO QHS 07/31/13 Folic Acid/Vitamin B Comp W-C 1 capsule PO DAILY 02/20/14 [Nephrocaps, Renaphro] Bumetanide [Bumex] 2 mg PO DAILY 01/28/16 Calcium Acetate [Phoslo Gel Cap] 667 mg PO TIDCM 01/28/16 Loratadine [Claritin] 10 mg PO DAILY PRN 01/28/16 Oxycodone [Oxyir] 5 mg PO Q4H PRN PRN #30 tablet 06/09/16 Insulin Aspart [Novolog Flexpen] 0 units SC TIDCM 09/30/16 Guaifenesin [Mucinex] 600 mg PO BID 04/06/17 Ranitidine HCl 75 mg PO DAILY 04/06/17 Albuterol Sulfate 2.5 mg IH Q8H PRN PRN MDD 9 ML 04/08/17 Aspirin [Aspirin, Baby] 81 mg PO DAILY@0800 #30 tab.chew 04/08/17 Guaifenesin [Mucinex] 1,200 mg PO BID #14 tab 04/08/17 Insulin Detemir [Levemir FlexPen] 15 units SC BID insuln.pen 04/08/17 Ipratropium/Albuterol Sulfate 3 ml INHALATION Q4H PRN #1 box 04/08/17 [Duoneb] Prednisone [Deltasone] 40 mg PO DAILY #5 tab 04/08/17 Surgical History: adenoidectomy, cholecystectomy, tonsillectomy, - - Right upper fistula repair, right toe amputation, right hip fracture w/ fixation. Lives: Spouse/ Significant Other Smoking Status: Never smoker Alcohol: None Drugs: None - *Family History Maternal History Items: COPD Paternal History Items: Diabetes, Heart Disease, Hypertension Review of Systems Constitutional: Reports: - - ROS as noted in HPI Patient Problems: Active and Suspected Problems ESRD (end stage renal disease) on dialysis (Acute) Unresponsive episode (Acute) - Physical Exam General: - - Awake, intubated HEENT: Normocephalic Neck: Supple Lungs: Clear to auscultation Cardiovascular: Normal S1, Normal S2 Abdomen: Bowel Sounds Present Extremities: No cyanosis Skin: Ulcer/ Wound Musculoskeletal: No Tenderness to Palpation of Joints or Extremities Neurological: - - awake, intubated, follows VC, pupils BERL, EOMI, moves all 4 extremities, denies any sensory loss, cerebellar signs/gait cannot be assessed, limited Neurology examination, Reflexes + B/L B/S/T/K/A, gait deferred Vital Signs Temp Pulse Resp BP Pulse Ox 100.8 F H 87 19 H 108/91 H 100 06/07/17 13:00 06/07/17 13:00 06/07/17 13:00 06/07/17 13:00 06/07/17 13:00 Oxygen Flow Rate (L/min) 30 Oxygen Delivery Method Mechanical Ventilator Weight: 66 kg Body Mass Index (BMI) 30.4 Intake and Output for Last 24 Hours 06/05/17 06/06/17 06/07/17 23:59 23:59 23:59 Intake Total 1433 / 1433 805 / 805 Output Total 1060 / 1060 380 / 380 Balance 373 / 373 425 / 425 Microbiology Past 72 Hours 06/06/17 11:55 Respiratory Panel (PCR) - Final Mucosa - Nasopharyngeal 06/06/17 12:00 Streptococcus pneumoniae Antigen (M - Final Urine Catheter - Kim 06/06/17 12:00 Legionella Antigen - Final Urine Catheter - Kim Laboratory Tests Past 24 Hrs 06/06/17 06/06/17 06/06/17 16:00 16:00 16:00 WBC RBC Hgb Hct MCV MCH MCHC RDW RDW Differential Plt Count MPV Immature Gran % (Auto) Neut % (Auto) Lymph % (Auto) [place] % (Auto) Eos % (Auto) Baso % (Auto) Absolute Neuts (auto) Absolute Lymphs (auto) Total Counted Specimen Type Sample Site pH Bicarbonate Actual POC Total CO2 Base Excess O2 Saturation O2 % ABG pCO2 ABG pO2 Tom Test Respiration Rate O2 Delivery Device Liter Flow Minute Volume Vent Mode Tidal Volume POC PEEP Blood Gas Notified Whom Blood Gas Notified Time Sodium Potassium Chloride Carbon Dioxide Anion Gap BUN Creatinine Estim Creat Clear Calc Est GFR (MDRD) Af Amer Est GFR (MDRD) Non-Af BUN/Creatinine Ratio Glucose Calcium Troponin I 0.23 H Vitamin B12 556 RBC Folate Hemolysate Pending RBC Folate Pending Hematocrit Pending 06/06/17 06/07/17 06/07/17 20:00 01:55 04:00 WBC RBC Hgb Hct MCV MCH MCHC RDW RDW Differential Plt Count MPV Immature Gran % (Auto) Neut % (Auto) Lymph % (Auto) [place] % (Auto) Eos % (Auto) Baso % (Auto) Absolute Neuts (auto) Absolute Lymphs (auto) Total Counted Specimen Type Sample Site pH Bicarbonate Actual POC Total CO2 Base Excess O2 Saturation O2 % ABG pCO2 ABG pO2 Tom Test Respiration Rate O2 Delivery Device Liter Flow Minute Volume Vent Mode Tidal Volume POC PEEP Blood Gas Notified Whom Blood Gas Notified Time Sodium 138 Potassium 3.5 Chloride 99 Carbon Dioxide 28.0 Anion Gap 11 BUN 42 H Creatinine 2.47 H Estim Creat Clear Calc 23.65 Est GFR (MDRD) Af Amer 25 L Est GFR (MDRD) Non-Af 21 L BUN/Creatinine Ratio 17.0 Glucose 141 H Calcium 6.8 L Troponin I 0.37 H 0.36 H Vitamin B12 RBC Folate Hemolysate RBC Folate Hematocrit 06/07/17 06/07/17 06/07/17 04:00 07:32 14:13 WBC 10.1 RBC 2.53 L Hgb 8.7 L Hct 27.8 L MCV 109.9 H MCH 34.4 H MCHC 31.3 L RDW 16.0 H RDW Differential 61.1 H Plt Count 228 MPV 9.8 Immature Gran % (Auto) 0.300 Neut % (Auto) 74.0 H Lymph % (Auto) 13.6 L [place] % (Auto) 8.8 Eos % (Auto) 2.9 Baso % (Auto) 0.4 Absolute Neuts (auto) 7.4 Absolute Lymphs (auto) 1.37 Total Counted Not Reportable Specimen Type ART ART Sample Site L Radial L Radial pH 7.42 7.56 H Bicarbonate Actual 28.9 H 27.2 H POC Total CO2 30 28 Base Excess 4 H 5 H O2 Saturation 96 98 O2 % 30 ABG pCO2 44.9 30.3 L ABG pO2 78 87 Tom Test POS POS Respiration Rate 14 O2 Delivery Device Nasal Can Vent Liter Flow 2.0 Minute Volume 9.00 Vent Mode A-C Tidal Volume 450 POC PEEP 5 Blood Gas Notified Whom ICU MD ICU MD Blood Gas Notified Time 725 1410 Sodium Potassium Chloride Carbon Dioxide Anion Gap BUN Creatinine Estim Creat Clear Calc Est GFR (MDRD) Af Amer Est GFR (MDRD) Non-Af BUN/Creatinine Ratio Glucose Calcium Troponin I Vitamin B12 RBC Folate Hemolysate RBC Folate Hematocrit POC Glucose 06/07/17 06/07/17 06/07/17 11:39 07:37 05:35 POC Glucose 174 H 153 H 132 H 06/07/17 06/06/17 00:23 18:08 POC Glucose 136 H 160 H Assessment/Plan Active and Suspected Problems ESRD (end stage renal disease) on dialysis (Acute) Unresponsive episode (Acute) The patient is a 72 year old CF with PMH HTN, HLD, DM, DM retinopathy, H/O stroke, ESRD on HD, Afib not on AC, COPD, CAD, chronic ulcer admitted with episodes of unresponsiveness and cardiac arrest. History is obtained from medical records and charts since patient continues to be intubated. Per documentation patient was admitted from HD with an episode of unresponsiveness yesterday (06/06/17), then in the ED initially she was alert and oriented but then had 2 events of Cardiac arrest needing CPR and was intubated, following that she was extubated this morning but then again had 2 episodes of unresponsiveness where she needed sternal rub, no witnessed seizures per nurse. 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 At present patient is intubated but is able to follow VC. Denies any new onset focal weakness, GONZALEZ, visual disturbances or sensory loss. Per the last hospitalization notes at [facility] [place], it says she has h/o seizures and was on Vimpat but she developed bradyarrhythmias at that time and was changed to Keppra , but per patient she never had any seizures Impression Unresponsive episodes-R/O seizures S/P Cardiac arrest Impression -CT head on admission reported nothing acute -Recommend MRI brain w/o contrast -Recommend EEG -Further medical management per primary team -Labs reviewed -AC for Afib, will defer to ICU team and cardiology -Patient does not drive. -GI/DVT prophylaxis -Fall precautions -Please call with questions if any -Thank you for allowing us to participate in patient's care and management I spent 60 minutes of critical care time taking history, doing physical examination, reviewing medical records and counseling the patient. Code Visit Inpatient E&M: 96025 Init Hosp L3
--- NOTE | 2017-06-07 15:31 | CHAPLAIN ---
Type of Pastoral Visit ___ Initial Visit _x__ Follow-up Visit ___ On-call Visit ___ General Patient Visit ___ Spiritual Assessment ___ Family Conference ___ Bereavement ___ Rapid Response ___ Code Blue ___ Other (describe below) Pastoral Care Referral From _x__ Patient _x__ Family ___ Nurse ___ Physician ___ Aircraft Engine Mechanic Supervisor ___ Nursing Project Coordinator ___ Other (describe below) Sacrament/Intervention ___ Active listening ___ Anointing ___ Sikh ___ Bereavement ___ Communion ___ Mary exploration ___ ___ Life review _x__ Prayer ___ Reconciliation ___ Sacrament of Sick _x__ Supportive presence ___ Wedding ___ Other (describe below) Pastoral Comments patient is still intubated but is alert now; pt would nod head to a few questions; pt is open to prayer and visit; no family was present at this time
[2017-06-07 17:50] LABS: Bedside Glucose 150 mg/dL (70-110)
[2017-06-08] VITALS (48 sets, daily range): BP systolic 54–162; BP diastolic 22–99; PULSE 59–94; RESP 11–22; TEMP 38.1–39.4; O2SAT 88–100
[2017-06-08] MEDS: Acetaminophen 650 MG/20 ML UDC NG ×2 (00:27→19:59)
[2017-06-08 00:51] LABS: Bedside Glucose 124 mg/dL (70-110)
[2017-06-08] MEDS: Piperacil/Tazobactam 3.375 GM/50 ML ML IV ×3 (02:42→17:17)
[2017-06-08 04:16] LABS: Hemoglobin 8.7 g/dl (12.0-15.0); Mean Corp Hgb Conc 32.2 g/gl (32-36); Mean Corpuscular Hgb 34.8 pg (27.0-32.0); Mean Platelet Vol. 9.8 fl (6.2-12.0); Platelet Count 196 K/mm3 (150-450); RBC Distribution Width SD 62.9 fl (35.1-43.9); White Blood Count 9.8 K/mm3 (4.4-11.0)
[2017-06-08 04:17] LABS: Scan Indicated on CBC? Y/N NO
[2017-06-08 04:34] LABS: Anion Gap 12 (5-15); BUN 51 mg/dL (7-18); BUN/Creat Ratio 14.9 RATIO (10-20); Calcium,Total 7.2 mg/dL (8.5-10.1); Chloride 97 mmol/L (98-107); Creatinine, Serum 3.42 mg/dL (0.55-1.02); EST Glomerular Filtration Rate 14 mL/min (>60); Est Glom Filt Rate - Afr Amer 17 mL/min (>60); Estimated Creatinine Clearance 15.72 ml/min; Glucose 132 mg/dL (74-106); Potassium 3.7 mmol/L (3.5-5.1); Sodium Level 136 mmol/L (136-145)
[2017-06-08] MEDS: DOPamine IV 800 MG/250 ML IV.SOLN. 6.722 MG IV (06:27)
[2017-06-08] MEDS: 0.9% NaCl Peripheral Flush Adult/Peds IV (06:27)
[2017-06-08] MEDS: CHLORHEXIDINE GLUC 2% CLOTH 1 EACH TOWELETTE TOPICAL (06:27)
[2017-06-08 06:36] LABS: Bedside Glucose 117 mg/dL (70-110)
--- NOTE | 2017-06-08 06:45 | PCM.PN.INT ---
Subjective: The patient was seen and examined at the bedside this morning. Events from the last 24 hours have been reviewed. The patient is currently febrile with a T-max of 102?F overnight. The patient has remained hemodynamically stable, nonetheless. Her ventilator requirements are minimal. However, she failed her spontaneous breathing trial this morning, with notable hypoxia. Attempts to wean the patient's dopamine has proven unsuccessful. The patient has a prior left upper extremity fistula in place, which is nonfunctional, but prevented the placement of a PICC line yesterday. Therefore, her femoral triple-lumen catheter remains in place. I did speak at length with the patient's and daughter this morning regarding her current clinical state and goals of care. Following my discussion with them, they have opted to transition her CODE STATUS to DNR CCA. At the time she is deemed appropriate for extubation, there would be no plan for reintubation. Objective: The patient's most recent lab work, culture data and imaging studies have all been personally reviewed. Respiratory viral panel was negative. Strep and urine Legionella antigens were both negative. Blood and urine cultures have shown no growth to date. Sputum culture is currently pending. General: - - Remains intubated, sedated and mechanically ventilated. HEENT: Atraumatic, PERRLA, Normocephalic Oral: No Gingival or Mucosal Lesions/ Ulcerations, - - Endotracheal and OG tubes in place Neck: Supple, No Nodes, Trachea Midline Lungs: No rhonchi, No wheeze, No rales, Diminished Cardiovascular: Normal S1, Normal S2, Irregular Rate, Murmur, No rub noted, No Gallop Abdomen: Bowel Sounds Present, Soft, Non Tender, Obese Extremities: No clubbing, No cyanosis, Diminished Peripheral Pulses, Edema, - - Femoral triple-lumen catheter remains in place Skin: - - No significant change from previous Musculoskeletal: No Tenderness to Palpation of Joints or Extremities Lymphatic: No Cervical, Supraclavicular, or Inguinal Adenopathy Neurological: - - No focal neurological deficits. Moves extremities spontaneously. Vital Signs Temp Pulse Resp BP Pulse Ox 101.3 F H 85 14 129/56 H 98 06/08/17 06:00 06/08/17 06:00 06/08/17 06:00 06/08/17 06:00 06/08/17 06:00 Oxygen Flow Rate (L/min) 30 Oxygen Delivery Method Mechanical Ventilator Weight: 148 lb 9.465 oz Body Mass Index (BMI) 30.4 Intake and Output for Last 24 Hours 06/06/17 06/07/17 06/08/17 23:59 23:59 23:59 Intake Total 1433 / 1433 930 / 930 389 / 389 Output Total 1060 / 1060 380 / 380 0 / 0 Balance 373 / 373 550 / 550 389 / 389 Labs (Last 48 Hours) 06/06/17 06/06/17 06/06/17 11:30 11:46 12:00 WBC RBC Hgb Hct MCV MCH MCHC RDW RDW Differential Plt Count MPV Immature Gran % (Auto) Neut % (Auto) Lymph % (Auto) [place] % (Auto) Eos % (Auto) Baso % (Auto) Absolute Neuts (auto) Absolute Lymphs (auto) Total Counted Specimen Type ART Sample Site L Radial pH 7.35 Bicarbonate Actual 27.6 H POC Total CO2 29 Base Excess 2 O2 Saturation 100 H O2 % 90 ABG pCO2 49.8 H ABG pO2 403 H* Tom Test POS Respiration Rate 14 O2 Delivery Device Vent Liter Flow Minute Volume 8.00 Vent Mode A-C Tidal Volume 450 POC PEEP 5 Blood Gas Notified Whom ICU MD Blood Gas Notified Time 1145 Sodium Potassium Chloride Carbon Dioxide Anion Gap BUN Creatinine Estim Creat Clear Calc Est GFR (MDRD) Af Amer Est GFR (MDRD) Non-Af BUN/Creatinine Ratio Glucose Calcium Troponin I Vitamin B12 RBC Folate Hemolysate RBC Folate Hematocrit Urine Color Natalia Urine Clarity Cloudy Urine pH 7.0 Ur Specific [place] 1.010 Urine Protein 100 H Urine Glucose (UA) 250 H Urine Ketones Negative Urine Occult Blood 250 H Urine Nitrite Positive H Urine Bilirubin 1 H Urine Urobilinogen Normal Ur Leukocyte Esterase 500 H Urine RBC 0-5 SEEN Urine WBC 10-25 SEEN Ur Squamous Epith Cells 0 SEEN Urine Bacteria 2+ Urine Mucus 0 SEEN MRSA (PCR) Negative POC Glucose 06/06/17 06/06/17 06/06/17 12:41 16:00 16:00 WBC RBC Hgb Hct MCV MCH MCHC RDW RDW Differential Plt Count MPV Immature Gran % (Auto) Neut % (Auto) Lymph % (Auto) [place] % (Auto) Eos % (Auto) Baso % (Auto) Absolute Neuts (auto) Absolute Lymphs (auto) Total Counted Specimen Type Sample Site pH Bicarbonate Actual POC Total CO2 Base Excess O2 Saturation O2 % ABG pCO2 ABG pO2 Tom Test Respiration Rate O2 Delivery Device Liter Flow Minute Volume Vent Mode Tidal Volume POC PEEP Blood Gas Notified Whom Blood Gas Notified Time Sodium Potassium Chloride Carbon Dioxide Anion Gap BUN Creatinine Estim Creat Clear Calc Est GFR (MDRD) Af Amer Est GFR (MDRD) Non-Af BUN/Creatinine Ratio Glucose Calcium Troponin I 0.23 H Vitamin B12 556 RBC Folate Hemolysate RBC Folate Hematocrit Urine Color Urine Clarity Urine pH Ur Specific [place] Urine Protein Urine Glucose (UA) Urine Ketones Urine Occult Blood Urine Nitrite Urine Bilirubin Urine Urobilinogen Ur Leukocyte Esterase Urine RBC Urine WBC Ur Squamous Epith Cells Urine Bacteria Urine Mucus MRSA (PCR) POC Glucose 218 H 06/06/17 06/06/17 06/06/17 16:00 18:08 20:00 WBC RBC Hgb Hct MCV MCH MCHC RDW RDW Differential Plt Count MPV Immature Gran % (Auto) Neut % (Auto) Lymph % (Auto) [place] % (Auto) Eos % (Auto) Baso % (Auto) Absolute Neuts (auto) Absolute Lymphs (auto) Total Counted Specimen Type Sample Site pH Bicarbonate Actual POC Total CO2 Base Excess O2 Saturation O2 % ABG pCO2 ABG pO2 Tom Test Respiration Rate O2 Delivery Device Liter Flow Minute Volume Vent Mode Tidal Volume POC PEEP Blood Gas Notified Whom Blood Gas Notified Time Sodium Potassium Chloride Carbon Dioxide Anion Gap BUN Creatinine Estim Creat Clear Calc Est GFR (MDRD) Af Amer Est GFR (MDRD) Non-Af BUN/Creatinine Ratio Glucose Calcium Troponin I 0.37 H Vitamin B12 RBC Folate Hemolysate Pending RBC Folate Pending Hematocrit Pending Urine Color Urine Clarity Urine pH Ur Specific [place] Urine Protein Urine Glucose (UA) Urine Ketones Urine Occult Blood Urine Nitrite Urine Bilirubin Urine Urobilinogen Ur Leukocyte Esterase Urine RBC Urine WBC Ur Squamous Epith Cells Urine Bacteria Urine Mucus MRSA (PCR) POC Glucose 160 H 06/07/17 06/07/17 06/07/17 00:23 01:55 04:00 WBC RBC Hgb Hct MCV MCH MCHC RDW RDW Differential Plt Count MPV Immature Gran % (Auto) Neut % (Auto) Lymph % (Auto) [place] % (Auto) Eos % (Auto) Baso % (Auto) Absolute Neuts (auto) Absolute Lymphs (auto) Total Counted Specimen Type Sample Site pH Bicarbonate Actual POC Total CO2 Base Excess O2 Saturation O2 % ABG pCO2 ABG pO2 Tom Test Respiration Rate O2 Delivery Device Liter Flow Minute Volume Vent Mode Tidal Volume POC PEEP Blood Gas Notified Whom Blood Gas Notified Time Sodium 138 Potassium 3.5 Chloride 99 Carbon Dioxide 28.0 Anion Gap 11 BUN 42 H Creatinine 2.47 H Estim Creat Clear Calc 23.65 Est GFR (MDRD) Af Amer 25 L Est GFR (MDRD) Non-Af 21 L BUN/Creatinine Ratio 17.0 Glucose 141 H Calcium 6.8 L Troponin I 0.36 H Vitamin B12 RBC Folate Hemolysate RBC Folate Hematocrit Urine Color Urine Clarity Urine pH Ur Specific [place] Urine Protein Urine Glucose (UA) Urine Ketones Urine Occult Blood Urine Nitrite Urine Bilirubin Urine Urobilinogen Ur Leukocyte Esterase Urine RBC Urine WBC Ur Squamous Epith Cells Urine Bacteria Urine Mucus MRSA (PCR) POC Glucose 136 H 06/07/17 06/07/17 06/07/17 04:00 05:35 07:32 WBC 10.1 RBC 2.53 L Hgb 8.7 L Hct 27.8 L MCV 109.9 H MCH 34.4 H MCHC 31.3 L RDW 16.0 H RDW Differential 61.1 H Plt Count 228 MPV 9.8 Immature Gran % (Auto) 0.300 Neut % (Auto) 74.0 H Lymph % (Auto) 13.6 L [place] % (Auto) 8.8 Eos % (Auto) 2.9 Baso % (Auto) 0.4 Absolute Neuts (auto) 7.4 Absolute Lymphs (auto) 1.37 Total Counted Not Reportable Specimen Type ART Sample Site L Radial pH 7.42 Bicarbonate Actual 28.9 H POC Total CO2 30 Base Excess 4 H O2 Saturation 96 O2 % ABG pCO2 44.9 ABG pO2 78 Tom Test POS Respiration Rate O2 Delivery Device Nasal Can Liter Flow 2.0 Minute Volume Vent Mode Tidal Volume POC PEEP Blood Gas Notified Whom ICU MD Blood Gas Notified Time 725 Sodium Potassium Chloride Carbon Dioxide Anion Gap BUN Creatinine Estim Creat Clear Calc Est GFR (MDRD) Af Amer Est GFR (MDRD) Non-Af BUN/Creatinine Ratio Glucose Calcium Troponin I Vitamin B12 RBC Folate Hemolysate RBC Folate Hematocrit Urine Color Urine Clarity Urine pH Ur Specific [place] Urine Protein Urine Glucose (UA) Urine Ketones Urine Occult Blood Urine Nitrite Urine Bilirubin Urine Urobilinogen Ur Leukocyte Esterase Urine RBC Urine WBC Ur Squamous Epith Cells Urine Bacteria Urine Mucus MRSA (PCR) POC Glucose 132 H 06/07/17 06/07/17 06/07/17 07:37 11:39 14:13 WBC RBC Hgb Hct MCV MCH MCHC RDW RDW Differential Plt Count MPV Immature Gran % (Auto) Neut % (Auto) Lymph % (Auto) [place] % (Auto) Eos % (Auto) Baso % (Auto) Absolute Neuts (auto) Absolute Lymphs (auto) Total Counted Specimen Type ART Sample Site L Radial pH 7.56 H Bicarbonate Actual 27.2 H POC Total CO2 28 Base Excess 5 H O2 Saturation 98 O2 % 30 ABG pCO2 30.3 L ABG pO2 87 Tom Test POS Respiration Rate 14 O2 Delivery Device Vent Liter Flow Minute Volume 9.00 Vent Mode A-C Tidal Volume 450 POC PEEP 5 Blood Gas Notified Whom ICU MD Blood Gas Notified Time 1410 Sodium Potassium Chloride Carbon Dioxide Anion Gap BUN Creatinine Estim Creat Clear Calc Est GFR (MDRD) Af Amer Est GFR (MDRD) Non-Af BUN/Creatinine Ratio Glucose Calcium Troponin I Vitamin B12 RBC Folate Hemolysate RBC Folate Hematocrit Urine Color Urine Clarity Urine pH Ur Specific [place] Urine Protein Urine Glucose (UA) Urine Ketones Urine Occult Blood Urine Nitrite Urine Bilirubin Urine Urobilinogen Ur Leukocyte Esterase Urine RBC Urine WBC Ur Squamous Epith Cells Urine Bacteria Urine Mucus MRSA (PCR) POC Glucose 153 H 174 H 06/07/17 06/08/17 06/08/17 17:46 00:44 04:10 WBC 9.8 RBC 2.50 L Hgb 8.7 L Hct 27.0 L MCV 108.0 H MCH 34.8 H MCHC 32.2 RDW 16.0 H RDW Differential 62.9 H Plt Count 196 MPV 9.8 Immature Gran % (Auto) Neut % (Auto) Lymph % (Auto) [place] % (Auto) Eos % (Auto) Baso % (Auto) Absolute Neuts (auto) Absolute Lymphs (auto) Total Counted Specimen Type Sample Site pH Bicarbonate Actual POC Total CO2 Base Excess O2 Saturation O2 % ABG pCO2 ABG pO2 Tom Test Respiration Rate O2 Delivery Device Liter Flow Minute Volume Vent Mode Tidal Volume POC PEEP Blood Gas Notified Whom Blood Gas Notified Time Sodium Potassium Chloride Carbon Dioxide Anion Gap BUN Creatinine Estim Creat Clear Calc Est GFR (MDRD) Af Amer Est GFR (MDRD) Non-Af BUN/Creatinine Ratio Glucose Calcium Troponin I Vitamin B12 RBC Folate Hemolysate RBC Folate Hematocrit Urine Color Urine Clarity Urine pH Ur Specific [place] Urine Protein Urine Glucose (UA) Urine Ketones Urine Occult Blood Urine Nitrite Urine Bilirubin Urine Urobilinogen Ur Leukocyte Esterase Urine RBC Urine WBC Ur Squamous Epith Cells Urine Bacteria Urine Mucus MRSA (PCR) POC Glucose 150 H 124 H 06/08/17 06/08/17 04:10 06:25 WBC RBC Hgb Hct MCV MCH MCHC RDW RDW Differential Plt Count MPV Immature Gran % (Auto) Neut % (Auto) Lymph % (Auto) [place] % (Auto) Eos % (Auto) Baso % (Auto) Absolute Neuts (auto) Absolute Lymphs (auto) Total Counted Specimen Type Sample Site pH Bicarbonate Actual POC Total CO2 Base Excess O2 Saturation O2 % ABG pCO2 ABG pO2 Tom Test Respiration Rate O2 Delivery Device Liter Flow Minute Volume Vent Mode Tidal Volume POC PEEP Blood Gas Notified Whom Blood Gas Notified Time Sodium 136 Potassium 3.7 Chloride 97 L Carbon Dioxide 27.0 Anion Gap 12 BUN 51 H Creatinine 3.42 H Estim Creat Clear Calc 15.72 Est GFR (MDRD) Af Amer 17 L Est GFR (MDRD) Non-Af 14 L BUN/Creatinine Ratio 14.9 Glucose 132 H Calcium 7.2 L Troponin I Vitamin B12 RBC Folate Hemolysate RBC Folate Hematocrit Urine Color Urine Clarity Urine pH Ur Specific [place] Urine Protein Urine Glucose (UA) Urine Ketones Urine Occult Blood Urine Nitrite Urine Bilirubin Urine Urobilinogen Ur Leukocyte Esterase Urine RBC Urine WBC Ur Squamous Epith Cells Urine Bacteria Urine Mucus MRSA (PCR) POC Glucose 117 H Microbiology 06/07/17 08:27 Sputum, Induced/Lukens Gram Stain - Final 06/07/17 07:45 Sputum, Expectorated/Coughed Gram Stain - Final 06/06/17 11:55 Mucosa - Nasopharyngeal Respiratory Panel (PCR) - Final 06/06/17 12:00 Urine Catheter - Kim Streptococcus pneumoniae Antigen (M - Final 06/06/17 12:00 Urine Catheter - Kim Legionella Antigen - Final Clinical Impression(s) from Imaging Studies Brain CT 06/06/17 07:50 IMPRESSION: Chronic involutional changes. No acute intracranial abnormality. Opacified left maxillary sinus. Electronically Signed: Yehuda Ferguson DO at 9:26 EDT Tel , Service support , Chest X-Ray 06/06/17 07:50 IMPRESSION: Prominent interstitial markings. Patchy airspace disease in the right midlung. This may represent atelectasis or developing pneumonia. Moderate cardiomegaly. Electronically Signed: Yehuda Ferguson DO at 9:33 EDT Tel , Service support , Chest X-Ray 06/06/17 10:30 IMPRESSION: Life support tubes and catheters, as detailed above. No significant change to the appearance of the lungs, with prominent interstitial markings and focal opacity in the right midlung. Small bilateral pleural effusions are seen. Electronically Signed: Yehuda Ferguson DO at 11:20 EDT Tel , Service support , Chest X-Ray 06/07/17 07:36 IMPRESSION: Interval extubation. Improving aeration within the right midlung. Mild interstitial prominence. Electronically Signed: Yehuda Ferguson DO at 11:46 EDT Tel , Service support , Chest X-Ray 06/07/17 08:32 IMPRESSION: The endotracheal tube tip projects approximately 2 cm above the petra. Mild interstitial edema. Small bilateral pleural effusions. Electronically Signed: Yehuda Ferguson DO at 9:36 EDT Tel , Service support , Brain CT 06/07/17 08:33 IMPRESSION: Chronic involutional changes. No acute intracranial abnormality. No significant change from study of 06/06/2017. Electronically Signed: Yehuda Ferguson DO at 10:15 EDT Tel , Service support , Brain MRI 06/07/17 14:24 IMPRESSION: Nonspecific periventricular white matter ischemic changes of uncertain etiology but. Cannot exclude possibility of PRES. Chronic ischemic changes within the martha.. No evidence for acute infarct Electronically Signed: Refugio Vera MD at 17:17 EDT , Service support , Medical Necessity - Tobacco Use Smoking Status: Never smoker Assessment/Plan Active and Suspected Problems ESRD (end stage renal disease) on dialysis (Acute) Unresponsive episode (Acute) RECOMMENDATIONS: 1. Await results of EEG and additional neurology input. 2. Restart tube feeds today 3. Plans for hemodialysis today. 4. Transition from dopamine to Levophed if needed for hemodynamic stability 5. Continue antibiotics, pending finalized infectious workup 6. Continue sliding scale coverage 7. Plan for repeat spontaneous breathing trial tomorrow morning 8. Continue appropriate ICU prophylaxis with subcu heparin and Pepcid IMPRESSIONS: 1. Acute respiratory failure secondary to cardiac arrest Patient was thought to have respiratory arrest secondary to hypoxemia. Clinical suspicion for decreased perfusion leading to reported desaturation. Patient does have multiple valvular abnormalities complicating overall condition. While in the intensive care unit, patient was noted to have bradycardia without desaturation leading to poor perfusion. Continue vasopressor support to maintain hemodynamic stability. The patient has failed a trial of extubation requiring reintubation over concerns for obtundation and aspiration event. 2. Acute blood loss anemia Patient with heme positive stools and a 4 g drop in hemoglobin since last visit. Patient does have a history of an esophageal tear. Patient has no signs or symptoms of acute upper GI bleed at this time. Likely transfuse to keep hemoglobin greater than 8. 3. End-stage renal disease secondary to uncontrolled diabetes mellitus/hypertension Continue hemodialysis per nephrology recommendations. 4. Coronary artery disease status post PTCA/hypertension/chronic A. fib/possible sick sinus syndrome Patient with multiple vascular abnormalities. We will plan to wean dopamine as tolerated. Cardiology is following. If the patient continues to require dopamine for hemodynamic stability, we will plan to transition to Levophed this afternoon. 5. Encephalopathy The patient has been experiencing episodes of obtundation, the etiology of which is unclear. Neurology is following. MRI was completed with findings possibly suggestive of PRES. EEG was completed this morning. Awaiting further clarification prior to consideration for a repeat trial of extubation. 6. COPD/chronic respiratory failure Continue bronchodilators. Wean oxygen as tolerated. 7. CODE STATUS DNR CCA. This was discussed with both the patient's and daughter. There will be plans for no reintubation, once the patient is extubated. TIME: 45 minutes of critical care time, independent of procedures, was spent addressing the patient's cardiac arrest, probable sick sinus syndrome, acute blood loss anemia, respiratory failure, encephalopathy, review of all data and collaboration with the care team. ([id number]) Code Visit [id number]: [id number] Critical care first hour
--- NOTE | 2017-06-08 06:53 | PN_ITS ---
Subjective: The patient was seen and examined at the bedside this morning. Events from the last 24 hours have been reviewed. The patient is currently febrile with a T- max of 102?F overnight. The patient has remained hemodynamically stable, nonetheless. Her ventilator requirements are minimal. However, she failed her spontaneous breathing trial this morning, with notable hypoxia. Attempts to wean the patient's dopamine has proven unsuccessful. The patient has a prior left upper extremity fistula in place, which is nonfunctional, but prevented the placement of a PICC line yesterday. Therefore, her femoral triple-lumen catheter remains in place. I did speak at length with the patient's and daughter this morning regarding her current clinical state and goals of care. Following my discussion with them, they have opted to transition her CODE STATUS to DNR CCA. At the time she is deemed appropriate for extubation, there would be no plan for reintubation. Objective: The patient's most recent lab work, culture data and imaging studies have all been personally reviewed. Respiratory viral panel was negative. Strep and urine Legionella antigens were both negative. Blood and urine cultures have shown no growth to date. Sputum culture is currently pending. General: - - Remains intubated, sedated and mechanically ventilated. HEENT: Atraumatic, PERRLA, Normocephalic Oral: No Gingival or Mucosal Lesions/ Ulcerations, - - Endotracheal and OG tubes in place Neck: Supple, No Nodes, Trachea Midline Lungs: No rhonchi, No wheeze, No rales, Diminished Cardiovascular: Normal S1, Normal S2, Irregular Rate, Murmur, No rub noted, No Gallop Abdomen: Bowel Sounds Present, Soft, Non Tender, Obese Extremities: No clubbing, No cyanosis, Diminished Peripheral Pulses, Edema, - - Femoral triple-lumen catheter remains in place Skin: - - No significant change from previous Musculoskeletal: No Tenderness to Palpation of Joints or Extremities Lymphatic: No Cervical, Supraclavicular, or Inguinal Adenopathy Neurological: - - No focal neurological deficits. Moves extremities spontaneously. Vital Signs Temp Pulse Resp BP Pulse Ox 101.3 F H 85 14 129/56 H 98 06/08/17 06:00 06/08/17 06:00 06/08/17 06:00 06/08/17 06:00 06/08/17 06:00 Oxygen Flow Rate (L/min) 30 Oxygen Delivery Method Mechanical Ventilator Weight: 148 lb 9.465 oz Body Mass Index (BMI) 30.4 Intake and Output for Last 24 Hours 06/06/17 06/07/17 06/08/17 23:59 23:59 23:59 Intake Total 1433 / 1433 930 / 930 389 / 389 Output Total 1060 / 1060 380 / 380 0 / 0 Balance 373 / 373 550 / 550 389 / 389 Labs (Last 48 Hours) 06/06/17 06/06/17 06/06/17 11:30 11:46 12:00 WBC RBC Hgb Hct MCV MCH MCHC RDW RDW Differential Plt Count MPV Immature Gran % (Auto) Neut % (Auto) Lymph % (Auto) Butler % (Auto) Eos % (Auto) Baso % (Auto) Absolute Neuts (auto) Absolute Lymphs (auto) Total Counted Specimen Type ART Sample Site L Radial pH 7.35 Bicarbonate Actual 27.6 H POC Total CO2 29 Base Excess 2 O2 Saturation 100 H O2 % 90 ABG pCO2 49.8 H ABG pO2 403 H* Tom Test POS Respiration Rate 14 O2 Delivery Device Vent Liter Flow Minute Volume 8.00 Vent Mode A-C Tidal Volume 450 POC PEEP 5 Blood Gas Notified Whom ICU MD Blood Gas Notified Time 1145 Sodium Potassium Chloride Carbon Dioxide Anion Gap BUN Creatinine Estim Creat Clear Calc Est GFR (MDRD) Af Amer Est GFR (MDRD) Non-Af BUN/Creatinine Ratio Glucose Calcium Troponin I Vitamin B12 RBC Folate Hemolysate RBC Folate Hematocrit Urine Color Natalia Urine Clarity Cloudy Urine pH 7.0 Ur Specific [place] 1.010 Urine Protein 100 H Urine Glucose (UA) 250 H Urine Ketones Negative Urine Occult Blood 250 H Urine Nitrite Positive H Urine Bilirubin 1 H Urine Urobilinogen Normal Ur Leukocyte Esterase 500 H Urine RBC 0-5 SEEN Urine WBC 10-25 SEEN Ur Squamous Epith Cells 0 SEEN Urine Bacteria 2+ Urine Mucus 0 SEEN MRSA (PCR) Negative POC Glucose 06/06/17 06/06/17 06/06/17 12:41 16:00 16:00 WBC RBC Hgb Hct MCV MCH MCHC RDW RDW Differential Plt Count MPV Immature Gran % (Auto) Neut % (Auto) Lymph % (Auto) Butler % (Auto) Eos % (Auto) Baso % (Auto) Absolute Neuts (auto) Absolute Lymphs (auto) Total Counted Specimen Type Sample Site pH Bicarbonate Actual POC Total CO2 Base Excess O2 Saturation O2 % ABG pCO2 ABG pO2 Tom Test Respiration Rate O2 Delivery Device Liter Flow Minute Volume Vent Mode Tidal Volume POC PEEP Blood Gas Notified Whom Blood Gas Notified Time Sodium Potassium Chloride Carbon Dioxide Anion Gap BUN Creatinine Estim Creat Clear Calc Est GFR (MDRD) Af Amer Est GFR (MDRD) Non-Af BUN/Creatinine Ratio Glucose Calcium Troponin I 0.23 H Vitamin B12 556 RBC Folate Hemolysate RBC Folate Hematocrit Urine Color Urine Clarity Urine pH Ur Specific [place] Urine Protein Urine Glucose (UA) Urine Ketones Urine Occult Blood Urine Nitrite Urine Bilirubin Urine Urobilinogen Ur Leukocyte Esterase Urine RBC Urine WBC Ur Squamous Epith Cells Urine Bacteria Urine Mucus MRSA (PCR) POC Glucose 218 H 06/06/17 06/06/17 06/06/17 16:00 18:08 20:00 WBC RBC Hgb Hct MCV MCH MCHC RDW RDW Differential Plt Count MPV Immature Gran % (Auto) Neut % (Auto) Lymph % (Auto) Butler % (Auto) Eos % (Auto) Baso % (Auto) Absolute Neuts (auto) Absolute Lymphs (auto) Total Counted Specimen Type Sample Site pH Bicarbonate Actual POC Total CO2 Base Excess O2 Saturation O2 % ABG pCO2 ABG pO2 Tom Test Respiration Rate O2 Delivery Device Liter Flow Minute Volume Vent Mode Tidal Volume POC PEEP Blood Gas Notified Whom Blood Gas Notified Time Sodium Potassium Chloride Carbon Dioxide Anion Gap BUN Creatinine Estim Creat Clear Calc Est GFR (MDRD) Af Amer Est GFR (MDRD) Non-Af BUN/Creatinine Ratio Glucose Calcium Troponin I 0.37 H Vitamin B12 RBC Folate Hemolysate Pending RBC Folate Pending Hematocrit Pending Urine Color Urine Clarity Urine pH Ur Specific [place] Urine Protein Urine Glucose (UA) Urine Ketones Urine Occult Blood Urine Nitrite Urine Bilirubin Urine Urobilinogen Ur Leukocyte Esterase Urine RBC Urine WBC Ur Squamous Epith Cells Urine Bacteria Urine Mucus MRSA (PCR) POC Glucose 160 H 06/07/17 06/07/17 06/07/17 00:23 01:55 04:00 WBC RBC Hgb Hct MCV MCH MCHC RDW RDW Differential Plt Count MPV Immature Gran % (Auto) Neut % (Auto) Lymph % (Auto) Butler % (Auto) Eos % (Auto) Baso % (Auto) Absolute Neuts (auto) Absolute Lymphs (auto) Total Counted Specimen Type Sample Site pH Bicarbonate Actual POC Total CO2 Base Excess O2 Saturation O2 % ABG pCO2 ABG pO2 Tom Test Respiration Rate O2 Delivery Device Liter Flow Minute Volume Vent Mode Tidal Volume POC PEEP Blood Gas Notified Whom Blood Gas Notified Time Sodium 138 Potassium 3.5 Chloride 99 Carbon Dioxide 28.0 Anion Gap 11 BUN 42 H Creatinine 2.47 H Estim Creat Clear Calc 23.65 Est GFR (MDRD) Af Amer 25 L Est GFR (MDRD) Non-Af 21 L BUN/Creatinine Ratio 17.0 Glucose 141 H Calcium 6.8 L Troponin I 0.36 H Vitamin B12 RBC Folate Hemolysate RBC Folate Hematocrit Urine Color Urine Clarity Urine pH Ur Specific [place] Urine Protein Urine Glucose (UA) Urine Ketones Urine Occult Blood Urine Nitrite Urine Bilirubin Urine Urobilinogen Ur Leukocyte Esterase Urine RBC Urine WBC Ur Squamous Epith Cells Urine Bacteria Urine Mucus MRSA (PCR) POC Glucose 136 H 06/07/17 06/07/17 06/07/17 04:00 05:35 07:32 WBC 10.1 RBC 2.53 L Hgb 8.7 L Hct 27.8 L MCV 109.9 H MCH 34.4 H MCHC 31.3 L RDW 16.0 H RDW Differential 61.1 H Plt Count 228 MPV 9.8 Immature Gran % (Auto) 0.300 Neut % (Auto) 74.0 H Lymph % (Auto) 13.6 L Butler % (Auto) 8.8 Eos % (Auto) 2.9 Baso % (Auto) 0.4 Absolute Neuts (auto) 7.4 Absolute Lymphs (auto) 1.37 Total Counted Not Reportable Specimen Type ART Sample Site L Radial pH 7.42 Bicarbonate Actual 28.9 H POC Total CO2 30 Base Excess 4 H O2 Saturation 96 O2 % ABG pCO2 44.9 ABG pO2 78 Tom Test POS Respiration Rate O2 Delivery Device Nasal Can Liter Flow 2.0 Minute Volume Vent Mode Tidal Volume POC PEEP Blood Gas Notified Whom ICU MD Blood Gas Notified Time 725 Sodium Potassium Chloride Carbon Dioxide Anion Gap BUN Creatinine Estim Creat Clear Calc Est GFR (MDRD) Af Amer Est GFR (MDRD) Non-Af BUN/Creatinine Ratio Glucose Calcium Troponin I Vitamin B12 RBC Folate Hemolysate RBC Folate Hematocrit Urine Color Urine Clarity Urine pH Ur Specific [place] Urine Protein Urine Glucose (UA) Urine Ketones Urine Occult Blood Urine Nitrite Urine Bilirubin Urine Urobilinogen Ur Leukocyte Esterase Urine RBC Urine WBC Ur Squamous Epith Cells Urine Bacteria Urine Mucus MRSA (PCR) POC Glucose 132 H 06/07/17 06/07/17 06/07/17 07:37 11:39 14:13 WBC RBC Hgb Hct MCV MCH MCHC RDW RDW Differential Plt Count MPV Immature Gran % (Auto) Neut % (Auto) Lymph % (Auto) Butler % (Auto) Eos % (Auto) Baso % (Auto) Absolute Neuts (auto) Absolute Lymphs (auto) Total Counted Specimen Type ART Sample Site L Radial pH 7.56 H Bicarbonate Actual 27.2 H POC Total CO2 28 Base Excess 5 H O2 Saturation 98 O2 % 30 ABG pCO2 30.3 L ABG pO2 87 Tom Test POS Respiration Rate 14 O2 Delivery Device Vent Liter Flow Minute Volume 9.00 Vent Mode A-C Tidal Volume 450 POC PEEP 5 Blood Gas Notified Whom ICU MD Blood Gas Notified Time 1410 Sodium Potassium Chloride Carbon Dioxide Anion Gap BUN Creatinine Estim Creat Clear Calc Est GFR (MDRD) Af Amer Est GFR (MDRD) Non-Af BUN/Creatinine Ratio Glucose Calcium Troponin I Vitamin B12 RBC Folate Hemolysate RBC Folate Hematocrit Urine Color Urine Clarity Urine pH Ur Specific [place] Urine Protein Urine Glucose (UA) Urine Ketones Urine Occult Blood Urine Nitrite Urine Bilirubin Urine Urobilinogen Ur Leukocyte Esterase Urine RBC Urine WBC Ur Squamous Epith Cells Urine Bacteria Urine Mucus MRSA (PCR) POC Glucose 153 H 174 H 06/07/17 06/08/17 06/08/17 17:46 00:44 04:10 WBC 9.8 RBC 2.50 L Hgb 8.7 L Hct 27.0 L MCV 108.0 H MCH 34.8 H MCHC 32.2 RDW 16.0 H RDW Differential 62.9 H Plt Count 196 MPV 9.8 Immature Gran % (Auto) Neut % (Auto) Lymph % (Auto) Butler % (Auto) Eos % (Auto) Baso % (Auto) Absolute Neuts (auto) Absolute Lymphs (auto) Total Counted Specimen Type Sample Site pH Bicarbonate Actual POC Total CO2 Base Excess O2 Saturation O2 % ABG pCO2 ABG pO2 Tom Test Respiration Rate O2 Delivery Device Liter Flow Minute Volume Vent Mode Tidal Volume POC PEEP Blood Gas Notified Whom Blood Gas Notified Time Sodium Potassium Chloride Carbon Dioxide Anion Gap BUN Creatinine Estim Creat Clear Calc Est GFR (MDRD) Af Amer Est GFR (MDRD) Non-Af BUN/Creatinine Ratio Glucose Calcium Troponin I Vitamin B12 RBC Folate Hemolysate RBC Folate Hematocrit Urine Color Urine Clarity Urine pH Ur Specific [place] Urine Protein Urine Glucose (UA) Urine Ketones Urine Occult Blood Urine Nitrite Urine Bilirubin Urine Urobilinogen Ur Leukocyte Esterase Urine RBC Urine WBC Ur Squamous Epith Cells Urine Bacteria Urine Mucus MRSA (PCR) POC Glucose 150 H 124 H 06/08/17 06/08/17 04:10 06:25 WBC RBC Hgb Hct MCV MCH MCHC RDW RDW Differential Plt Count MPV Immature Gran % (Auto) Neut % (Auto) Lymph % (Auto) Butler % (Auto) Eos % (Auto) Baso % (Auto) Absolute Neuts (auto) Absolute Lymphs (auto) Total Counted Specimen Type Sample Site pH Bicarbonate Actual POC Total CO2 Base Excess O2 Saturation O2 % ABG pCO2 ABG pO2 Tom Test Respiration Rate O2 Delivery Device Liter Flow Minute Volume Vent Mode Tidal Volume POC PEEP Blood Gas Notified Whom Blood Gas Notified Time Sodium 136 Potassium 3.7 Chloride 97 L Carbon Dioxide 27.0 Anion Gap 12 BUN 51 H Creatinine 3.42 H Estim Creat Clear Calc 15.72 Est GFR (MDRD) Af Amer 17 L Est GFR (MDRD) Non-Af 14 L BUN/Creatinine Ratio 14.9 Glucose 132 H Calcium 7.2 L Troponin I Vitamin B12 RBC Folate Hemolysate RBC Folate Hematocrit Urine Color Urine Clarity Urine pH Ur Specific [place] Urine Protein Urine Glucose (UA) Urine Ketones Urine Occult Blood Urine Nitrite Urine Bilirubin Urine Urobilinogen Ur Leukocyte Esterase Urine RBC Urine WBC Ur Squamous Epith Cells Urine Bacteria Urine Mucus MRSA (PCR) POC Glucose 117 H Microbiology 06/07/17 08:27 Sputum, Induced/Lukens Gram Stain - Final 06/07/17 07:45 Sputum, Expectorated/Coughed Gram Stain - Final 06/06/17 11:55 Mucosa - Nasopharyngeal Respiratory Panel (PCR) - Final 06/06/17 12:00 Urine Catheter - Kim Streptococcus pneumoniae Antigen (M - Final 06/06/17 12:00 Urine Catheter - Kim Legionella Antigen - Final Clinical Impression(s) from Imaging Studies Brain CT 06/06/17 07:50 IMPRESSION: Chronic involutional changes. No acute intracranial abnormality. Opacified left maxillary sinus. Electronically Signed: Yehuda Ferguson DO at 9:26 EDT Tel , Service support , Chest X-Ray 06/06/17 07:50 IMPRESSION: Prominent interstitial markings. Patchy airspace disease in the right midlung. This may represent atelectasis or developing pneumonia. Moderate cardiomegaly. Electronically Signed: Yehuda Ferguson DO at 9:33 EDT Tel , Service support , Chest X-Ray 06/06/17 10:30 IMPRESSION: Life support tubes and catheters, as detailed above. No significant change to the appearance of the lungs, with prominent interstitial markings and focal opacity in the right midlung. Small bilateral pleural effusions are seen. Electronically Signed: Yehuda Ferguson DO at 11:20 EDT Tel , Service support , Chest X-Ray 06/07/17 07:36 IMPRESSION: Interval extubation. Improving aeration within the right midlung. Mild interstitial prominence. Electronically Signed: Yehuda Ferguson DO at 11:46 EDT Tel , Service support , Chest X-Ray 06/07/17 08:32 IMPRESSION: The endotracheal tube tip projects approximately 2 cm above the petra. Mild interstitial edema. Small bilateral pleural effusions. Electronically Signed: Yehuda Ferguson DO at 9:36 EDT Tel , Service support , Brain CT 06/07/17 08:33 IMPRESSION: Chronic involutional changes. No acute intracranial abnormality. No significant change from study of 06/06/2017. Electronically Signed: Yehuda Ferguson DO at 10:15 EDT Tel , Service support , Brain MRI 06/07/17 14:24 IMPRESSION: Nonspecific periventricular white matter ischemic changes of uncertain etiology but. Cannot exclude possibility of PRES. Chronic ischemic changes within the martha.. No evidence for acute infarct Electronically Signed: Refugio Vera MD at 17:17 EDT , Service support , Medical Necessity - Tobacco Use Smoking Status: Never smoker Assessment/Plan Active and Suspected Problems ESRD (end stage renal disease) on dialysis (Acute) Unresponsive episode (Acute) RECOMMENDATIONS: 1. Await results of EEG and additional neurology input. 2. Restart tube feeds today 3. Plans for hemodialysis today. 4. Transition from dopamine to Levophed if needed for hemodynamic stability 5. Continue antibiotics, pending finalized infectious workup 6. Continue sliding scale coverage 7. Plan for repeat spontaneous breathing trial tomorrow morning 8. Continue appropriate ICU prophylaxis with subcu heparin and Pepcid IMPRESSIONS: 1. Acute respiratory failure secondary to cardiac arrest Patient was thought to have respiratory arrest secondary to hypoxemia. Clinical suspicion for decreased perfusion leading to reported desaturation. Patient does have multiple valvular abnormalities complicating overall condition. While in the intensive care unit, patient was noted to have bradycardia without desaturation leading to poor perfusion. Continue vasopressor support to maintain hemodynamic stability. The patient has failed a trial of extubation requiring reintubation over concerns for obtundation and aspiration event. 2. Acute blood loss anemia Patient with heme positive stools and a 4 g drop in hemoglobin since last visit. Patient does have a history of an esophageal tear. Patient has no signs or symptoms of acute upper GI bleed at this time. Likely transfuse to keep hemoglobin greater than 8. 3. End-stage renal disease secondary to uncontrolled diabetes mellitus/ hypertension Continue hemodialysis per nephrology recommendations. 4. Coronary artery disease status post PTCA/hypertension/chronic A. fib/ possible sick sinus syndrome Patient with multiple vascular abnormalities. We will plan to wean dopamine as tolerated. Cardiology is following. If the patient continues to require dopamine for hemodynamic stability, we will plan to transition to Levophed this afternoon. 5. Encephalopathy The patient has been experiencing episodes of obtundation, the etiology of which is unclear. Neurology is following. MRI was completed with findings possibly suggestive of PRES. EEG was completed this morning. Awaiting further clarification prior to consideration for a repeat trial of extubation. 6. COPD/chronic respiratory failure Continue bronchodilators. Wean oxygen as tolerated. 7. CODE STATUS DNR CCA. This was discussed with both the patient's and daughter. There will be plans for no reintubation, once the patient is extubated. TIME: 45 minutes of critical care time, independent of procedures, was spent addressing the patient's cardiac arrest, probable sick sinus syndrome, acute blood loss anemia, respiratory failure, encephalopathy, review of all data and collaboration with the care team. ([id number]) Code Visit [id number]: [id number] Critical care first hour
--- NOTE | 2017-06-08 08:04 | PN.CARD_ITS ---
Subjectve: Patient seen and evaluated Objective: Vital Signs Temp Pulse Resp BP Pulse Ox 101.5 F H 83 14 131/77 H 98 06/08/17 07:00 06/08/17 07:00 06/08/17 07:00 06/08/17 07:00 06/08/17 07:00 Oxygen Flow Rate (L/min) 30 Oxygen Delivery Method Mechanical Ventilator Weight: 148 lb 9.465 oz Body Mass Index (BMI) 30.4 Intake and Output for Last 24 Hours 06/06/17 06/07/17 06/08/17 23:59 23:59 23:59 Intake Total 1433 / 1433 930 / 930 389 / 389 Output Total 1060 / 1060 380 / 380 0 / 0 Balance 373 / 373 550 / 550 389 / 389 General: Awake, Alert, Oriented x 3 HEENT: PERRL, EOMI, Sclera Non Icteric Neck: Supple, Good ROM, No Lymph Node Enlargement Lungs: Clear to auscultation Cardiovascular: Regular Rhythm, Normal S1, Normal S2, No Murmurs, No Rubs, No Gallops Vascular: No Carotid Bruits, Normal Femoral Pulses, Normal Radial Pulses, Normal Dorsalis Pedal Pulse, Normal Posterior Tibial Pulses Abdomen: Bowel Sounds Present, Soft, Non Tender, No HSM, No Organomegaly Extremities: No Cyanosis, No Clubbing, No edema Neurological: No Focal Motor or Sensory Deficit 06/07/17 07:32: pH 7.42, Bicarbonate Actual 28.9 H, POC Total CO2 30, Base Excess 4 H, O2 Saturation 96, ABG pCO2 44.9, ABG pO2 78, Tom Test POS 06/07/17 14:13: pH 7.56 H, Bicarbonate Actual 27.2 H, POC Total CO2 28, Base Excess 5 H, O2 Saturation 98, ABG pCO2 30.3 L, ABG pO2 87, Tom Test POS 06/08/17 04:10: WBC 9.8, RBC 2.50 L, Hgb 8.7 L, Hct 27.0 L, MCV 108.0 H, MCH 34.8 H, MCHC 32.2, RDW 16.0 H, RDW Differential 62.9 H, Plt Count 196, MPV 9.8 06/08/17 04:10: Sodium 136, Potassium 3.7, Chloride 97 L, Carbon Dioxide 27.0, Anion Gap 12, BUN 51 H, Creatinine 3.42 H, Est GFR (MDRD) Af Amer 17 L, Est GFR (MDRD) Non-Af 14 L, BUN/Creatinine Ratio 14.9, Glucose 132 H, Calcium 7.2 L Rhythm: atrial fibrillation. Medical Necessity - Tobacco Use Smoking Status: Never smoker Assessment/Plan 1. Atrial fibrillation with periods of asystole The patient has known atrial fibrillation with a controlled ventricular response rate. It is not entirely clear why she is having these periods of asystole at this time. She is not on any rate limiting medications and her potassium and other electrolytes appear to be unremarkable. Her echocardiogram also demonstrates preserved left ventricular ejection fraction. At this time she has been started on low-dose dopamine and out suggest that we observe her for a while on this. I am hesitant to recommend a permanent pacemaker due to her vasculopathy as well as her dialysis status. I reviewed the records from [facility] as well as [facility]. It appears that she did a similar thing over there and it was thought that the bradycardia arrhythmias were secondary to seizure medication. At this point I do not think so and I suspect that it is idiosyncratic. I would recommend attempting to reduce the low dose dopamine to 2.5 mg and see how she tolerates it. 2. Valvular heart disease. She does have a history of aortic stenosis which is mild to moderate. At this time it does not appear that she is a candidate to have aortic valve intervention. 3. Coronary artery disease. She does have a history of coronary artery disease status post previous angioplasty and stenting. I do not have an indication that this is coronary in origin. She may also have had a recent cardiac catheterization at the tertiary care hospital and I would not obtain those results and records to have an idea of her coronary status. No cardiac catheterization or intervention is planned at this time. 4. Right ventricular dysfunction. She does have significant right ventricular dysfunction the etiology of which is not entirely clear to me at this time. It may be related to her dialysis state. Thank you for allowing me to participate in the care of your patient. Please don't hesitate to call if any issues arise above discussed with Dr. Daniel. Her overall prognosis is rather guarded.
[2017-06-08] MEDS: Famotidine 20 MG Tablet GT (10:35)
[2017-06-08] MEDS: Chlorhexidine 15 ML PO ×2 (10:36→21:24)
--- NOTE | 2017-06-08 11:07 | CASEMGMT ---
JONATHAN spoke with Flory from [facility] and she said they would be able to take patient when she is ready. JONATHAN notified patient's daughter Lucila via phone. JONATHAN also notified RN. JONATHAN to follow for d/c to SNF. Migdalia JUSTIN MSW
[2017-06-08 11:30] LABS: Bedside Glucose 102 mg/dL (70-110)
--- NOTE | 2017-06-08 12:15 | PCM.PN.BLA ---
Progress Note patient was seen on dialysis appears alert awake responds to questions was hypoxic on SBT earlier today remains on dopamine fluid removal 1-2 L as tolerated see orders/flowsheets
--- NOTE | 2017-06-08 13:09 | EEG ---
- Electroencephalogram Date of Service: 06/08/17 History EEG is being done in this 72 yr F to rule out seizures EEG Description: This is an 18 channel EEG with 10-20 lead placement system. Bipolar montages, Referential and Circumferential montages were reviewed. Photic stimulation was performed only at 1 Hz and 3 HZ before discontinuing but Hyperventilation was not performed. The posterior dominant background rhythm was not present. Photic stimulation did not elicit normal driving response but elicited interictal sharp epileptogenic potentials coordinating with documented upper body jerks, Hyperventilation was not performed. Sleep was not identified. There is generalized background slowing in the theta frequency range of about 6 Hz. There is presence of interictal sharp generalized epileptogenic potentials noted through out the record. There was no electrographic seizures noted during this recording. EEG Interpretation This is an abnormal EEG due to the presence of moderate generalized slowing along with the presence of interictal sharp generalized epileptogenic potentials. Clinical correlation is advised. There is no electrographic seizures noted during the record.
[2017-06-08 14:31] LABS: AST(SGOT) 28 U/L (15-37); Alanine Aminotransfer ALT/SGPT 22 U/L (13-56); Albumin, Serum 2.1 g/dL (3.2-5.0); Alkaline Phosphatase 107 U/L (45-117); Bilirubin, Direct 0.35 mg/dL (0.00-0.30); Globulin 4.8 g/dL (2.2-4.2); Protein, Total 6.9 g/dL (6.4-8.2)
[2017-06-08 16:16] LABS: Bedside Glucose 100 mg/dL (70-110)
--- NOTE | 2017-06-08 16:29 | PCM.PN.NEU ---
Patient Problems: Active and Suspected Problems ESRD (end stage renal disease) on dialysis (Acute) Unresponsive episode (Acute) Subjective: No issues overnight. - Physical Exam General: Alert HEENT: Normocephalic Neck: Supple Lungs: Clear to auscultation Cardiovascular: Regular rate Abdomen: Bowel Sounds Present Extremities: No clubbing Musculoskeletal: No Tenderness to Palpation of Joints or Extremities Neurological: - - awake, intubated, follows VC, pupils BERL, EOMI, moves all 4 extremities, denies any sensory loss, cerebellar signs/gait cannot be assessed, limited Neurology examination, Reflexes + B/L B/S/T/K/A, gait deferred Vital Signs Temp Pulse Resp BP Pulse Ox 100.8 F H 87 22 H 115/42 L 100 06/08/17 11:00 06/08/17 14:51 06/08/17 14:51 06/08/17 11:00 06/08/17 14:51 Oxygen Flow Rate (L/min) 30 Oxygen Delivery Method Mechanical Ventilator Weight: 67.4 kg Body Mass Index (BMI) 30.4 Intake and Output for Last 24 Hours 06/06/17 06/07/17 06/08/17 23:59 23:59 23:59 Intake Total 1433 / 1433 930 / 930 489 / 489 Output Total 1060 / 1060 380 / 380 0 / 0 Balance 373 / 373 550 / 550 489 / 489 Microbiology Past 72 Hours 06/06/17 12:00 Urine Culture - Final Urine Catheter - Kim Culture exhibits no growth. 06/08/17 07:45 Blood Culture - Preliminary Blood Culture (Wb) - Central Line 06/07/17 08:27 Gram Stain - Final Sputum, Induced/Lukens Respiratory Culture - Preliminary Appears to be normal respiratory chika. Further studies to follow. 06/07/17 07:45 Gram Stain - Final Sputum, Expectorated/Coughed Respiratory Culture - Preliminary 06/06/17 11:55 Respiratory Panel (PCR) - Final Mucosa - Nasopharyngeal 06/06/17 12:00 Streptococcus pneumoniae Antigen (M - Final Urine Catheter - Kim 06/06/17 12:00 Legionella Antigen - Final Urine Catheter - Kim Laboratory Tests Past 24 Hrs 06/08/17 06/08/17 06/08/17 04:10 04:10 04:10 WBC 9.8 RBC 2.50 L Hgb 8.7 L Hct 27.0 L MCV 108.0 H MCH 34.8 H MCHC 32.2 RDW 16.0 H RDW Differential 62.9 H Plt Count 196 MPV 9.8 Sodium 136 Potassium 3.7 Chloride 97 L Carbon Dioxide 27.0 Anion Gap 12 BUN 51 H Creatinine 3.42 H Estim Creat Clear Calc 15.72 Est GFR (MDRD) Af Amer 17 L Est GFR (MDRD) Non-Af 14 L BUN/Creatinine Ratio 14.9 Glucose 132 H Calcium 7.2 L Total Bilirubin Cancelled Direct Bilirubin Cancelled AST Cancelled ALT Cancelled Alkaline Phosphatase Cancelled Total Protein Cancelled Albumin Cancelled Globulin Cancelled 06/08/17 13:57 WBC RBC Hgb Hct MCV MCH MCHC RDW RDW Differential Plt Count MPV Sodium Potassium Chloride Carbon Dioxide Anion Gap BUN Creatinine Estim Creat Clear Calc Est GFR (MDRD) Af Amer Est GFR (MDRD) Non-Af BUN/Creatinine Ratio Glucose Calcium Total Bilirubin 0.90 Direct Bilirubin 0.35 H AST 28 ALT 22 Alkaline Phosphatase 107 Total Protein 6.9 Albumin 2.1 L Globulin 4.8 H POC Glucose 06/08/17 06/08/17 06/08/17 16:11 11:26 06:25 POC Glucose 100 102 117 H 06/08/17 06/07/17 00:44 17:46 POC Glucose 124 H 150 H Medical Necessity - Tobacco Use Smoking Status: Never smoker Assessment/Plan Active and Suspected Problems ESRD (end stage renal disease) on dialysis (Acute) Unresponsive episode (Acute) The patient is a 72 year old CF with PMH HTN, HLD, DM, DM retinopathy, H/O stroke, ESRD on HD, Afib not on AC, COPD, CAD, chronic ulcer admitted with episodes of unresponsiveness and cardiac arrest. History is obtained from medical records and charts since patient continues to be intubated. Per documentation patient was admitted from HD with an episode of unresponsiveness on 06/06/17 then in the ED initially she was alert and oriented but then had 2 events of Cardiac arrest needing CPR and was intubated, following that she was extubated yesterday (06/07/17) morning but then again had 2 episodes of unresponsiveness where she needed sternal rub, no witnessed seizures per nurse and was reintubated. 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 At present patient is intubated but is able to follow VC. Denies any new onset focal weakness, GONZALEZ, visual disturbances or sensory loss. Per the last hospitalization notes at [facility], it says she has h/o seizures and was on Vimpat but she developed bradyarrhythmias at that time and was changed to Keppra, but per patient she never had any seizures Impression Unresponsive episodes-possible seizures S/P Cardiac arrest ?PRES Impression -CT head on admission reported nothing acute -MRI brain w/o contrast-? PRES -Keep BP < 130/80 mmHg -EEG showed intermittent sharp waves with epileptogenic potential -Recommend loading with Dilantin 1 g iv once f/b Dilantin 100 mg IV TID -Recommend Dilantin free and total level in AM -Further medical management per primary team -Labs reviewed. Normal AST/ALT. Creatinine clearance around 15 -AC for Afib, will defer to ICU team and cardiology -Patient does not drive. -GI/DVT prophylaxis -Fall precautions -seizure precautions -Patient should not drive -Follow up with Neurology as outpatient. -Please call with questions if any -Thank you for allowing us to participate in patient's care and management I spent 30 minutes of critical care time taking history, doing physical examination, reviewing medical records and counseling the patient.
[2017-06-08] MEDS: Vital AF 1.2 Cal Liquid 1,000 ML 60 ML GT (17:24)
--- NOTE | 2017-06-08 18:16 | PCM.PROGNOTE ---
Patient Problems: Active and Suspected Problems ESRD (end stage renal disease) on dialysis (Acute) Unresponsive episode (Acute) Subjective: She is awake, alert, but intubated. She is febrile, T-max 102, with persisting fever above 100.6. - Physical Exam General: Alert HEENT: Atraumatic, PERRLA, Normocephalic Oral: Moist Mucosa Neck: Supple, No JVD, Negative Carotid Bruits, Negative Hepatojugular Reflux, No Nodes, No Nuchal Rigidity Lungs: Rales - mid lung cuellar bilaterally., Rhonchi Cardiovascular: Regular rate, Regular Rhythm, Normal S1, Normal S2, No murmurs, No Ectopic Activity Abdomen: Bowel Sounds Present, Soft, Non Tender, Non-Distended, No Hepato-splenomegaly Extremities: No clubbing, No cyanosis, No edema Skin: No rashes, No breakdown Musculoskeletal: No Tenderness to Palpation of Joints or Extremities, No Muscle Wasting Lymphatic: No Cervical, Supraclavicular, or Inguinal Adenopathy Neurological: Cranial nerves II-XII grossly intact, Neuro grossly intact Psych/Mental Status: Normal Affect - Physical Exam Vital Signs Temp Pulse Resp BP Pulse Ox 101.4 F H 72 14 106/42 L 100 06/08/17 17:00 06/08/17 17:30 06/08/17 17:00 06/08/17 17:30 06/08/17 17:00 Oxygen Flow Rate (L/min) 30 Oxygen Delivery Method Mechanical Ventilator Weight: 148 lb 9.465 oz Body Mass Index (BMI) 30.4 Intake and Output for Last 24 Hours 06/06/17 06/07/17 06/08/17 23:59 23:59 23:59 Intake Total 1433 / 1433 930 / 930 589 / 589 Output Total 1060 / 1060 380 / 380 1602 / 1602 Balance 373 / 373 550 / 550 -1013 / -1013 Microbiology Past 72 Hours 06/06/17 12:00 Urine Culture - Final Urine Catheter - Kim Culture exhibits no growth. 06/08/17 07:45 Blood Culture - Preliminary Blood Culture (Wb) - Central Line 06/07/17 08:27 Gram Stain - Final Sputum, Induced/Lukens Respiratory Culture - Preliminary Appears to be normal respiratory chika. Further studies to follow. 06/07/17 07:45 Gram Stain - Final Sputum, Expectorated/Coughed Respiratory Culture - Preliminary 06/06/17 11:55 Respiratory Panel (PCR) - Final Mucosa - Nasopharyngeal 06/06/17 12:00 Streptococcus pneumoniae Antigen (M - Final Urine Catheter - Kim 06/06/17 12:00 Legionella Antigen - Final Urine Catheter - Kim Laboratory Tests Past 24 Hrs 06/08/17 06/08/17 06/08/17 04:10 04:10 04:10 WBC 9.8 RBC 2.50 L Hgb 8.7 L Hct 27.0 L MCV 108.0 H MCH 34.8 H MCHC 32.2 RDW 16.0 H RDW Differential 62.9 H Plt Count 196 MPV 9.8 Sodium 136 Potassium 3.7 Chloride 97 L Carbon Dioxide 27.0 Anion Gap 12 BUN 51 H Creatinine 3.42 H Estim Creat Clear Calc 15.72 Est GFR (MDRD) Af Amer 17 L Est GFR (MDRD) Non-Af 14 L BUN/Creatinine Ratio 14.9 Glucose 132 H Calcium 7.2 L Total Bilirubin Cancelled Direct Bilirubin Cancelled AST Cancelled ALT Cancelled Alkaline Phosphatase Cancelled Total Protein Cancelled Albumin Cancelled Globulin Cancelled 06/08/17 13:57 WBC RBC Hgb Hct MCV MCH MCHC RDW RDW Differential Plt Count MPV Sodium Potassium Chloride Carbon Dioxide Anion Gap BUN Creatinine Estim Creat Clear Calc Est GFR (MDRD) Af Amer Est GFR (MDRD) Non-Af BUN/Creatinine Ratio Glucose Calcium Total Bilirubin 0.90 Direct Bilirubin 0.35 H AST 28 ALT 22 Alkaline Phosphatase 107 Total Protein 6.9 Albumin 2.1 L Globulin 4.8 H POC Glucose 06/08/17 06/08/17 06/08/17 16:11 11:26 06:25 POC Glucose 100 102 117 H 06/08/17 00:44 POC Glucose 124 H Diagnostic Data Chest X-Ray 06/07/17 08:32 IMPRESSION: The endotracheal tube tip projects approximately 2 cm above the petra. Mild interstitial edema. Small bilateral pleural effusions. Electronically Signed: Yehuda Ferguson DO at 9:36 EDT Tel , Service support , Brain CT 06/07/17 08:33 IMPRESSION: Chronic involutional changes. No acute intracranial abnormality. No significant change from study of 06/06/2017. Electronically Signed: Yehudaron Ferguson DO at 10:15 EDT Tel , Service support , Brain MRI 06/07/17 14:24 IMPRESSION: Nonspecific periventricular white matter ischemic changes of uncertain etiology but. Cannot exclude possibility of PRES. Chronic ischemic changes within the martha.. No evidence for acute infarct Electronically Signed: Refugio Vera MD at 17:17 EDT , Service support , Medical Necessity - Tobacco Use Smoking Status: Never smoker Assessment/Plan Active and Suspected Problems ESRD (end stage renal disease) on dialysis (Acute) Unresponsive episode (Acute) This is a 72 years old female patient brought to the emergency room from the dialysis center because of syncopal episode, found to have anemia and hypocalcemia as well as probable pneumonia, went into cardiac arrest ?2 status post CPR in the emergency room and she is being admitted for acute respiratory failure, cardiac arrest, syncope, anemia and probable pneumonia. Patient is a 72 years old female who was brought to ED with an episode of syncope during hemodialysis. She regained consciousness spontaneously, transferred to ED. At there she became unresponsive again with desaturation, presumed respiratory arrest. CPR was given and she was intubated, subsequently admitted to ICU. Soon after, she developed symptomatic bradycardia with hypotension, atropine was given, followed by dopamine drip. Following day, she appeared doing well, extubated later in the morning. However, soon after, she became unresponsive again. ABG was obtained, which was within normal limits. She did not have apparent arrhythmia at that time. Bilious emesis was noted at that time, she was re-intubated for airway protection. #1 status post cardiac/respiratory arrest. Etiology is not clear. Critical care / pulmonary is managing patient. Cardiology was consulted also. #2 syncopal / unresponsive episodes. Possibly with seizures. Neurology consult appreciated. EEG showed intermittent sharp waves with epileptogenic potentials. MRI without contrast showed non-specific periventricular white matter ischemic changes, but cannot exclude posterior reversible encephalopathy syndrome (PRES). Started on loading Dilantin followed by 100 mg IV tid. Follow up with neurology as outpatient. #3 anemia: Patient does have a history of chronic anemia, hemoglobin has been fluctuating anywhere between 9-13 g/dL. Admission hemoglobin is 8.4 g/dL. It is microcytic anemia. At this time, no evidence of active bleeding. Plan: Serum iron, ferritin, TIBC, B12, RBC folate, transfuse if hemoglobin less than 8 g/dL. #4 Probable aspiration pneumonia. Right mid lung. Zosyn started empirically. She has persisting fever, WBC 9.8. #5 ESRD on hemodialysis: Patient received 1 hour of hemodialysis today, pulse ox was 88% on 3 L upon arrival to ER. Chest x-ray revealed probable volume overload. Nephrology is following for HD. #6 type 2 diabetes mellitus: Keep on n.p.o., Accu-Cheks, sliding scale, hold home doses of Levemir insulin and pre-meal NovoLog. #7 hypertension: At this time, she will be intubated and sedated, close monitoring of blood pressure. Blood pressure was high because she received IV epinephrine. #8 CAD status post PTCA: EKG reviewed as above. First troponin is negative. Plan as above, cardiac monitoring, serial cardiac enzymes, 2D echocardiogram, cardiology consult. #9 COPD/chronic respiratory failure: Patient is on home oxygen at 2.5 L reportedly. Chest x-ray reviewed as above. Plan for bronchodilator, continue mechanical ventilation. #10 chronic atrial fibrillation: After cardiac arrest, heart rate has been around 100, was in A. fib. At home, she is not on any medication for rate control and not on anticoagulation. #11 Symptomatic bradycardia. Rate in 30's with development of hypotension. Dopamine drip started, doing well. Failed to wean off dopamine (06/08). Other chronic medical problems: #1 hypothyroidism. #2 GERD. #3 mild aortic stenosis. #4 hyperlipidemia. #5 sleep apnea. #6 severe pulmonary hypertension. #7 diabetic neuropathy. #8 peripheral vascular disease. #9 gastroparesis. VTE prophylaxis: Heparin SQ. GI prophylaxis: H2 nolvia po. Patient is full code. Disposition: to be determined. Code Visit Inpatient E&M: [id number] [facility] Hosp L3
--- NOTE | 2017-06-08 18:28 | PN_ITS ---
Patient Problems: Active and Suspected Problems ESRD (end stage renal disease) on dialysis (Acute) Unresponsive episode (Acute) Subjective: She is awake, alert, but intubated. She is febrile, T-max 102, with persisting fever above 100.6. - Physical Exam General: Alert HEENT: Atraumatic, PERRLA, Normocephalic Oral: Moist Mucosa Neck: Supple, No JVD, Negative Carotid Bruits, Negative Hepatojugular Reflux, No Nodes, No Nuchal Rigidity Lungs: Rales - mid lung cuellar bilaterally., Rhonchi Cardiovascular: Regular rate, Regular Rhythm, Normal S1, Normal S2, No murmurs, No Ectopic Activity Abdomen: Bowel Sounds Present, Soft, Non Tender, Non-Distended, No Hepato- splenomegaly Extremities: No clubbing, No cyanosis, No edema Skin: No rashes, No breakdown Musculoskeletal: No Tenderness to Palpation of Joints or Extremities, No Muscle Wasting Lymphatic: No Cervical, Supraclavicular, or Inguinal Adenopathy Neurological: Cranial nerves II-XII grossly intact, Neuro grossly intact Psych/Mental Status: Normal Affect - Physical Exam Vital Signs Temp Pulse Resp BP Pulse Ox 101.4 F H 72 14 106/42 L 100 06/08/17 17:00 06/08/17 17:30 06/08/17 17:00 06/08/17 17:30 06/08/17 17:00 Oxygen Flow Rate (L/min) 30 Oxygen Delivery Method Mechanical Ventilator Weight: 148 lb 9.465 oz Body Mass Index (BMI) 30.4 Intake and Output for Last 24 Hours 06/06/17 06/07/17 06/08/17 23:59 23:59 23:59 Intake Total 1433 / 1433 930 / 930 589 / 589 Output Total 1060 / 1060 380 / 380 1602 / 1602 Balance 373 / 373 550 / 550 -1013 / -1013 Microbiology Past 72 Hours 06/06/17 12:00 Urine Culture - Final Urine Catheter - Kim Culture exhibits no growth. 06/08/17 07:45 Blood Culture - Preliminary Blood Culture (Wb) - Central Line 06/07/17 08:27 Gram Stain - Final Sputum, Induced/Lukens Respiratory Culture - Preliminary Appears to be normal respiratory chika. Further studies to follow. 06/07/17 07:45 Gram Stain - Final Sputum, Expectorated/Coughed Respiratory Culture - Preliminary 06/06/17 11:55 Respiratory Panel (PCR) - Final Mucosa - Nasopharyngeal 06/06/17 12:00 Streptococcus pneumoniae Antigen (M - Final Urine Catheter - Kim 06/06/17 12:00 Legionella Antigen - Final Urine Catheter - Kim Laboratory Tests Past 24 Hrs 06/08/17 06/08/17 06/08/17 04:10 04:10 04:10 WBC 9.8 RBC 2.50 L Hgb 8.7 L Hct 27.0 L MCV 108.0 H MCH 34.8 H MCHC 32.2 RDW 16.0 H RDW Differential 62.9 H Plt Count 196 MPV 9.8 Sodium 136 Potassium 3.7 Chloride 97 L Carbon Dioxide 27.0 Anion Gap 12 BUN 51 H Creatinine 3.42 H Estim Creat Clear Calc 15.72 Est GFR (MDRD) Af Amer 17 L Est GFR (MDRD) Non-Af 14 L BUN/Creatinine Ratio 14.9 Glucose 132 H Calcium 7.2 L Total Bilirubin Cancelled Direct Bilirubin Cancelled AST Cancelled ALT Cancelled Alkaline Phosphatase Cancelled Total Protein Cancelled Albumin Cancelled Globulin Cancelled 06/08/17 13:57 WBC RBC Hgb Hct MCV MCH MCHC RDW RDW Differential Plt Count MPV Sodium Potassium Chloride Carbon Dioxide Anion Gap BUN Creatinine Estim Creat Clear Calc Est GFR (MDRD) Af Amer Est GFR (MDRD) Non-Af BUN/Creatinine Ratio Glucose Calcium Total Bilirubin 0.90 Direct Bilirubin 0.35 H AST 28 ALT 22 Alkaline Phosphatase 107 Total Protein 6.9 Albumin 2.1 L Globulin 4.8 H POC Glucose 06/08/17 06/08/17 06/08/17 16:11 11:26 06:25 POC Glucose 100 102 117 H 06/08/17 00:44 POC Glucose 124 H Diagnostic Data Chest X-Ray 06/07/17 08:32 IMPRESSION: The endotracheal tube tip projects approximately 2 cm above the petra. Mild interstitial edema. Small bilateral pleural effusions. Electronically Signed: Yehuda Ferguson DO at 9:36 EDT Tel , Service support , Brain CT 06/07/17 08:33 IMPRESSION: Chronic involutional changes. No acute intracranial abnormality. No significant change from study of 06/06/2017. Electronically Signed: Yehudaron Ferguson DO at 10:15 EDT Tel , Service support , Brain MRI 06/07/17 14:24 IMPRESSION: Nonspecific periventricular white matter ischemic changes of uncertain etiology but. Cannot exclude possibility of PRES. Chronic ischemic changes within the martha.. No evidence for acute infarct Electronically Signed: Refugio Vera MD at 17:17 EDT , Service support , Medical Necessity - Tobacco Use Smoking Status: Never smoker Assessment/Plan Active and Suspected Problems ESRD (end stage renal disease) on dialysis (Acute) Unresponsive episode (Acute) This is a 72 years old female patient brought to the emergency room from the dialysis center because of syncopal episode, found to have anemia and hypocalcemia as well as probable pneumonia, went into cardiac arrest ?2 status post CPR in the emergency room and she is being admitted for acute respiratory failure, cardiac arrest, syncope, anemia and probable pneumonia. Patient is a 72 years old female who was brought to ED with an episode of syncope during hemodialysis. She regained consciousness spontaneously, transferred to ED. At there she became unresponsive again with desaturation, presumed respiratory arrest. CPR was given and she was intubated , subsequently admitted to ICU. Soon after, she developed symptomatic bradycardia with hypotension, atropine was given, followed by dopamine drip. Following day, she appeared doing well, extubated later in the morning. However , soon after, she became unresponsive again. ABG was obtained, which was within normal limits. She did not have apparent arrhythmia at that time. Bilious emesis was noted at that time, she was re-intubated for airway protection. #1 status post cardiac/respiratory arrest. Etiology is not clear. Critical care / pulmonary is managing patient. Cardiology was consulted also. #2 syncopal / unresponsive episodes. Possibly with seizures. Neurology consult appreciated. EEG showed intermittent sharp waves with epileptogenic potentials. MRI without contrast showed non-specific periventricular white matter ischemic changes, but cannot exclude posterior reversible encephalopathy syndrome (PRES) . Started on loading Dilantin followed by 100 mg IV tid. Follow up with neurology as outpatient. #3 anemia: Patient does have a history of chronic anemia, hemoglobin has been fluctuating anywhere between 9-13 g/dL. Admission hemoglobin is 8.4 g/dL. It is microcytic anemia. At this time, no evidence of active bleeding. Plan: Serum iron, ferritin, TIBC, B12, RBC folate, transfuse if hemoglobin less than 8 g/dL. #4 Probable aspiration pneumonia. Right mid lung. Zosyn started empirically. She has persisting fever, WBC 9.8. #5 ESRD on hemodialysis: Patient received 1 hour of hemodialysis today, pulse ox was 88% on 3 L upon arrival to ER. Chest x-ray revealed probable volume overload. Nephrology is following for HD. #6 type 2 diabetes mellitus: Keep on n.p.o., Accu-Cheks, sliding scale, hold home doses of Levemir insulin and pre-meal NovoLog. #7 hypertension: At this time, she will be intubated and sedated, close monitoring of blood pressure. Blood pressure was high because she received IV epinephrine. #8 CAD status post PTCA: EKG reviewed as above. First troponin is negative. Plan as above, cardiac monitoring, serial cardiac enzymes, 2D echocardiogram, cardiology consult. #9 COPD/chronic respiratory failure: Patient is on home oxygen at 2.5 L reportedly. Chest x-ray reviewed as above. Plan for bronchodilator, continue mechanical ventilation. #10 chronic atrial fibrillation: After cardiac arrest, heart rate has been around 100, was in A. fib. At home, she is not on any medication for rate control and not on anticoagulation. #11 Symptomatic bradycardia. Rate in 30's with development of hypotension. Dopamine drip started, doing well. Failed to wean off dopamine (06/08). Other chronic medical problems: #1 hypothyroidism. #2 GERD. #3 mild aortic stenosis. #4 hyperlipidemia. #5 sleep apnea. #6 severe pulmonary hypertension. #7 diabetic neuropathy. #8 peripheral vascular disease. #9 gastroparesis. VTE prophylaxis: Heparin SQ. GI prophylaxis: H2 nolvia po. Patient is full code. Disposition: to be determined. Code Visit Inpatient E&M: [id number] [facility] Hosp L3
[2017-06-08] MEDS: Phenytoin Na 100 MG/4 ML UDC GT (21:20)
[2017-06-09] VITALS (54 sets, daily range): BP systolic 80–170; BP diastolic 38–90; PULSE 48–98; RESP 10–29; TEMP 35.5–37.1; O2SAT 86–100
[2017-06-09] MEDS: Piperacil/Tazobactam 3.375 GM/50 ML ML IV ×3 (01:04→17:51)
[2017-06-09 01:06] LABS: Bedside Glucose 187 mg/dL (70-110)
[2017-06-09 05:00] LABS: Hematocrit 25.2 % (37-47); Hemoglobin 8.1 g/dl (12.0-15.0); Mean Corp Hgb Conc 32.1 g/gl (32-36); Mean Corpuscular Hgb 35.4 pg (27.0-32.0); Mean Platelet Vol. 10.4 fl (6.2-12.0); Platelet Count 174 K/mm3 (150-450); RBC Distribution Width SD 58.5 fl (35.1-43.9); Red Blood Count 2.29 M/mm3 (4.2-5.4); White Blood Count 9.2 K/mm3 (4.4-11.0)
[2017-06-09 05:04] LABS: Scan Indicated on CBC? Y/N NO
[2017-06-09 05:13] LABS: Anion Gap 13 (5-15); BUN 36 mg/dL (7-18); BUN/Creat Ratio 12.4 RATIO (10-20); Calcium,Total 7.1 mg/dL (8.5-10.1); Chloride 96 mmol/L (98-107); Creatinine, Serum 2.91 mg/dL (0.55-1.02); EST Glomerular Filtration Rate 17 mL/min (>60); Est Glom Filt Rate - Afr Amer 21 mL/min (>60); Estimated Creatinine Clearance 18.34 ml/min; Glucose 162 mg/dL (74-106); Potassium 3.8 mmol/L (3.5-5.1); Sodium Level 137 mmol/L (136-145)
[2017-06-09] MEDS: Phenytoin Na 100 MG/4 ML UDC GT (06:21)
[2017-06-09] MEDS: CHLORHEXIDINE GLUC 2% CLOTH 1 EACH TOWELETTE TOPICAL (06:21)
[2017-06-09 06:30] LABS: Bedside Glucose 149 mg/dL (70-110)
--- NOTE | 2017-06-09 06:43 | PCM.PN.INT ---
Subjective: The patient was seen and examined at the bedside this morning. Events from the last 24 hours have been reviewed. The patient is currently afebrile. Attempts to wean the patient's dopamine was again unsuccessful overnight. The patient did tolerate hemodialysis yesterday. EEG completed on June 08 revealed generalized epileptogenic potentials, for which the patient was initiated on Dilantin yesterday. The patient passed her spontaneous breathing trial this morning. She is currently alert and following commands appropriately. CODE STATUS was discussed with the patient's family yesterday and changed to DNR CCA without plans for reintubation. The patient is alert, appropriately interactive and following commands. I did explain to her the conversation that I had with her family yesterday, including the transition from full code to DNR CCA. She did nod yes when asked if she was in agreement with this change. I did explain to her that she would be appropriate for a trial of extubation. However, the plan will be not to reintubate her if she were to fail. Objective: The patient's most recent lab work, culture data and imaging studies have all been personally reviewed. Respiratory viral panel was negative. Strep and urine Legionella antigens were both negative. Blood and urine cultures have shown no growth to date. Sputum culture is currently pending. General: Alert, Cooperative, No apparent distress, - - Remains intubated mechanically ventilated. HEENT: Atraumatic, PERRLA, Normocephalic Oral: No Gingival or Mucosal Lesions/ Ulcerations, - - Endotracheal and OG tubes remain in place Neck: Supple, No Nodes, Trachea Midline Lungs: No rhonchi, No wheeze, No rales, Diminished Cardiovascular: Normal S1, Normal S2, Irregular Rate, Murmur, No rub noted, No Gallop Abdomen: Bowel Sounds Present, Soft, Non Tender, Obese Extremities: No clubbing, No cyanosis, Edema Skin: - - No significant change from previous Musculoskeletal: No Tenderness to Palpation of Joints or Extremities Lymphatic: No Cervical, Supraclavicular, or Inguinal Adenopathy Neurological: - - No focal neurological deficits. Alert and following commands appropriately. Vital Signs Temp Pulse Resp BP Pulse Ox 97.9 F 61 10 L 101/45 L 93 06/09/17 06:00 06/09/17 06:00 06/09/17 06:00 06/09/17 06:27 06/09/17 06:00 Oxygen Flow Rate (L/min) 30 Oxygen Delivery Method Mechanical Ventilator Weight: 144 lb 6.444 oz Body Mass Index (BMI) 30.4 Finger Stick Blood Glucose 100 Intake and Output for Last 24 Hours 06/07/17 06/08/17 06/09/17 23:59 23:59 23:59 Intake Total 930 / 930 724 / 724 379.2 / 379.2 Output Total 380 / 380 1604 / 1604 0 / 0 Balance 550 / 550 -880 / -880 379.2 / 379.2 Labs (Last 48 Hours) 06/07/17 06/07/17 06/07/17 07:32 07:37 11:39 WBC RBC Hgb Hct MCV MCH MCHC RDW RDW Differential Plt Count MPV Specimen Type ART Sample Site L Radial pH 7.42 Bicarbonate Actual 28.9 H POC Total CO2 30 Base Excess 4 H O2 Saturation 96 O2 % ABG pCO2 44.9 ABG pO2 78 Tom Test POS Respiration Rate O2 Delivery Device Nasal Can Liter Flow 2.0 Minute Volume Vent Mode Tidal Volume POC PEEP Blood Gas Notified Whom ICU MD Blood Gas Notified Time 725 Sodium Potassium Chloride Carbon Dioxide Anion Gap BUN Creatinine Estim Creat Clear Calc Est GFR (MDRD) Af Amer Est GFR (MDRD) Non-Af BUN/Creatinine Ratio Glucose Calcium Total Bilirubin Direct Bilirubin AST ALT Alkaline Phosphatase Total Protein Albumin Globulin POC Glucose 153 H 174 H 06/07/17 06/07/17 06/08/17 14:13 17:46 00:44 WBC RBC Hgb Hct MCV MCH MCHC RDW RDW Differential Plt Count MPV Specimen Type ART Sample Site L Radial pH 7.56 H Bicarbonate Actual 27.2 H POC Total CO2 28 Base Excess 5 H O2 Saturation 98 O2 % 30 ABG pCO2 30.3 L ABG pO2 87 Tom Test POS Respiration Rate 14 O2 Delivery Device Vent Liter Flow Minute Volume 9.00 Vent Mode A-C Tidal Volume 450 POC PEEP 5 Blood Gas Notified Whom ICU MD Blood Gas Notified Time 1410 Sodium Potassium Chloride Carbon Dioxide Anion Gap BUN Creatinine Estim Creat Clear Calc Est GFR (MDRD) Af Amer Est GFR (MDRD) Non-Af BUN/Creatinine Ratio Glucose Calcium Total Bilirubin Direct Bilirubin AST ALT Alkaline Phosphatase Total Protein Albumin Globulin POC Glucose 150 H 124 H 06/08/17 06/08/17 06/08/17 04:10 04:10 04:10 WBC 9.8 RBC 2.50 L Hgb 8.7 L Hct 27.0 L MCV 108.0 H MCH 34.8 H MCHC 32.2 RDW 16.0 H RDW Differential 62.9 H Plt Count 196 MPV 9.8 Specimen Type Sample Site pH Bicarbonate Actual POC Total CO2 Base Excess O2 Saturation O2 % ABG pCO2 ABG pO2 Tom Test Respiration Rate O2 Delivery Device Liter Flow Minute Volume Vent Mode Tidal Volume POC PEEP Blood Gas Notified Whom Blood Gas Notified Time Sodium 136 Potassium 3.7 Chloride 97 L Carbon Dioxide 27.0 Anion Gap 12 BUN 51 H Creatinine 3.42 H Estim Creat Clear Calc 15.72 Est GFR (MDRD) Af Amer 17 L Est GFR (MDRD) Non-Af 14 L BUN/Creatinine Ratio 14.9 Glucose 132 H Calcium 7.2 L Total Bilirubin Cancelled Direct Bilirubin Cancelled AST Cancelled ALT Cancelled Alkaline Phosphatase Cancelled Total Protein Cancelled Albumin Cancelled Globulin Cancelled POC Glucose 06/08/17 06/08/17 06/08/17 06:25 11:26 13:57 WBC RBC Hgb Hct MCV MCH MCHC RDW RDW Differential Plt Count MPV Specimen Type Sample Site pH Bicarbonate Actual POC Total CO2 Base Excess O2 Saturation O2 % ABG pCO2 ABG pO2 Tom Test Respiration Rate O2 Delivery Device Liter Flow Minute Volume Vent Mode Tidal Volume POC PEEP Blood Gas Notified Whom Blood Gas Notified Time Sodium Potassium Chloride Carbon Dioxide Anion Gap BUN Creatinine Estim Creat Clear Calc Est GFR (MDRD) Af Amer Est GFR (MDRD) Non-Af BUN/Creatinine Ratio Glucose Calcium Total Bilirubin 0.90 Direct Bilirubin 0.35 H AST 28 ALT 22 Alkaline Phosphatase 107 Total Protein 6.9 Albumin 2.1 L Globulin 4.8 H POC Glucose 117 H 102 06/08/17 06/09/17 06/09/17 16:11 00:57 04:40 WBC 9.2 RBC 2.29 L Hgb 8.1 L Hct 25.2 L MCV 110.0 H MCH 35.4 H MCHC 32.1 RDW 15.0 H RDW Differential 58.5 H Plt Count 174 MPV 10.4 Specimen Type Sample Site pH Bicarbonate Actual POC Total CO2 Base Excess O2 Saturation O2 % ABG pCO2 ABG pO2 Tom Test Respiration Rate O2 Delivery Device Liter Flow Minute Volume Vent Mode Tidal Volume POC PEEP Blood Gas Notified Whom Blood Gas Notified Time Sodium Potassium Chloride Carbon Dioxide Anion Gap BUN Creatinine Estim Creat Clear Calc Est GFR (MDRD) Af Amer Est GFR (MDRD) Non-Af BUN/Creatinine Ratio Glucose Calcium Total Bilirubin Direct Bilirubin AST ALT Alkaline Phosphatase Total Protein Albumin Globulin POC Glucose 100 187 H 06/09/17 06/09/17 04:40 06:25 WBC RBC Hgb Hct MCV MCH MCHC RDW RDW Differential Plt Count MPV Specimen Type Sample Site pH Bicarbonate Actual POC Total CO2 Base Excess O2 Saturation O2 % ABG pCO2 ABG pO2 Tom Test Respiration Rate O2 Delivery Device Liter Flow Minute Volume Vent Mode Tidal Volume POC PEEP Blood Gas Notified Whom Blood Gas Notified Time Sodium 137 Potassium 3.8 Chloride 96 L Carbon Dioxide 28.0 Anion Gap 13 BUN 36 H Creatinine 2.91 H Estim Creat Clear Calc 18.34 Est GFR (MDRD) Af Amer 21 L Est GFR (MDRD) Non-Af 17 L BUN/Creatinine Ratio 12.4 Glucose 162 H Calcium 7.1 L Total Bilirubin Direct Bilirubin AST ALT Alkaline Phosphatase Total Protein Albumin Globulin POC Glucose 149 H Microbiology 06/06/17 12:00 Urine Catheter - Kim Urine Culture - Final Culture exhibits no growth. 06/08/17 07:45 Blood Culture (Wb) - Central Line Blood Culture - Preliminary 06/07/17 08:27 Sputum, Induced/Lukens Gram Stain - Final 06/07/17 08:27 Sputum, Induced/Lukens Respiratory Culture - Preliminary Appears to be normal respiratory chika. Further studies to follow. 06/07/17 07:45 Sputum, Expectorated/Coughed Gram Stain - Final 06/07/17 07:45 Sputum, Expectorated/Coughed Respiratory Culture - Preliminary Clinical Impression(s) from Imaging Studies Brain CT 06/06/17 07:50 IMPRESSION: Chronic involutional changes. No acute intracranial abnormality. Opacified left maxillary sinus. Electronically Signed: Yehuda Ferguson DO at 9:26 EDT Tel , Service support , Chest X-Ray 06/06/17 07:50 IMPRESSION: Prominent interstitial markings. Patchy airspace disease in the right midlung. This may represent atelectasis or developing pneumonia. Moderate cardiomegaly. Electronically Signed: Yehuda Ferguson DO at 9:33 EDT Tel , Service support , Chest X-Ray 06/06/17 10:30 IMPRESSION: Life support tubes and catheters, as detailed above. No significant change to the appearance of the lungs, with prominent interstitial markings and focal opacity in the right midlung. Small bilateral pleural effusions are seen. Electronically Signed: Yehuda Ferguson DO at 11:20 EDT Tel , Service support , Chest X-Ray 06/07/17 07:36 IMPRESSION: Interval extubation. Improving aeration within the right midlung. Mild interstitial prominence. Electronically Signed: Yehuda Ferguson DO at 11:46 EDT Tel , Service support , Chest X-Ray 06/07/17 08:32 IMPRESSION: The endotracheal tube tip projects approximately 2 cm above the petra. Mild interstitial edema. Small bilateral pleural effusions. Electronically Signed: Yehuda Ferguson DO at 9:36 EDT Tel , Service support , Brain CT 06/07/17 08:33 IMPRESSION: Chronic involutional changes. No acute intracranial abnormality. No significant change from study of 06/06/2017. Electronically Signed: Yehuda Ferguson DO at 10:15 EDT Tel , Service support , Brain MRI 06/07/17 14:24 IMPRESSION: Nonspecific periventricular white matter ischemic changes of uncertain etiology but. Cannot exclude possibility of PRES. Chronic ischemic changes within the martha.. No evidence for acute infarct Electronically Signed: Refugio Vera MD at 17:17 EDT , Service support , Medical Necessity - Tobacco Use Smoking Status: Never smoker Assessment/Plan Active and Suspected Problems ESRD (end stage renal disease) on dialysis (Acute) Unresponsive episode (Acute) RECOMMENDATIONS: 1. Continue Dilantin per neurology recommendations. 2. Transition from dopamine to Levophed with a goal to maintain a systolic blood pressure greater than 90 mmHg. 3. Start Midodrine TID 4. Continue antibiotics, pending finalized infectious workup 5. Continue sliding scale coverage 6. Continue appropriate ICU prophylaxis with subcu heparin and Pepcid 7. Proceed with a trial of extubation. IMPRESSIONS: 1. Acute respiratory failure secondary to cardiac arrest Patient was thought to have respiratory arrest secondary to hypoxemia. Clinical suspicion for decreased perfusion leading to reported desaturation. Patient does have multiple valvular abnormalities complicating overall condition. While in the intensive care unit, patient was noted to have bradycardia without desaturation leading to poor perfusion. Continue vasopressor support to maintain hemodynamic stability. We will plan to transition the patient from dopamine to Levophed this morning and start Midodrine scheduled 3 times daily. The patient failed her initial trial of extubation requiring reintubation over concerns for obtundation and aspiration event. However, this morning, she is again appropriate for a trial of extubation. The patient is currently a DNR CCA without plans for reintubation. 2. Acute blood loss anemia Patient with heme positive stools and a 4 g drop in hemoglobin since last visit. Patient does have a history of an esophageal tear. Patient has no signs or symptoms of acute upper GI bleed at this time. Likely transfuse to keep hemoglobin greater than 8. 3. End-stage renal disease secondary to uncontrolled diabetes mellitus/hypertension Continue hemodialysis per nephrology recommendations. 4. Coronary artery disease status post PTCA/hypertension/chronic A. fib/possible sick sinus syndrome Patient with multiple vascular abnormalities. Cardiology is following. As above, the patient's dopamine will be transitioned to Levophed with goals to wean to maintain a systolic blood pressure at or above 90 mmHg. 5. Encephalopathy The patient has been experiencing episodes of obtundation, the etiology of which is unclear. Neurology is following. MRI was completed with findings possibly suggestive of PRES. EEG was completed and demonstrated epileptogenic potential. The patient was subsequently started on Dilantin. 6. COPD/chronic respiratory failure Continue bronchodilators. Wean oxygen as tolerated. 7. CODE STATUS DNR CCA. This was discussed with both the patient's and daughter. There will be plans for no reintubation, once the patient is extubated. TIME: 40 minutes of critical care time, independent of procedures, was spent addressing the patient's cardiac arrest, probable sick sinus syndrome, acute blood loss anemia, respiratory failure, encephalopathy, review of all data and collaboration with the care team. ([id number]) Code Visit [id number]: [id number] Critical care first hour
--- NOTE | 2017-06-09 06:50 | PN_ITS ---
Subjective: The patient was seen and examined at the bedside this morning. Events from the last 24 hours have been reviewed. The patient is currently afebrile. Attempts to wean the patient's dopamine was again unsuccessful overnight. The patient did tolerate hemodialysis yesterday. EEG completed on June 08 revealed generalized epileptogenic potentials, for which the patient was initiated on Dilantin yesterday. The patient passed her spontaneous breathing trial this morning. She is currently alert and following commands appropriately. CODE STATUS was discussed with the patient's family yesterday and changed to DNR CCA without plans for reintubation. The patient is alert, appropriately interactive and following commands. I did explain to her the conversation that I had with her family yesterday, including the transition from full code to DNR CCA. She did nod yes when asked if she was in agreement with this change. I did explain to her that she would be appropriate for a trial of extubation. However, the plan will be not to reintubate her if she were to fail. Objective: The patient's most recent lab work, culture data and imaging studies have all been personally reviewed. Respiratory viral panel was negative. Strep and urine Legionella antigens were both negative. Blood and urine cultures have shown no growth to date. Sputum culture is currently pending. General: Alert, Cooperative, No apparent distress, - - Remains intubated mechanically ventilated. HEENT: Atraumatic, PERRLA, Normocephalic Oral: No Gingival or Mucosal Lesions/ Ulcerations, - - Endotracheal and OG tubes remain in place Neck: Supple, No Nodes, Trachea Midline Lungs: No rhonchi, No wheeze, No rales, Diminished Cardiovascular: Normal S1, Normal S2, Irregular Rate, Murmur, No rub noted, No Gallop Abdomen: Bowel Sounds Present, Soft, Non Tender, Obese Extremities: No clubbing, No cyanosis, Edema Skin: - - No significant change from previous Musculoskeletal: No Tenderness to Palpation of Joints or Extremities Lymphatic: No Cervical, Supraclavicular, or Inguinal Adenopathy Neurological: - - No focal neurological deficits. Alert and following commands appropriately. Vital Signs Temp Pulse Resp BP Pulse Ox 97.9 F 61 10 L 101/45 L 93 06/09/17 06:00 06/09/17 06:00 06/09/17 06:00 06/09/17 06:27 06/09/17 06:00 Oxygen Flow Rate (L/min) 30 Oxygen Delivery Method Mechanical Ventilator Weight: 144 lb 6.444 oz Body Mass Index (BMI) 30.4 Finger Stick Blood Glucose 100 Intake and Output for Last 24 Hours 06/07/17 06/08/17 06/09/17 23:59 23:59 23:59 Intake Total 930 / 930 724 / 724 379.2 / 379.2 Output Total 380 / 380 1604 / 1604 0 / 0 Balance 550 / 550 -880 / -880 379.2 / 379.2 Labs (Last 48 Hours) 06/07/17 06/07/17 06/07/17 07:32 07:37 11:39 WBC RBC Hgb Hct MCV MCH MCHC RDW RDW Differential Plt Count MPV Specimen Type ART Sample Site L Radial pH 7.42 Bicarbonate Actual 28.9 H POC Total CO2 30 Base Excess 4 H O2 Saturation 96 O2 % ABG pCO2 44.9 ABG pO2 78 Tom Test POS Respiration Rate O2 Delivery Device Nasal Can Liter Flow 2.0 Minute Volume Vent Mode Tidal Volume POC PEEP Blood Gas Notified Whom ICU MD Blood Gas Notified Time 725 Sodium Potassium Chloride Carbon Dioxide Anion Gap BUN Creatinine Estim Creat Clear Calc Est GFR (MDRD) Af Amer Est GFR (MDRD) Non-Af BUN/Creatinine Ratio Glucose Calcium Total Bilirubin Direct Bilirubin AST ALT Alkaline Phosphatase Total Protein Albumin Globulin POC Glucose 153 H 174 H 06/07/17 06/07/17 06/08/17 14:13 17:46 00:44 WBC RBC Hgb Hct MCV MCH MCHC RDW RDW Differential Plt Count MPV Specimen Type ART Sample Site L Radial pH 7.56 H Bicarbonate Actual 27.2 H POC Total CO2 28 Base Excess 5 H O2 Saturation 98 O2 % 30 ABG pCO2 30.3 L ABG pO2 87 Tom Test POS Respiration Rate 14 O2 Delivery Device Vent Liter Flow Minute Volume 9.00 Vent Mode A-C Tidal Volume 450 POC PEEP 5 Blood Gas Notified Whom ICU MD Blood Gas Notified Time 1410 Sodium Potassium Chloride Carbon Dioxide Anion Gap BUN Creatinine Estim Creat Clear Calc Est GFR (MDRD) Af Amer Est GFR (MDRD) Non-Af BUN/Creatinine Ratio Glucose Calcium Total Bilirubin Direct Bilirubin AST ALT Alkaline Phosphatase Total Protein Albumin Globulin POC Glucose 150 H 124 H 06/08/17 06/08/17 06/08/17 04:10 04:10 04:10 WBC 9.8 RBC 2.50 L Hgb 8.7 L Hct 27.0 L MCV 108.0 H MCH 34.8 H MCHC 32.2 RDW 16.0 H RDW Differential 62.9 H Plt Count 196 MPV 9.8 Specimen Type Sample Site pH Bicarbonate Actual POC Total CO2 Base Excess O2 Saturation O2 % ABG pCO2 ABG pO2 Tom Test Respiration Rate O2 Delivery Device Liter Flow Minute Volume Vent Mode Tidal Volume POC PEEP Blood Gas Notified Whom Blood Gas Notified Time Sodium 136 Potassium 3.7 Chloride 97 L Carbon Dioxide 27.0 Anion Gap 12 BUN 51 H Creatinine 3.42 H Estim Creat Clear Calc 15.72 Est GFR (MDRD) Af Amer 17 L Est GFR (MDRD) Non-Af 14 L BUN/Creatinine Ratio 14.9 Glucose 132 H Calcium 7.2 L Total Bilirubin Cancelled Direct Bilirubin Cancelled AST Cancelled ALT Cancelled Alkaline Phosphatase Cancelled Total Protein Cancelled Albumin Cancelled Globulin Cancelled POC Glucose 06/08/17 06/08/17 06/08/17 06:25 11:26 13:57 WBC RBC Hgb Hct MCV MCH MCHC RDW RDW Differential Plt Count MPV Specimen Type Sample Site pH Bicarbonate Actual POC Total CO2 Base Excess O2 Saturation O2 % ABG pCO2 ABG pO2 Tom Test Respiration Rate O2 Delivery Device Liter Flow Minute Volume Vent Mode Tidal Volume POC PEEP Blood Gas Notified Whom Blood Gas Notified Time Sodium Potassium Chloride Carbon Dioxide Anion Gap BUN Creatinine Estim Creat Clear Calc Est GFR (MDRD) Af Amer Est GFR (MDRD) Non-Af BUN/Creatinine Ratio Glucose Calcium Total Bilirubin 0.90 Direct Bilirubin 0.35 H AST 28 ALT 22 Alkaline Phosphatase 107 Total Protein 6.9 Albumin 2.1 L Globulin 4.8 H POC Glucose 117 H 102 06/08/17 06/09/17 06/09/17 16:11 00:57 04:40 WBC 9.2 RBC 2.29 L Hgb 8.1 L Hct 25.2 L MCV 110.0 H MCH 35.4 H MCHC 32.1 RDW 15.0 H RDW Differential 58.5 H Plt Count 174 MPV 10.4 Specimen Type Sample Site pH Bicarbonate Actual POC Total CO2 Base Excess O2 Saturation O2 % ABG pCO2 ABG pO2 Tom Test Respiration Rate O2 Delivery Device Liter Flow Minute Volume Vent Mode Tidal Volume POC PEEP Blood Gas Notified Whom Blood Gas Notified Time Sodium Potassium Chloride Carbon Dioxide Anion Gap BUN Creatinine Estim Creat Clear Calc Est GFR (MDRD) Af Amer Est GFR (MDRD) Non-Af BUN/Creatinine Ratio Glucose Calcium Total Bilirubin Direct Bilirubin AST ALT Alkaline Phosphatase Total Protein Albumin Globulin POC Glucose 100 187 H 06/09/17 06/09/17 04:40 06:25 WBC RBC Hgb Hct MCV MCH MCHC RDW RDW Differential Plt Count MPV Specimen Type Sample Site pH Bicarbonate Actual POC Total CO2 Base Excess O2 Saturation O2 % ABG pCO2 ABG pO2 Tom Test Respiration Rate O2 Delivery Device Liter Flow Minute Volume Vent Mode Tidal Volume POC PEEP Blood Gas Notified Whom Blood Gas Notified Time Sodium 137 Potassium 3.8 Chloride 96 L Carbon Dioxide 28.0 Anion Gap 13 BUN 36 H Creatinine 2.91 H Estim Creat Clear Calc 18.34 Est GFR (MDRD) Af Amer 21 L Est GFR (MDRD) Non-Af 17 L BUN/Creatinine Ratio 12.4 Glucose 162 H Calcium 7.1 L Total Bilirubin Direct Bilirubin AST ALT Alkaline Phosphatase Total Protein Albumin Globulin POC Glucose 149 H Microbiology 06/06/17 12:00 Urine Catheter - Kim Urine Culture - Final Culture exhibits no growth. 06/08/17 07:45 Blood Culture (Wb) - Central Line Blood Culture - Preliminary 06/07/17 08:27 Sputum, Induced/Lukens Gram Stain - Final 06/07/17 08:27 Sputum, Induced/Lukens Respiratory Culture - Preliminary Appears to be normal respiratory chika. Further studies to follow. 06/07/17 07:45 Sputum, Expectorated/Coughed Gram Stain - Final 06/07/17 07:45 Sputum, Expectorated/Coughed Respiratory Culture - Preliminary Clinical Impression(s) from Imaging Studies Brain CT 06/06/17 07:50 IMPRESSION: Chronic involutional changes. No acute intracranial abnormality. Opacified left maxillary sinus. Electronically Signed: Yehuda Ferguson DO at 9:26 EDT Tel , Service support , Chest X-Ray 06/06/17 07:50 IMPRESSION: Prominent interstitial markings. Patchy airspace disease in the right midlung. This may represent atelectasis or developing pneumonia. Moderate cardiomegaly. Electronically Signed: Yehuda Ferguson DO at 9:33 EDT Tel , Service support , Chest X-Ray 06/06/17 10:30 IMPRESSION: Life support tubes and catheters, as detailed above. No significant change to the appearance of the lungs, with prominent interstitial markings and focal opacity in the right midlung. Small bilateral pleural effusions are seen. Electronically Signed: Yehuda Ferguson DO at 11:20 EDT Tel , Service support , Chest X-Ray 06/07/17 07:36 IMPRESSION: Interval extubation. Improving aeration within the right midlung. Mild interstitial prominence. Electronically Signed: Yehuda Ferguson DO at 11:46 EDT Tel , Service support , Chest X-Ray 06/07/17 08:32 IMPRESSION: The endotracheal tube tip projects approximately 2 cm above the petra. Mild interstitial edema. Small bilateral pleural effusions. Electronically Signed: Yehuda Ferguson DO at 9:36 EDT Tel , Service support , Brain CT 06/07/17 08:33 IMPRESSION: Chronic involutional changes. No acute intracranial abnormality. No significant change from study of 06/06/2017. Electronically Signed: Yehuda Ferguson DO at 10:15 EDT Tel , Service support , Brain MRI 06/07/17 14:24 IMPRESSION: Nonspecific periventricular white matter ischemic changes of uncertain etiology but. Cannot exclude possibility of PRES. Chronic ischemic changes within the martha.. No evidence for acute infarct Electronically Signed: Refugio Vera MD at 17:17 EDT , Service support , Medical Necessity - Tobacco Use Smoking Status: Never smoker Assessment/Plan Active and Suspected Problems ESRD (end stage renal disease) on dialysis (Acute) Unresponsive episode (Acute) RECOMMENDATIONS: 1. Continue Dilantin per neurology recommendations. 2. Transition from dopamine to Levophed with a goal to maintain a systolic blood pressure greater than 90 mmHg. 3. Start Midodrine TID 4. Continue antibiotics, pending finalized infectious workup 5. Continue sliding scale coverage 6. Continue appropriate ICU prophylaxis with subcu heparin and Pepcid 7. Proceed with a trial of extubation. IMPRESSIONS: 1. Acute respiratory failure secondary to cardiac arrest Patient was thought to have respiratory arrest secondary to hypoxemia. Clinical suspicion for decreased perfusion leading to reported desaturation. Patient does have multiple valvular abnormalities complicating overall condition. While in the intensive care unit, patient was noted to have bradycardia without desaturation leading to poor perfusion. Continue vasopressor support to maintain hemodynamic stability. We will plan to transition the patient from dopamine to Levophed this morning and start Midodrine scheduled 3 times daily. The patient failed her initial trial of extubation requiring reintubation over concerns for obtundation and aspiration event. However, this morning, she is again appropriate for a trial of extubation. The patient is currently a DNR CCA without plans for reintubation. 2. Acute blood loss anemia Patient with heme positive stools and a 4 g drop in hemoglobin since last visit. Patient does have a history of an esophageal tear. Patient has no signs or symptoms of acute upper GI bleed at this time. Likely transfuse to keep hemoglobin greater than 8. 3. End-stage renal disease secondary to uncontrolled diabetes mellitus/ hypertension Continue hemodialysis per nephrology recommendations. 4. Coronary artery disease status post PTCA/hypertension/chronic A. fib/ possible sick sinus syndrome Patient with multiple vascular abnormalities. Cardiology is following. As above, the patient's dopamine will be transitioned to Levophed with goals to wean to maintain a systolic blood pressure at or above 90 mmHg. 5. Encephalopathy The patient has been experiencing episodes of obtundation, the etiology of which is unclear. Neurology is following. MRI was completed with findings possibly suggestive of PRES. EEG was completed and demonstrated epileptogenic potential. The patient was subsequently started on Dilantin. 6. COPD/chronic respiratory failure Continue bronchodilators. Wean oxygen as tolerated. 7. CODE STATUS DNR CCA. This was discussed with both the patient's and daughter. There will be plans for no reintubation, once the patient is extubated. TIME: 40 minutes of critical care time, independent of procedures, was spent addressing the patient's cardiac arrest, probable sick sinus syndrome, acute blood loss anemia, respiratory failure, encephalopathy, review of all data and collaboration with the care team. ([id number]) Code Visit [id number]: [id number] Critical care first hour
--- NOTE | 2017-06-09 07:45 | PCM.PN.CARD ---
Subjectve: Patient seen and evaluated. Still intubated. Events of last 24 hours noted. Objective: Vital Signs Temp Pulse Resp BP Pulse Ox 98.1 F 78 17 106/50 L 95 06/09/17 07:00 06/09/17 07:00 06/09/17 07:00 06/09/17 07:00 06/09/17 07:00 Oxygen Flow Rate (L/min) 30 Oxygen Delivery Method Mechanical Ventilator Weight: 144 lb 6.444 oz Body Mass Index (BMI) 30.4 Finger Stick Blood Glucose 100 Intake and Output for Last 24 Hours 06/07/17 06/08/17 06/09/17 23:59 23:59 23:59 Intake Total 930 / 930 724 / 724 379.2 / 379.2 Output Total 380 / 380 1604 / 1604 0 / 0 Balance 550 / 550 -880 / -880 379.2 / 379.2 General: Awake, Ill Appearing HEENT: PERRL, EOMI, Sclera Non Icteric Neck: Supple, Good ROM, No Lymph Node Enlargement Lungs: Clear to auscultation Cardiovascular: Irregular Rhythm Vascular: No Carotid Bruits, Normal Femoral Pulses, Normal Radial Pulses, Normal Dorsalis Pedal Pulse, Normal Posterior Tibial Pulses Abdomen: Bowel Sounds Present, Soft, Non Tender, No HSM, No Organomegaly Extremities: No Cyanosis, No Clubbing, No edema Neurological: No Focal Motor or Sensory Deficit 06/08/17 04:10: Total Bilirubin Cancelled, Direct Bilirubin Cancelled 06/08/17 13:57: Total Bilirubin 0.90, Direct Bilirubin 0.35 H 06/09/17 04:40: WBC 9.2, RBC 2.29 L, Hgb 8.1 L, Hct 25.2 L, MCV 110.0 H, MCH 35.4 H, MCHC 32.1, RDW 15.0 H, RDW Differential 58.5 H, Plt Count 174, MPV 10.4 06/09/17 04:40: Sodium 137, Potassium 3.8, Chloride 96 L, Carbon Dioxide 28.0, Anion Gap 13, BUN 36 H, Creatinine 2.91 H, Est GFR (MDRD) Af Amer 21 L, Est GFR (MDRD) Non-Af 17 L, BUN/Creatinine Ratio 12.4, Glucose 162 H, Calcium 7.1 L Rhythm: EKG: ECHO: Stress Test: Cardiac Cath: PCI: CT Surgery: Holter monitor: EPS: PPM: CXR: Chest CT Scan: Medical Necessity - Tobacco Use Smoking Status: Never smoker Assessment/Plan 1. Atrial fibrillation with periods of asystole The patient has known atrial fibrillation with a controlled ventricular response rate. It is not entirely clear why she is having these periods of asystole at this time. She is not on any rate limiting medications and her potassium and other electrolytes appear to be unremarkable. Her echocardiogram also demonstrates preserved left ventricular ejection fraction. At this time she has been started on low-dose dopamine and out suggest that we observe her for a while on this. I am hesitant to recommend a permanent pacemaker due to her vasculopathy as well as her dialysis status. I reviewed the records from [facility] as well as [facility]. It appears that she did a similar thing over there and it was thought that the bradycardia arrhythmias were secondary to seizure medication. At this point I do not think so and I suspect that it is idiosyncratic. I would recommend attempting to reduce the low dose dopamine to 2.5 mg and see how she tolerates it. She has been started on Dilantin. We will need to watch the rate as Dilantin may have some negative chronotropic effects as well. 2. Valvular heart disease. She does have a history of aortic stenosis which is mild to moderate. At this time it does not appear that she is a candidate to have aortic valve intervention. 3. Coronary artery disease. She does have a history of coronary artery disease status post previous angioplasty and stenting. I do not have an indication that this is coronary in origin. She may also have had a recent cardiac catheterization at the tertiary care hospital and I would not obtain those results and records to have an idea of her coronary status. No cardiac catheterization or intervention is planned at this time. 4. Right ventricular dysfunction. She does have significant right ventricular dysfunction the etiology of which is not entirely clear to me at this time. It may be related to her dialysis state. 5. Hypotension It is unclear why she is so dependent on pressors. Albeit a low dose. On discussion with the nurses this morning the plan is to put her on Levophed for a short period of time and attempt to transition her to midodrine. I think this is a worthwhile goal. Thank you for allowing me to participate in the care of your patient. Please don't hesitate to call if any issues arise above discussed with Dr. Daniel. Her overall prognosis is rather guarded.
--- NOTE | 2017-06-09 10:24 | CASEMGMT ---
Social Work Attended pt rounds with pt, and dgt present. Informed pt that [facility] has a bed available and can accept pt when medically ready. SW faxed updated clinicals to [facility] with dialysis schedule. Phone call to Candi at [facility] and informed that pt is choosing not to return to [facility] at this time. SW will follow for SNF placement. KIESHA Yen
[2017-06-09] MEDS: 0.9% NaCl Peripheral Flush Adult/Peds IV ×3 (11:54→17:51)
[2017-06-09] MEDS: Famotidine 20 MG Tablet PO (12:17)
[2017-06-09] MEDS: Phenytoin Na 100 MG Capsule PO ×2 (12:17→17:52)
[2017-06-09] MEDS: Acetaminophen 325 MG Tablet 650 MG PO (13:08)
[2017-06-09] MEDS: Midodrine HCl 5 MG Tablet 10 MG PO ×2 (13:09→21:39)
[2017-06-09 13:15] LABS: Bedside Glucose 134 mg/dL (70-110)
[2017-06-09 17:00] LABS: Phenytoin (Dilantin) Level 9.8 mL (10.0-20.0)
[2017-06-09 17:01] LABS: Bedside Glucose 109 mg/dL (70-110)
--- NOTE | 2017-06-09 18:02 | PN_ITS ---
Patient Problems: Active and Suspected Problems ESRD (end stage renal disease) on dialysis (Acute) Unresponsive episode (Acute) Subjective: patient was extubated today. Doing fair. No more episodes of sudden unresponsiveness. Weaning in progress from pressor. - Physical Exam General: Alert, extubated. HEENT: Atraumatic, PERRLA, Normocephalic Oral: Moist Mucosa Neck: Supple, No JVD, Negative Carotid Bruits, Negative Hepatojugular Reflux, No Nodes, No Nuchal Rigidity Lungs: Rales - mid lung cuellar bilaterally., Rhonchi Cardiovascular: Regular rate, Regular Rhythm, Normal S1, Normal S2, No murmurs, No Ectopic Activity Abdomen: Bowel Sounds Present, Soft, Non Tender, Non-Distended, No Hepato- splenomegaly Extremities: No clubbing, No cyanosis, No edema Skin: Wounds to the right buttock appear to be healing pressure injuries. there is a cluster of 3 open areas. tissues pale pink with some yellow slough noted. Musculoskeletal: No Tenderness to Palpation of Joints or Extremities, No Muscle Wasting Lymphatic: No Cervical, Supraclavicular, or Inguinal Adenopathy Neurological: Cranial nerves II-XII grossly intact, Neuro grossly intact Psych/Mental Status: Normal Affect - Physical Exam Vital Signs Temp Pulse Resp BP Pulse Ox 97.8 F 57 L 18 101/52 L 96 06/09/17 16:00 06/09/17 17:00 06/09/17 17:00 06/09/17 17:00 06/09/17 17:00 Oxygen Flow Rate (L/min) 3 Oxygen Delivery Method Nasal Cannula Weight: 144 lb 6.444 oz Body Mass Index (BMI) 30.4 Finger Stick Blood Glucose 100 Intake and Output for Last 24 Hours 06/07/17 06/08/17 06/09/17 23:59 23:59 23:59 Intake Total 930 / 930 724 / 724 379.2 / 379.2 Output Total 380 / 380 1604 / 1604 0 / 0 Balance 550 / 550 -880 / -880 379.2 / 379.2 Microbiology Past 72 Hours 06/07/17 08:27 Gram Stain - Final Sputum, Induced/Lukens Respiratory Culture - Final Mixed normal respiratory chika. No Haemophilus, Streptococcus pneumoniae, beta-hemolytic Streptococcus or Staphylococcus aureus isolated. 06/07/17 07:45 Gram Stain - Final Sputum, Expectorated/Coughed Respiratory Culture - Final Mixed normal respiratory chika. No Haemophilus, Streptococcus pneumoniae, beta-hemolytic Streptococcus or Staphylococcus aureus isolated. 06/08/17 07:45 Blood Culture - Preliminary Blood Culture (Wb) - Central Line 06/06/17 16:45 Blood Culture - Preliminary Blood Culture (Wb) - Dialysis/Fistula No growth in 48 hours. 06/06/17 16:00 Blood Culture - Preliminary Blood Culture (Wb) - Femoral Artery No growth in 48 hours. 06/06/17 12:00 Urine Culture - Final Urine Catheter - Kim Culture exhibits no growth. 06/06/17 11:55 Respiratory Panel (PCR) - Final Mucosa - Nasopharyngeal Laboratory Tests Past 24 Hrs 06/09/17 06/09/17 06/09/17 04:40 04:40 15:35 WBC 9.2 RBC 2.29 L Hgb 8.1 L Hct 25.2 L MCV 110.0 H MCH 35.4 H MCHC 32.1 RDW 15.0 H RDW Differential 58.5 H Plt Count 174 MPV 10.4 Sodium 137 Potassium 3.8 Chloride 96 L Carbon Dioxide 28.0 Anion Gap 13 BUN 36 H Creatinine 2.91 H Estim Creat Clear Calc 18.34 Est GFR (MDRD) Af Amer 21 L Est GFR (MDRD) Non-Af 17 L BUN/Creatinine Ratio 12.4 Glucose 162 H Calcium 7.1 L Phenytoin 9.8 L Free Phenytoin 06/09/17 15:35 WBC RBC Hgb Hct MCV MCH MCHC RDW RDW Differential Plt Count MPV Sodium Potassium Chloride Carbon Dioxide Anion Gap BUN Creatinine Estim Creat Clear Calc Est GFR (MDRD) Af Amer Est GFR (MDRD) Non-Af BUN/Creatinine Ratio Glucose Calcium Phenytoin Free Phenytoin Pending POC Glucose 06/09/17 06/09/17 06/09/17 16:57 13:07 06:25 POC Glucose 109 134 H 149 H 06/09/17 00:57 POC Glucose 187 H Medical Necessity - Tobacco Use Smoking Status: Never smoker Assessment/Plan Active and Suspected Problems ESRD (end stage renal disease) on dialysis (Acute) Unresponsive episode (Acute) This is a 72 years old female patient brought to the emergency room from the dialysis center because of syncopal episode, found to have anemia and hypocalcemia as well as probable pneumonia, went into cardiac arrest ?2 status post CPR in the emergency room and she is being admitted for acute respiratory failure, cardiac arrest, syncope, anemia and probable pneumonia. Patient is a 72 years old female who was brought to ED with an episode of syncope during hemodialysis. She regained consciousness spontaneously, transferred to ED. At there she became unresponsive again with desaturation, presumed respiratory arrest. CPR was given and she was intubated , subsequently admitted to ICU. Soon after, she developed symptomatic bradycardia with hypotension, atropine was given, followed by dopamine drip. Following day, she appeared doing well, extubated later in the morning. However , soon after, she became unresponsive again. ABG was obtained, which was within normal limits. She did not have apparent arrhythmia at that time. Bilious emesis was noted at that time, she was re-intubated for airway protection. #1 status post cardiac/respiratory arrest with bradycardia. She presented initially with unresponsiveness. While she was waiting for bed in ED, she had bradycardia and loss of pulse. She had CPR and epinephrine, regained pulse. At ICU, she had stable unresponsive episodes, but also had bradycardia. She was given atropin, followed by dopamine drip. #2 syncopal / unresponsive episodes. Likely due to seizure. Neurology consult appreciated. EEG showed intermittent sharp waves with epileptogenic potentials. MRI without contrast showed non-specific periventricular white matter ischemic changes, but cannot exclude posterior reversible encephalopathy syndrome (PRES) . Started on loading Dilantin followed by 100 mg IV tid. Follow up with neurology as outpatient. #3 anemia: Patient does have a history of chronic anemia, hemoglobin has been fluctuating anywhere between 9-13 g/dL. Admission hemoglobin is 8.4 g/dL. It is microcytic anemia. At this time, no evidence of active bleeding. Plan: Serum iron, ferritin, TIBC, B12, RBC folate, transfuse if hemoglobin less than 8 g/dL. #4 Probable aspiration pneumonia, S/P acute hypoxic respiratory failure, with underling COPD/chronic respiratory failure. Right mid lung. Zosyn started empirically. She has persisting fever, which has improved today (06/09). WBC normal. She was extubated on 06/09/17, doing well so far. She is on home oxygen 2.5 liter. #5 ESRD. Nephrology is following for HD. #6 type 2 diabetes mellitus: Continue insulin sliding scale. #7 hypertension: She has been hypotensive. She was on Levophed and dopamine, weaning in progress. Midodrine was started for low BP. #8 CAD status post PTCA: Cardiology consulted. No evidence of ACS. #9 chronic atrial fibrillation: After cardiac arrest, heart rate has been around 100, was in A. fib. At home, she is not on any medication for rate control and not on anticoagulation. #10 Pressure ulcer, right buttock. Stage 2. Patient had pressure ulcer at the time of admission, evaluated by wound care nurse. Continue current treatment. Other chronic medical problems: #1 hypothyroidism. #2 GERD. #3 mild aortic stenosis. #4 hyperlipidemia. #5 sleep apnea. #6 severe pulmonary hypertension. #7 diabetic neuropathy. #8 peripheral vascular disease. #9 gastroparesis. VTE prophylaxis: Heparin SQ. GI prophylaxis: H2 nolvia po. Patient is DNRCC -Arrest. Disposition: to be determined. Code Visit Inpatient E&M: 41348 [facility] Hosp L3
[2017-06-09 21:51] LABS: Bedside Glucose 118 mg/dL (70-110)
[2017-06-10] VITALS (27 sets, daily range): BP systolic 91–135; BP diastolic 44–93; PULSE 33–65; RESP 15–23; TEMP 36.3–36.8; O2SAT 93–100
[2017-06-10] MEDS: CHLORHEXIDINE GLUC 2% CLOTH 1 EACH TOWELETTE TOPICAL (01:23)
[2017-06-10] MEDS: Piperacil/Tazobactam 3.375 GM/50 ML ML IV ×3 (01:23→19:02)
[2017-06-10] MEDS: Acetaminophen 325 MG Tablet 650 MG PO (04:20)
[2017-06-10 04:30] LABS: Hematocrit 26.1 % (37-47); Hemoglobin 8.4 g/dl (12.0-15.0); Mean Corp Hgb Conc 32.2 g/gl (32-36); Mean Corpuscular Hgb 35.3 pg (27.0-32.0); Mean Corpuscular Volume 109.7 fL (81-99); Mean Platelet Vol. 10.2 fl (6.2-12.0); Platelet Count 184 K/mm3 (150-450); RBC Distribution Width CV 15.2 % (11.6-14.6); RBC Distribution Width SD 58.9 fl (35.1-43.9); Red Blood Count 2.38 M/mm3 (4.2-5.4); White Blood Count 9.6 K/mm3 (4.4-11.0)
[2017-06-10 04:31] LABS: Scan Indicated on CBC? Y/N NO
[2017-06-10 04:42] LABS: Anion Gap 16 (5-15); BUN 41 mg/dL (7-18); BUN/Creat Ratio 11.9 RATIO (10-20); Calcium,Total 7.1 mg/dL (8.5-10.1); Chloride 98 mmol/L (98-107); Creatinine, Serum 3.45 mg/dL (0.55-1.02); EST Glomerular Filtration Rate 14 mL/min (>60); Est Glom Filt Rate - Afr Amer 17 mL/min (>60); Estimated Creatinine Clearance 15.47 ml/min; Glucose 86 mg/dL (74-106); Potassium 3.8 mmol/L (3.5-5.1); Sodium Level 139 mmol/L (136-145)
[2017-06-10] MEDS: Midodrine HCl 5 MG Tablet 10 MG PO ×3 (06:10→22:52)
--- NOTE | 2017-06-10 06:41 | PN_ITS ---
Subjective: The patient was seen and examined at the bedside this morning. Events from the last 24 hours have been reviewed. The patient is currently afebrile, hemodynamically stable and maintaining appropriate oxygen saturations on 2.5 L. The patient's Levophed was able to be discontinued last evening. She remains bradycardic with heart rate in the 50s. Hemoglobin is stable. The patient will be due for hemodialysis today. She does report a mild degree of shortness of breath this morning. Objective: The patient's most recent lab work, culture data and imaging studies have all been personally reviewed. Respiratory viral panel was negative. Strep and urine Legionella antigens were both negative. Blood and urine cultures have shown no growth to date. Sputum culture appeared to be normal respiratory chika. General: Alert, Cooperative, No apparent distress, - - Hard of hearing HEENT: Atraumatic, PERRLA, Normocephalic Oral: No Gingival or Mucosal Lesions/ Ulcerations Neck: Supple, No Nodes, Trachea Midline Lungs: No rhonchi, No wheeze, No rales, Diminished, - - Poor inspiratory effort Cardiovascular: Normal S1, Normal S2, No murmurs, Irregular Rate Abdomen: Bowel Sounds Present, Soft, Non Tender, Obese Extremities: No clubbing, No cyanosis, Edema, - - Right upper extremity functional fistula in place. Femoral triple lumen catheter in place Skin: - - No significant change from previous Musculoskeletal: No Tenderness to Palpation of Joints or Extremities Lymphatic: No Cervical, Supraclavicular, or Inguinal Adenopathy Neurological: Neuro grossly intact Psych/Mental Status: Flat Affect Vital Signs Temp Pulse Resp BP Pulse Ox 97.4 F L 55 L 18 97/45 L 96 06/10/17 06:00 06/10/17 06:00 06/10/17 06:00 06/10/17 06:00 06/10/17 06:00 Oxygen Flow Rate (L/min) 2.5 Oxygen Delivery Method Nasal Cannula Weight: 142 lb 6.698 oz Body Mass Index (BMI) 30.4 Finger Stick Blood Glucose 100 Intake and Output for Last 24 Hours 06/08/17 06/09/17 06/10/17 23:59 23:59 23:59 Intake Total 724 / 724 545.2 / 545.2 247 / 247 Output Total 1604 / 1604 5 / 5 0 / 0 Balance -880 / -880 540.2 / 540.2 247 / 247 Labs (Last 48 Hours) 06/08/17 06/08/17 06/08/17 04:10 11:26 13:57 WBC RBC Hgb Hct MCV MCH MCHC RDW RDW Differential Plt Count MPV Sodium Potassium Chloride Carbon Dioxide Anion Gap BUN Creatinine Estim Creat Clear Calc Est GFR (MDRD) Af Amer Est GFR (MDRD) Non-Af BUN/Creatinine Ratio Glucose Calcium Total Bilirubin Cancelled 0.90 Direct Bilirubin Cancelled 0.35 H AST Cancelled 28 ALT Cancelled 22 Alkaline Phosphatase Cancelled 107 Total Protein Cancelled 6.9 Albumin Cancelled 2.1 L Globulin Cancelled 4.8 H Phenytoin Free Phenytoin POC Glucose 102 06/08/17 06/09/17 06/09/17 16:11 00:57 04:40 WBC 9.2 RBC 2.29 L Hgb 8.1 L Hct 25.2 L MCV 110.0 H MCH 35.4 H MCHC 32.1 RDW 15.0 H RDW Differential 58.5 H Plt Count 174 MPV 10.4 Sodium Potassium Chloride Carbon Dioxide Anion Gap BUN Creatinine Estim Creat Clear Calc Est GFR (MDRD) Af Amer Est GFR (MDRD) Non-Af BUN/Creatinine Ratio Glucose Calcium Total Bilirubin Direct Bilirubin AST ALT Alkaline Phosphatase Total Protein Albumin Globulin Phenytoin Free Phenytoin POC Glucose 100 187 H 06/09/17 06/09/17 06/09/17 04:40 06:25 13:07 WBC RBC Hgb Hct MCV MCH MCHC RDW RDW Differential Plt Count MPV Sodium 137 Potassium 3.8 Chloride 96 L Carbon Dioxide 28.0 Anion Gap 13 BUN 36 H Creatinine 2.91 H Estim Creat Clear Calc 18.34 Est GFR (MDRD) Af Amer 21 L Est GFR (MDRD) Non-Af 17 L BUN/Creatinine Ratio 12.4 Glucose 162 H Calcium 7.1 L Total Bilirubin Direct Bilirubin AST ALT Alkaline Phosphatase Total Protein Albumin Globulin Phenytoin Free Phenytoin POC Glucose 149 H 134 H 06/09/17 06/09/17 06/09/17 15:35 15:35 16:57 WBC RBC Hgb Hct MCV MCH MCHC RDW RDW Differential Plt Count MPV Sodium Potassium Chloride Carbon Dioxide Anion Gap BUN Creatinine Estim Creat Clear Calc Est GFR (MDRD) Af Amer Est GFR (MDRD) Non-Af BUN/Creatinine Ratio Glucose Calcium Total Bilirubin Direct Bilirubin AST ALT Alkaline Phosphatase Total Protein Albumin Globulin Phenytoin 9.8 L Free Phenytoin Pending POC Glucose 109 06/09/17 06/10/17 06/10/17 21:38 04:20 04:20 WBC 9.6 RBC 2.38 L Hgb 8.4 L Hct 26.1 L MCV 109.7 H MCH 35.3 H MCHC 32.2 RDW 15.2 H RDW Differential 58.9 H Plt Count 184 MPV 10.2 Sodium 139 Potassium 3.8 Chloride 98 Carbon Dioxide 25.0 Anion Gap 16 H BUN 41 H Creatinine 3.45 H Estim Creat Clear Calc 15.47 Est GFR (MDRD) Af Amer 17 L Est GFR (MDRD) Non-Af 14 L BUN/Creatinine Ratio 11.9 Glucose 86 Calcium 7.1 L Total Bilirubin Direct Bilirubin AST ALT Alkaline Phosphatase Total Protein Albumin Globulin Phenytoin Free Phenytoin POC Glucose 118 H Microbiology 06/07/17 08:27 Sputum, Induced/Lukens Gram Stain - Final 06/07/17 08:27 Sputum, Induced/Lukens Respiratory Culture - Final Mixed normal respiratory chika. No Haemophilus, Streptococcus pneumoniae, beta-hemolytic Streptococcus or Staphylococcus aureus isolated. 06/07/17 07:45 Sputum, Expectorated/Coughed Gram Stain - Final 06/07/17 07:45 Sputum, Expectorated/Coughed Respiratory Culture - Final Mixed normal respiratory chika. No Haemophilus, Streptococcus pneumoniae, beta-hemolytic Streptococcus or Staphylococcus aureus isolated. 06/08/17 07:45 Blood Culture (Wb) - Central Line Blood Culture - Preliminary 06/06/17 16:45 Blood Culture (Wb) - Dialysis/Fistula Blood Culture - Preliminary No growth in 48 hours. 06/06/17 16:00 Blood Culture (Wb) - Femoral Artery Blood Culture - Preliminary No growth in 48 hours. 06/06/17 12:00 Urine Catheter - Kim Urine Culture - Final Culture exhibits no growth. Clinical Impression(s) from Imaging Studies Brain CT 06/06/17 07:50 IMPRESSION: Chronic involutional changes. No acute intracranial abnormality. Opacified left maxillary sinus. Electronically Signed: Yehuda Ferguson DO at 9:26 EDT Tel , Service support , Chest X-Ray 06/06/17 07:50 IMPRESSION: Prominent interstitial markings. Patchy airspace disease in the right midlung. This may represent atelectasis or developing pneumonia. Moderate cardiomegaly. Electronically Signed: Yehuda Ferguson DO at 9:33 EDT Tel , Service support , Chest X-Ray 06/06/17 10:30 IMPRESSION: Life support tubes and catheters, as detailed above. No significant change to the appearance of the lungs, with prominent interstitial markings and focal opacity in the right midlung. Small bilateral pleural effusions are seen. Electronically Signed: Yehuda Ferguson DO at 11:20 EDT Tel , Service support , Chest X-Ray 06/07/17 07:36 IMPRESSION: Interval extubation. Improving aeration within the right midlung. Mild interstitial prominence. Electronically Signed: Yehuda Ferguson DO at 11:46 EDT Tel , Service support , Chest X-Ray 06/07/17 08:32 IMPRESSION: The endotracheal tube tip projects approximately 2 cm above the petra. Mild interstitial edema. Small bilateral pleural effusions. Electronically Signed: Yehuda Ferguson DO at 9:36 EDT Tel , Service support , Brain CT 06/07/17 08:33 IMPRESSION: Chronic involutional changes. No acute intracranial abnormality. No significant change from study of 06/06/2017. Electronically Signed: Yehuda Ferguson DO at 10:15 EDT Tel , Service support , Brain MRI 03/27/18 14:24 IMPRESSION: Nonspecific periventricular white matter ischemic changes of uncertain etiology but. Cannot exclude possibility of PRES. Chronic ischemic changes within the martha.. No evidence for acute infarct Electronically Signed: Refugio Vera MD at 17:17 EDT , Service support , Medical Necessity - Tobacco Use Smoking Status: Never smoker Assessment/Plan Active and Suspected Problems ESRD (end stage renal disease) on dialysis (Acute) Unresponsive episode (Acute) RECOMMENDATIONS: 1. Continue Dilantin per neurology recommendations. 2. If the patient tolerates hemodialysis from a blood pressure standpoint, would recommend removal of femoral triple-lumen catheter. 3. Continue midodrine TID 4. Continue antibiotics to complete empiric treatment course 5. Continue sliding scale coverage 6. Continue appropriate ICU prophylaxis with subcu heparin and Pepcid 7. Bradycardia management per cardiology recommendations. 8. If the patient remains clinically stable following dialysis, she could be transferred out of the medical intensive care unit later today. IMPRESSIONS: 1. Acute respiratory failure secondary to cardiac arrest Patient was thought to have respiratory arrest secondary to hypoxemia. Clinical suspicion for decreased perfusion leading to reported desaturation. Patient does have multiple valvular abnormalities complicating overall condition. While in the intensive care unit, patient was noted to have bradycardia without desaturation leading to poor perfusion. The patient was transiently on vasopressor support but has been weaned off. We will plan to continue Midodrin accordingly. The patient is currently a DNR CCA without plans for reintubation. 2. Acute blood loss anemia Patient with heme positive stools and a 4 g drop in hemoglobin since last visit. Patient does have a history of an esophageal tear. Patient has no signs or symptoms of acute upper GI bleed at this time. Likely transfuse to keep hemoglobin greater than 8. 3. End-stage renal disease secondary to uncontrolled diabetes mellitus/ hypertension Continue hemodialysis per nephrology recommendations. If the patient tolerates hemodialysis this morning, would recommend removal of her femoral triple-lumen catheter. 4. Coronary artery disease status post PTCA/hypertension/chronic A. fib/ possible sick sinus syndrome Patient with multiple vascular abnormalities. Cardiology is following. The patient's dopamine/levophed has been discontinued at this time. Continue medical management of the patient's bradycardia per cardiology recommendations. 5. 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 Neurology is following. MRI was completed with findings possibly suggestive of PRES. EEG was completed and demonstrated epileptogenic potential. The patient was subsequently started on Dilantin. 6. COPD/chronic respiratory failure Continue bronchodilators. Wean oxygen as tolerated. 7. CODE STATUS DNR CCA. This was discussed with both the patient's and daughter. There will be plans for no reintubation, once the patient is extubated. This note was generated with [employer] dictation software. It may contain incorrect words, spelling, and punctuation that were not noted in checking the note before signing. Code Visit Inpatient E&M: 15901 [facility] Hosp L3
--- NOTE | 2017-06-10 07:32 | PCM.PN.CARD ---
Subjectve: Patient seen and evaluated. Objective: Vital Signs Temp Pulse Resp BP Pulse Ox 97.4 F L 56 L 15 129/60 H 99 06/10/17 06:00 06/10/17 07:01 06/10/17 07:01 06/10/17 07:01 06/10/17 07:01 Oxygen Flow Rate (L/min) 2.5 Oxygen Delivery Method Nasal Cannula Weight: 142 lb 6.698 oz Body Mass Index (BMI) 30.4 Finger Stick Blood Glucose 100 Intake and Output for Last 24 Hours 06/08/17 06/09/17 06/10/17 23:59 23:59 23:59 Intake Total 724 / 724 545.2 / 545.2 247 / 247 Output Total 1604 / 1604 5 / 5 0 / 0 Balance -880 / -880 540.2 / 540.2 247 / 247 General: Awake, Alert, Oriented x 3 HEENT: PERRL, EOMI, Sclera Non Icteric Neck: Supple, Good ROM, No Lymph Node Enlargement Lungs: Clear to auscultation Cardiovascular: Irregular Rhythm, Normal S1, Normal S2, No Murmurs, No Rubs, No Gallops Vascular: No Carotid Bruits, Normal Femoral Pulses, Normal Radial Pulses, Normal Dorsalis Pedal Pulse, Normal Posterior Tibial Pulses Abdomen: Bowel Sounds Present, Soft, Non Tender, No HSM, No Organomegaly Extremities: No Cyanosis, No Clubbing, No edema Neurological: No Focal Motor or Sensory Deficit 06/10/17 04:20: WBC 9.6, RBC 2.38 L, Hgb 8.4 L, Hct 26.1 L, MCV 109.7 H, MCH 35.3 H, MCHC 32.2, RDW 15.2 H, RDW Differential 58.9 H, Plt Count 184, MPV 10.2 06/10/17 04:20: Sodium 139, Potassium 3.8, Chloride 98, Carbon Dioxide 25.0, Anion Gap 16 H, BUN 41 H, Creatinine 3.45 H, Est GFR (MDRD) Af Amer 17 L, Est GFR (MDRD) Non-Af 14 L, BUN/Creatinine Ratio 11.9, Glucose 86, Calcium 7.1 L Rhythm: EKG: ECHO: Stress Test: Cardiac Cath: PCI: CT Surgery: Holter monitor: EPS: PPM: CXR: Chest CT Scan: Medical Necessity - Tobacco Use Smoking Status: Never smoker Assessment/Plan 1. Atrial fibrillation with periods of asystole The patient has known atrial fibrillation with a controlled ventricular response rate. It is not entirely clear why she is having these periods of asystole at this time. She is not on any rate limiting medications and her potassium and other electrolytes appear to be unremarkable. Her echocardiogram also demonstrates preserved left ventricular ejection fraction. At this time she has been started on low-dose dopamine and out suggest that we observe her for a while on this. I am hesitant to recommend a permanent pacemaker due to her vasculopathy as well as her dialysis status. I reviewed the records from [facility] as well as [facility]. It appears that she did a similar thing over there and it was thought that the bradycardia arrhythmias were secondary to seizure medication. At this point I do not think so and I suspect that it is idiosyncratic. She has been started on Dilantin. We will need to watch the rate as Dilantin may have some negative chronotropic effects as well. We will start her on theophylline 300 mg a day for heart rate response. 2. Valvular heart disease. She does have a history of aortic stenosis which is mild to moderate. At this time it does not appear that she is a candidate to have aortic valve intervention. 3. Coronary artery disease. She does have a history of coronary artery disease status post previous angioplasty and stenting. I do not have an indication that this is coronary in origin. She may also have had a recent cardiac catheterization at the tertiary care hospital and I would not obtain those results and records to have an idea of her coronary status. No cardiac catheterization or intervention is planned at this time. 4. Right ventricular dysfunction. She does have significant right ventricular dysfunction the etiology of which is not entirely clear to me at this time. It may be related to her dialysis state. 5. Hypotension It is unclear why she is so dependent on pressors. Albeit a low dose. On discussion with the nurses this morning the plan is to put her on Levophed for a short period of time and attempt to transition her to midodrine. I think this is a worthwhile goal. Thank you for allowing me to participate in the care of your patient. Please don't hesitate to call if any issues arise above discussed with Dr. Daniel. Her overall prognosis is rather guarded.
--- NOTE | 2017-06-10 07:47 | NURSING ---
HD in progress
[2017-06-10 08:40] LABS: Bedside Glucose 85 mg/dL (70-110)
[2017-06-10] MEDS: Phenytoin Na 100 MG Capsule PO ×3 (11:19→18:22)
[2017-06-10] MEDS: Methylphenidate HCl 5 MG Tablet PO ×2 (11:19→22:53)
--- NOTE | 2017-06-10 11:19 | DIALYSIS ---
Hemodialysis x 2.75hrs today. Patient tolerated tx well. UF -500mL removed, [place] pulled from RUAF stasis of sites achieved dressings applied. Pt stable. Report to JOVAN Azul
[2017-06-10] MEDS: Famotidine 20 MG Tablet PO (11:23)
[2017-06-10 11:26] LABS: Bedside Glucose 81 mg/dL (70-110)
--- NOTE | 2017-06-10 12:49 | CASEMGMT ---
Social Work Phone call to Flory at [facility] and she confirmed that pt can transfer to [facility] over the weekend should pt be medically ready. Phone call to María at [facility] and [facility] results faxed to this and then faxed to [facility]. Transportation form placed on chart. Plan: [facility] when medically ready KIESHA Yen
--- NOTE | 2017-06-10 13:32 | EEG ---
- Electroencephalogram Date of Service: 06/10/17 History EEG is being done in this 72 yr F to rule out seizures EEG Description: This is an 18 channel EEG with 10-20 lead placement system. Bipolar montages, Referential and Circumferential montages were reviewed. Photic stimulation was performed but Hyperventilation was not performed. The posterior dominant background rhythm was not present. Photic stimulation did not elicit normal driving response or abnormal photoparoxysmal response, Hyperventilation was not performed. Sleep was not identified. There is generalized background slowing in the theta frequency range of about 7 Hz. There was no epileptiform discharges or electrographic seizures noted during this recording. EEG Interpretation This is an abnormal EEG due to the presence of mild generalized slowing. This can be seen with generalized cerebral dysfunction. Clinical correlation is advised. There is no epileptiform discharges or electrographic seizures noted during the record.
--- NOTE | 2017-06-10 13:42 | NURSING ---
x3 attempts made to start peripheral IV in LUE and unsuccessful.
--- NOTE | 2017-06-10 14:13 | PCM.PN.BLA ---
Progress Note patient in dialysis today see orders/ flowsheets breathing is ok off pressors BP 134/65 UF as tolerated
[2017-06-10] MEDS: oxyCODONE 5 MG Tablet PO ×2 (15:22→22:53)
[2017-06-10] MEDS: Loperamide 2 MG Capsule 4 MG PO (15:22)
[2017-06-10 15:46] LABS: Bedside Glucose 152 mg/dL (70-110)
--- NOTE | 2017-06-10 15:50 | NURSING ---
Daughter, Lucila called in, gave update and informed her that pt going to PCU 115
--- NOTE | 2017-06-10 19:21 | PCM.PROGNOTE ---
Patient Problems: Active and Suspected Problems ESRD (end stage renal disease) on dialysis (Acute) Unresponsive episode (Acute) Subjective: She is doing fair. She had developed diarrhea. - Physical Exam General: Alert, extubated. HEENT: Atraumatic, PERRLA, Normocephalic Oral: Moist Mucosa Neck: Supple, No JVD, Negative Carotid Bruits, Negative Hepatojugular Reflux, No Nodes, No Nuchal Rigidity Lungs: Rales - mid lung cuellar bilaterally., Rhonchi Cardiovascular: Regular rate, Regular Rhythm, Normal S1, Normal S2, No murmurs, No Ectopic Activity Abdomen: Bowel Sounds Present, Soft, Non Tender, Non-Distended, No Hepato-splenomegaly Extremities: No clubbing, No cyanosis, No edema Skin: Wounds to the right buttock appear to be healing pressure injuries. there is a cluster of 3 open areas. tissues pale pink with some yellow slough noted. Musculoskeletal: No Tenderness to Palpation of Joints or Extremities, No Muscle Wasting Lymphatic: No Cervical, Supraclavicular, or Inguinal Adenopathy Neurological: Cranial nerves II-XII grossly intact, Neuro grossly intact Psych/Mental Status: Normal Affect - Physical Exam Vital Signs Temp Pulse Resp BP Pulse Ox 98.2 F 59 L 18 124/72 H 98 06/10/17 18:06 06/10/17 18:06 06/10/17 18:06 06/10/17 18:06 06/10/17 18:06 Oxygen Flow Rate (L/min) 4 Oxygen Delivery Method Nasal Cannula Weight: 142 lb 6.698 oz Body Mass Index (BMI) 30.4 Finger Stick Blood Glucose 100 Intake and Output for Last 24 Hours 06/08/17 06/09/17 06/10/17 23:59 23:59 23:59 Intake Total 724 / 724 545.2 / 545.2 584 / 584 Output Total 1604 / 1604 5 / 5 0 / 0 Balance -880 / -880 540.2 / 540.2 584 / 584 Microbiology Past 72 Hours 06/10/17 14:00 C. difficile DNA Amplification - Final Stool 06/08/17 07:45 Blood Culture - Preliminary Blood Culture (Wb) - Central Line No growth in 48 hours. 06/07/17 08:27 Gram Stain - Final Sputum, Induced/Lukens Respiratory Culture - Final Mixed normal respiratory chika. No Haemophilus, Streptococcus pneumoniae, beta-hemolytic Streptococcus or Staphylococcus aureus isolated. 06/07/17 07:45 Gram Stain - Final Sputum, Expectorated/Coughed Respiratory Culture - Final Mixed normal respiratory chika. No Haemophilus, Streptococcus pneumoniae, beta-hemolytic Streptococcus or Staphylococcus aureus isolated. 06/06/17 16:45 Blood Culture - Preliminary Blood Culture (Wb) - Dialysis/Fistula No growth in 48 hours. 06/06/17 16:00 Blood Culture - Preliminary Blood Culture (Wb) - Femoral Artery No growth in 48 hours. 06/06/17 12:00 Urine Culture - Final Urine Catheter - Kim Culture exhibits no growth. Laboratory Tests Past 24 Hrs 06/06/17 06/10/17 06/10/17 16:00 04:20 04:20 WBC 9.6 RBC 2.38 L Hgb 8.4 L Hct 26.1 L MCV 109.7 H MCH 35.3 H MCHC 32.2 RDW 15.2 H RDW Differential 58.9 H Plt Count 184 MPV 10.2 Sodium 139 Potassium 3.8 Chloride 98 Carbon Dioxide 25.0 Anion Gap 16 H BUN 41 H Creatinine 3.45 H Estim Creat Clear Calc 15.47 Est GFR (MDRD) Af Amer 17 L Est GFR (MDRD) Non-Af 14 L BUN/Creatinine Ratio 11.9 Glucose 86 Calcium 7.1 L RBC Folate Hemolysate RBC Folate Not Reportable Hematocrit Not Reportable POC Glucose 06/10/17 06/10/17 06/10/17 15:39 11:17 08:33 POC Glucose 152 H 81 85 06/09/17 21:38 POC Glucose 118 H Diagnostic Data Chest X-Ray 06/07/17 08:32 IMPRESSION: The endotracheal tube tip projects approximately 2 cm above the petra. Mild interstitial edema. Small bilateral pleural effusions. Electronically Signed: Yehuda Ferguson DO at 9:36 EDT Tel , Service support , Brain CT 06/07/17 08:33 IMPRESSION: Chronic involutional changes. No acute intracranial abnormality. No significant change from study of 06/06/2017. Electronically Signed: Yehuda Ferguson DO at 10:15 EDT Tel , Service support , Brain MRI 06/07/17 14:24 IMPRESSION: Nonspecific periventricular white matter ischemic changes of uncertain etiology but. Cannot exclude possibility of PRES. Chronic ischemic changes within the martha.. No evidence for acute infarct Electronically Signed: Refugio Vera MD at 17:17 EDT , Service support , Medical Necessity - Tobacco Use Smoking Status: Never smoker Assessment/Plan Active and Suspected Problems ESRD (end stage renal disease) on dialysis (Acute) Unresponsive episode (Acute) This is a 72 years old female patient brought to the emergency room from the dialysis center because of syncopal episode, found to have anemia and hypocalcemia as well as probable pneumonia, went into cardiac arrest ?2 status post CPR in the emergency room and she is being admitted for acute respiratory failure, cardiac arrest, syncope, anemia and probable pneumonia. Patient is a 72 years old female who was brought to ED with an episode of syncope during hemodialysis. She regained consciousness spontaneously, transferred to ED. At there she became unresponsive again with desaturation, presumed respiratory arrest. CPR was given and she was intubated, subsequently admitted to ICU. Soon after, she developed symptomatic bradycardia with hypotension, atropine was given, followed by dopamine drip. Following day, she appeared doing well, extubated later in the morning. However, soon after, she became unresponsive again. ABG was obtained, which was within normal limits. She did not have apparent arrhythmia at that time. Bilious emesis was noted at that time, she was re-intubated for airway protection. on 06/09, she was extubated, doing well. on 06/10, she was transferred out of ICU to PCU. She had developed diarrhea, c. diff negative. #1 status post cardiac/respiratory arrest with bradycardia. She presented initially with unresponsiveness. While she was waiting for bed in ED, she had bradycardia and loss of pulse. She had CPR and epinephrine, regained pulse. At ICU, she had stable unresponsive episodes, but also had bradycardia. She was given atropin, followed by dopamine drip. #2 syncopal / unresponsive episodes. Likely due to seizure. Neurology consult appreciated. EEG showed intermittent sharp waves with epileptogenic potentials. MRI without contrast showed non-specific periventricular white matter ischemic changes, but cannot exclude posterior reversible encephalopathy syndrome (PRES). Started on loading Dilantin followed by 100 mg IV tid. Follow up with neurology as outpatient. #3 anemia: Patient does have a history of chronic anemia, hemoglobin has been fluctuating anywhere between 9-13 g/dL. Admission hemoglobin is 8.4 g/dL. It is microcytic anemia. At this time, no evidence of active bleeding. Iron nomral, ferritin is high, but low TIBC. Normal iron saturation. Finding consistent with anemia of CKD / chronic illness. #4 Probable aspiration pneumonia, S/P acute hypoxic respiratory failure, with underling COPD/chronic respiratory failure. Right mid lung infiltrate. Zosyn started empirically. She has persisting fever, which has improved on 06/09. WBC normal. She was extubated on 06/09/17, doing well so far. She is on home oxygen 2.5 liter. #5 ESRD. Nephrology is following for HD, . #6 type 2 diabetes mellitus: Continue insulin sliding scale. #7 hypertension: She has been hypotensive. She was on Levophed and dopamine, weaning in progress. Midodrine was started for low BP. #8 CAD status post PTCA: Cardiology consulted. No evidence of ACS. #9 chronic atrial fibrillation: After cardiac arrest, heart rate has been around 100, was in A. fib. At home, she is not on any medication for rate control and not on anticoagulation. #10 Pressure ulcer, right buttock. Stage 2. Patient had pressure ulcer at the time of admission, evaluated by wound care nurse. Continue current treatment. #11 Seizure disorder. See #2. #12 Diarrhea. C. Diff negative on 06/10. Etiology is not clear, but possibly due to antibiotics related diarrhea. Antidiarrheal was given x 1. Other chronic medical problems: #1 hypothyroidism. #2 GERD. #3 mild aortic stenosis. #4 hyperlipidemia. #5 sleep apnea. #6 severe pulmonary hypertension. #7 diabetic neuropathy. #8 peripheral vascular disease. #9 gastroparesis. VTE prophylaxis: Heparin SQ. GI prophylaxis: H2 nolvia po. Patient is DNRCC -Arrest. Disposition: to be determined. Code Visit Inpatient E&M: 45783 Subs Hosp L3
--- NOTE | 2017-06-10 19:27 | PN_ITS ---
Patient Problems: Active and Suspected Problems ESRD (end stage renal disease) on dialysis (Acute) Unresponsive episode (Acute) Subjective: She is doing fair. She had developed diarrhea. - Physical Exam General: Alert, extubated. HEENT: Atraumatic, PERRLA, Normocephalic Oral: Moist Mucosa Neck: Supple, No JVD, Negative Carotid Bruits, Negative Hepatojugular Reflux, No Nodes, No Nuchal Rigidity Lungs: Rales - mid lung cuellar bilaterally., Rhonchi Cardiovascular: Regular rate, Regular Rhythm, Normal S1, Normal S2, No murmurs, No Ectopic Activity Abdomen: Bowel Sounds Present, Soft, Non Tender, Non-Distended, No Hepato- splenomegaly Extremities: No clubbing, No cyanosis, No edema Skin: Wounds to the right buttock appear to be healing pressure injuries. there is a cluster of 3 open areas. tissues pale pink with some yellow slough noted. Musculoskeletal: No Tenderness to Palpation of Joints or Extremities, No Muscle Wasting Lymphatic: No Cervical, Supraclavicular, or Inguinal Adenopathy Neurological: Cranial nerves II-XII grossly intact, Neuro grossly intact Psych/Mental Status: Normal Affect - Physical Exam Vital Signs Temp Pulse Resp BP Pulse Ox 98.2 F 59 L 18 124/72 H 98 06/10/17 18:06 06/10/17 18:06 06/10/17 18:06 06/10/17 18:06 06/10/17 18:06 Oxygen Flow Rate (L/min) 4 Oxygen Delivery Method Nasal Cannula Weight: 142 lb 6.698 oz Body Mass Index (BMI) 30.4 Finger Stick Blood Glucose 100 Intake and Output for Last 24 Hours 06/08/17 06/09/17 06/10/17 23:59 23:59 23:59 Intake Total 724 / 724 545.2 / 545.2 584 / 584 Output Total 1604 / 1604 5 / 5 0 / 0 Balance -880 / -880 540.2 / 540.2 584 / 584 Microbiology Past 72 Hours 06/10/17 14:00 C. difficile DNA Amplification - Final Stool 06/08/17 07:45 Blood Culture - Preliminary Blood Culture (Wb) - Central Line No growth in 48 hours. 06/07/17 08:27 Gram Stain - Final Sputum, Induced/Lukens Respiratory Culture - Final Mixed normal respiratory chika. No Haemophilus, Streptococcus pneumoniae, beta-hemolytic Streptococcus or Staphylococcus aureus isolated. 06/07/17 07:45 Gram Stain - Final Sputum, Expectorated/Coughed Respiratory Culture - Final Mixed normal respiratory chika. No Haemophilus, Streptococcus pneumoniae, beta-hemolytic Streptococcus or Staphylococcus aureus isolated. 06/06/17 16:45 Blood Culture - Preliminary Blood Culture (Wb) - Dialysis/Fistula No growth in 48 hours. 06/06/17 16:00 Blood Culture - Preliminary Blood Culture (Wb) - Femoral Artery No growth in 48 hours. 06/06/17 12:00 Urine Culture - Final Urine Catheter - Kim Culture exhibits no growth. Laboratory Tests Past 24 Hrs 06/06/17 06/10/17 06/10/17 16:00 04:20 04:20 WBC 9.6 RBC 2.38 L Hgb 8.4 L Hct 26.1 L MCV 109.7 H MCH 35.3 H MCHC 32.2 RDW 15.2 H RDW Differential 58.9 H Plt Count 184 MPV 10.2 Sodium 139 Potassium 3.8 Chloride 98 Carbon Dioxide 25.0 Anion Gap 16 H BUN 41 H Creatinine 3.45 H Estim Creat Clear Calc 15.47 Est GFR (MDRD) Af Amer 17 L Est GFR (MDRD) Non-Af 14 L BUN/Creatinine Ratio 11.9 Glucose 86 Calcium 7.1 L RBC Folate Hemolysate RBC Folate Not Reportable Hematocrit Not Reportable POC Glucose 06/10/17 06/10/17 06/10/17 15:39 11:17 08:33 POC Glucose 152 H 81 85 06/09/17 21:38 POC Glucose 118 H Diagnostic Data Chest X-Ray 06/07/17 08:32 IMPRESSION: The endotracheal tube tip projects approximately 2 cm above the petra. Mild interstitial edema. Small bilateral pleural effusions. Electronically Signed: Yehuda Ferguson DO at 9:36 EDT Tel , Service support , Brain CT 06/07/17 08:33 IMPRESSION: Chronic involutional changes. No acute intracranial abnormality. No significant change from study of 06/06/2017. Electronically Signed: Yehuda Ferguson DO at 10:15 EDT Tel , Service support , Brain MRI 06/07/17 14:24 IMPRESSION: Nonspecific periventricular white matter ischemic changes of uncertain etiology but. Cannot exclude possibility of PRES. Chronic ischemic changes within the martha.. No evidence for acute infarct Electronically Signed: Refugio Vera MD at 17:17 EDT , Service support , Medical Necessity - Tobacco Use Smoking Status: Never smoker Assessment/Plan Active and Suspected Problems ESRD (end stage renal disease) on dialysis (Acute) Unresponsive episode (Acute) This is a 72 years old female patient brought to the emergency room from the dialysis center because of syncopal episode, found to have anemia and hypocalcemia as well as probable pneumonia, went into cardiac arrest ?2 status post CPR in the emergency room and she is being admitted for acute respiratory failure, cardiac arrest, syncope, anemia and probable pneumonia. Patient is a 72 years old female who was brought to ED with an episode of syncope during hemodialysis. She regained consciousness spontaneously, transferred to ED. At there she became unresponsive again with desaturation, presumed respiratory arrest. CPR was given and she was intubated , subsequently admitted to ICU. Soon after, she developed symptomatic bradycardia with hypotension, atropine was given, followed by dopamine drip. Following day, she appeared doing well, extubated later in the morning. However , soon after, she became unresponsive again. ABG was obtained, which was within normal limits. She did not have apparent arrhythmia at that time. Bilious emesis was noted at that time, she was re-intubated for airway protection. on 06/09, she was extubated, doing well. on 06/10, she was transferred out of ICU to PCU. She had developed diarrhea, c. diff negative. #1 status post cardiac/respiratory arrest with bradycardia. She presented initially with unresponsiveness. While she was waiting for bed in ED, she had bradycardia and loss of pulse. She had CPR and epinephrine, regained pulse. At ICU, she had stable unresponsive episodes, but also had bradycardia. She was given atropin, followed by dopamine drip. #2 syncopal / unresponsive episodes. Likely due to seizure. Neurology consult appreciated. EEG showed intermittent sharp waves with epileptogenic potentials. MRI without contrast showed non-specific periventricular white matter ischemic changes, but cannot exclude posterior reversible encephalopathy syndrome (PRES) . Started on loading Dilantin followed by 100 mg IV tid. Follow up with neurology as outpatient. #3 anemia: Patient does have a history of chronic anemia, hemoglobin has been fluctuating anywhere between 9-13 g/dL. Admission hemoglobin is 8.4 g/dL. It is microcytic anemia. At this time, no evidence of active bleeding. Iron nomral, ferritin is high, but low TIBC. Normal iron saturation. Finding consistent with anemia of CKD / chronic illness. #4 Probable aspiration pneumonia, S/P acute hypoxic respiratory failure, with underling COPD/chronic respiratory failure. Right mid lung infiltrate. Zosyn started empirically. She has persisting fever, which has improved on 06/09. WBC normal. She was extubated on 06/09/17, doing well so far. She is on home oxygen 2.5 liter. #5 ESRD. Nephrology is following for HD, . #6 type 2 diabetes mellitus: Continue insulin sliding scale. #7 hypertension: She has been hypotensive. She was on Levophed and dopamine, weaning in progress. Midodrine was started for low BP. #8 CAD status post PTCA: Cardiology consulted. No evidence of ACS. #9 chronic atrial fibrillation: After cardiac arrest, heart rate has been around 100, was in A. fib. At home, she is not on any medication for rate control and not on anticoagulation. #10 Pressure ulcer, right buttock. Stage 2. Patient had pressure ulcer at the time of admission, evaluated by wound care nurse. Continue current treatment. #11 Seizure disorder. See #2. #12 Diarrhea. C. Diff negative on 06/10. Etiology is not clear, but possibly due to antibiotics related diarrhea. Antidiarrheal was given x 1. Other chronic medical problems: #1 hypothyroidism. #2 GERD. #3 mild aortic stenosis. #4 hyperlipidemia. #5 sleep apnea. #6 severe pulmonary hypertension. #7 diabetic neuropathy. #8 peripheral vascular disease. #9 gastroparesis. VTE prophylaxis: Heparin SQ. GI prophylaxis: H2 nolvia po. Patient is DNRCC -Arrest. Disposition: to be determined. Code Visit Inpatient E&M: 08426 Subs Hosp L3
[2017-06-10 23:30] LABS: Bedside Glucose 107 mg/dL (70-110)
[2017-06-11] VITALS (12 sets, daily range): BP systolic 102–136; BP diastolic 50–95; PULSE 45–69; RESP 14–20; TEMP 35.9–37; O2SAT 99–100
[2017-06-11] MEDS: Piperacil/Tazobactam 3.375 GM/50 ML ML IV ×3 (01:44→18:13)
[2017-06-11 06:56] LABS: Bedside Glucose 88 mg/dL (70-110)
[2017-06-11 06:57] LABS: Hematocrit 27.7 % (37-47); Hemoglobin 8.7 g/dl (12.0-15.0); Mean Corp Hgb Conc 31.4 g/gl (32-36); Mean Corpuscular Hgb 33.9 pg (27.0-32.0); Mean Corpuscular Volume 107.8 fL (81-99); Mean Platelet Vol. 10.4 fl (6.2-12.0); Platelet Count 211 K/mm3 (150-450); RBC Distribution Width CV 15.8 % (11.6-14.6); RBC Distribution Width SD 62.3 fl (35.1-43.9); Red Blood Count 2.57 M/mm3 (4.2-5.4); White Blood Count 9.1 K/mm3 (4.4-11.0)
[2017-06-11 06:58] LABS: Scan Indicated on CBC? Y/N NO
[2017-06-11] MEDS: Acetaminophen 325 MG Tablet 650 MG PO (06:58)
[2017-06-11] MEDS: Midodrine HCl 5 MG Tablet 10 MG PO ×2 (06:59→22:16)
[2017-06-11 07:08] LABS: Anion Gap 15 (5-15); BUN 25 mg/dL (7-18); BUN/Creat Ratio 9.2 RATIO (10-20); Calcium,Total 7.2 mg/dL (8.5-10.1); Chloride 99 mmol/L (98-107); Creatinine, Serum 2.72 mg/dL (0.55-1.02); EST Glomerular Filtration Rate 18 mL/min (>60); Est Glom Filt Rate - Afr Amer 22 mL/min (>60); Estimated Creatinine Clearance 18.99 ml/min; Glucose 72 mg/dL (74-106); Potassium 3.6 mmol/L (3.5-5.1); Sodium Level 136 mmol/L (136-145)
--- NOTE | 2017-06-11 07:36 | PCM.PROGNOTE ---
Patient Problems: Active and Suspected Problems ESRD (end stage renal disease) on dialysis (Acute) Unresponsive episode (Acute) Subjective: The patient was seen and examined at the bedside this morning. Events from the last 24 hours have been reviewed. The patient is currently afebrile, hemodynamically stable and maintaining appropriate oxygen saturations on 4 L/min via nasal cannula. The patient remains bradycardic with heart rates in the 50s. She did undergo hemodialysis yesterday. Repeat EEG completed yesterday revealed only mild generalized slowing without epileptiform discharges or electrographic seizures noted. Free phenytoin level still pending. The patient does have some residual chest pain from having received CPR previously. Femoral triple-lumen catheter was removed yesterday. Objective: The patient's most recent lab work, culture data and imaging studies have all been personally reviewed. Respiratory viral panel was negative. Strep and urine Legionella antigens were both negative. Blood and urine cultures have shown no growth to date. Sputum culture appeared to be normal respiratory chika. - Physical Exam General: Alert, Cooperative, No apparent distress HEENT: Atraumatic, PERRLA, Normocephalic Oral: No Gingival or Mucosal Lesions/ Ulcerations Neck: Supple, No Nodes, Trachea Midline Lungs: No wheeze, No rales, Diminished, Rhonchi Cardiovascular: Normal S1, Normal S2, No murmurs, Bradycardic Abdomen: Bowel Sounds Present, Soft, Non Tender Extremities: No clubbing, No cyanosis, No edema Skin: - - No significant change from previous. Musculoskeletal: No Tenderness to Palpation of Joints or Extremities Lymphatic: No Cervical, Supraclavicular, or Inguinal Adenopathy Neurological: Neuro grossly intact Psych/Mental Status: Flat Affect Vital Signs Temp Pulse Resp BP Pulse Ox 97.8 F 53 L 20 H 109/64 99 06/11/17 03:52 06/11/17 03:52 06/11/17 03:52 06/11/17 03:52 06/11/17 07:03 Oxygen Flow Rate (L/min) 4 Oxygen Delivery Method Nasal Cannula Weight: 139 lb 12.369 oz Body Mass Index (BMI) 30.4 Finger Stick Blood Glucose 100 Intake and Output for Last 24 Hours 06/09/17 06/10/17 06/11/17 23:59 23:59 23:59 Intake Total 545.2 / 545.2 734 / 734 100 / 100 Output Total 5 / 5 0 / 0 0 / 0 Balance 540.2 / 540.2 734 / 734 100 / 100 Microbiology Past 72 Hours 06/10/17 14:00 C. difficile DNA Amplification - Final Stool 06/08/17 07:45 Blood Culture - Preliminary Blood Culture (Wb) - Central Line No growth in 48 hours. 06/07/17 08:27 Gram Stain - Final Sputum, Induced/Lukens Respiratory Culture - Final Mixed normal respiratory chika. No Haemophilus, Streptococcus pneumoniae, beta-hemolytic Streptococcus or Staphylococcus aureus isolated. 06/07/17 07:45 Gram Stain - Final Sputum, Expectorated/Coughed Respiratory Culture - Final Mixed normal respiratory chika. No Haemophilus, Streptococcus pneumoniae, beta-hemolytic Streptococcus or Staphylococcus aureus isolated. 06/06/17 16:45 Blood Culture - Preliminary Blood Culture (Wb) - Dialysis/Fistula No growth in 48 hours. 06/06/17 16:00 Blood Culture - Preliminary Blood Culture (Wb) - Femoral Artery No growth in 48 hours. 06/06/17 12:00 Urine Culture - Final Urine Catheter - Kim Culture exhibits no growth. Laboratory Tests Past 24 Hrs 06/06/17 06/11/17 06/11/17 16:00 06:00 06:00 WBC 9.1 RBC 2.57 L Hgb 8.7 L Hct 27.7 L MCV 107.8 H MCH 33.9 H MCHC 31.4 L RDW 15.8 H RDW Differential 62.3 H Plt Count 211 MPV 10.4 Sodium 136 Potassium 3.6 Chloride 99 Carbon Dioxide 22.0 Anion Gap 15 BUN 25 H Creatinine 2.72 H Estim Creat Clear Calc 18.99 Est GFR (MDRD) Af Amer 22 L Est GFR (MDRD) Non-Af 18 L BUN/Creatinine Ratio 9.2 L Glucose 72 L Calcium 7.2 L RBC Folate Hemolysate RBC Folate Not Reportable Hematocrit Not Reportable POC Glucose 06/11/17 06/10/17 06/10/17 06:51 23:07 15:39 POC Glucose 88 107 152 H 06/10/17 06/10/17 11:17 08:33 POC Glucose 81 85 Clinical Impression(s) from Imaging Studies Brain CT 06/06/17 07:50 IMPRESSION: Chronic involutional changes. No acute intracranial abnormality. Opacified left maxillary sinus. Electronically Signed: Yehuda Ferguson DO at 9:26 EDT Tel , Service support , Chest X-Ray 06/06/17 07:50 IMPRESSION: Prominent interstitial markings. Patchy airspace disease in the right midlung. This may represent atelectasis or developing pneumonia. Moderate cardiomegaly. Electronically Signed: Yehuda Ferguson DO at 9:33 EDT Tel , Service support , Chest X-Ray 06/06/17 10:30 IMPRESSION: Life support tubes and catheters, as detailed above. No significant change to the appearance of the lungs, with prominent interstitial markings and focal opacity in the right midlung. Small bilateral pleural effusions are seen. Electronically Signed: Yehuda Ferguson DO at 11:20 EDT Tel , Service support , Chest X-Ray 06/07/17 07:36 IMPRESSION: Interval extubation. Improving aeration within the right midlung. Mild interstitial prominence. Electronically Signed: Yehuda Ferguson DO at 11:46 EDT Tel , Service support , Chest X-Ray 06/07/17 08:32 IMPRESSION: The endotracheal tube tip projects approximately 2 cm above the petra. Mild interstitial edema. Small bilateral pleural effusions. Electronically Signed: Yehuda Ferguson DO at 9:36 EDT Tel , Service support , Brain CT 06/07/17 08:33 IMPRESSION: Chronic involutional changes. No acute intracranial abnormality. No significant change from study of 06/06/2017. Electronically Signed: Yehuda Ferguson DO at 10:15 EDT Tel , Service support , Brain MRI 06/07/17 14:24 IMPRESSION: Nonspecific periventricular white matter ischemic changes of uncertain etiology but. Cannot exclude possibility of PRES. Chronic ischemic changes within the martha.. No evidence for acute infarct Electronically Signed: Refugio Vera MD at 17:17 EDT , Service support , Medical Necessity - Tobacco Use Smoking Status: Never smoker Assessment/Plan Active and Suspected Problems ESRD (end stage renal disease) on dialysis (Acute) Unresponsive episode (Acute) RECOMMENDATIONS: 1. Continue Dilantin per neurology recommendations. Awaiting free phenytoin level. 2. Continue hemodialysis per nephrology recommendations. 3. Continue midodrine TID 4. Continue antibiotics to complete empiric treatment course 5. Continue sliding scale coverage 6. Bradycardia management per cardiology recommendations. IMPRESSIONS: 1. Acute respiratory failure secondary to cardiac arrest Patient was thought to have respiratory arrest secondary to hypoxemia. Clinical suspicion for decreased perfusion leading to reported desaturation. Patient does have multiple valvular abnormalities complicating overall condition. While in the intensive care unit, patient was noted to have bradycardia without desaturation leading to poor perfusion. The patient was transiently on vasopressor support but has been weaned off. We will plan to continue Midodrin accordingly. The patient is currently a DNR CCA without plans for reintubation. Her hospital course was also complicated by presumptive aspiration pneumonia, for which she is currently on antibiotics. We will plan to continue to wean supplemental oxygen to maintain saturations at or above 90%. Encourage incentive spirometer use and mobilize patient as tolerated. 2. End-stage renal disease secondary to uncontrolled diabetes mellitus/hypertension Continue hemodialysis per nephrology recommendations. 3. Coronary artery disease status post PTCA/hypertension/chronic A. fib/possible sick sinus syndrome Patient with multiple vascular abnormalities. Cardiology is following. The patient's dopamine/levophed has been discontinued at this time. Continue medical management of the patient's bradycardia per cardiology recommendations. Continue Midodrine as scheduled. 4. 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 Neurology is following. MRI was completed with findings possibly suggestive of PRES. EEG was completed and demonstrated epileptogenic potential. The patient was subsequently started on Dilantin with subsequent improvement noted. Free Dilantin level is currently pending. 5. COPD/chronic respiratory failure Continue bronchodilators. Wean oxygen as tolerated. 6. CODE STATUS DNR CCA without intubation. This has been discussed with both the patient and her family members. This note was generated with [employer] dictation software. It may contain incorrect words, spelling, and punctuation that were not noted in checking the note before signing. Code Visit Inpatient E&M: 43275 Subs Hosp L2
--- NOTE | 2017-06-11 07:39 | PN_ITS ---
Patient Problems: Active and Suspected Problems ESRD (end stage renal disease) on dialysis (Acute) Unresponsive episode (Acute) Subjective: The patient was seen and examined at the bedside this morning. Events from the last 24 hours have been reviewed. The patient is currently afebrile, hemodynamically stable and maintaining appropriate oxygen saturations on 4 L/ min via nasal cannula. The patient remains bradycardic with heart rates in the 50s. She did undergo hemodialysis yesterday. Repeat EEG completed yesterday revealed only mild generalized slowing without epileptiform discharges or electrographic seizures noted. Free phenytoin level still pending. The patient does have some residual chest pain from having received CPR previously. Femoral triple-lumen catheter was removed yesterday. Objective: The patient's most recent lab work, culture data and imaging studies have all been personally reviewed. Respiratory viral panel was negative. Strep and urine Legionella antigens were both negative. Blood and urine cultures have shown no growth to date. Sputum culture appeared to be normal respiratory chika. - Physical Exam General: Alert, Cooperative, No apparent distress HEENT: Atraumatic, PERRLA, Normocephalic Oral: No Gingival or Mucosal Lesions/ Ulcerations Neck: Supple, No Nodes, Trachea Midline Lungs: No wheeze, No rales, Diminished, Rhonchi Cardiovascular: Normal S1, Normal S2, No murmurs, Bradycardic Abdomen: Bowel Sounds Present, Soft, Non Tender Extremities: No clubbing, No cyanosis, No edema Skin: - - No significant change from previous. Musculoskeletal: No Tenderness to Palpation of Joints or Extremities Lymphatic: No Cervical, Supraclavicular, or Inguinal Adenopathy Neurological: Neuro grossly intact Psych/Mental Status: Flat Affect Vital Signs Temp Pulse Resp BP Pulse Ox 97.8 F 53 L 20 H 109/64 99 06/11/17 03:52 06/11/17 03:52 06/11/17 03:52 06/11/17 03:52 06/11/17 07:03 Oxygen Flow Rate (L/min) 4 Oxygen Delivery Method Nasal Cannula Weight: 139 lb 12.369 oz Body Mass Index (BMI) 30.4 Finger Stick Blood Glucose 100 Intake and Output for Last 24 Hours 06/09/17 06/10/17 06/11/17 23:59 23:59 23:59 Intake Total 545.2 / 545.2 734 / 734 100 / 100 Output Total 5 / 5 0 / 0 0 / 0 Balance 540.2 / 540.2 734 / 734 100 / 100 Microbiology Past 72 Hours 06/10/17 14:00 C. difficile DNA Amplification - Final Stool 06/08/17 07:45 Blood Culture - Preliminary Blood Culture (Wb) - Central Line No growth in 48 hours. 06/07/17 08:27 Gram Stain - Final Sputum, Induced/Lukens Respiratory Culture - Final Mixed normal respiratory chika. No Haemophilus, Streptococcus pneumoniae, beta-hemolytic Streptococcus or Staphylococcus aureus isolated. 06/07/17 07:45 Gram Stain - Final Sputum, Expectorated/Coughed Respiratory Culture - Final Mixed normal respiratory chika. No Haemophilus, Streptococcus pneumoniae, beta-hemolytic Streptococcus or Staphylococcus aureus isolated. 06/06/17 16:45 Blood Culture - Preliminary Blood Culture (Wb) - Dialysis/Fistula No growth in 48 hours. 06/06/17 16:00 Blood Culture - Preliminary Blood Culture (Wb) - Femoral Artery No growth in 48 hours. 06/06/17 12:00 Urine Culture - Final Urine Catheter - Kim Culture exhibits no growth. Laboratory Tests Past 24 Hrs 06/06/17 06/11/17 06/11/17 16:00 06:00 06:00 WBC 9.1 RBC 2.57 L Hgb 8.7 L Hct 27.7 L MCV 107.8 H MCH 33.9 H MCHC 31.4 L RDW 15.8 H RDW Differential 62.3 H Plt Count 211 MPV 10.4 Sodium 136 Potassium 3.6 Chloride 99 Carbon Dioxide 22.0 Anion Gap 15 BUN 25 H Creatinine 2.72 H Estim Creat Clear Calc 18.99 Est GFR (MDRD) Af Amer 22 L Est GFR (MDRD) Non-Af 18 L BUN/Creatinine Ratio 9.2 L Glucose 72 L Calcium 7.2 L RBC Folate Hemolysate RBC Folate Not Reportable Hematocrit Not Reportable POC Glucose 06/11/17 06/10/17 06/10/17 06:51 23:07 15:39 POC Glucose 88 107 152 H 06/10/17 06/10/17 11:17 08:33 POC Glucose 81 85 Clinical Impression(s) from Imaging Studies Brain CT 06/06/17 07:50 IMPRESSION: Chronic involutional changes. No acute intracranial abnormality. Opacified left maxillary sinus. Electronically Signed: Yehuda Ferguson DO at 9:26 EDT Tel , Service support , Chest X-Ray 06/06/17 07:50 IMPRESSION: Prominent interstitial markings. Patchy airspace disease in the right midlung. This may represent atelectasis or developing pneumonia. Moderate cardiomegaly. Electronically Signed: Yehuda Ferguson DO at 9:33 EDT Tel , Service support , Chest X-Ray 06/06/17 10:30 IMPRESSION: Life support tubes and catheters, as detailed above. No significant change to the appearance of the lungs, with prominent interstitial markings and focal opacity in the right midlung. Small bilateral pleural effusions are seen. Electronically Signed: Yehuda Ferguson DO at 11:20 EDT Tel , Service support , Chest X-Ray 06/07/17 07:36 IMPRESSION: Interval extubation. Improving aeration within the right midlung. Mild interstitial prominence. Electronically Signed: Yehuda Ferguson DO at 11:46 EDT Tel , Service support , Chest X-Ray 06/07/17 08:32 IMPRESSION: The endotracheal tube tip projects approximately 2 cm above the petra. Mild interstitial edema. Small bilateral pleural effusions. Electronically Signed: Yehuda Ferguson DO at 9:36 EDT Tel , Service support , Brain CT 06/07/17 08:33 IMPRESSION: Chronic involutional changes. No acute intracranial abnormality. No significant change from study of 06/06/2017. Electronically Signed: Yehuda Ferguson DO at 10:15 EDT Tel , Service support , Brain MRI 06/07/17 14:24 IMPRESSION: Nonspecific periventricular white matter ischemic changes of uncertain etiology but. Cannot exclude possibility of PRES. Chronic ischemic changes within the martha.. No evidence for acute infarct Electronically Signed: Refugio Vera MD at 17:17 EDT , Service support , Medical Necessity - Tobacco Use Smoking Status: Never smoker Assessment/Plan Active and Suspected Problems ESRD (end stage renal disease) on dialysis (Acute) Unresponsive episode (Acute) RECOMMENDATIONS: 1. Continue Dilantin per neurology recommendations. Awaiting free phenytoin level. 2. Continue hemodialysis per nephrology recommendations. 3. Continue midodrine TID 4. Continue antibiotics to complete empiric treatment course 5. Continue sliding scale coverage 6. Bradycardia management per cardiology recommendations. IMPRESSIONS: 1. Acute respiratory failure secondary to cardiac arrest Patient was thought to have respiratory arrest secondary to hypoxemia. Clinical suspicion for decreased perfusion leading to reported desaturation. Patient does have multiple valvular abnormalities complicating overall condition. While in the intensive care unit, patient was noted to have bradycardia without desaturation leading to poor perfusion. The patient was transiently on vasopressor support but has been weaned off. We will plan to continue Midodrin accordingly. The patient is currently a DNR CCA without plans for reintubation. Her hospital course was also complicated by presumptive aspiration pneumonia, for which she is currently on antibiotics. We will plan to continue to wean supplemental oxygen to maintain saturations at or above 90%. Encourage incentive spirometer use and mobilize patient as tolerated. 2. End-stage renal disease secondary to uncontrolled diabetes mellitus/ hypertension Continue hemodialysis per nephrology recommendations. 3. Coronary artery disease status post PTCA/hypertension/chronic A. fib/ possible sick sinus syndrome Patient with multiple vascular abnormalities. Cardiology is following. The patient's dopamine/levophed has been discontinued at this time. Continue medical management of the patient's bradycardia per cardiology recommendations. Continue Midodrine as scheduled. 4. 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 Neurology is following. MRI was completed with findings possibly suggestive of PRES. EEG was completed and demonstrated epileptogenic potential. The patient was subsequently started on Dilantin with subsequent improvement noted. Free Dilantin level is currently pending. 5. COPD/chronic respiratory failure Continue bronchodilators. Wean oxygen as tolerated. 6. CODE STATUS DNR CCA without intubation. This has been discussed with both the patient and her family members. This note was generated with [facility] [employer] dictation software. It may contain incorrect words, spelling, and punctuation that were not noted in checking the note before signing. Code Visit Inpatient E&M: 14418 Subs Hosp L2
[2017-06-11] MEDS: oxyCODONE 5 MG Tablet PO ×2 (07:49→20:06)
--- NOTE | 2017-06-11 08:03 | PN_ITS ---
Subjective: Chief complaint: Follow-up after admission for acute respiratory failure, cardiac arrest, bradycardia and her hospital course complicated by probable aspiration pneumonia and she had an episode of seizure. Patient seen and examined. No acute events overnight. She complained of chest pain which has been going on since after she was extubated, sharp pain, worsened with taking a deep breath or moving and associated with shortness of breath. This pain is attributed to chest compressions during the CPR. She denies abdominal pain. She reported nausea without vomiting. She is afebrile, remained bradycardic and heart rate has been around 50s, blood pressure is stable and pulse ox is 99% on 4 L. - Physical Exam General: Alert, Cooperative, - - Moderately short of breath. HEENT: Atraumatic, PERRLA, EOMI Oral: Moist Mucosa, No Gingival or Mucosal Lesions/ Ulcerations Neck: Supple, No JVD, Negative Carotid Bruits, Trachea Midline, Thyroid Normal Size and Texture Lungs: Clear to auscultation, No wheeze, No rales, Diminished, Rhonchi Cardiovascular: Regular rate, Regular Rhythm, Normal S1, Normal S2, PMI Normal, Bradycardic Abdomen: Bowel Sounds Present, Soft, Non Tender, Non-Distended, No Hepato- splenomegaly Extremities: No clubbing, No cyanosis, No edema Skin: No rashes, No breakdown Lymphatic: No Cervical, Supraclavicular, or Inguinal Adenopathy Neurological: Cranial nerves II-XII grossly intact, Neuro grossly intact Psych/Mental Status: Flat Affect Vital Signs Temp Pulse Resp BP Pulse Ox 97.8 F 50 L 20 H 109/64 99 06/11/17 03:52 06/11/17 07:11 06/11/17 03:52 06/11/17 03:52 06/11/17 07:03 Oxygen Flow Rate (L/min) 4 Oxygen Delivery Method Nasal Cannula Weight: 139 lb 12.369 oz Body Mass Index (BMI) 30.4 Finger Stick Blood Glucose 100 Intake and Output for Last 24 Hours 06/09/17 06/10/17 06/11/17 23:59 23:59 23:59 Intake Total 545.2 / 545.2 734 / 734 100 / 100 Output Total 5 / 5 0 / 0 0 / 0 Balance 540.2 / 540.2 734 / 734 100 / 100 Microbiology Past 72 Hours 06/10/17 14:00 C. difficile DNA Amplification - Final Stool 06/08/17 07:45 Blood Culture - Preliminary Blood Culture (Wb) - Central Line No growth in 48 hours. 06/07/17 08:27 Gram Stain - Final Sputum, Induced/Lukens Respiratory Culture - Final Mixed normal respiratory chika. No Haemophilus, Streptococcus pneumoniae, beta-hemolytic Streptococcus or Staphylococcus aureus isolated. 06/07/17 07:45 Gram Stain - Final Sputum, Expectorated/Coughed Respiratory Culture - Final Mixed normal respiratory chika. No Haemophilus, Streptococcus pneumoniae, beta-hemolytic Streptococcus or Staphylococcus aureus isolated. 06/06/17 16:45 Blood Culture - Preliminary Blood Culture (Wb) - Dialysis/Fistula No growth in 48 hours. 06/06/17 16:00 Blood Culture - Preliminary Blood Culture (Wb) - Femoral Artery No growth in 48 hours. 06/06/17 12:00 Urine Culture - Final Urine Catheter - Kim Culture exhibits no growth. Laboratory Tests Past 24 Hrs 06/06/17 06/11/17 06/11/17 16:00 06:00 06:00 WBC 9.1 RBC 2.57 L Hgb 8.7 L Hct 27.7 L MCV 107.8 H MCH 33.9 H MCHC 31.4 L RDW 15.8 H RDW Differential 62.3 H Plt Count 211 MPV 10.4 Sodium 136 Potassium 3.6 Chloride 99 Carbon Dioxide 22.0 Anion Gap 15 BUN 25 H Creatinine 2.72 H Estim Creat Clear Calc 18.99 Est GFR (MDRD) Af Amer 22 L Est GFR (MDRD) Non-Af 18 L BUN/Creatinine Ratio 9.2 L Glucose 72 L Calcium 7.2 L RBC Folate Hemolysate RBC Folate Not Reportable Hematocrit Not Reportable POC Glucose 06/11/17 06/10/17 06/10/17 06:51 23:07 15:39 POC Glucose 88 107 152 H 06/10/17 06/10/17 11:17 08:33 POC Glucose 81 85 Medical Necessity - Tobacco Use Smoking Status: Never smoker Assessment/Plan This is a 72 years old female patient brought to the emergency room from the dialysis center because of syncopal episode, went into cardiac arrest and acute respiratory failure in the emergency room status post extubation, found to have persistent bradycardia and the hospital course complicated by probable aspiration pneumonia and seizure. #1 status post cardiac arrest/acute respiratory failure: Status post CPR, status post extubation. She has been afebrile, blood pressure and heart rate has been stable, pulse ox is 100% on 3 L. 2D echocardiogram revealed normal LV size, ejection fraction of 55% and moderate aortic stenosis. She has been in A. fib with periods of asystole and according to cardiology, no obvious etiology and she did have similar episodes at [facility] as well as [facility] and there was thinking that she may have those bradycardia with arrhythmias because of seizure medication. At this time, she is not on beta-blockers, was started on midodrine for low blood pressure and her blood pressure improved. Plan to continue same treatment and monitoring. #2 syncope: Possibly due to seizure. Patient had seizure during this hospital stay. EEG revealed sharp generalized epileptogenic potentials. MRI brain revealed no acute infarction or hemorrhage. She is on Dilantin. #3 probable healthcare associated pneumonia versus aspiration pneumonia: She is on IV Zosyn. Blood culture showed no growth in 48 hours. Urine culture showed no growth. Sputum culture revealed mixed normal respiratory chika. Patient has been afebrile at this time, pulse ox has been 100% on 3 L. Plan to continue same treatment. #4 chronic atrial fibrillation: Patient remained in A. fib and periods of asystole. Reportedly, she had the same problem when she was admitted to [facility] and [facility] according to cardiology. At this time, heart rate has been around 60s and blood pressure stabilized after started on midodrine. She is not on any rate control medicine such as beta-blockers and she is not on anticoagulation. Cardiology on the case. #5 Chronic anemia: Likely anemia of chronic disease. In the past, hemoglobin has been fluctuating significantly anywhere from 8-12 g/dL. Most recently, hemoglobin has been around 11 g/dL. On admission, hemoglobin was 8.4 g/dL and today, it is 8.7 g/dL, stable, at baseline. #6 ESRD on hemodialysis: Nephrology on the case, she is getting her dialysis according to her schedule. Her BUN and creatinine are stable, potassium is normal. #7 type 2 diabetes mellitus: Blood sugar has been stable, she is on insulin sliding scale only. #8 hypertension: She is off all antihypertensive medications, started on midodrine. Blood pressure improved. #9 CAD status post PTCA: No evidence of acute CHF. Her aspirin, Bumex and statins are on hold. #10 COPD/chronic respiratory failure: Patient is on home oxygen at 2.5 L reportedly. At this time, her pulse ox is 100% on 3 L. #11 right buttock decubitus ulcer stage II: She is seen by the wound care nurse , continue current treatment. #12 DVT prophylaxis: Subcu heparin. Other chronic medical problems: #1 hypothyroidism. #2 GERD. #3 mild aortic stenosis. #4 hyperlipidemia. #5 sleep apnea. #6 severe pulmonary hypertension. #7 diabetic neuropathy. #8 peripheral vascular disease. #9 gastroparesis. This note was generated with [employer] dictation software. It may contain incorrect words, spelling, and punctuation that were not noted in checking the note before signing. Code Visit Inpatient E&M: 43484 Subs Hosp L2
--- NOTE | 2017-06-11 08:49 | PCM.PN.CARD ---
Subjectve: Patient seen and evaluated Objective: Vital Signs Temp Pulse Resp BP Pulse Ox 97.8 F 50 L 16 109/64 99 06/11/17 03:52 06/11/17 07:11 06/11/17 08:01 06/11/17 03:52 06/11/17 07:03 Oxygen Flow Rate (L/min) 3 Oxygen Delivery Method Nasal Cannula Weight: 139 lb 12.369 oz Body Mass Index (BMI) 30.4 Finger Stick Blood Glucose 100 Intake and Output for Last 24 Hours 06/09/17 06/10/17 06/11/17 23:59 23:59 23:59 Intake Total 545.2 / 545.2 734 / 734 100 / 100 Output Total 5 / 5 0 / 0 0 / 0 Balance 540.2 / 540.2 734 / 734 100 / 100 General: Ill Appearing, Disoriented HEENT: PERRL, EOMI, Sclera Non Icteric Neck: Supple, Good ROM, No Lymph Node Enlargement Lungs: Diminished Shaq Bases Cardiovascular: Regular Rhythm, Normal S1, Normal S2, No Murmurs, No Rubs, No Gallops Vascular: No Carotid Bruits, Normal Femoral Pulses, Normal Radial Pulses, Normal Dorsalis Pedal Pulse, Normal Posterior Tibial Pulses Abdomen: Bowel Sounds Present, Soft, Non Tender, No HSM, No Organomegaly Extremities: No Cyanosis, No Clubbing, No edema Neurological: No Focal Motor or Sensory Deficit 06/11/17 06:00: WBC 9.1, RBC 2.57 L, Hgb 8.7 L, Hct 27.7 L, MCV 107.8 H, MCH 33.9 H, MCHC 31.4 L, RDW 15.8 H, RDW Differential 62.3 H, Plt Count 211, MPV 10.4 06/11/17 06:00: Sodium 136, Potassium 3.6, Chloride 99, Carbon Dioxide 22.0, Anion Gap 15, BUN 25 H, Creatinine 2.72 H, Est GFR (MDRD) Af Amer 22 L, Est GFR (MDRD) Non-Af 18 L, BUN/Creatinine Ratio 9.2 L, Glucose 72 L, Calcium 7.2 L Rhythm: EKG: ECHO: Stress Test: Cardiac Cath: PCI: CT Surgery: Holter monitor: EPS: PPM: CXR: Chest CT Scan: Medical Necessity - Tobacco Use Smoking Status: Never smoker Assessment/Plan 1. Atrial fibrillation with periods of asystole The patient has known atrial fibrillation with a controlled ventricular response rate. It is not entirely clear why she is having these periods of asystole at this time. She is not on any rate limiting medications and her potassium and other electrolytes appear to be unremarkable. Her echocardiogram also demonstrates preserved left ventricular ejection fraction. I reviewed [place] [facility] well as [facility]. It appears that she did a similar thing over there and it was thought that the bradycardia arrhythmias were secondary to seizure medication. 2. Valvular heart disease. She does have a history of aortic stenosis which is mild to moderate. At this time it does not appear that she is a candidate to have aortic valve intervention. 3. Coronary artery disease. She does have a history of coronary artery disease status post previous angioplasty and stenting. I do not have an indication that this is coronary in origin. She had an attempt at cardiac catheterization in the tertiary [facility] which was not successful and was abandoned. In addition she has significant vasculopathy making access to her vascular system rather difficult. His point in time I would rather defer any invasive treatment approaches. 4. Right ventricular dysfunction. She does have significant right ventricular dysfunction the etiology of which is not entirely clear to me at this time. It may be related to her dialysis state. 5. Hypotension It is unclear why she is so dependent on pressors. She has successfully been transitioned off of this and has been placed on Midrin. In addition we have put her on methylphenidate to see whether her heart rate can be augmented somewhat. Thank you for allowing me to participate in the care of your patient. Please don't hesitate to call if any issues arise above discussed with Dr. Daniel. Her overall prognosis is rather guarded.
[2017-06-11] MEDS: Phenytoin Na 100 MG Capsule PO ×2 (10:10→18:09)
[2017-06-11] MEDS: Famotidine 20 MG Tablet PO (10:10)
[2017-06-11] MEDS: Ondansetron 4 MG/2 ML Vial IV (10:35)
[2017-06-11] MEDS: Methylphenidate HCl 5 MG Tablet PO ×2 (10:50→22:16)
[2017-06-11 12:01] LABS: Bedside Glucose 129 mg/dL (70-110)
[2017-06-11 17:41] LABS: Bedside Glucose 176 mg/dL (70-110)
[2017-06-11 22:56] LABS: Bedside Glucose 191 mg/dL (70-110)
[2017-06-12] VITALS (17 sets, daily range): BP systolic 84–136; BP diastolic 39–62; PULSE 38–84; RESP 16–18; TEMP 36.4–36.9; O2SAT 92–100
[2017-06-12] MEDS: Piperacil/Tazobactam 3.375 GM/50 ML ML IV ×3 (02:03→17:53)
[2017-06-12] MEDS: Midodrine HCl 5 MG Tablet 10 MG PO ×2 (05:56→14:04)
[2017-06-12 06:51] LABS: Bedside Glucose 80 mg/dL (70-110)
[2017-06-12 06:54] LABS: Hematocrit 28.1 % (37-47); Hemoglobin 8.8 g/dl (12.0-15.0); Mean Corp Hgb Conc 31.3 g/gl (32-36); Mean Corpuscular Volume 108.5 fL (81-99); Mean Platelet Vol. 10.6 fl (6.2-12.0); Platelet Count 232 K/mm3 (150-450); RBC Distribution Width CV 15.9 % (11.6-14.6); RBC Distribution Width SD 62.2 fl (35.1-43.9); Red Blood Count 2.59 M/mm3 (4.2-5.4); White Blood Count 9.6 K/mm3 (4.4-11.0)
[2017-06-12 07:03] LABS: Scan Indicated on CBC? Y/N NO
[2017-06-12 08:20] LABS: Anion Gap 14 (5-15); BUN 30 mg/dL (7-18); BUN/Creat Ratio 8.6 RATIO (10-20); Calcium,Total 7.1 mg/dL (8.5-10.1); Chloride 99 mmol/L (98-107); Creatinine, Serum 3.47 mg/dL (0.55-1.02); EST Glomerular Filtration Rate 14 mL/min (>60); Est Glom Filt Rate - Afr Amer 17 mL/min (>60); Estimated Creatinine Clearance 14.84 ml/min; Glucose 81 mg/dL (74-106); Potassium 3.6 mmol/L (3.5-5.1); Sodium Level 138 mmol/L (136-145)
--- NOTE | 2017-06-12 08:22 | PN_ITS ---
Subjective: The patient was seen and examined at the bedside this morning. Events from the last 24 hours have been reviewed. The patient is currently afebrile, hemodynamically stable and maintaining appropriate oxygen saturations on 2 L/ min via nasal cannula. Blood counts remain stable. Objective: The patient's most recent lab work, culture data and imaging studies have all been personally reviewed. Respiratory viral panel was negative. Strep and urine Legionella antigens were both negative. Blood and urine cultures have shown no growth to date. Sputum culture appeared to be normal respiratory chika. - Physical Exam General: Alert, Cooperative, No apparent distress HEENT: Atraumatic, PERRLA, Normocephalic Oral: No Gingival or Mucosal Lesions/ Ulcerations Neck: Supple, No Nodes, Trachea Midline Lungs: No rhonchi, No wheeze, No rales, Diminished Cardiovascular: Normal S1, Normal S2, No murmurs, Bradycardic Abdomen: Bowel Sounds Present, Soft, Non Tender Extremities: No clubbing, No cyanosis, No edema Skin: - - No significant change from previous Musculoskeletal: No Tenderness to Palpation of Joints or Extremities Lymphatic: No Cervical, Supraclavicular, or Inguinal Adenopathy Neurological: Neuro grossly intact Psych/Mental Status: Flat Affect Vital Signs Temp Pulse Resp BP Pulse Ox 97.9 F 56 L 18 133/53 H 99 06/12/17 05:55 06/12/17 07:17 06/12/17 05:55 06/12/17 05:55 06/12/17 08:06 Oxygen Flow Rate (L/min) 3 Oxygen Delivery Method Nasal Cannula Weight: 139 lb 5.314 oz Body Mass Index (BMI) 30.4 Finger Stick Blood Glucose 100 Intake and Output for Last 24 Hours 06/10/17 06/11/17 06/12/17 23:59 23:59 23:59 Intake Total 734 / 734 1705.7 / 1705.7 109.7 / 109.7 Output Total 0 / 0 0 / 0 Balance 734 / 734 1705.7 / 1705.7 109.7 / 109.7 Microbiology Past 72 Hours 06/06/17 16:45 Blood Culture - Final Blood Culture (Wb) - Dialysis/Fistula No growth in 5 days. 06/06/17 16:00 Blood Culture - Final Blood Culture (Wb) - Femoral Artery No growth in 5 days. 06/10/17 14:00 C. difficile DNA Amplification - Final Stool 06/08/17 07:45 Blood Culture - Preliminary Blood Culture (Wb) - Central Line No growth in 48 hours. 06/07/17 08:27 Gram Stain - Final Sputum, Induced/Lukens Respiratory Culture - Final Mixed normal respiratory chika. No Haemophilus, Streptococcus pneumoniae, beta-hemolytic Streptococcus or Staphylococcus aureus isolated. 06/07/17 07:45 Gram Stain - Final Sputum, Expectorated/Coughed Respiratory Culture - Final Mixed normal respiratory chika. No Haemophilus, Streptococcus pneumoniae, beta-hemolytic Streptococcus or Staphylococcus aureus isolated. Laboratory Tests Past 24 Hrs 06/12/17 06/12/17 06:10 06:10 WBC 9.6 RBC 2.59 L Hgb 8.8 L Hct 28.1 L MCV 108.5 H MCH 34.0 H MCHC 31.3 L RDW 15.9 H RDW Differential 62.2 H Plt Count 232 MPV 10.6 Sodium 138 Potassium 3.6 Chloride 99 Carbon Dioxide 25.0 Anion Gap 14 BUN 30 H Creatinine 3.47 H Estim Creat Clear Calc 14.84 Est GFR (MDRD) Af Amer 17 L Est GFR (MDRD) Non-Af 14 L BUN/Creatinine Ratio 8.6 L Glucose 81 Calcium 7.1 L POC Glucose 06/12/17 06/11/17 06/11/17 06:48 22:10 17:37 POC Glucose 80 191 H 176 H 06/11/17 11:47 POC Glucose 129 H Clinical Impression(s) from Imaging Studies Brain CT 06/06/17 07:50 IMPRESSION: Chronic involutional changes. No acute intracranial abnormality. Opacified left maxillary sinus. Electronically Signed: Yehuda Ferguson DO at 9:26 EDT Tel , Service support , Chest X-Ray 06/06/17 07:50 IMPRESSION: Prominent interstitial markings. Patchy airspace disease in the right midlung. This may represent atelectasis or developing pneumonia. Moderate cardiomegaly. Electronically Signed: Yehuda Ferguson DO at 9:33 EDT Tel , Service support , Chest X-Ray 06/06/17 10:30 IMPRESSION: Life support tubes and catheters, as detailed above. No significant change to the appearance of the lungs, with prominent interstitial markings and focal opacity in the right midlung. Small bilateral pleural effusions are seen. Electronically Signed: Yehuda Ferguson DO at 11:20 EDT Tel , Service support , Chest X-Ray 06/07/17 07:36 IMPRESSION: Interval extubation. Improving aeration within the right midlung. Mild interstitial prominence. Electronically Signed: Yehuda Ferguson DO at 11:46 EDT Tel , Service support , Chest X-Ray 06/07/17 08:32 IMPRESSION: The endotracheal tube tip projects approximately 2 cm above the petra. Mild interstitial edema. Small bilateral pleural effusions. Electronically Signed: Yehuda Ferguson DO at 9:36 EDT Tel , Service support , Brain CT 06/07/17 08:33 IMPRESSION: Chronic involutional changes. No acute intracranial abnormality. No significant change from study of 06/06/2017. Electronically Signed: Yehuda Ferguson DO at 10:15 EDT Tel , Service support , Brain MRI 06/07/17 14:24 IMPRESSION: Nonspecific periventricular white matter ischemic changes of uncertain etiology but. Cannot exclude possibility of PRES. Chronic ischemic changes within the martha.. No evidence for acute infarct Electronically Signed: Refugio Vera MD at 17:17 EDT , Service support , Medical Necessity - Tobacco Use Smoking Status: Never smoker Assessment/Plan RECOMMENDATIONS: 1. Continue Dilantin per neurology recommendations. Awaiting free phenytoin level. 2. Continue hemodialysis per nephrology recommendations. 3. Continue midodrine TID 4. Continue antibiotics to complete empiric treatment course 5. Continue sliding scale coverage 6. Bradycardia management per cardiology recommendations. IMPRESSIONS: 1. Acute respiratory failure secondary to cardiac arrest Patient was thought to have respiratory arrest secondary to hypoxemia. Clinical suspicion for decreased perfusion leading to reported desaturation. Patient does have multiple valvular abnormalities complicating overall condition. While in the intensive care unit, patient was noted to have bradycardia without desaturation leading to poor perfusion. The patient was transiently on vasopressor support but has been weaned off. We will plan to continue Midodrin accordingly. The patient is currently a DNR CCA without plans for reintubation. Her hospital course was also complicated by presumptive aspiration pneumonia, for which she is currently on antibiotics. We will plan to continue to wean supplemental oxygen to maintain saturations at or above 90%. Encourage incentive spirometer use and mobilize patient as tolerated. 2. End-stage renal disease secondary to uncontrolled diabetes mellitus/ hypertension Continue hemodialysis per nephrology recommendations. 3. Coronary artery disease status post PTCA/hypertension/chronic A. fib/ possible sick sinus syndrome Patient with multiple vascular abnormalities. Cardiology is following. The patient's dopamine/levophed has been discontinued at this time. Continue medical management of the patient's bradycardia per cardiology recommendations. Continue Midodrine as scheduled. 4. 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 Neurology is following. MRI was completed with findings possibly suggestive of PRES. EEG was completed and demonstrated epileptogenic potential. The patient was subsequently started on Dilantin with subsequent improvement noted. Free Dilantin level is currently pending. 5. COPD/chronic respiratory failure Continue bronchodilators. Wean oxygen as tolerated. 6. CODE STATUS DNR CCA without intubation. This has been discussed with both the patient and her family members. This note was generated with [employer] dictation software. It may contain incorrect words, spelling, and punctuation that were not noted in checking the note before signing. Given the lack of ongoing ICU needs, will sign off. Please call with any additional questions. Code Visit Inpatient E&M: 93611 Subs Hosp L2
--- NOTE | 2017-06-12 08:24 | PN_ITS ---
Subjective: Chief complaint: Follow-up after admission for acute respiratory failure, cardiac arrest, bradycardia and her hospital course complicated by probable aspiration pneumonia and she had an episode of seizure. Patient seen and examined. No acute events overnight. She remained disoriented to place and time, she knows her full name and date of . She denies any pain. Denied chest pain or shortness of breath. Denied abdominal pain, nausea vomiting. Denies focal arm or leg weakness. Denied numbness or tingling. She was able to answer questions coherently. Her vital signs are stable, remained on 2 L of oxygen. - Physical Exam General: Alert, Cooperative, No apparent distress, Disoriented HEENT: Atraumatic, PERRLA, EOMI Oral: Moist Mucosa, No Gingival or Mucosal Lesions/ Ulcerations Neck: Supple, No JVD, Negative Carotid Bruits, Trachea Midline, Thyroid Normal Size and Texture Lungs: Clear to auscultation, No wheeze, No rales, Diminished, Rhonchi Cardiovascular: Regular rate, Regular Rhythm, Normal S1, Normal S2, Bradycardic Abdomen: Bowel Sounds Present, Soft, Non Tender, Non-Distended, No Hepato- splenomegaly, Obese Extremities: No clubbing, No cyanosis, No edema Skin: No rashes, No breakdown Lymphatic: No Cervical, Supraclavicular, or Inguinal Adenopathy Neurological: Cranial nerves II-XII grossly intact, Motor Exam 5/5 strength throughout Psych/Mental Status: Flat Affect Vital Signs Temp Pulse Resp BP Pulse Ox 97.9 F 56 L 18 133/53 H 99 06/12/17 05:55 06/12/17 07:17 06/12/17 05:55 06/12/17 05:55 06/12/17 08:06 Oxygen Flow Rate (L/min) 3 Oxygen Delivery Method Nasal Cannula Weight: 139 lb 5.314 oz Body Mass Index (BMI) 30.4 Finger Stick Blood Glucose 100 Intake and Output for Last 24 Hours 06/10/17 06/11/17 06/12/17 23:59 23:59 23:59 Intake Total 734 / 734 1705.7 / 1705.7 109.7 / 109.7 Output Total 0 / 0 0 / 0 Balance 734 / 734 1705.7 / 1705.7 109.7 / 109.7 Microbiology Past 72 Hours 06/06/17 16:45 Blood Culture - Final Blood Culture (Wb) - Dialysis/Fistula No growth in 5 days. 06/06/17 16:00 Blood Culture - Final Blood Culture (Wb) - Femoral Artery No growth in 5 days. 06/10/17 14:00 C. difficile DNA Amplification - Final Stool 06/08/17 07:45 Blood Culture - Preliminary Blood Culture (Wb) - Central Line No growth in 48 hours. 06/07/17 08:27 Gram Stain - Final Sputum, Induced/Lukens Respiratory Culture - Final Mixed normal respiratory chika. No Haemophilus, Streptococcus pneumoniae, beta-hemolytic Streptococcus or Staphylococcus aureus isolated. 06/07/17 07:45 Gram Stain - Final Sputum, Expectorated/Coughed Respiratory Culture - Final Mixed normal respiratory chika. No Haemophilus, Streptococcus pneumoniae, beta-hemolytic Streptococcus or Staphylococcus aureus isolated. Laboratory Tests Past 24 Hrs 06/12/17 06/12/17 06:10 06:10 WBC 9.6 RBC 2.59 L Hgb 8.8 L Hct 28.1 L MCV 108.5 H MCH 34.0 H MCHC 31.3 L RDW 15.9 H RDW Differential 62.2 H Plt Count 232 MPV 10.6 Sodium Pending Potassium Pending Chloride Pending Carbon Dioxide Pending Anion Gap Pending BUN Pending Creatinine Pending Est GFR (MDRD) Af Amer Pending Est GFR (MDRD) Non-Af Pending BUN/Creatinine Ratio Pending Glucose Pending Calcium Pending POC Glucose 06/12/17 06/11/17 06/11/17 06:48 22:10 17:37 POC Glucose 80 191 H 176 H 06/11/17 11:47 POC Glucose 129 H Medical Necessity - Tobacco Use Smoking Status: Never smoker Assessment/Plan This is a 72 years old female patient brought to the emergency room from the dialysis center because of syncopal episode, went into cardiac arrest and acute respiratory failure in the emergency room status post extubation, found to have persistent bradycardia and the hospital course complicated by probable aspiration pneumonia and seizure. #1 status post cardiac arrest/acute respiratory failure: Status post CPR, status post extubation. Patient has been disoriented to time and place, oriented to self. she has been afebrile, blood pressure and heart rate has been stable, pulse ox is 100% on 2 L. 2D echocardiogram revealed normal LV size, ejection fraction of 55% and moderate aortic stenosis. She has been in A. fib with periods of asystole and according to cardiology, no obvious etiology and she did have similar episodes at [facility] as well as [facility] and there was thinking that she may have those bradycardia with arrhythmias because of seizure medication. At this time, she is not on beta- blockers, was started on midodrine for low blood pressure and her blood pressure improved. Plan to continue same treatment and monitoring. Resume aspirin, statins and levothyroxine. #2 syncope/new onset seizure: Possibly due to seizure. Patient had seizure during this hospital stay. EEG revealed sharp generalized epileptogenic potentials. MRI brain revealed no acute infarction or hemorrhage. She is on Dilantin. #3 probable healthcare associated pneumonia versus aspiration pneumonia: She is on day 7 of IV Zosyn. Blood culture showed no growth in 48 hours. Urine culture showed no growth. Sputum culture revealed mixed normal respiratory chika. Patient has been afebrile at this time, pulse ox has been 100% on 2 L. Plan to DC IV Zosyn, she completed 6 days of treatment. #4 encephalopathy: Patient has been disoriented to time and place. She has no focal deficit. She was able to answer questions coherently and appropriately. This could be due to hospital and ICU delirium. Plan is for reorientation by nursing staff. #5 chronic atrial fibrillation: Heart rate has been in the 60s, had one episode with a heart rate of 38 last night. Reportedly, she had the same problem when she was admitted to [facility] and [facility] according to cardiology. She is not on any rate control medicine such as beta-blockers and she is not on anticoagulation. She is on midodrine and Ritalin. Cardiology on the case. #6 Chronic anemia: Likely anemia of chronic disease. In the past, hemoglobin has been fluctuating significantly anywhere from 8-12 g/dL. Most recently, hemoglobin has been around 11 g/dL. On admission, hemoglobin was 8.4 g/dL and today, it is 8.8 g/dL, stable, at baseline. #7 ESRD on hemodialysis: Nephrology on the case, she is getting her dialysis according to her schedule. Her BUN and creatinine are stable, potassium is normal. #8 type 2 diabetes mellitus: Blood sugar has been stable, she is on insulin sliding scale only. #9 hypertension: She is off all antihypertensive medications, started on midodrine. Blood pressure improved. #10 CAD status post PTCA: No evidence of acute CHF. Her aspirin, Bumex and statins are on hold. #11 COPD/chronic respiratory failure: Patient is on home oxygen at 2.5 L reportedly. At this time, her pulse ox is 100% on 2 L. #12 DVT prophylaxis: Subcu heparin. Other chronic medical problems: #1 hypothyroidism. Resume levothyroxine. #2 GERD. #3 mild aortic stenosis. #4 hyperlipidemia. Resume statins. #5 sleep apnea. #6 severe pulmonary hypertension. #7 diabetic neuropathy. #8 peripheral vascular disease. #9 gastroparesis. This note was generated with [employer] dictation software. It may contain incorrect words, spelling, and punctuation that were not noted in checking the note before signing. Code Visit Inpatient E&M: 97381 Subs Hosp L2
[2017-06-12] MEDS: Levothyroxine 50 MCG Tablet PO (09:43)
[2017-06-12] MEDS: Aspirin 81 MG TAB.CHEW PO (09:43)
[2017-06-12] MEDS: Folic Acid/Vitamin B Comp W-C 1 Capsule 1 CAP PO (09:43)
[2017-06-12] MEDS: Calcium Acetate 667 MG Capsule PO ×3 (09:43→16:39)
[2017-06-12] MEDS: Methylphenidate HCl 5 MG Tablet PO (09:43)
[2017-06-12] MEDS: Famotidine 20 MG Tablet PO (09:43)
[2017-06-12] MEDS: Phenytoin Na 100 MG Capsule PO ×3 (09:43→16:39)
--- NOTE | 2017-06-12 09:55 | PN.CARD_ITS ---
Subjectve: Patient seen and evaluated. Appears to be confused but conscious and maintaining hemodynamics Objective: Vital Signs Temp Pulse Resp BP Pulse Ox 97.5 F L 62 16 136/61 H 98 06/12/17 09:35 06/12/17 09:35 06/12/17 09:35 06/12/17 09:35 06/12/17 09:35 Oxygen Flow Rate (L/min) 3 Oxygen Delivery Method Room Air Weight: 139 lb 5.314 oz Body Mass Index (BMI) 30.4 Finger Stick Blood Glucose 100 Intake and Output for Last 24 Hours 06/10/17 06/11/17 06/12/17 23:59 23:59 23:59 Intake Total 734 / 734 1705.7 / 1705.7 109.7 / 109.7 Output Total 0 / 0 0 / 0 Balance 734 / 734 1705.7 / 1705.7 109.7 / 109.7 General: Awake, Ill Appearing, Disoriented HEENT: PERRL, EOMI, Sclera Non Icteric Neck: Supple, Good ROM, No Lymph Node Enlargement Lungs: Clear to auscultation Cardiovascular: Irregular Rhythm, Normal S1, Normal S2, No Murmurs, No Rubs, No Gallops Vascular: No Carotid Bruits, Normal Femoral Pulses, Normal Radial Pulses, Normal Dorsalis Pedal Pulse, Normal Posterior Tibial Pulses Abdomen: Bowel Sounds Present, Soft, Non Tender, No HSM, No Organomegaly Extremities: No Cyanosis, No Clubbing, No edema, Cool Musculoskeletal: Muscle Wasting Neurological: No Focal Motor or Sensory Deficit 06/12/17 06:10: WBC 9.6, RBC 2.59 L, Hgb 8.8 L, Hct 28.1 L, MCV 108.5 H, MCH 34.0 H, MCHC 31.3 L, RDW 15.9 H, RDW Differential 62.2 H, Plt Count 232, MPV 10.6 06/12/17 06:10: Sodium 138, Potassium 3.6, Chloride 99, Carbon Dioxide 25.0, Anion Gap 14, BUN 30 H, Creatinine 3.47 H, Est GFR (MDRD) Af Amer 17 L, Est GFR (MDRD) Non-Af 14 L, BUN/Creatinine Ratio 8.6 L, Glucose 81, Calcium 7.1 L Rhythm: Atrial fibrillation with no pauses noted Medical Necessity - Tobacco Use Smoking Status: Never smoker Assessment/Plan 1. Atrial fibrillation with periods of asystole The patient has known atrial fibrillation with a controlled ventricular response rate. It is not entirely clear why she was having these periods of asystole at this time. These appear to have largely abated. Has also been started on methylphenidate for heart rate and it appears to be working. She is not on any rate limiting medications and her potassium and other electrolytes appear to be unremarkable. Her echocardiogram also demonstrates preserved left ventricular ejection fraction. I reviewed the records from [facility] as well as [facility]. It appears that she did a similar thing over there and it was thought that the bradycardia arrhythmias were secondary to seizure medication. 2. Valvular heart disease. She does have a history of aortic stenosis which is mild to moderate. At this time it does not appear that she is a candidate to have aortic valve intervention. 3. Coronary artery disease. She does have a history of coronary artery disease status post previous angioplasty and stenting. I do not have an indication that this is coronary in origin. She had an attempt at cardiac catheterization in the tertiary care hospital which was not successful and was abandoned. In addition she has significant vasculopathy making access to her vascular system rather difficult. His point in time I would rather defer any invasive treatment approaches. 4. Right ventricular dysfunction. She does have significant right ventricular dysfunction the etiology of which is not entirely clear to me at this time. It may be related to her dialysis state. 5. Hypotension It is unclear why she is so dependent on pressors. She has successfully been transitioned off of this and has been placed on Midrin. In addition we have put her on methylphenidate to see whether her heart rate can be augmented somewhat. Thank you for allowing me to participate in the care of your patient. Please don't hesitate to call if any issues arise above discussed with Dr. Daniel. Her overall prognosis is rather guarded.
[2017-06-12 11:36] LABS: Bedside Glucose 116 mg/dL (70-110)
--- NOTE | 2017-06-12 12:16 | CT_ITS ---
STUDY: CT BRAIN WITHOUT CONTRAST REASON FOR EXAM: Female, 72 years old. Altered mental status RADIATION DOSAGE (If Supplied By Facility): CTDIvol = ( 44.99 ) mGy, DLP = ( 812.98 ) mGycm TECHNIQUE: Transaxial CT imaging of the brain was performed without administration of intravenous contrast material. Individualized dose optimization techniques were used for this CT. COMPARISON: 06/07/2017 FINDINGS: Normal soft tissue structures. Normal calvarium. There is mild cerebral atrophy with widening of the extra-axial spaces and ventricular dilatation. There are areas of decreased attenuation within the white matter tracts of the supratentorial brain, consistent with microvascular disease changes. Normal basal ganglia and thalami. Normal brainstem. There is mild cerebellar atrophy. There is no intracranial hemorrhage. There are no findings of an acute ischemic infarction. Stable opacified left maxillary sinus CT/Brain/Head without Contrast IMPRESSION: Chronic involutional changes of the brain. No change from recent prior Electronically Signed: Demetrius Frey DO at 13:57 EDT Tel , Service support ,
[2017-06-12] MEDS: Ondansetron 4 MG/2 ML Vial IV (12:24)
[2017-06-12] MEDS: 0.9% NaCl Peripheral Flush Adult/Peds IV ×2 (12:24→21:04)
[2017-06-12 12:35] LABS: Bedside Glucose 125 mg/dL (70-110)
--- NOTE | 2017-06-12 12:54 | PCM.PN.BLA ---
Progress Note The nurse called because patient is more sleepy and lethargic, difficult to arouse. I went to see the patient and she was able to wake up, open her eyes and she did answer couple of questions. She started throwing up. She complained of neck pain. Denied chest pain or shortness of breath. Denied abdominal pain. Her blood sugar was 125 mg/dL. Her blood pressure was 92/54. She was able to move all limbs, no focal deficit. Her pupils were open, sluggish reaction to light. Plan: Stat CT scan brain, ABG, serum ammonia.
[2017-06-12 13:06] LABS: Allen Test POS; Base Excess -5 mmol/L (-2 to +2); Bicarbonate 20.1 mmol/L (22-26); Blood Gas Specimen Type ART; O2 Delivery Device Nasal Can; PO2 96 mmHG (75-100); SITE L Radial; SO2 98 % (95-99); Time Given 1301; Total Carbon Dioxide 21 mmol/L; pCO2 32.3 mmHg (35-45)
[2017-06-12 17:01] LABS: Bedside Glucose 148 mg/dL (70-110)
--- NOTE | 2017-06-12 22:15 | NURSING ---
2200 rounds were being made on this patient. patient was found to be unresponsive and showing signs of agonal breathing. vss. patient able to open eyes with name but did not follow any commands. patient appeared to be staring off in space. patient would not even respond to nailbed pressure. this RN held all PO meds for the evening. checked BS and it was 106. doctor was paged and orders were put in for CXR and ABGs. this RN attempted to reach the daughter to inform her of the patient's decline in health. this RN called the cell phone listed under demographics twice; unable to leave a voicemail. this RN tried the home phone and left a message for Lilliana, the person listed to be notified, to give us a call back. no calls were returned. this RN tried to reach the daughter two more times around 2330 and 06/13/17 0020. when the doctor was paged around 0030 to be informed of the patient nearing end of life, this RN attempted to reach the daughter and 3 more times. on 06/13/17 at 0040, the doctor called the time of on this patient.
[2017-06-12 22:30] LABS: Bedside Glucose 106 mg/dL (70-110)
--- NOTE | 2017-06-12 22:43 | RAD_ITS ---
STUDY: X-RAY CHEST REASON FOR EXAM: Female, 72 years old. Unresponsive. Agonal breathing. TECHNIQUE: Single AP portable view of the chest. COMPARISON: 06/07/17. FINDINGS: Endotracheal tube has been removed. Normal lung volumes. Lungs are clear. There is moderate cardiac enlargement. Normal mediastinum and dustin. Normal visualized pulmonary arteries. There is atherosclerotic calcification of the aortic arch with tortuosity. Diffuse demineralization of the bones. There is no demonstrated abnormality of the visualized soft tissue structures of the upper abdomen. RAD/Chest 1 View (Portable) IMPRESSION: No definite acute chest disease. Electronically Signed: Pj Callahan MD at 23:13 EDT , Service support ,
[2017-06-12 23:41] LABS: Allen Test POS; Base Excess -10 mmol/L (-2 to +2); Bicarbonate 15.4 mmol/L (22-26); Blood Gas Specimen Type ART; O2 Delivery Device Nasal Can; PO2 86 mmHG (75-100); SITE L Radial; SO2 96 % (95-99); Time Given 2333; Total Carbon Dioxide 16 mmol/L; pCO2 27.7 mmHg (35-45); pH 7.35 (7.35-7.45)
[2017-06-13] VITALS (8 sets, daily range): PULSE 0–35
--- NOTE | 2017-06-13 00:49 | PCM.DEATH ---
Preliminary Cause of Aspiration pneumonia Date of Admission: 06/06/17 Date of : 06/13/17 - Principle Diagnosis Acute respiratory failure Cardiac arrest ESRD CAD Shock Afib Hospital Course She was admitted for acute respiratory failure. She went into cardiac arrest and had CPR. She was intubated and eventually extubated. She was sent to PCU to be treated for aspiration pneumonia and probable seizure. She had several episode of bradycardia and remained dependent on pressors. Her code status changed to DNR-CCA. She jesús down to the 30s and within 3-5 minutes, she was asystole. Called to see patient for unresponsiveness. On exam the patient did was unresponsive, no spontaneous movement was observed, pt did not respond to verbal or noxious stimuli. Absent heart and breath sounds for more than 1 minute. Pupils are fixed and dilated, corneal reflex was absent. Patient pronounced at 12:40 AM. Tried to contact daughter and .
--- NOTE | 2017-06-13 01:24 | NURSING ---
phone call was made to [facility] in regards to patient's .
--- NOTE | 2017-06-13 01:24 | NURSING ---
family would like this patient to go to [facility] in [place]. patient's body is currently on hold with [facility] until they can get a recorded verification of the family's wishes for the patient to not be an organ donor.
--- NOTE | 2017-06-13 01:45 | NURSING ---
amount of IV fluids received in the last hour of life equalled 228.8 ml.
--- NOTE | 2017-06-13 02:18 | NURSING ---
per [employer], the patient's body does not meet requirements to be an organ donor so they are releasing the body to the home. the lady from the home asked us to place the patient's body into the morgue until they are able to come retrieve the body.
[2017-06-13 04:09] LABS: Reflex Lactate? Y
--- NOTE | 2017-06-13 13:43 | PCM.DEATH ---
Preliminary Cause of 1. Bradycardia/asystole. 2 cardiogenic shock. Date of Admission: 06/06/17 Date of : 06/13/17 - Principle Diagnosis #1 status post cardiac arrest/acute respiratory failure. #2 probable healthcare associated pneumonia versus aspiration. #3 new onset seizure. #4 encephalopathy. Problem List: #1 chronic atrial fibrillation. #2 ESRD on dialysis. #3 hypertension. #4 type 2 diabetes mellitus. #5 COPD/chronic respiratory failure. #6 CAD status post PTCA. #7 hypothyroidism. #8 mild aortic stenosis. #9 gastroparesis. #10 peripheral vascular disease. Hospital Course This is a 72 years old female patient brought to the emergency room from dialysis center on the day of admission because of syncopal episode and while she was in the emergency room, she went into cardiac arrest and acute respiratory failure that required endotracheal intubation and mechanical ventilation and she was admitted to the intensive care unit. She was found to have persistent bradycardia and the heart rate has been down to the 30s. She remained in the ICU for 3 days and then she was extubated and she was transferred to PCU. She continued to have bradycardia with heart rate fluctuating between 30s-50s or 60s and her blood pressure stabilized. She was started on Ritalin and midodrine because of bradycardia and borderline blood pressure. Her blood pressure did improve and heart rate remained around 150s and with occasional episodes of heart rate down to 30s but improved. Since she was transferred out of ICU, patient has been intermittently confused and disoriented. On June 12, 2017, patient was more lethargic and sleepy. At that time, her blood pressure and blood sugar were stable. Patient was seen at that time and examined by myself and she was able to workup. Stat CT scan brain performed and was unremarkable. ABG done which revealed normal PCO2 as well as reasonable PCO2 and her pH was normal. Her ammonia was elevated at 52 for which she was started on lactulose. On the night of that date, patient again became more lethargic and unresponsive. Reportedly, she went into bradycardia and then into asystole. After admission to ICU, patient's daughter decided to go with DNR CCA, no re-intubations or CPR again. Patient on June 13, 2017 at 00:[address] a.[address] was announced by Dr. Morocho.
== END 2017-06-13 03:15 | DRG 296 ==
LOC: ED 09:36 → ICU 06-07 07:20 → PCU 06-10 16:13
PROVIDERS: Hospitalist; Internal Medicine; Internal Medicine Critical Care Medicine; Psychiatry & Neurology Neurology; Admitting Provider Hospitalist; Emergency Provider Emergency Medicine; Family Provider Internal Medicine; PCP Internal Medicine; Visit Provider Hospitalist
DX: I46.9 Cardiac arrest, cause unspecified (principal); J96.21 Acute and chronic respiratory failure with hypoxia; J69.0 Pneumonitis due to inhalation of food and vomit; N18.6 End stage renal disease; G93.49 Other encephalopathy; D62 Acute posthemorrhagic anemia; L97.822 Non-pressure chronic ulcer of other part of left lower leg with fat layer exposed; I13.2 Hypertensive heart and chronic kidney disease with heart failure and with stage 5 chronic kidney disease, or end stage renal disease; I50.32 Chronic diastolic (congestive) heart failure; K52.1 Toxic gastroenteritis and colitis; R57.0 Cardiogenic shock; I25.10 Atherosclerotic heart disease of native coronary artery without angina pectoris; G40.909 Epilepsy, unspecified, not intractable, without status epilepticus; E83.51 Hypocalcemia; K00.7 Teething syndrome; E11.621 Type 2 diabetes mellitus with foot ulcer; E11.65 Type 2 diabetes mellitus with hyperglycemia; E11.622 Type 2 diabetes mellitus with other skin ulcer; E11.51 Type 2 diabetes mellitus with diabetic peripheral angiopathy without gangrene; E11.43 Type 2 diabetes mellitus with diabetic autonomic (poly)neuropathy; E11.22 Type 2 diabetes mellitus with diabetic chronic kidney disease; E11.319 Type 2 diabetes mellitus with unspecified diabetic retinopathy without macular edema; K31.84 Gastroparesis; E66.9 Obesity, unspecified; Z66 Do not resuscitate; I35.0 Nonrheumatic aortic (valve) stenosis; J44.9 Chronic obstructive pulmonary disease, unspecified; H54.8 Legal blindness, as defined in USA; I27.20 Pulmonary hypertension, unspecified; K21.9 Gastro-esophageal reflux disease without esophagitis; G47.30 Sleep apnea, unspecified; E78.5 Hyperlipidemia, unspecified; I48.2 Chronic atrial fibrillation; I48.92 Unspecified atrial flutter; R00.1 Bradycardia, unspecified; E03.9 Hypothyroidism, unspecified; L89.312 Pressure ulcer of right buttock, stage 2; T36.8X5A Adverse effect of other systemic antibiotics, initial encounter; Y92.239 Unspecified place in hospital as the place of occurrence of the external cause; D50.9 Iron deficiency anemia, unspecified; I49.5 Sick sinus syndrome; Y95 Nosocomial condition; Z68.30 Body mass index [BMI] 30.0-30.9, adult; Z98.61 Coronary angioplasty status; Z99.2 Dependence on renal dialysis; Z99.81 Dependence on supplemental oxygen; Z91.14 Patient's other noncompliance with medication regimen; Z79.82 Long term (current) use of aspirin; Z79.4 Long term (current) use of insulin; Z79.52 Long term (current) use of systemic steroids; Z79.899 Other long term (current) drug therapy; D63.1 Anemia in chronic kidney disease; I70.25 Atherosclerosis of native arteries of other extremities with ulceration; Z72.0 Tobacco use; Z95.5 Presence of coronary angioplasty implant and graft; Z91.19 Patient's noncompliance with other medical treatment and regimen
CPT/HCPCS: 31500; 31720; 36415; 36600; 70450; 70551; 71045; 80048; 80076; 80185; 80186; 81001; 82140; 82274; 82607; 82728; 82747; 82803; 82962; 83540; 83550; 83605; 83735; 84100; 84484; 85014; 85025; 85027; 87040; 87070; 87086; 87205; 87449; 87493; 87633; 87641; 90937; 92950; 93005; 93306; 94002; 94003; 94660; 94667; 94668; 95819; 95831; 97163; 97167; 97802; 97803; 99251; 99285; J7030; J7040; J7050; P9047; A4216; C1751; G0257; G0463; J2405